=== PATIENT | male | born 1950 | race African-American/Black ===

== ENCOUNTER 2017-07-03 02:06 | Emergency (ER) | payer MEDICARE, MEDICAID ==
[2017-07-03] MEDS ORDERED: MORPHINE SULFATE 10 MG/ML INJ IV ONE (02:16)
[2017-07-03] MEDS ORDERED: ONDANSETRON HCL INJ/PF 4 MG/2 ML SDV IV ONE (02:16)
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
[2017-07-03 02:34] LABS: ABSOLUTE EOSINOPHILS # (AUTO) 0.2 10^3/uL (0.0-0.6); ABSOLUTE LYMPHOCYTES (AUTO) 1.4 10^3/uL (0.5-4.7); ABSOLUTE MONOCYTES (AUTO) 0.5 10^3/uL (0.1-1.4); ABSOLUTE NEUT (AUTO) 3.8 10^3/uL (1.7-8.2); BASOPHILS % (AUTO) 0.7 % (0-2); EOSINOPHILS % (AUTO) 2.6 % (0-6); HEMATOCRIT 37.2 % (37.9-51.0); HEMOGLOBIN 12.1 g/dL (13.5-17.0); LYMPHOCYTES % (AUTO) 23.9 % (13-45); MEAN CORPUSCULAR HEMOGLOBIN 27.7 pg (27.0-33.4); MEAN CORPUSCULAR HGB CONC 32.5 g/dL (32.0-36.0); MEAN CORPUSCULAR VOLUME 85 fl (80-97); MONOCYTES % (AUTO) 8.6 % (3-13); PLATELET COUNT 214 10^3/uL (150-450); RED BLOOD COUNT 4.37 10^6/uL (4.35-5.55); RED CELL DISTRIBUTION WIDTH 13.3 % (11.5-14.0); SEGMENTED NEUTROPHILS % (AUTO) 64.2 % (42-78); TOTAL CELLS COUNTED % (AUTO) 100 %; WHITE BLOOD COUNT 5.8 10^3/uL (4.0-10.5)
[2017-07-03] MEDS ORDERED: FENTANYL CITRATE INJ/PF 100 MCG/2 ML AMPUL ONE (02:34)
[2017-07-03] MEDS ORDERED: FENTANYL CITRATE INJ/PF 100 MCG/2 ML AMPUL IV ONE (02:35)
[2017-07-03 02:51] LABS: ALANINE AMINOTRANSFERASE 25 U/L (21-72); ALBUMIN 3.9 g/dL (3.5-5.0); ALKALINE PHOSPHATASE 75 U/L (38-126); ANION GAP 9 (5-19); ASPARTATE AMINO TRANSFERASE 29 U/L (17-59); BILIRUBIN,DIRECT 0.3 mg/dL (0.0-0.4); BILIRUBIN,TOTAL 0.3 mg/dL (0.2-1.3); BLOOD UREA NITROGEN 20 mg/dL (7-20); CALCIUM 9.2 mg/dL (8.4-10.2); CARBON DIOXIDE 26 mmol/L (22-30); CHLORIDE 103 mmol/L (98-107); GLUCOSE 105 mg/dL (75-110); POTASSIUM 4.7 mmol/L (3.6-5.0); SODIUM 138.3 mmol/L (137-145); TOTAL PROTEIN 7.1 g/dL (6.3-8.2)
[2017-07-03 03:05] LABS: APPEARANCE,URINE CLOUDY; BILIRUBIN,URINE NEGATIVE (NEGATIVE); COLOR,URINE YELLOW; GLUCOSE, URINE NEGATIVE (NEGATIVE); KETONES,URINE NEGATIVE (NEGATIVE); LEUKOCYTE ESTERASE,URINE TRACE (NEGATIVE); NITRITE,URINE NEGATIVE (NEGATIVE); PROTEIN,URINE NEGATIVE (NEGATIVE); URINE SPECIFIC GRAVITY 1.019
--- NOTE | 2017-07-03 03:05 | RADIOLOGY REPORT (SQ) ---
EXAM DESCRIPTION: CT ABDOMEN AND PELVIS WITHOUT CONTRAST CLINICAL HISTORY: Left upper and lower quadrant pain. Left flank pain. COMPARISON: None Available. TECHNIQUE: CT of the abdomen and pelvis without IV contrast. FINDINGS: Abdomen: The liver has normal size and density. No calcified gallstones. The spleen, pancreas, and adrenal glands are unremarkable. Prior left nephrectomy. No right ureteral calculi identified. Aortoiliac atherosclerosis. IVC is unremarkable. No free intraperitoneal air. The stomach and duodenum have normal course. Pelvis: Prostate is not enlarged. Urinary bladder is unremarkable. No free pelvic fluid or lymphadenopathy. No dilated loops of large or small bowel. Appendix is not identified however no definite CT evidence of appendicitis. The visualized lung bases are clear. No destructive bone lesions identified. Degenerative change of the spine. Bilateral L5/S1 pars defects with grade 1 spondylolisthesis. DLP: 245.71 mGy-cm IMPRESSION: 1. No acute inflammatory or obstructive abnormality identified. This exam was performed according to our departmental dose-optimization program, which includes automated exposure control, adjustment of the mA and/or kV according to patient size and/or use of iterative reconstruction technique.
[2017-07-03 04:17] VITALS: BP 134/67
== END 2017-07-03 03:45 | disposition home or self-care (01) ==
LOC: ER 02:06
DX: M54.5 Low back pain (principal); R10.9 Unspecified abdominal pain; X50.0XXA Overexertion from strenuous movement or load, initial encounter; F17.210 Nicotine dependence, cigarettes, uncomplicated
CPT/HCPCS: 99284; 96374; 96375; 36415; 85025; 80053; 81001; 76380; J3010; J2405

== ENCOUNTER 2018-06-30 11:52 | Inpatient (IN) | payer MEDICARE, MEDICAID ==
[2018-06-30] MEDS ORDERED: MORPHINE SULFATE 10 MG/ML INJ IV ONE ×2 (12:28→16:02)
[2018-06-30 12:35] LABS: ABSOLUTE BASOPHILS # (AUTO) 0.1 10^3/uL (0.0-0.2); ABSOLUTE EOSINOPHILS # (AUTO) 0.2 10^3/uL (0.0-0.6); ABSOLUTE LYMPHOCYTES (AUTO) 1.5 10^3/uL (0.5-4.7); ABSOLUTE MONOCYTES (AUTO) 0.4 10^3/uL (0.1-1.4); ABSOLUTE NEUT (AUTO) 2.2 10^3/uL (1.7-8.2); BASOPHILS % (AUTO) 1.3 % (0-2); EOSINOPHILS % (AUTO) 4.2 % (0-6); HEMATOCRIT 38.2 % (37.9-51.0); HEMOGLOBIN 12.6 g/dL (13.5-17.0); MEAN CORPUSCULAR HEMOGLOBIN 28.4 pg (27.0-33.4); MEAN CORPUSCULAR HGB CONC 33.1 g/dL (32.0-36.0); MEAN CORPUSCULAR VOLUME 86 fl (80-97); MONOCYTES % (AUTO) 9.6 % (3-13); PLATELET COUNT 253 10^3/uL (150-450); RED BLOOD COUNT 4.46 10^6/uL (4.35-5.55); RED CELL DISTRIBUTION WIDTH 13.5 % (11.5-14.0); SEGMENTED NEUTROPHILS % (AUTO) 50.9 % (42-78); TOTAL CELLS COUNTED % (AUTO) 100 %; WHITE BLOOD COUNT 4.3 10^3/uL (4.0-10.5)
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
[2018-06-30 12:44] LABS: APPEARANCE,URINE CLEAR; BILIRUBIN,URINE NEGATIVE (NEGATIVE); COLOR,URINE YELLOW; GLUCOSE, URINE NEGATIVE (NEGATIVE); KETONES,URINE NEGATIVE (NEGATIVE); LEUKOCYTE ESTERASE,URINE NEGATIVE (NEGATIVE); NITRITE,URINE NEGATIVE (NEGATIVE); PROTEIN,URINE 30 mg/dL (NEGATIVE); URINE SPECIFIC GRAVITY 1.016; UROBILINOGEN,URINE NEGATIVE mg/dL (<2.0)
[2018-06-30 13:56] LABS: ALANINE AMINOTRANSFERASE 14 U/L (21-72); ALBUMIN 4.1 g/dL (3.5-5.0); ALKALINE PHOSPHATASE 89 U/L (38-126); ANION GAP 7 (5-19); ASPARTATE AMINO TRANSFERASE 33 U/L (17-59); BILIRUBIN,DIRECT 0.2 mg/dL (0.0-0.4); BILIRUBIN,TOTAL 0.3 mg/dL (0.2-1.3); BLOOD UREA NITROGEN 16 mg/dL (7-20); CALCIUM 9.1 mg/dL (8.4-10.2); CARBON DIOXIDE 33 mmol/L (22-30); CHLORIDE 103 mmol/L (98-107); GLUCOSE 104 mg/dL (75-110); POTASSIUM 4.8 mmol/L (3.6-5.0); SODIUM 143.1 mmol/L (137-145); TOTAL PROTEIN 7.6 g/dL (6.3-8.2)
--- NOTE | 2018-06-30 16:13 | RADIOLOGY REPORT (SQ) ---
EXAM DESCRIPTION: CT ABD/PELVIS WITH IV ORAL COMPLETED DATE/TIME: 06/30/2018 3:55 pm REASON FOR STUDY: RLQ/ periumbilical abdominal pain COMPARISON: 07/03/2017 TECHNIQUE: CT scan of the abdomen and pelvis performed with intravenous and oral contrast using pedro yohana scanning technique with dynamic intravenous contrast injection. Images reviewed with lung, soft t issue, and bone windows. Reconstructed coronal and sagittal MPR images reviewed. Delayed images for e valuation of the urinary system also acquired. All images stored on PACS. All CT scanners at this facility use dose modulation, iterative reconstruction, and/or weight based d osing when appropriate to reduce radiation dose to as low as reasonably achievable (ALARA). [facility]: Dose Right [facility]: CareDose [facility]: Dose Right [facility]: Teradose 4D [facility]: Clerts! CONTRAST TYPE AND DOSE: contrast/concentration: Isovue 350.00 mg/ml; Total Contrast Delivered: 70.0 ml; Total Saline Delivered: 65.0 ml RENAL FUNCTION: GFR > 60. RADIATION DOSE: CT Rad equipment meets quality standard of care and radiation dose reduction techniq ues were employed. CTDIvol: 5.0 - 6.2 mGy. DLP: 590 mGy-cm. . LIMITATIONS: None. FINDINGS: LOWER CHEST: No significant findings. No nodules or infiltrates. LIVER: Normal size. No masses. No dilated ducts. SPLEEN: Normal size. No focal lesions. PANCREAS: No masses. No significant calcifications. No adjacent inflammation or peripancreatic fluid collections. Pancreatic duct not dilated. GALLBLADDER: No identified stones by CT criteria. No inflammatory changes to suggest cholecystitis. ADRENAL GLANDS: No significant masses or asymmetry. RIGHT KIDNEY AND URETER: No solid masses. No significant calcifications. No hydronephrosis or hyd roureter. LEFT KIDNEY AND URETER: Prior nephrectomy. AORTA AND VESSELS: No aneurysm. No dissection. Renal arteries, SMA, celiac without stenosis. RETROPERITONEUM: No retroperitoneal adenopathy, hemorrhage or masses. BOWEL AND PERITONEAL CAVITY: Sigmoid diverticulosis. Dilated loops of small bowel with air-fluid lev els centrally. No clear transition. Gas and fecal material in the colon. No free air or ascites. APPENDIX: Not visualized. PELVIS: No significant masses. Normal bladder. No free fluid. ABDOMINAL WALL: No masses. No hernias. BONES: Nothing acute. OTHER: No other significant finding. IMPRESSION: Ileus or partial small bowel obstruction. Left nephrectomy. TECHNICAL DOCUMENTATION: JOB ID: [id number] Quality ID # [id number]: Final reports with documentation of one or more dose reduction techniques (e.g., Au tomated exposure control, adjustment of the mA and/or kV according to patient size, use of iterative reconstruction technique) 2010 [employer]- All Rights Reserved Reading location - IP/workstation name: [email or web address]
[2018-06-30] MEDS ORDERED: PHARMACY COMMUNICATION ORDER MC NR (17:15)
[2018-06-30] MEDS ORDERED: MIDAZOLAM 2 MG/2 ML INJ IV ONE (17:33)
--- NOTE | 2018-06-30 18:44 | RADIOLOGY REPORT (SQ) ---
EXAM DESCRIPTION: KUB/ABDOMEN (SINGLE VIEW) COMPLETED DATE/TIME: 06/30/2018 6:11 pm REASON FOR STUDY: Check Placement of NG Tube COMPARISON: None. NUMBER OF VIEWS: One view. TECHNIQUE: Supine radiographic image of the abdomen acquired. LIMITATIONS: None. FINDINGS: BOWEL GAS PATTERN: Few dilated mid abdominal small bowel loops. Colonic gas and fecal mat ure. CALCIFICATIONS: No suspicious calcifications. SOFT TISSUES: No gross mass or suggestion of organomegaly. HARDWARE: Surgical clips in left abdomen. Nasogastric tube tip in the stomach. BONES: No acute fracture. No worrisome bone lesions. OTHER: No other significant finding. IMPRESSION: Nasogastric tube tip in the stomach. No obvious obstruction. TECHNICAL DOCUMENTATION: JOB ID: [id number] [employer]- All Rights Reserved Reading location - IP/workstation name: [email or web address]
[2018-06-30] MEDS: DEXTROSE 5%-LACTATED RINGERS 1,000 ML IV PRN (20:28)
[2018-06-30] MEDS: KETOROLAC TROMETHAMINE INJ/PF 30 MG/1 ML SDV IV PRN (20:28)
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
[2018-07-01] MEDS: ONDANSETRON HCL INJ/PF 4 MG/2 ML SDV IV PRN ×2 (04:21→15:21)
[2018-07-01 06:21] LABS: ABSOLUTE EOSINOPHILS # (AUTO) 0.1 10^3/uL (0.0-0.6); ABSOLUTE LYMPHOCYTES (AUTO) 0.8 10^3/uL (0.5-4.7); ABSOLUTE MONOCYTES (AUTO) 0.4 10^3/uL (0.1-1.4); ABSOLUTE NEUT (AUTO) 4.8 10^3/uL (1.7-8.2); BASOPHILS % (AUTO) 0.4 % (0-2); EOSINOPHILS % (AUTO) 0.9 % (0-6); HEMATOCRIT 39.3 % (37.9-51.0); LYMPHOCYTES % (AUTO) 13.6 % (13-45); MEAN CORPUSCULAR HEMOGLOBIN 28.4 pg (27.0-33.4); MEAN CORPUSCULAR HGB CONC 33.1 g/dL (32.0-36.0); MEAN CORPUSCULAR VOLUME 86 fl (80-97); MONOCYTES % (AUTO) 6.2 % (3-13); PLATELET COUNT 222 10^3/uL (150-450); RED BLOOD COUNT 4.57 10^6/uL (4.35-5.55); RED CELL DISTRIBUTION WIDTH 13.1 % (11.5-14.0); SEGMENTED NEUTROPHILS % (AUTO) 78.9 % (42-78); TOTAL CELLS COUNTED % (AUTO) 100 %; WHITE BLOOD COUNT 6.1 10^3/uL (4.0-10.5)
[2018-07-01 06:53] LABS: ALANINE AMINOTRANSFERASE 16 U/L (21-72); ALBUMIN 3.8 g/dL (3.5-5.0); ALKALINE PHOSPHATASE 72 U/L (38-126); ANION GAP 8 (5-19); ASPARTATE AMINO TRANSFERASE 30 U/L (17-59); BILIRUBIN,DIRECT 0.3 mg/dL (0.0-0.4); BILIRUBIN,TOTAL 0.5 mg/dL (0.2-1.3); BLOOD UREA NITROGEN 15 mg/dL (7-20); CARBON DIOXIDE 31 mmol/L (22-30); CHLORIDE 102 mmol/L (98-107); GLUCOSE 121 mg/dL (75-110); POTASSIUM 4.1 mmol/L (3.6-5.0); SODIUM 140.5 mmol/L (137-145); TOTAL PROTEIN 7.2 g/dL (6.3-8.2)
[2018-07-01] MEDS: KETOROLAC TROMETHAMINE INJ/PF 30 MG/1 ML SDV IV PRN (08:09)
[2018-07-01] MEDS: ENOXAPARIN SODIUM INJ 40 MG/0.4 ML DISP.SYRIN SUBCUT SCH (09:08)
--- NOTE | 2018-07-01 09:33 | RADIOLOGY REPORT (SQ) ---
EXAM DESCRIPTION: KUB/ABDOMEN (SINGLE VIEW) COMPLETED DATE/TIME: 07/01/2018 9:05 am REASON FOR STUDY: sbo COMPARISON: CT abdomen pelvis 06/30/2018 KUB 06/30/2018 NUMBER OF VIEWS: One view. TECHNIQUE: Supine radiographic image of the abdomen acquired. LIMITATIONS: None. FINDINGS: BOWEL GAS PATTERN: Persistent dilated small bowel loops in the mid abdomen out of proporti on to colon and stomach. Findings are worrisome for persistent closed loop small-bowel obstruction o r partial small bowel obstruction. Findings discussed with Dr. Alamo. CALCIFICATIONS: No suspicious calcifications. SOFT TISSUES: No gross mass or suggestion of organomegaly. HARDWARE: Left para aortic surgical clips post nephrectomy. Nasogastric tube tip and side port in th e stomach. BONES: No acute fracture. No worrisome bone lesions. OTHER: No other significant finding. IMPRESSION: Persistent dilated mid small bowel loops worrisome for closed loop obstruction or partia l small bowel obstruction TECHNICAL DOCUMENTATION: JOB ID: [id number] [employer]- All Rights Reserved Reading location - IP/workstation name: [email or web address]
[2018-07-01] MEDS ORDERED: SUCCINYLCHOLINE CHLORIDE INJ 200 MG/10 ML VIAL ONE (10:33)
[2018-07-01] MEDS ORDERED: ROCURONIUM BROMIDE INJ 50 MG/5 ML VIAL IV ONE (10:33)
--- NOTE | 2018-07-01 11:49 | PDOC PROGRESS REPORT ---
Subjective Progress Note for:: 07/01/18 Subjective:: Patient on floor; drain 800 cc of dark gastric contents overnight. Denies flatus; still having pain in the abdomen; received Toradol before surgeon examination Reason For Visit: SMALL BOWEL OBSTRUCTION Physical Exam Vital Signs: Temp Pulse Resp BP Pulse Ox 99.1 F 96 16 168/94 H 100 07/01/18 07:45 07/01/18 07:45 07/01/18 07:45 07/01/18 07:45 07/01/18 07:45 Intake & Output 06/30/18 07/01/18 07/02/18 06:59 06:59 06:59 Intake Total 540 1000 Output Total 675 Balance -135 1000 Weight 61.9 kg General appearance: PRESENT: no acute distress GI/Abdominal exam: PRESENT: other - The abdomen is slightly distended there is diffuse tenderness but no rigidity. Groins examined and no hernia identified. Results Laboratory Results: 07/01/18 05:20 07/01/18 05:20 06/30/18 06/30/18 06/30/18 11:56 11:56 12:30 WBC 4.3 RBC 4.46 Hgb 12.6 L Hct 38.2 MCV 86 MCH 28.4 MCHC 33.1 RDW 13.5 Plt Count 253 Seg Neutrophils % 50.9 Lymphocytes % 34.0 Monocytes % 9.6 Eosinophils % 4.2 Basophils % 1.3 Absolute Neutrophils 2.2 Absolute Lymphocytes 1.5 Absolute Monocytes 0.4 Absolute Eosinophils 0.2 Absolute Basophils 0.1 Sodium Cancelled Potassium Cancelled Chloride Cancelled Carbon Dioxide Cancelled Anion Gap Cancelled BUN Cancelled Creatinine Cancelled Est GFR ( Amer) Cancelled Est GFR (Non-Af Amer) Cancelled Glucose Cancelled Calcium Cancelled Magnesium Cancelled Total Bilirubin Cancelled AST Cancelled ALT Cancelled Alkaline Phosphatase Cancelled Total Protein Cancelled Albumin Cancelled Urine Color YELLOW Urine Appearance CLEAR Urine pH 7.0 Ur Specific [place] 1.016 Urine Protein 30 H Urine Glucose (UA) NEGATIVE Urine Ketones NEGATIVE Urine Blood NEGATIVE Urine Nitrite NEGATIVE Ur Leukocyte Esterase NEGATIVE Urine WBC (Auto) 9 Urine RBC (Auto) 1 06/30/18 07/01/18 07/01/18 13:16 05:20 05:20 WBC 6.1 RBC 4.57 Hgb 13.0 L Hct 39.3 MCV 86 MCH 28.4 MCHC 33.1 RDW 13.1 Plt Count 222 Seg Neutrophils % 78.9 H Lymphocytes % 13.6 Monocytes % 6.2 Eosinophils % 0.9 Basophils % 0.4 Absolute Neutrophils 4.8 Absolute Lymphocytes 0.8 Absolute Monocytes 0.4 Absolute Eosinophils 0.1 Absolute Basophils 0.0 Sodium 143.1 140.5 Potassium 4.8 4.1 Chloride 103 102 Carbon Dioxide 33 H 31 H Anion Gap 7 8 BUN 16 15 Creatinine 0.87 0.87 Est GFR ( Amer) > 60 > 60 Est GFR (Non-Af Amer) > 60 > 60 Glucose 104 121 H Calcium 9.1 9.0 Magnesium 2.2 Total Bilirubin 0.3 0.5 AST 33 30 ALT 14 L 16 L Alkaline Phosphatase 89 72 Total Protein 7.6 7.2 Albumin 4.1 3.8 Urine Color Urine Appearance Urine pH Ur Specific [place] Urine Protein Urine Glucose (UA) Urine Ketones Urine Blood Urine Nitrite Ur Leukocyte Esterase Urine WBC (Auto) Urine RBC (Auto) Impressions: Abdomen/Pelvis CT 06/30/18 00:00 IMPRESSION: Ileus or partial small bowel obstruction. Left nephrectomy. KUB X-Ray 07/01/18 08:00 IMPRESSION: Persistent dilated mid small bowel loops worrisome for closed loop obstruction or partial small bowel obstruction Assessment & Plan - Diagnosis (1) Small bowel obstruction due to adhesions Is this a current diagnosis for this admission?: Yes Plan: Impression: Patient now 15 hours status post admission, nasogastric tube insertion IV fluids n.p.o. status for small bowel obstruction. Patient does not appear to be significantly improved clinically Recommendations: 1. Abdominal film this morning shows persisting dilated small bowel loops. 2. I have suggested we will pain medication. Patient continues to have pain, distention and no return of bowel function over the next 6 hours, he will require exploratory surgery. He understands this and agrees to proceed with recommended plan.
--- NOTE | 2018-07-01 15:34 | RADIOLOGY REPORT (SQ) ---
EXAM DESCRIPTION: UPPER GI/SM BOWEL COMPLETED DATE/TIME: 07/01/2018 REASON FOR STUDY: r/o mechanical obstruction COMPARISON: CT abdomen pelvis 07/03/2017, 07/08/2018 TECHNIQUE: Ingestion of Gastrografin while being imaged with digital spot and plain films. RADIATION DOSE: 1 minutes 27 seconds 18 digital images saved to PACS. LIMITATIONS: None FINDINGS: Gastrografin was instilled through the patient's pre-existing nasogastric tube. There is delayed gastric emptying, with decreased gastric motility. The duodenum bulb and C-loop is abnormal, with diffuse mucosal edema. Patient vomited the majority of the gastric contents by the 15 minutes film. On the 15 minutes film, there is persistent dilatation of mid small bowel loops in the mid epigastrium with air-fluid levels . Subsequent 30 minutes and 45 minutes films show persistent dilatation of mid and distal small bowel l oops in the mid epigastrium. Pooling of contrast in the stomach fundus. Nasogastric tube tip and si de port in the stomach. Clips post left nephrectomy. Results discussed with Dr. Alamo IMPRESSION: Persistent small bowel obstruction Slow gastric emptying with mucosal edema along the duodenum COMMENT: Quality ID [id number]: Final reports for procedures using fluoroscopy that document radiation exp osure indices, or exposure time and number of fluorographic images (if radiation exposure indices are not available) TECHNICAL DOCUMENTATION: JOB ID: [id number] All Rights Reserved Reading location - IP/workstation name: [email or web address]
[2018-07-01] MEDS ORDERED: FENTANYL CITRATE INJ/PF 100 MCG/2 ML AMPUL ONE ×2 (16:55→20:56)
[2018-07-01] MEDS ORDERED: ACETAMINOPHEN 1,000 MG/100 ML RTUPB IV ONE (16:56)
[2018-07-01] MEDS ORDERED: DEXAMETHASONE SOD PHOSPHATE INJ 4 MG/1 ML VIAL ONE (16:56)
[2018-07-01] MEDS ORDERED: PROPOFOL INJ 200 MG/20 ML VIAL IV ONE (16:56)
[2018-07-01] MEDS ORDERED: ONDANSETRON HCL INJ/PF 4 MG/2 ML SDV ONE (16:56)
[2018-07-01] MEDS ORDERED: HYDROMORPHONE HCL INJ/PF 2 MG/ML AMPULE ONE ×2 (16:56→20:59)
[2018-07-01] MEDS ORDERED: MIDAZOLAM 2 MG/2 ML INJ ONE (16:56)
[2018-07-01] MEDS ORDERED: AMPICILLIN SOD/SULBACTAM 1.5 GM VIAL ONE (17:52)
[2018-07-01] MEDS ORDERED: SUGAMMADEX SODIUM 200 MG/2 ML SDV IV ONE (18:24)
[2018-07-01] MEDS ORDERED: DIPHENHYDRAMINE HCL 50 MG/ML VIAL IV PRN (18:35)
[2018-07-01] MEDS ORDERED: PROMETHAZINE HCL INJ 25 MG/1 ML VIAL IV PRN (18:35)
[2018-07-01] MEDS ORDERED: MORPHINE SULFATE 10 MG/ML INJ IV PRN (18:35)
[2018-07-01] MEDS ORDERED: MEPERIDINE HCL/PF INJ 25 MG/1 ML DISP.SYRIN IV PRN (18:35)
[2018-07-01] MEDS ORDERED: FENTANYL CITRATE INJ/PF 100 MCG/2 ML AMPUL IV PRN ×3 (18:35)
[2018-07-01] MEDS ORDERED: METOPROLOL TARTRATE PF/INJ 5 MG/5 ML SDV IV ONE (20:21)
--- NOTE | 2018-07-01 20:33 | Operative Report ---
Operative Report DATE OF SURGERY: 07/01/18 PREOPERATIVE DIAGNOSIS: 1. Small bowel obstruction. 2. Previous exploratory laparotomy, left nephrectomy for blunt trauma POSTOPERATIVE DIAGNOSIS: Same including multiple abdominal wall hernias and. urethral obstruction, chronic OPERATION: 1. Exploratory laparotomy. 2. Extensive lysis of adhesions. 3. Placement of operative suprapubic catheter, 16 Sammarinese [place]. 4. Drainage of pelvis SURGEON: NOEMI ALAMO ANESTHESIA: GA TISSUE REMOVED OR ALTERED: See below COMPLICATIONS: None ESTIMATED BLOOD LOSS: 200 cc INTRAOPERATIVE FINDINGS: See below PROCEDURE: The patient was taken from the preop holding her to the main operating room wh ere general anesthesia was induced. Calvo catheter previously placed was hooked to suction. An attempt was made by the nursing staff to place a conventional 16 [place] Calvo catheter but was unsuccessful due to an obstruction at the proximal urethra. Dr. Alamo subsequently attempted to place a coud catheter for 16 Sammarinese then 18 then 20 Sammarinese and all 3 times, there was impediment to passage of the catheter at the level of the proximal urethra consistent with an obstruction. Additional attempts were made to place the coud catheter, 18 and 20 Sammar[place] respectively using the stiff, metallic stylette but again due to excessive assistance, we could not advance the catheter. Therefore this approach was aborted. Because there is no urologist available to perform additional maneuvers to i nsert a transurethral catheter, we decided to place a suprapubic catheter. Because the patient had previous extensive abdominal surgery, and because we are going to be in the peritoneal cavity, I felt that placing the suprapubic tube during the intra-abdominal portion of the procedure would be most appropriate. The abdomen was then clipped of all hair, prepped and draped in sterile fashion including the genitalia. A second surgical timeout was conducted as well as a discussion of the plan. The abdomen was now opened through the previous midline incision above and below the umbilicus for a length of approximately 25 cm. There was extensive scar tissue, including loops of small bowel and colon herniating through the anterior abdominal abdominal wall midline incision primarily in the epigastric area. Tedious dissection was required using scissor and knife to free up the small bowel loops as well as the transverse colon. We then eventually got both the left and right abdominal wall flaps elevated off of the peritoneum. We now embarked on approximately 1/2-hour extensive lysis of adhesions. Most of the adhesions were filmy, but somewhat rather tenacious. We freed up the entire length of the small bowel from the ligament of Treitz all the way to the ileocecal junction. The appendix appeared normal. We did not take the transverse colon down from the delores or the liver due to extensive adhesions in this area. Bleeding was mild at times. Periodic irrigations were performed. Of note there was no enterotomy or colotomy made during the dissection. We did take the transverse colon down off the anterior abdominal wall, and visualized and then subsequently palpated the midportion of the stomach. We confirmed the nasogastric tube to be in good position. We placed a large Ward drain to the left lower quadrant abdominal wall and tucked it into the true pelvis. Of note the patient had extensive diverticulosis of the sigmoid colon and upper rectum. We now placed the operative suprapubic catheter. A small joya was made in the skin above the pubic area, and below her midline incision. We brought onto the field a 16 Sammarinese percutaneous Hector catheter with a combined sharp trocar. We the bladder minimally from the intra-abdominal wall so that we can secure it with our hands as the bladder had some urine in the. An attempt was made to pass the catheter using the trocar through the intra-abdominal wall into the bladder but efforts were unsuccessful because of the significant scar tissue in the suprapubic area, and the elapsed state of the bladder. Therefore I felt that it was necessary to place the tube open The bladder anteriorly was from the pelvic wall such that we can Place Allis clamps on the bladder elevating it cephalad. A suitable site for placement of the suprapubic tube was chosen on the anterior lateral wall. A pursestring of 2-0 Vicryl was sewn in the external muscular layer. Hemostats and Bovie were used to enter the bladder proper. We then threaded the suprapubic catheter through the abdominal wall, and then directly into the bladder. The bladder was irrigated several times to confirm we are in the b ladder proper. I allow the tip of the catheter to sit in the deep portion of the bladder consistent with the trigone. Pursestring was secured and an additional pursestring was placed secondarily. We then allowed the bladder to come into opposition with the anterior abdominal wall. The catheter was secured at multiple sites with 2-0 Prolene suture to the patient's skin. We did irrigate the catheter out several times and once the bladder was free of any clots, which were minimal, we hooked the catheter to the standard Calvo drainage bag We returned the peritoneal cavity check for any mechanical bleeding there was none. A large piece of Seprafilm was placed over the exposed viscera and the anterior abdominal wall closed with 2 double-stranded #1 PDS sutures; Hooked the drain to bulb suction. The patient tolerated the procedure well, extubated and taken recovery room in stable condition.
[2018-07-01] MEDS ORDERED: KETOROLAC TROMETHAMINE INJ/PF 30 MG/1 ML SDV IV PRN (20:36)
[2018-07-01] MEDS ORDERED: RINGERS SOLUTION,LACTATED 1,000 ML IV PRN (20:37)
[2018-07-01] MEDS ORDERED: AMPICILLIN SODIUM/SULBACTAM NA 3 GM in NORMAL SALINE 100 ML IV SCH (22:00)
[2018-07-02] MEDS ORDERED: ACETAMINOPHEN INJ/PF 1000 MG/100 ML SDV IV SCH
[2018-07-02] MEDS: ACETAMINOPHEN 1,000 MG/100 ML RTUPB IV SCH ×5 (00:24→23:47)
[2018-07-02] MEDS: AMPICILLIN SODIUM/SULBACTAM NA 3 GM in NORMAL SALINE 100 ML IV SCH ×3 (07:25→21:00)
--- NOTE | 2018-07-02 08:46 | PDOC PROGRESS REPORT ---
Subjective Progress Note for:: 07/02/18 Reason For Visit: SMALL BOWEL OBSTRUCTION Physical Exam Vital Signs: Temp Pulse Resp BP Pulse Ox 98.2 F 95 17 154/83 H 97 07/02/18 00:35 07/02/18 00:35 07/02/18 00:35 07/02/18 00:35 07/02/18 00:35 Intake & Output 07/01/18 07/02/18 07/03/18 06:59 06:59 06:59 Intake Total 540 6537 153 Output Total 675 3340 Balance -135 3197 153 Weight 61.9 kg 63 kg General appearance: PRESENT: no acute distress Eye exam: PRESENT: EOMI Respiratory exam: PRESENT: clear to auscultation sherly, unlabored Cardiovascular exam: PRESENT: RRR Pulses: PRESENT: normal radial pulses, normal femoral pulses GI/Abdominal exam: PRESENT: soft, other - wound dry Extremities exam: PRESENT: full ROM Musculoskeletal exam: PRESENT: full ROM Results Laboratory Results: 07/01/18 05:20 07/01/18 05:20 Impressions: Abdomen/Pelvis CT 06/30/18 00:00 IMPRESSION: Ileus or partial small bowel obstruction. Left nephrectomy. KUB X-Ray 07/01/18 08:00 IMPRESSION: Persistent dilated mid small bowel loops worrisome for closed loop obstruction or partial small bowel obstruction Upper GI and Small Bowel X-Ray 07/01/18 13:22 IMPRESSION: Persistent small bowel obstruction Slow gastric emptying with mucosal edema along the duodenum Assessment & Plan - Plan Summary Plan Summary: s/p lap for lysis of adhesions s/p suprpubic cath for inablity to pass mak feels ok this am except for incisional pain no labs this am plan out of bed to chair check labs cont ng.
[2018-07-02] MEDS: MORPHINE SULFATE 10 MG/ML INJ IV PRN ×2 (09:43→18:46)
[2018-07-02] MEDS: ENOXAPARIN SODIUM INJ 40 MG/0.4 ML DISP.SYRIN SUBCUT SCH ×2 (09:43→09:46)
[2018-07-02 10:55] LABS: ABSOLUTE MONOCYTES (AUTO) 0.6 10^3/uL (0.1-1.4); ABSOLUTE NEUT (AUTO) 9.9 10^3/uL (1.7-8.2); BASOPHILS % (AUTO) 0.2 % (0-2); EOSINOPHILS % (AUTO) 0.1 % (0-6); HEMATOCRIT 35.9 % (37.9-51.0); HEMOGLOBIN 11.8 g/dL (13.5-17.0); LYMPHOCYTES % (AUTO) 9.1 % (13-45); MEAN CORPUSCULAR HEMOGLOBIN 28.4 pg (27.0-33.4); MEAN CORPUSCULAR VOLUME 86 fl (80-97); MONOCYTES % (AUTO) 5.1 % (3-13); PLATELET COUNT 209 10^3/uL (150-450); RED BLOOD COUNT 4.17 10^6/uL (4.35-5.55); RED CELL DISTRIBUTION WIDTH 13.3 % (11.5-14.0); SEGMENTED NEUTROPHILS % (AUTO) 85.5 % (42-78); TOTAL CELLS COUNTED % (AUTO) 100 %; WHITE BLOOD COUNT 11.5 10^3/uL (4.0-10.5)
[2018-07-02 11:08] LABS: BLOOD UREA NITROGEN 18 mg/dL (7-20); CALCIUM 8.5 mg/dL (8.4-10.2); GLUCOSE 103 mg/dL (75-110); POTASSIUM 4.5 mmol/L (3.6-5.0)
[2018-07-02 11:15] LABS: CARBON DIOXIDE 35 mmol/L (22-30); CHLORIDE 102 mmol/L (98-107); SODIUM 141.3 mmol/L (137-145)
[2018-07-02 11:19] LABS: ANION GAP 4 (5-19)
[2018-07-02] MEDS: DEXTROSE 5%-LACTATED RINGERS 1,000 ML IV PRN (12:08)
[2018-07-02] MEDS: HYDRALAZINE HCL INJ/PF 20 MG/1 ML SDV IV PRN (21:00)
[2018-07-03] MEDS: DEXTROSE 5%-LACTATED RINGERS 1,000 ML IV PRN (02:33)
[2018-07-03] MEDS: MORPHINE SULFATE 10 MG/ML INJ IV PRN ×2 (02:36→08:49)
[2018-07-03] MEDS: ACETAMINOPHEN 1,000 MG/100 ML RTUPB IV SCH ×3 (05:05→17:53)
[2018-07-03] MEDS: AMPICILLIN SODIUM/SULBACTAM NA 3 GM in NORMAL SALINE 100 ML IV SCH ×3 (05:20→21:24)
[2018-07-03 07:21] LABS: ABSOLUTE EOSINOPHILS # (AUTO) 0.1 10^3/uL (0.0-0.6); ABSOLUTE MONOCYTES (AUTO) 0.5 10^3/uL (0.1-1.4); ABSOLUTE NEUT (AUTO) 5.4 10^3/uL (1.7-8.2); BASOPHILS % (AUTO) 0.6 % (0-2); EOSINOPHILS % (AUTO) 1.7 % (0-6); HEMATOCRIT 30.6 % (37.9-51.0); HEMOGLOBIN 10.1 g/dL (13.5-17.0); LYMPHOCYTES % (AUTO) 14.8 % (13-45); MEAN CORPUSCULAR HEMOGLOBIN 28.5 pg (27.0-33.4); MEAN CORPUSCULAR HGB CONC 32.9 g/dL (32.0-36.0); MEAN CORPUSCULAR VOLUME 87 fl (80-97); MONOCYTES % (AUTO) 6.4 % (3-13); PLATELET COUNT 167 10^3/uL (150-450); RED BLOOD COUNT 3.52 10^6/uL (4.35-5.55); RED CELL DISTRIBUTION WIDTH 13.2 % (11.5-14.0); SEGMENTED NEUTROPHILS % (AUTO) 76.5 % (42-78); TOTAL CELLS COUNTED % (AUTO) 100 %; WHITE BLOOD COUNT 7.1 10^3/uL (4.0-10.5)
[2018-07-03 07:40] LABS: BLOOD UREA NITROGEN 14 mg/dL (7-20); CALCIUM 8.3 mg/dL (8.4-10.2); GLUCOSE 93 mg/dL (75-110); POTASSIUM 4.1 mmol/L (3.6-5.0)
[2018-07-03 07:46] LABS: ANION GAP 6 (5-19); CARBON DIOXIDE 32 mmol/L (22-30); CHLORIDE 102 mmol/L (98-107)
[2018-07-03] MEDS: ENOXAPARIN SODIUM INJ 40 MG/0.4 ML DISP.SYRIN SUBCUT SCH (09:12)
--- NOTE | 2018-07-03 11:29 | PDOC PROGRESS REPORT ---
Subjective Progress Note for:: 07/03/18 Reason For Visit: SMALL BOWEL OBSTRUCTION Physical Exam Vital Signs: Temp Pulse Resp BP Pulse Ox 98.0 F 97 17 165/86 H 94 07/03/18 07:40 07/03/18 07:40 07/03/18 07:40 07/03/18 07:40 07/03/18 07:40 Intake & Output 07/02/18 07/03/18 07/04/18 06:59 06:59 06:59 Intake Total 6546 1853 Output Total 3349 9880 Balance 3197 -216 Weight 63 kg 68.1 kg Results Laboratory Results: 07/03/18 07:06 07/03/18 07:06 07/03/18 07/03/18 07:06 07:06 WBC 7.1 RBC 3.52 L Hgb 10.1 L Hct 30.6 L MCV 87 MCH 28.5 MCHC 32.9 RDW 13.2 Plt Count 167 Seg Neutrophils % 76.5 Lymphocytes % 14.8 Monocytes % 6.4 Eosinophils % 1.7 Basophils % 0.6 Absolute Neutrophils 5.4 Absolute Lymphocytes 1.0 Absolute Monocytes 0.5 Absolute Eosinophils 0.1 Absolute Basophils 0.0 Sodium 140.0 Potassium 4.1 Chloride 102 Carbon Dioxide 32 H Anion Gap 6 BUN 14 Creatinine 0.89 Est GFR ( Amer) > 60 Est GFR (Non-Af Amer) > 60 Glucose 93 Calcium 8.3 L Impressions: Abdomen/Pelvis CT 06/30/18 00:00 IMPRESSION: Ileus or partial small bowel obstruction. Left nephrectomy. KUB X-Ray 07/01/18 08:00 IMPRESSION: Persistent dilated mid small bowel loops worrisome for closed loop obstruction or partial small bowel obstruction Upper GI and Small Bowel X-Ray 07/01/18 13:22 IMPRESSION: Persistent small bowel obstruction Slow gastric emptying with mucosal edema along the duodenum Assessment & Plan - Diagnosis (1) Small bowel obstruction due to adhesions Is this a current diagnosis for this admission?: Yes - Plan Summary Plan Summary: 67-year-old male status post exploratory laparotomy for small bowel obstruction. The patient also had a suprapubic catheter placed due to urinary obstruction. The patient is doing reasonably well today. His pain is relatively well controlled. I have encouraged him to increase his ambulation today. I have also recommended he use his incentive spirometer. Maintain NG tube until bowel function returns. Aggressive pulmonary toilet. Okay for popsicles and ice chips. Okay to shower. Repeat labs tomorrow. DVT prophylaxis.
[2018-07-03] MEDS: KETOROLAC TROMETHAMINE INJ/PF 30 MG/1 ML SDV IV SCH ×2 (13:30→21:25)
[2018-07-03] MEDS: FAMOTIDINE INJ/PF 20 MG/2 ML SDV IV SCH ×2 (13:36→21:25)
[2018-07-04] MEDS: ACETAMINOPHEN 1,000 MG/100 ML RTUPB IV SCH ×5 (01:35→20:51)
[2018-07-04 05:26] LABS: ABSOLUTE EOSINOPHILS # (AUTO) 0.4 10^3/uL (0.0-0.6); ABSOLUTE LYMPHOCYTES (AUTO) 1.2 10^3/uL (0.5-4.7); ABSOLUTE MONOCYTES (AUTO) 0.4 10^3/uL (0.1-1.4); ABSOLUTE NEUT (AUTO) 3.7 10^3/uL (1.7-8.2); BASOPHILS % (AUTO) 0.6 % (0-2); EOSINOPHILS % (AUTO) 6.3 % (0-6); HEMATOCRIT 30.6 % (37.9-51.0); HEMOGLOBIN 10.1 g/dL (13.5-17.0); LYMPHOCYTES % (AUTO) 20.9 % (13-45); MEAN CORPUSCULAR HEMOGLOBIN 28.3 pg (27.0-33.4); MEAN CORPUSCULAR HGB CONC 33.1 g/dL (32.0-36.0); MEAN CORPUSCULAR VOLUME 86 fl (80-97); MONOCYTES % (AUTO) 7.5 % (3-13); PLATELET COUNT 197 10^3/uL (150-450); RED BLOOD COUNT 3.57 10^6/uL (4.35-5.55); RED CELL DISTRIBUTION WIDTH 12.9 % (11.5-14.0); SEGMENTED NEUTROPHILS % (AUTO) 64.7 % (42-78); TOTAL CELLS COUNTED % (AUTO) 100 %; WHITE BLOOD COUNT 5.8 10^3/uL (4.0-10.5)
[2018-07-04 05:42] LABS: BLOOD UREA NITROGEN 10 mg/dL (7-20); CALCIUM 8.4 mg/dL (8.4-10.2); GLUCOSE 96 mg/dL (75-110); POTASSIUM 3.9 mmol/L (3.6-5.0)
[2018-07-04 05:48] LABS: CARBON DIOXIDE 34 mmol/L (22-30); CHLORIDE 102 mmol/L (98-107); SODIUM 139.6 mmol/L (137-145)
[2018-07-04 05:51] LABS: ANION GAP 4 (5-19)
[2018-07-04] MEDS: DEXTROSE 5%-LACTATED RINGERS 1,000 ML IV PRN ×2 (06:19→20:51)
[2018-07-04] MEDS: KETOROLAC TROMETHAMINE INJ/PF 30 MG/1 ML SDV IV SCH ×3 (06:19→22:16)
[2018-07-04] MEDS: HYDRALAZINE HCL INJ/PF 20 MG/1 ML SDV IV PRN ×2 (08:01→11:14)
[2018-07-04] MEDS: ENOXAPARIN SODIUM INJ 40 MG/0.4 ML DISP.SYRIN SUBCUT SCH (09:33)
[2018-07-04] MEDS: FAMOTIDINE INJ/PF 20 MG/2 ML SDV IV SCH ×2 (09:47→22:16)
[2018-07-04] MEDS: MORPHINE SULFATE 10 MG/ML INJ IV PRN (12:40)
--- NOTE | 2018-07-04 14:13 | PDOC PROGRESS REPORT ---
Subjective Reason For Visit: SMALL BOWEL OBSTRUCTION Physical Exam Vital Signs: Temp Pulse Resp BP Pulse Ox 98.0 F 96 16 148/81 H 98 07/04/18 11:10 07/04/18 11:45 07/04/18 11:10 07/04/18 11:45 07/04/18 11:10 Intake & Output 07/03/18 07/04/18 07/05/18 06:59 06:59 06:59 Intake Total 1853 1860 Output Total 2120 2440 Balance -267 -580 Weight 68.1 kg 67.2 kg Results Laboratory Results: 07/04/18 05:16 07/04/18 05:16 07/04/18 07/04/18 05:16 05:16 WBC 5.8 RBC 3.57 L Hgb 10.1 L Hct 30.6 L MCV 86 MCH 28.3 MCHC 33.1 RDW 12.9 Plt Count 197 Seg Neutrophils % 64.7 Lymphocytes % 20.9 Monocytes % 7.5 Eosinophils % 6.3 H Basophils % 0.6 Absolute Neutrophils 3.7 Absolute Lymphocytes 1.2 Absolute Monocytes 0.4 Absolute Eosinophils 0.4 Absolute Basophils 0.0 Sodium 139.6 Potassium 3.9 Chloride 102 Carbon Dioxide 34 H Anion Gap 4 L BUN 10 Creatinine 0.88 Est GFR ( Amer) > 60 Est GFR (Non-Af Amer) > 60 Glucose 96 Calcium 8.4 Impressions: Abdomen/Pelvis CT 06/30/18 00:00 IMPRESSION: Ileus or partial small bowel obstruction. Left nephrectomy. KUB X-Ray 07/01/18 08:00 IMPRESSION: Persistent dilated mid small bowel loops worrisome for closed loop obstruction or partial small bowel obstruction Upper GI and Small Bowel X-Ray 07/01/18 13:22 IMPRESSION: Persistent small bowel obstruction Slow gastric emptying with mucosal edema along the duodenum Assessment & Plan - Diagnosis (1) Small bowel obstruction due to adhesions Is this a current diagnosis for this admission?: Yes - Plan Summary Plan Summary: 67-year-old male status post exploratory laparotomy for small bowel obstruction. The patient also had a suprapubic catheter placed due to urinary obstruction. The patient is doing reasonably well today. His pain is relatively well controlled. I have encouraged him to increase his ambulation today. I have also recommended he use his incentive spirometer. He denies flatus or BM. Maintain NG tube until bowel function returns. Aggressive pulmonary toilet. Okay for popsicles and ice chips. Okay to shower. Repeat labs tomorrow. DVT prophylaxis.
[2018-07-05] MEDS: ACETAMINOPHEN 1,000 MG/100 ML RTUPB IV SCH ×4 (02:13→21:33)
[2018-07-05] MEDS: KETOROLAC TROMETHAMINE INJ/PF 30 MG/1 ML SDV IV SCH ×3 (05:07→21:34)
[2018-07-05 06:44] LABS: ABSOLUTE EOSINOPHILS # (AUTO) 0.4 10^3/uL (0.0-0.6); ABSOLUTE LYMPHOCYTES (AUTO) 1.1 10^3/uL (0.5-4.7); ABSOLUTE MONOCYTES (AUTO) 0.4 10^3/uL (0.1-1.4); ABSOLUTE NEUT (AUTO) 3.2 10^3/uL (1.7-8.2); BASOPHILS % (AUTO) 0.9 % (0-2); HEMATOCRIT 30.9 % (37.9-51.0); HEMOGLOBIN 10.1 g/dL (13.5-17.0); LYMPHOCYTES % (AUTO) 21.2 % (13-45); MEAN CORPUSCULAR HEMOGLOBIN 27.9 pg (27.0-33.4); MEAN CORPUSCULAR HGB CONC 32.7 g/dL (32.0-36.0); MEAN CORPUSCULAR VOLUME 85 fl (80-97); MONOCYTES % (AUTO) 8.1 % (3-13); PLATELET COUNT 213 10^3/uL (150-450); RED BLOOD COUNT 3.62 10^6/uL (4.35-5.55); RED CELL DISTRIBUTION WIDTH 12.7 % (11.5-14.0); SEGMENTED NEUTROPHILS % (AUTO) 62.8 % (42-78); TOTAL CELLS COUNTED % (AUTO) 100 %; WHITE BLOOD COUNT 5.1 10^3/uL (4.0-10.5)
[2018-07-05 07:00] LABS: BLOOD UREA NITROGEN 13 mg/dL (7-20); CALCIUM 8.5 mg/dL (8.4-10.2); GLUCOSE 106 mg/dL (75-110); POTASSIUM 3.9 mmol/L (3.6-5.0)
[2018-07-05 07:06] LABS: ANION GAP 5 (5-19); CARBON DIOXIDE 30 mmol/L (22-30); CHLORIDE 103 mmol/L (98-107); SODIUM 138.1 mmol/L (137-145)
--- NOTE | 2018-07-05 07:59 | PDOC PROGRESS REPORT ---
Subjective Progress Note for:: 07/05/18 Reason For Visit: SMALL BOWEL OBSTRUCTION Physical Exam Vital Signs: Temp Pulse Resp BP Pulse Ox 98.4 F 82 17 146/77 H 98 07/04/18 23:35 07/04/18 23:35 07/04/18 23:35 07/04/18 23:35 07/04/18 23:35 Intake & Output 07/04/18 07/05/18 07/06/18 06:59 06:59 06:59 Intake Total 1860 1812 Output Total 2440 1999 Balance -580 -188 Weight 67.2 kg 65.7 kg General appearance: PRESENT: no acute distress Head exam: PRESENT: normocephalic Eye exam: PRESENT: conjunctiva pink Respiratory exam: PRESENT: clear to auscultation sherly Cardiovascular exam: PRESENT: RRR Pulses: PRESENT: normal radial pulses, normal femoral pulses GI/Abdominal exam: PRESENT: other - abd sl softer, but still distended, tympanitic Neurological exam: PRESENT: alert, awake, oriented to person Skin exam: PRESENT: dry Results Laboratory Results: 07/05/18 06:32 07/05/18 06:32 07/05/18 07/05/18 06:32 06:32 WBC 5.1 RBC 3.62 L Hgb 10.1 L Hct 30.9 L MCV 85 MCH 27.9 MCHC 32.7 RDW 12.7 Plt Count 213 Seg Neutrophils % 62.8 Lymphocytes % 21.2 Monocytes % 8.1 Eosinophils % 7.0 H Basophils % 0.9 Absolute Neutrophils 3.2 Absolute Lymphocytes 1.1 Absolute Monocytes 0.4 Absolute Eosinophils 0.4 Absolute Basophils 0.0 Sodium 138.1 Potassium 3.9 Chloride 103 Carbon Dioxide 30 Anion Gap 5 BUN 13 Creatinine 0.91 Est GFR ( Amer) > 60 Est GFR (Non-Af Amer) > 60 Glucose 106 Calcium 8.5 Impressions: Abdomen/Pelvis CT 06/30/18 00:00 IMPRESSION: Ileus or partial small bowel obstruction. Left nephrectomy. KUB X-Ray 07/01/18 08:00 IMPRESSION: Persistent dilated mid small bowel loops worrisome for closed loop obstruction or partial small bowel obstruction Upper GI and Small Bowel X-Ray 07/01/18 13:22 IMPRESSION: Persistent small bowel obstruction Slow gastric emptying with mucosal edema along the duodenum Assessment & Plan - Inpatient Certification Medical Necessity: Need For IV Fluids - Plan Summary Plan Summary: passed flatus abd still sl distended and tympaintic will start ng clamp trial today cont ivf
[2018-07-05] MEDS: DEXTROSE 5%-LACTATED RINGERS 1,000 ML IV PRN (08:38)
[2018-07-05] MEDS: FAMOTIDINE INJ/PF 20 MG/2 ML SDV IV SCH ×2 (08:38→21:33)
[2018-07-05] MEDS: ENOXAPARIN SODIUM INJ 40 MG/0.4 ML DISP.SYRIN SUBCUT SCH (08:38)
[2018-07-05] MEDS: HYDRALAZINE HCL INJ/PF 20 MG/1 ML SDV IV PRN (10:28)
[2018-07-05] MEDS: MORPHINE SULFATE 10 MG/ML INJ IV PRN (20:32)
[2018-07-06] MEDS: ACETAMINOPHEN 1,000 MG/100 ML RTUPB IV SCH ×4 (03:22→21:17)
[2018-07-06] MEDS: KETOROLAC TROMETHAMINE INJ/PF 30 MG/1 ML SDV IV SCH (05:49)
[2018-07-06 08:08] LABS: ABSOLUTE EOSINOPHILS # (AUTO) 0.3 10^3/uL (0.0-0.6); ABSOLUTE LYMPHOCYTES (AUTO) 1.1 10^3/uL (0.5-4.7); ABSOLUTE MONOCYTES (AUTO) 0.4 10^3/uL (0.1-1.4); ABSOLUTE NEUT (AUTO) 2.7 10^3/uL (1.7-8.2); BASOPHILS % (AUTO) 0.9 % (0-2); EOSINOPHILS % (AUTO) 6.4 % (0-6); HEMOGLOBIN 10.6 g/dL (13.5-17.0); LYMPHOCYTES % (AUTO) 24.8 % (13-45); MEAN CORPUSCULAR HEMOGLOBIN 28.4 pg (27.0-33.4); MEAN CORPUSCULAR HGB CONC 33.1 g/dL (32.0-36.0); MEAN CORPUSCULAR VOLUME 86 fl (80-97); MONOCYTES % (AUTO) 8.6 % (3-13); PLATELET COUNT 247 10^3/uL (150-450); RED BLOOD COUNT 3.74 10^6/uL (4.35-5.55); RED CELL DISTRIBUTION WIDTH 12.9 % (11.5-14.0); SEGMENTED NEUTROPHILS % (AUTO) 59.3 % (42-78); TOTAL CELLS COUNTED % (AUTO) 100 %; WHITE BLOOD COUNT 4.6 10^3/uL (4.0-10.5)
[2018-07-06] MEDS: HYDRALAZINE HCL INJ/PF 20 MG/1 ML SDV IV PRN (08:21)
[2018-07-06 08:31] LABS: ANION GAP 5 (5-19); BLOOD UREA NITROGEN 12 mg/dL (7-20); CALCIUM 8.9 mg/dL (8.4-10.2); CARBON DIOXIDE 29 mmol/L (22-30); CHLORIDE 104 mmol/L (98-107); GLUCOSE 105 mg/dL (75-110); SODIUM 138.1 mmol/L (137-145)
--- NOTE | 2018-07-06 08:55 | PDOC PROGRESS REPORT ---
Subjective Progress Note for:: 07/06/18 Subjective:: Feels well. Passing gas. Hungry. Reason For Visit: SMALL BOWEL OBSTRUCTION Physical Exam Vital Signs: Temp Pulse Resp BP Pulse Ox 97.8 F 78 18 170/88 H 99 07/06/18 07:57 07/06/18 07:57 07/06/18 07:57 07/06/18 07:57 07/06/18 07:57 Intake & Output 07/05/18 07/06/18 07/07/18 06:59 06:59 06:59 Intake Total 1812 1068 100 Output Total 1999 1010 5 Balance -188 58 95 Weight 65.7 kg 65.9 kg General appearance: PRESENT: no acute distress, cooperative Respiratory exam: PRESENT: clear to auscultation sherly Cardiovascular exam: PRESENT: RRR GI/Abdominal exam: PRESENT: other - Soft, nondistended, nontender to palpation. Active bowel sounds. STEPHANIE drain output is slightly blood-tinged but mostly serosanguineous. Extremities exam: PRESENT: other - No swelling and no tenderness Results Laboratory Results: 07/06/18 07:39 07/06/18 07:39 07/06/18 07/06/18 07:39 07:39 WBC 4.6 RBC 3.74 L Hgb 10.6 L Hct 32.0 L MCV 86 MCH 28.4 MCHC 33.1 RDW 12.9 Plt Count 247 Seg Neutrophils % 59.3 Lymphocytes % 24.8 Monocytes % 8.6 Eosinophils % 6.4 H Basophils % 0.9 Absolute Neutrophils 2.7 Absolute Lymphocytes 1.1 Absolute Monocytes 0.4 Absolute Eosinophils 0.3 Absolute Basophils 0.0 Sodium 138.1 Potassium 4.0 Chloride 104 Carbon Dioxide 29 Anion Gap 5 BUN 12 Creatinine 0.97 Est GFR ( Amer) > 60 Est GFR (Non-Af Amer) > 60 Glucose 105 Calcium 8.9 Impressions: Abdomen/Pelvis CT 06/30/18 00:00 IMPRESSION: Ileus or partial small bowel obstruction. Left nephrectomy. KUB X-Ray 07/01/18 08:00 IMPRESSION: Persistent dilated mid small bowel loops worrisome for closed loop obstruction or partial small bowel obstruction Upper GI and Small Bowel X-Ray 07/01/18 13:22 IMPRESSION: Persistent small bowel obstruction Slow gastric emptying with mucosal edema along the duodenum Assessment & Plan - Diagnosis (1) Small bowel obstruction due to adhesions Is this a current diagnosis for this admission?: Yes Plan: Status post lysis of adhesions. Patient doing well. NG output is minimal upon placement to suction after clamping yesterday. Patient has evidence of return of bowel function. Will DC NG tube and place him on clear liquids. Will DC his STEPHANIE drain.
[2018-07-06] MEDS: FAMOTIDINE INJ/PF 20 MG/2 ML SDV IV SCH ×2 (09:13→21:18)
[2018-07-06] MEDS: ENOXAPARIN SODIUM INJ 40 MG/0.4 ML DISP.SYRIN SUBCUT SCH (09:13)
[2018-07-06] MEDS: MORPHINE SULFATE 10 MG/ML INJ IV PRN ×2 (13:36→19:28)
[2018-07-07 05:35] LABS: ABSOLUTE EOSINOPHILS # (AUTO) 0.3 10^3/uL (0.0-0.6); ABSOLUTE LYMPHOCYTES (AUTO) 1.5 10^3/uL (0.5-4.7); ABSOLUTE MONOCYTES (AUTO) 0.5 10^3/uL (0.1-1.4); ABSOLUTE NEUT (AUTO) 2.3 10^3/uL (1.7-8.2); EOSINOPHILS % (AUTO) 6.8 % (0-6); HEMATOCRIT 32.6 % (37.9-51.0); HEMOGLOBIN 10.8 g/dL (13.5-17.0); LYMPHOCYTES % (AUTO) 32.7 % (13-45); MEAN CORPUSCULAR HGB CONC 33.1 g/dL (32.0-36.0); MEAN CORPUSCULAR VOLUME 85 fl (80-97); MONOCYTES % (AUTO) 9.8 % (3-13); PLATELET COUNT 237 10^3/uL (150-450); RED BLOOD COUNT 3.85 10^6/uL (4.35-5.55); RED CELL DISTRIBUTION WIDTH 13.1 % (11.5-14.0); SEGMENTED NEUTROPHILS % (AUTO) 49.7 % (42-78); TOTAL CELLS COUNTED % (AUTO) 100 %; WHITE BLOOD COUNT 4.6 10^3/uL (4.0-10.5)
[2018-07-07 05:54] LABS: ANION GAP 6 (5-19); BLOOD UREA NITROGEN 15 mg/dL (7-20); CARBON DIOXIDE 30 mmol/L (22-30); CHLORIDE 101 mmol/L (98-107); GLUCOSE 86 mg/dL (75-110); SODIUM 137.3 mmol/L (137-145)
[2018-07-07 06:00] LABS: POTASSIUM 4.6 mmol/L (3.6-5.0)
[2018-07-07] MEDS: MORPHINE SULFATE 10 MG/ML INJ IV PRN ×2 (08:46→17:52)
[2018-07-07] MEDS: ENOXAPARIN SODIUM INJ 40 MG/0.4 ML DISP.SYRIN SUBCUT SCH (10:29)
[2018-07-07] MEDS: FAMOTIDINE INJ/PF 20 MG/2 ML SDV IV SCH ×2 (10:30→21:03)
--- NOTE | 2018-07-07 21:40 | PDOC PROGRESS REPORT ---
Subjective Progress Note for:: 07/07/18 Subjective:: no pains. Has flatus. Tolerated regular diet Reason For Visit: SMALL BOWEL OBSTRUCTION Physical Exam Vital Signs: Temp Pulse Resp BP Pulse Ox 98.4 F 87 16 134/80 H 97 07/07/18 15:04 07/07/18 15:04 07/07/18 15:04 07/07/18 15:04 07/07/18 15:04 Intake & Output 07/06/18 07/07/18 07/08/18 06:59 06:59 06:59 Intake Total 1068 2045 843 Output Total 1010 1005 500 Balance 58 1040 343 Weight 65.9 kg 64.8 kg Exam: abdomen is soft and non tender Results Laboratory Results: 07/07/18 04:08 07/07/18 04:08 07/07/18 07/07/18 04:08 04:08 WBC 4.6 RBC 3.85 L Hgb 10.8 L Hct 32.6 L MCV 85 MCH 28.0 MCHC 33.1 RDW 13.1 Plt Count 237 Seg Neutrophils % 49.7 Lymphocytes % 32.7 Monocytes % 9.8 Eosinophils % 6.8 H Basophils % 1.0 Absolute Neutrophils 2.3 Absolute Lymphocytes 1.5 Absolute Monocytes 0.5 Absolute Eosinophils 0.3 Absolute Basophils 0.0 Sodium 137.3 Potassium 4.6 Chloride 101 Carbon Dioxide 30 Anion Gap 6 BUN 15 Creatinine 1.00 Est GFR ( Amer) > 60 Est GFR (Non-Af Amer) > 60 Glucose 86 Calcium 9.0 Impressions: Abdomen/Pelvis CT 06/30/18 00:00 IMPRESSION: Ileus or partial small bowel obstruction. Left nephrectomy. KUB X-Ray 07/01/18 08:00 IMPRESSION: Persistent dilated mid small bowel loops worrisome for closed loop obstruction or partial small bowel obstruction Upper GI and Small Bowel X-Ray 07/01/18 13:22 IMPRESSION: Persistent small bowel obstruction Slow gastric emptying with mucosal edema along the duodenum Assessment & Plan - Time Time Spent with patient: 15-24 minutes - Plan Summary Plan Summary: For possible transfer to [facility] tomorrow.
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
[2018-07-08 06:29] LABS: ABSOLUTE EOSINOPHILS # (AUTO) 0.2 10^3/uL (0.0-0.6); ABSOLUTE LYMPHOCYTES (AUTO) 1.2 10^3/uL (0.5-4.7); ABSOLUTE MONOCYTES (AUTO) 0.5 10^3/uL (0.1-1.4); BASOPHILS % (AUTO) 0.5 % (0-2); EOSINOPHILS % (AUTO) 4.2 % (0-6); HEMATOCRIT 29.9 % (37.9-51.0); LYMPHOCYTES % (AUTO) 24.7 % (13-45); MEAN CORPUSCULAR HEMOGLOBIN 28.3 pg (27.0-33.4); MEAN CORPUSCULAR HGB CONC 33.5 g/dL (32.0-36.0); MEAN CORPUSCULAR VOLUME 84 fl (80-97); MONOCYTES % (AUTO) 10.1 % (3-13); PLATELET COUNT 249 10^3/uL (150-450); RED BLOOD COUNT 3.55 10^6/uL (4.35-5.55); SEGMENTED NEUTROPHILS % (AUTO) 60.5 % (42-78); TOTAL CELLS COUNTED % (AUTO) 100 %; WHITE BLOOD COUNT 4.9 10^3/uL (4.0-10.5)
[2018-07-08 06:39] LABS: ANION GAP 6 (5-19); BLOOD UREA NITROGEN 18 mg/dL (7-20); CALCIUM 8.6 mg/dL (8.4-10.2); CARBON DIOXIDE 29 mmol/L (22-30); CHLORIDE 103 mmol/L (98-107); GLUCOSE 91 mg/dL (75-110); POTASSIUM 4.6 mmol/L (3.6-5.0); SODIUM 138.1 mmol/L (137-145)
[2018-07-08] MEDS: HYDRALAZINE HCL INJ/PF 20 MG/1 ML SDV IV PRN (07:58)
[2018-07-08] MEDS: MORPHINE SULFATE 10 MG/ML INJ IV PRN ×2 (08:30→16:17)
[2018-07-08] MEDS: FAMOTIDINE INJ/PF 20 MG/2 ML SDV IV SCH (09:12)
[2018-07-08] MEDS: ENOXAPARIN SODIUM INJ 40 MG/0.4 ML DISP.SYRIN SUBCUT SCH (09:12)
[2018-07-08 12:02] VITALS: BP 135/69
--- NOTE | 2018-07-08 16:23 | RADIOLOGY REPORT (SQ) ---
EXAM DESCRIPTION: KUB/ABDOMEN (SINGLE VIEW) COMPLETED DATE/TIME: 07/08/2018 4:14 pm REASON FOR STUDY: No BM 3 days post-surgery COMPARISON: KUB 07/01/2018, 06/30/2018 Upper GI 07/01/2018 NUMBER OF VIEWS: One view. TECHNIQUE: Supine radiographic image of the abdomen acquired. LIMITATIONS: None. FINDINGS: BOWEL GAS PATTERN: Oral contrast from upper GI 07/01/2018 is seen in the colon in a nonobst ructive bowel gas pattern. Few air-filled nondistended small bowel loops in the mid abdomen. Midlin e surgical pattie. CALCIFICATIONS: No suspicious calcifications. SOFT TISSUES: No gross mass or suggestion of organomegaly. HARDWARE: Clips left upper quadrant post nephrectomy. Midline skin pattie BONES: No acute fracture. No worrisome bone lesions. OTHER: Findings discussed with Dr. Mora IMPRESSION: NO RADIOGRAPHIC EVIDENCE FOR ACUTE ABDOMINAL DISEASE. TECHNICAL DOCUMENTATION: JOB ID: [id number] [employer]- All Rights Reserved Reading location - IP/workstation name: [email or web address]
== END 2018-07-08 17:03 | DRG 337 ==
LOC: ER 11:52 → EH 17:26 → 4W 19:50
PROVIDERS: ADMIT Surgery; ATTEND Surgery
PROC: 0D9670Z Drainage of Stomach with Drainage Device, Via Natural or Artificial Opening (ICD-10-PCS; 2018-06-30)
PROC: 0DN80ZZ Release Small Intestine, Open Approach (ICD-10-PCS; 2018-07-01)
PROC: 0T9B00Z Drainage of Bladder with Drainage Device, Open Approach (ICD-10-PCS; 2018-07-01)
PROC: 0W9F00Z Drainage of Abdominal Wall with Drainage Device, Open Approach (ICD-10-PCS; 2018-07-01)
PROC: 0DNL0ZZ Release Transverse Colon, Open Approach (ICD-10-PCS; principal; 2018-07-01 16:30)
DX: K56.51 Intestinal adhesions [bands], with partial obstruction (principal); N36.8 Other specified disorders of urethra; I10 Essential (primary) hypertension; G89.29 Other chronic pain; K57.30 Diverticulosis of large intestine without perforation or abscess without bleeding; K59.00 Constipation, unspecified; K44.9 Diaphragmatic hernia without obstruction or gangrene; Z90.5 Acquired absence of kidney; F17.200 Nicotine dependence, unspecified, uncomplicated
CPT/HCPCS: 36415; 74018; 74177; 74249; 790; 80048; 80053; 81001; 82962; 83735; 85025; 94799; 96374; 96376; 99285; C1729; C1758; C1765; J0131; J0295; J0330; J0360; J1100; J1170; J1650; J1885; J2250; J2270; J2405; J2704; J3010; J3490; S0028

== ENCOUNTER 2018-10-25 09:08 | Emergency (ER) | payer MEDICARE, MEDICAID ==
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
[2018-10-25 10:03] LABS: ABSOLUTE EOSINOPHILS # (AUTO) 0.1 10^3/uL (0.0-0.6); ABSOLUTE LYMPHOCYTES (AUTO) 1.2 10^3/uL (0.5-4.7); ABSOLUTE MONOCYTES (AUTO) 0.4 10^3/uL (0.1-1.4); ABSOLUTE NEUT (AUTO) 3.1 10^3/uL (1.7-8.2); BASOPHILS % (AUTO) 0.7 % (0-2); EOSINOPHILS % (AUTO) 2.8 % (0-6); HEMATOCRIT 36.5 % (37.9-51.0); HEMOGLOBIN 11.8 g/dL (13.5-17.0); LYMPHOCYTES % (AUTO) 24.2 % (13-45); MEAN CORPUSCULAR HGB CONC 32.4 g/dL (32.0-36.0); MEAN CORPUSCULAR VOLUME 83 fl (80-97); MONOCYTES % (AUTO) 8.7 % (3-13); PLATELET COUNT 237 10^3/uL (150-450); RED BLOOD COUNT 4.39 10^6/uL (4.35-5.55); RED CELL DISTRIBUTION WIDTH 14.1 % (11.5-14.0); SEGMENTED NEUTROPHILS % (AUTO) 63.6 % (42-78); TOTAL CELLS COUNTED % (AUTO) 100 %; WHITE BLOOD COUNT 4.8 10^3/uL (4.0-10.5)
[2018-10-25] MEDS ORDERED: KETOROLAC TROMETHAMINE INJ/PF 30 MG/1 ML SDV IV ONE (10:15)
[2018-10-25] MEDS ORDERED: NORMAL SALINE 1000 ML 1,000 ML IV ONE (10:15)
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
[2018-10-25 10:26] LABS: ALANINE AMINOTRANSFERASE 99 U/L (21-72); ALBUMIN 3.5 g/dL (3.5-5.0); ALKALINE PHOSPHATASE 111 U/L (38-126); ANION GAP 5 (5-19); ASPARTATE AMINO TRANSFERASE 60 U/L (17-59); BILIRUBIN,DIRECT 0.3 mg/dL (0.0-0.4); BILIRUBIN,TOTAL 0.4 mg/dL (0.2-1.3); BLOOD UREA NITROGEN 14 mg/dL (7-20); CALCIUM 8.9 mg/dL (8.4-10.2); CARBON DIOXIDE 31 mmol/L (22-30); CHLORIDE 102 mmol/L (98-107); GLUCOSE 93 mg/dL (75-110); LIPASE 74.9 U/L (23-300); POTASSIUM 4.4 mmol/L (3.6-5.0); SODIUM 137.8 mmol/L (137-145); TOTAL PROTEIN 7.2 g/dL (6.3-8.2)
[2018-10-25 11:47] LABS: APPEARANCE,URINE CLEAR; BILIRUBIN,URINE NEGATIVE (NEGATIVE); COLOR,URINE STRAW; GLUCOSE, URINE NEGATIVE (NEGATIVE); KETONES,URINE NEGATIVE (NEGATIVE); LEUKOCYTE ESTERASE,URINE TRACE (NEGATIVE); NITRITE,URINE NEGATIVE (NEGATIVE); PROTEIN,URINE NEGATIVE (NEGATIVE); URINE SPECIFIC GRAVITY 1.016; UROBILINOGEN,URINE NEGATIVE mg/dL (<2.0)
--- NOTE | 2018-10-25 12:00 | RADIOLOGY REPORT (SQ) ---
EXAM DESCRIPTION: CTA ABDOMEN/PELVIS W WO COMPLETED DATE/TIME: 10/25/2018 11:16 am REASON FOR STUDY: AAA COMPARISON: 06/30/2018 TECHNIQUE: CT scan of the abdominal aorta extending to the iliac bifurcation performed with intraven ous contrast using helical scanning technique with dynamic intravenous contrast injection. Images rev iewed with lung, soft tissue, and bone windows. Reconstructed coronal and sagittal MPR images reviewe d. All images stored on PACS. Advanced 3D imaging as volume rendering, MIPS, SSD performed? yes All CT scanners at this facility use dose modulation, iterative reconstruction, and/or weight based d osing when appropriate to reduce radiation dose to as low as reasonably achievable (ALARA). [facility]: Dose Right [facility]: CareDose [facility]: Dose Right [facility]: Teradose 4D [facility]: Md7 CONTRAST TYPE AND DOSE: contrast/concentration: Isovue 350.00 mg/ml; Total Contrast Delivered: 72.0 ml; Total Saline Delivered: 67.0 ml RENAL FUNCTION: BUN 14 creatinine 0.86 LIMITATIONS: None. FINDINGS: AORTA AND VESSELS: No aneurysm. No dissection. Renal arteries, SMA, celiac without stenosi s. LUNG BASES: Pulmonary vascular congestion. Small right pleural effusion. LIVER: Normal size. No masses or dilated ducts. SPLEEN: Normal size. No focal lesions. PANCREAS: No masses. No significant calcifications. No adjacent inflammation or peripancreatic fluid collections. Pancreatic duct not dilated. GALLBLADDER: No identified stones by CT criteria. No inflammatory changes to suggest cholecystitis. ADRENAL GLANDS: No significant masses or asymmetry. RIGHT KIDNEY AND URETER: No mass, calculi or urinary tract obstruction. LEFT KIDNEY AND URETER: Surgically absent. RETROPERITONEUM: No retroperitoneal adenopathy, hemorrhage or masses. BOWEL AND PERITONEAL CAVITY: No masses or inflammatory changes. No free fluid or peritoneal masses. APPENDIX: Not seen. ABDOMINAL WALL: No masses. No hernias. BONY STRUCTURES: No significant or acute findings. 3-D IMAGING: Confirms the above findings. OTHER: No other significant finding. IMPRESSION: There is no aortic aneurysm or dissection. There is pulmonary vascular congestion. Sma ll right pleural effusion is present. No acute finding is seen in the abdomen or pelvis. TECHNICAL DOCUMENTATION: JOB ID: [id number] Quality ID # [id number]: Final reports with documentation of one or more dose reduction techniques (e.g., Au tomated exposure control, adjustment of the mA and/or kV according to patient size, use of iterative reconstruction technique) 2010 [employer]- All Rights Reserved Reading location - IP/workstation name: [email or web address]
[2018-10-25] MEDS ORDERED: CEPHALEXIN 500 MG CAPSULE PO ONE (12:26)
[2018-10-25 12:43] VITALS: BP 135/82
== END 2018-10-25 12:41 | disposition home or self-care (01) ==
LOC: ER 09:08
DX: N39.0 Urinary tract infection, site not specified (principal); R10.9 Unspecified abdominal pain; I10 Essential (primary) hypertension; J90 Pleural effusion, not elsewhere classified; R09.89 Other specified symptoms and signs involving the circulatory and respiratory systems; F17.200 Nicotine dependence, unspecified, uncomplicated; F14.10 Cocaine abuse, uncomplicated; R79.89 Other specified abnormal findings of blood chemistry; Z87.442 Personal history of urinary calculi; Z90.5 Acquired absence of kidney; Z87.19 Personal history of other diseases of the digestive system
CPT/HCPCS: 99284; 96361; 96374; 36415; 83690; 85025; 80053; 81001; 74174; A9270; J1885; J7030

== ENCOUNTER 2018-10-27 14:54 | Emergency (ER) | payer MEDICARE, MEDICAID ==
[2018-10-27 15:22] VITALS: BP 163/100
== END 2018-10-27 16:57 | disposition left against medical advice (07) ==
LOC: ER 14:54
DX: Z53.21 Procedure and treatment not carried out due to patient leaving prior to being seen by health care provider (principal); R39.198 Other difficulties with micturition

== ENCOUNTER 2018-10-28 14:03 | Observation (INO) | payer MEDICARE, MEDICAID ==
[2018-10-28 15:42] LABS: HEMATOCRIT 36.2 % (37.9-51.0); HEMOGLOBIN 11.7 g/dL (13.5-17.0); MEAN CORPUSCULAR HEMOGLOBIN 27.1 pg (27.0-33.4); MEAN CORPUSCULAR HGB CONC 32.4 g/dL (32.0-36.0); MEAN CORPUSCULAR VOLUME 84 fl (80-97); PLATELET COUNT 285 10^3/uL (150-450); RED BLOOD COUNT 4.34 10^6/uL (4.35-5.55); RED CELL DISTRIBUTION WIDTH 14.2 % (11.5-14.0); WHITE BLOOD COUNT 4.3 10^3/uL (4.0-10.5)
[2018-10-28 16:02] LABS: ALANINE AMINOTRANSFERASE 52 U/L (21-72); ALBUMIN 3.6 g/dL (3.5-5.0); ALKALINE PHOSPHATASE 79 U/L (38-126); ANION GAP 6 (5-19); ASPARTATE AMINO TRANSFERASE 28 U/L (17-59); BILIRUBIN,DIRECT 0.2 mg/dL (0.0-0.4); BILIRUBIN,TOTAL 0.4 mg/dL (0.2-1.3); BLOOD UREA NITROGEN 17 mg/dL (7-20); CALCIUM 9.2 mg/dL (8.4-10.2); CARBON DIOXIDE 32 mmol/L (22-30); CHLORIDE 101 mmol/L (98-107); CREATINE KINASE 93 U/L (55-170); POTASSIUM 4.4 mmol/L (3.6-5.0); SODIUM 139.1 mmol/L (137-145); TOTAL PROTEIN 7.2 g/dL (6.3-8.2)
[2018-10-28 16:07] LABS: GLUCOSE 63 mg/dL (75-110)
[2018-10-28 16:15] LABS: CREATINE KINASE MB 1.03 ng/mL (<4.55)
[2018-10-28] MEDS: IPRATROPIUM/ALBUTEROL 0.5-2.5 MG/3 ML AMPUL NEB SCH ×2 (16:15→23:56)
[2018-10-28 16:18] LABS: TROPONIN I < 0.012 ng/mL
[2018-10-28 16:19] LABS: FREE T4 (FREE THYROXINE) 1.21 ng/dL (0.78-2.19)
[2018-10-28 16:33] LABS: THYROID STIMULATING HORMONE 3.56 uIU/mL (0.47-4.68)
[2018-10-28] MEDS: 1/2 NORMAL SALINE 1,000 ML IV PRN (17:01)
--- NOTE | 2018-10-28 17:24 | RADIOLOGY REPORT (SQ) ---
EXAM DESCRIPTION: CTA CHEST COMPLETED DATE/TIME: 10/28/2018 5:08 pm REASON FOR STUDY: shortness of breath COMPARISON: None. TECHNIQUE: CT scan of the chest performed using helical scanning technique with dynamic intravenous contrast injection. Images reviewed with lung, soft tissue and bone windows. Reconstructed coronal and sagittal MPR images reviewed. Additional 3 dimensional post-processing performed to develop Maximal Intensity Projection images (RI P). All images stored on PACS. All CT scanners at this facility use dose modulation, iterative reconstruction, and/or weight based d osing when appropriate to reduce radiation dose to as low as reasonably achievable (ALARA). [facility]: Dose Right [facility]: CareDose [facility]: Dose Right [facility]: Teradose 4D [facility]: GoodApril CONTRAST TYPE AND DOSE: contrast/concentration: Isovue 350.00 mg/ml; Total Contrast Delivered: 62.0 ml; Total Saline Delivered: 107.0 ml Contrast bolus optimized for the pulmonary arteries. Not diagnostic for the aorta. RENAL FUNCTION: BUN 17 creatinine 0.96 RADIATION DOSE: CT Rad equipment meets quality standard of care and radiation dose reduction techniq ues were employed. CTDIvol: 7.8 - 18.8 mGy. DLP: 324 mGy-cm. . LIMITATIONS: None. FINDINGS: LUNGS AND PLEURA: Small right pleural effusion. No infiltrate or mass. AORTA AND GREAT VESSELS: No aneurysm. Contrast bolus not optimized for the aorta. HEART: No pericardial effusion. No significant coronary artery calcifications. PULMONARY ARTERIES: No emboli visualized in the main pulmonary arteries or the segmental branches. HILAR AND MEDIASTINAL STRUCTURES: Mediastinal adenopathy. There is a precarinal node that measures 1 7 mm in short axis. HARDWARE: None in the chest. UPPER ABDOMEN: No significant findings. Limited exam. THYROID AND OTHER SOFT TISSUES: No masses. No adenopathy. BONES: No acute or significant finding. 3D MIPS: Confirm above findings. OTHER: No other significant finding. IMPRESSION: There is no evidence of pulmonary embolus. There is a small right pleural effusion. Th ere is mild mediastinal adenopathy. COMMENT: Quality ID # [id number]: Final reports with documentation of one or more dose reduction techniques (e.g., Automated exposure control, adjustment of the mA and/or kV according to patient size, use of iterative reconstruction technique) TECHNICAL DOCUMENTATION: JOB ID: [id number]- All Rights Reserved Reading location - IP/workstation name: [email or web address]
[2018-10-28] MEDS ORDERED: ALBUTEROL SULFATE 0.083% NEB 2.5 MG/3 ML AMPUL NEB PRN (19:00)
--- NOTE | 2018-10-28 19:36 | EKG REPORT ---
SEVERITY:- ABNORMAL ECG - SINUS RHYTHM PROBABLE LEFT ATRIAL ABNORMALITY LEFT VENTRICULAR HYPERTROPHY ABNORMAL T, CONSIDER ISCHEMIA, ANTERIOR LEADS : Confirmed by: Yoselin Goldstein MD 28-Oct-2018 19:35:14
[2018-10-28 23:58] LABS: CREATINE KINASE MB 0.82 ng/mL (<4.55)
[2018-10-28 23:59] LABS: TROPONIN I < 0.012 ng/mL
[2018-10-29 07:54] LABS: CREATINE KINASE MB 0.75 ng/mL (<4.55)
[2018-10-29 08:02] LABS: TROPONIN I < 0.012 ng/mL
[2018-10-29] MEDS: 1/2 NORMAL SALINE 1,000 ML IV PRN (08:08)
[2018-10-29] MEDS: IPRATROPIUM/ALBUTEROL 0.5-2.5 MG/3 ML AMPUL NEB SCH (08:31)
--- NOTE | 2018-10-29 17:26 | PDOC H&P ---
History of Present Illness Admission Date/PCP: 10/28/18 14:03 LARRY QUEEN MD History of Present Illness: FERNANDO BHATIA is a 68 year old male,He came to the office for evaluation of shortness of breath, there was no chest pain, the cause of the shortness of breath was not apparent in the office, he was admitted directly from the office into the hospital for further evaluation and management. CTA chest was done, it demonstrated small right pleural effusion, there is no infiltrate no mass there is no aneurysm there was no emboli visualized in the main pulmonary arteries or segmental branches. The twelve-lead EKG that was done revealed sinus rhythm symmetrical she would be inversion in precordial leads V2 to V4 suspicious for ischemia. He has no chest pain but he has risk factors for ischemic heart disease patient is a smoker. A full lung function test was done, the spirometry demonstrated obstructive lung disease, the FEV1/FVC ratio does not meet the criteria for COPD but the FEV1 was very diminished compared to predicted FEV1. Past Medical History Cardiac Medical History: Reports: Hypertension Pulmonary Medical History: Neurological Medical History: GI Medical History: Reports: Hiatal Hernia Musculoskeltal Medical History: Reports: Arthritis - KNEES, USES CANE AND WALKER Past Surgical History Past Surgical History: Reports: Herniorrhaphy, Other - Laparotomy with nephrectomy for blunt trauma Social History Smoking Status: Current Every Day Smoker Cigarettes Packs Per Day: 0.3 Frequency of Alcohol Use: Occasional Hx Recreational Drug Use: No Drugs: None Hx Prescription Drug Abuse: No Family History Family History: Reviewed & Not Pertinent Parental Family History Reviewed: Yes Children Family History Reviewed: Yes Sibling(s) Family History Reviewed.: Yes Medication/Allergy Home Medications: Cephalexin [Cephalexin 500 MG Tablet] 500 mg PO Q6 10/29/18 Allergies/Adverse Reactions: No Known Allergies Allergy (Verified 10/27/18 14:56) Review of Systems Constitutional: ABSENT: chills, fever(s), headache(s), weight gain, weight loss Eyes: ABSENT: visual disturbances Ears: ABSENT: hearing changes Cardiovascular: PRESENT: dyspnea on exertion. ABSENT: chest pain, edema, orthropnea, palpitations Respiratory: PRESENT: dyspnea. ABSENT: cough, hemoptysis Gastrointestinal: ABSENT: abdominal pain, constipation, diarrhea, hematemesis, hematochezia, nausea, vomiting Genitourinary: ABSENT: dysuria, hematuria Musculoskeletal: ABSENT: joint swelling Integumentary: ABSENT: rash, wounds Neurological: ABSENT: abnormal gait, abnormal speech, confusion, dizziness, focal weakness, syncope Psychiatric: ABSENT: anxiety, depression, homidical ideation, suicidal ideation Endocrine: ABSENT: cold intolerance, heat intolerance, menstrual abnormalities, polydipsia, polyuria Hematologic/Lymphatic: ABSENT: easy bleeding, easy bruising, lymphadenopathy Physical Exam Vital Signs: Temp Pulse Resp BP Pulse Ox 97.6 F 81 16 158/82 H 96 10/29/18 13:42 10/29/18 14:00 10/29/18 13:42 10/29/18 13:42 10/29/18 13:42 Intake & Output 10/28/18 10/29/18 10/30/18 06:59 06:59 06:59 Intake Total 1168 1000 Balance 1168 1000 Weight 62 kg General appearance: PRESENT: no acute distress, well-developed, well-nourished Head exam: PRESENT: atraumatic, normocephalic Eye exam: PRESENT: conjunctiva pink, EOMI, PERRLA Ear exam: PRESENT: normal external ear exam Mouth exam: PRESENT: moist, tongue midline Neck exam: PRESENT: full ROM Respiratory exam: PRESENT: clear to auscultation sherly Cardiovascular exam: PRESENT: RRR, +S1, +S2 Pulses: PRESENT: normal dorsalis pedis pul, +2 pedal pulses bilateral Vascular exam: PRESENT: normal capillary refill GI/Abdominal exam: PRESENT: normal bowel sounds, soft Rectal exam: PRESENT: deferred Neurological exam: PRESENT: alert, awake, oriented to person, oriented to place, oriented to time, oriented to situation, CN II-XII grossly intact Psychiatric exam: PRESENT: appropriate affect, normal mood Skin exam: PRESENT: dry, intact, warm Results Laboratory Results: 10/28/18 15:36 10/28/18 15:36 10/28/18 10/28/18 10/28/18 15:36 15:36 23:23 Creatine Kinase 93 71 CK-MB (CK-2) 1.03 Troponin I < 0.012 10/28/18 10/29/18 10/29/18 23:23 06:53 06:53 Creatine Kinase 65 CK-MB (CK-2) 0.82 0.75 Troponin I < 0.012 < 0.012 Impressions: Chest/Abdomen CTA 10/28/18 00:00 IMPRESSION: There is no evidence of pulmonary embolus. There is a small right pleural effusion. There is mild mediastinal adenopathy. Assessment & Plan - Diagnosis (1) Shortness of breath Is this a current diagnosis for this admission?: Yes Plan: The differential diagnosis is long, it includes COPD, ischemic heart disease, anemia, PE. Pulmonary embolism is rule out at least large pulmonary embolus. The EKG demonstrated symmetrical T wave inversion in precordial leads, and this patient with risk factor for ischemia especially smoking tobacco for many years, patient will be scheduled for cardiac stress test. He also of evidence of obstruction on spirometry he will be started on Trelegy
[2018-10-29] MEDS: FLUTICASONE/UMECLIDIN/VILANTER 100-62.5-25 MCG/DOSE IH SCH (20:05)
[2018-10-30] MEDS: 1/2 NORMAL SALINE 1,000 ML IV PRN ×2 (03:54→18:01)
[2018-10-30] MEDS: FLUTICASONE/UMECLIDIN/VILANTER 100-62.5-25 MCG/DOSE IH SCH (09:29)
--- NOTE | 2018-10-30 11:25 | PDOC PROGRESS REPORT ---
Subjective Progress Note for:: 10/30/18 Subjective:: Patient is currently feeling better Patient CT angiogram is negative for PE patient have a 54-year history of the smoking Patient does not like the current inhaler Patient scheduled for the stress test on a Thursday Reason For Visit: SHORTNESS OF BREATH, UNKNOWN CANCER, UNKNOWN PE Physical Exam Vital Signs: Temp Pulse Resp BP Pulse Ox 97.6 F 88 16 162/96 H 97 10/30/18 08:19 10/30/18 08:19 10/30/18 08:19 10/30/18 08:19 10/30/18 08:19 Intake & Output 10/29/18 10/30/18 10/31/18 06:59 06:59 06:59 Intake Total 1168 3409 Balance 1168 3409 Weight 62 kg 65.4 kg General appearance: PRESENT: no acute distress, well-developed, well-nourished Head exam: PRESENT: atraumatic, normocephalic Eye exam: PRESENT: conjunctiva pink, EOMI, PERRLA. ABSENT: scleral icterus Ear exam: PRESENT: normal external ear exam Mouth exam: PRESENT: moist, tongue midline Neck exam: PRESENT: full ROM. ABSENT: carotid bruit, JVD, lymphadenopathy, thyromegaly Respiratory exam: PRESENT: clear to auscultation sherly Cardiovascular exam: PRESENT: RRR. ABSENT: diastolic murmur, rubs, systolic murmur Pulses: PRESENT: normal dorsalis pedis pul, +2 pedal pulses bilateral Vascular exam: PRESENT: normal capillary refill GI/Abdominal exam: PRESENT: normal bowel sounds, soft. ABSENT: distended, guarding, mass, organolmegaly, rebound, tenderness Rectal exam: PRESENT: deferred Neurological exam: PRESENT: alert, awake, oriented to person, oriented to place, oriented to time, oriented to situation, CN II-XII grossly intact. ABSENT: m otor sensory deficit Psychiatric exam: PRESENT: appropriate affect, normal mood. ABSENT: homicidal ideation, suicidal ideation Skin exam: PRESENT: dry, intact, warm. ABSENT: cyanosis, rash Results Laboratory Results: 10/28/18 15:36 10/28/18 15:36 10/28/18 10/28/18 10/28/18 15:36 15:36 23:23 Creatine Kinase 93 71 CK-MB (CK-2) 1.03 Troponin I < 0.012 10/28/18 10/29/18 10/29/18 23:23 06:53 06:53 Creatine Kinase 65 CK-MB (CK-2) 0.82 0.75 Troponin I < 0.012 < 0.012 Impressions: Chest/Abdomen CTA 10/28/18 00:00 IMPRESSION: There is no evidence of pulmonary embolus. There is a small right pleural effusion. There is mild mediastinal adenopathy. Assessment & Plan - Diagnosis (1) Chronic obstructive pulmonary disease Qualifiers: Emphysema type: unspecified Is this a current diagnosis for this admission?: Yes Plan: This does not like the tetralogy will change the Advair and Spiriva (2) Shortness of breath Is this a current diagnosis for this admission?: Yes Plan: Most likely from the COPD will wait for the stress test to rule out underlying coronary disease (3) Hypertension Qualifiers: Hypertension type: unspecified Qualified Code(s): I10 - Essential (primary) hypertension Is this a current diagnosis for this admission?: Yes - Time Time Spent with patient: 15-24 minutes Medications reviewed and adjusted accordingly: Yes Anticipated discharge: Home Within: Other - Plan Summary Plan Summary: Continues to current medication
[2018-10-31] MEDS: FLUTICASONE/UMECLIDIN/VILANTER 100-62.5-25 MCG/DOSE IH SCH (10:02)
[2018-10-31] MEDS: 1/2 NORMAL SALINE 1,000 ML IV PRN (10:03)
--- NOTE | 2018-10-31 10:58 | PDOC PROGRESS REPORT ---
Subjective Progress Note for:: 10/31/18 Subjective:: Patient is currently feeling better Patient CT angiogram is negative for PE patient have a 54-year history of the smoking Patient does not like the current inhaler Patient scheduled for the stress test on a Thursday Reason For Visit: SHORTNESS OF BREATH, UNKNOWN CANCER, UNKNOWN PE Physical Exam Vital Signs: Temp Pulse Resp BP Pulse Ox 97.7 F 104 H 16 143/94 H 98 10/31/18 07:04 10/31/18 07:04 10/31/18 07:04 10/31/18 07:04 10/31/18 07:04 Intake & Output 10/30/18 10/31/18 11/01/18 06:59 06:59 06:59 Intake Total 3409 1708 1000 Balance 3409 1708 1000 Weight 65.4 kg 61.9 kg General appearance: PRESENT: no acute distress, well-developed, well-nourished Head exam: PRESENT: atraumatic, normocephalic Eye exam: PRESENT: conjunctiva pink, EOMI, PERRLA. ABSENT: scleral icterus Ear exam: PRESENT: normal external ear exam Mouth exam: PRESENT: moist, tongue midline Neck exam: PRESENT: full ROM. ABSENT: carotid bruit, JVD, lymphadenopathy, thyromegaly Respiratory exam: PRESENT: clear to auscultation sherly Cardiovascular exam: PRESENT: RRR. ABSENT: diastolic murmur, rubs, systolic murmur Pulses: PRESENT: normal dorsalis pedis pul, +2 pedal pulses bilateral Vascular exam: PRESENT: normal capillary refill GI/Abdominal exam: PRESENT: normal bowel sounds, soft. ABSENT: distended, guarding, mass, organolmegaly, rebound, tenderness Rectal exam: PRESENT: deferred Extremities exam: ABSENT: pedal edema Musculoskeletal exam: PRESENT: ambulatory Neurological exam: PRESENT: alert, awake, oriented to person, oriented to place, oriented to time, oriented to situation, CN II-XII grossly intact. ABSENT: motor sensory deficit Psychiatric exam: PRESENT: appropriate affect, normal mood. ABSENT: homicidal ideation, suicidal ideation Skin exam: PRESENT: dry, intact, warm. ABSENT: cyanosis, rash Results Laboratory Results: 10/28/18 15:36 10/28/18 15:36 10/28/18 10/28/18 10/28/18 15:36 15:36 23:23 Creatine Kinase 93 71 CK-MB (CK-2) 1.03 Troponin I < 0.012 10/28/18 10/29/18 10/29/18 23:23 06:53 06:53 Creatine Kinase 65 CK-MB (CK-2) 0.82 0.75 Troponin I < 0.012 < 0.012 Impressions: Chest/Abdomen CTA 10/28/18 00:00 IMPRESSION: There is no evidence of pulmonary embolus. There is a small right pleural effusion. There is mild mediastinal adenopathy. Assessment & Plan - Diagnosis (1) Chronic obstructive pulmonary disease Qualifiers: Emphysema type: unspecified Is this a current diagnosis for this admission?: Yes Plan: This does not like the tetralogy will change the Advair and Spiriva (2) Shortness of breath Is this a current diagnosis for this admission?: Yes Plan: Most likely from the COPD will wait for the stress test to rule out underlying coronary disease (3) Hypertension Qualifiers: Hypertension type: unspecified Qualified Code(s): I10 - Essential (primary) hypertension Is this a current diagnosis for this admission?: Yes - Time Time Spent with patient: 15-24 minutes Medications reviewed and adjusted accordingly: Yes Anticipated discharge: Home Within: Other - Plan Summary Plan Summary: Patient is scheduled for the stress test in the morning
[2018-11-01] MEDS: FLUTICASONE/UMECLIDIN/VILANTER 100-62.5-25 MCG/DOSE IH SCH (09:55)
[2018-11-02] MEDS: FLUTICASONE/UMECLIDIN/VILANTER 100-62.5-25 MCG/DOSE IH SCH (10:46)
[2018-11-02] MEDS ORDERED: REGADENOSON INJ 0.4 MG/5 ML DISP.SYRIN IV ONE (11:27)
--- NOTE | 2018-11-02 16:45 | PDOC DISCHARGE SUMMARY ---
General - Admit/Disc Date/PCP Admission Date/Primary Care Provider: 10/28/18 14:03 LARRY QUEEN MD Discharge Date: 11/02/18 - Discharge Diagnosis (1) Shortness of breath Is this a current diagnosis for this admission?: Yes (2) Chronic obstructive pulmonary disease Is this a current diagnosis for this admission?: Yes - Additional Information Prescriptions: Atorvastatin Calcium [Lipitor 20 mg Tablet] 20 mg PO QHS #90 tablet Albuterol Sulfate [Albuterol Sulfate Hfa] 8.5 gm IH Q6H PRN #2 hfa.aer.ad PRN Reason: Aspirin [Aspirin 81 mg Chewable Tablet] 81 mg PO DAILY #90 Fluticasone/Umeclidin/Vilanter [Trelegy 100-62.5-25 Mcg Ellipta 14 Dose/Dpi] 1 inh IH DAILY #1 inhaler Metoprolol Succinate 100 mg PO DAILY #90 tab.er.24h Home Medications: Albuterol Sulfate [Albuterol Sulfate Hfa] 8.5 gm IH Q6H PRN #2 hfa.aer.ad 11/02/18 Aspirin [Aspirin 81 mg Chewable Tablet] 81 mg PO DAILY #90 11/02/18 Atorvastatin Calcium [Lipitor 20 mg Tablet] 20 mg PO QHS #90 tablet 11/02/18 Fluticasone/Umeclidin/Vilanter [Trelegy 100-62.5-25 Mcg Ellipta 14 Dose/Dpi] 1 inh IH DAILY #1 inhaler 11/02/18 Metoprolol Succinate 100 mg PO DAILY #90 tab.er.24h 11/02/18 History of Present Illness History of Present Illness: FERNANDO BHATIA is a 68 year old male,He came to the office for evaluation of shortness of breath, there was no chest pain, the cause of the shortness of breath was not apparent in the office, he was admitted directly from the office into the hospital for further evaluation and management. CTA chest was done, it demonstrated small right pleural effusion, there is no infiltrate no mass there is no aneurysm there was no emboli visualized in the main pulmonary arteries or segmental branches. The twelve-lead EKG that was done revealed sinus rhythm symmetrical she would be inversion in precordial leads V2 to V4 suspicious for ischemia. He has no chest pain but he has risk factors for ischemic heart disease patient is a smoker. A full lung function test was done, the spirometry demonstrated obstructive lung disease, the FEV1/FVC ratio does not meet the criteria for COPD but the FEV1 was very diminished compared to predicted FEV1. Hospital Course Hospital Course: Patient was admitted for the management of shortness of breath, he was evaluated, CTA chest was done, negative for pulmonary embolism, he underwent Cardiolite stress test today, it demonstrated mild ischemia, he will be managed medically.He was supposed to have the stress test yesterday but he had a meal,so the Stress test was done today, it was negative for the most part other than mild ischemia Physical Exam Vital Signs: Temp Pulse Resp BP Pulse Ox 97.3 F 71 16 104/79 100 11/02/18 08:21 11/02/18 08:21 11/02/18 08:21 11/02/18 08:21 11/02/18 08:21 Intake & Output 11/01/18 11/02/18 11/03/18 06:59 06:59 06:59 Intake Total 2002 1140 Balance 2002 1140 Weight 61.9 kg 60.3 kg General appearance: PRESENT: no acute distress Eye exam: PRESENT: PERRLA Respiratory exam: PRESENT: clear to auscultation sherly Cardiovascular exam: PRESENT: +S1, +S2 GI/Abdominal exam: PRESENT: soft Neurological exam: PRESENT: alert Results Laboratory Results: 10/28/18 15:36 10/28/18 15:36 10/28/18 10/28/18 10/28/18 15:36 15:36 23:23 Creatine Kinase 93 71 CK-MB (CK-2) 1.03 Troponin I < 0.012 10/28/18 10/29/18 10/29/18 23:23 06:53 06:53 Creatine Kinase 65 CK-MB (CK-2) 0.82 0.75 Troponin I < 0.012 < 0.012 Impressions: Chest/Abdomen CTA 10/28/18 00:00 IMPRESSION: There is no evidence of pulmonary embolus. There is a small right pleural effusion. There is mild mediastinal adenopathy. Qualifiers - * PATIENT BEING DISCHARGED WITH ANY OF THE FOLLOWING DIAGNOSIS: No VTE patient discharged on overlapping Therapy?: No Reason(s) for not prescribing Overlap Therapy:: Not indicated Stroke Pt being discharged on Anti-thrombolytic therapy?: No Reason(s) for not prescribing Anti-thrombolytic therapy:: Not indicated Stroke Pt being discharged on Anti-coagulation therapy?: No Reason(s) for not prescribing Anti-coagulation therapy:: Not indicated Stroke Pt being discharged on Statins?: No Reason(s) for not prescribing Statins therapy:: Not indicated AK Pt being discharged on Aspirin therapy?: No Reason(s) for not prescribing Aspirin therapy:: Not indicated AK Pt being discharged on Statins?: No Reason(s) for not prescribing Statin therapy:: Not indicated AK Pt discharged ACEI/ARBS?: No Reason(s) for not prescribing ACEI/ARBS:: Not indicated Acute Heart Failure - Is this a Heart Failure Patient?: No 3. Anticoagulant therapy for permanect/persistent/paraoxysmal Afib or Aflutter: N/A
--- NOTE | 2018-11-02 16:57 | Pulmonary Function Test ---
Pulmonary Function Test Date of Procedure:: 11/02/18 INDICATION:: Cough cough Referring Provider: Dr. Sade Negrete Live Ammunition Inspector: Maryjane Winn ENVIRONMENTAL ANALYST - Report Spirometry: Spirometry: pre-FVC: 1.03 L 66% post-FVC 2.38 L 78% pre-FEV:1 1.47 L 61% post-FEV1; 1.73 L 71% pre-FEV1/FVC % 72 post-FEV1/FVC% 73 predicted 79 [id number]% 1.10 L 44% [id number]% 1.26L 51% Lung Volume: Total lung capacity: 3.69 L 69% Vital capacity: 2.39 L 78% Inspiratory capacity: 1.32 L FRC N2: 2.38 L 72% ERV: 0.75 L RV: 1.30 L 59% RV/TLC %: 35 predicted 41 Diffusion Capactity: Diffusion Capacity: DLCO; 16.3 102% DLCO/VA; 4.52 125% Impression: Mild obstructive ventilatory defect with good response to bronchodilator therapy. Mild restrictive ventilatory defect no hyperinflation or air trapping normal. (Restrictive defect may mask the degree of obstruction.) Normal diffusion capacity
[2018-11-02 21:01] VITALS: BP 114/52
--- NOTE | 2018-11-03 22:44 | XCELERA REPORT ---
[address] [address] Transthoracic Echocardiogram Report Name: FERNANDO BHATIA Age: 68 yrs Gender: Male : 1950 Patient Status: Inpatient Patient Location: [address] [place] [address] Study Date: 10/28/2018 08:05 PM Height: 65 in Weight: 138 lb BSA: 1.7 m2 Procedure: A complete two-dimensional transthoracic echocardiogram was performed (2D, M-mode, spectral and color flow Doppler). The study was technically adequate with some images being suboptimal in quality. Reason For Study: chf Ordering Physician: LARRY QUEEN Performed By: Gracia Mills Interpretation Summary Left ventricular systolic function is mildly reduced. The Ejection Fraction estimate is 45-50% Doppler measurements suggest pseudonormalized left ventricular relaxation, which is associated with grade II/IV or mild to moderate diastolic dysfunction Not all wall segments were well visualized. There is borderline concentric left ventricular hypertrophy. The left ventricle is grossly normal size. The right ventricular systolic function is normal. Borderline right ventricular enlargement. Borderline right atrial enlargement. The left atrium is borderline dilated. There is a moderate amount of mitral regurgitation There is no mitral valve stenosis. There is a mild amount of aortic regurgitation There is no aortic valve stenosis There is a mild to moderate amount of tricuspid regurgitation Right ventricular systolic pressure is estimated to be elevated at 40-50mmHg. There is mild to moderate pulmonary hypertension by echo The aortic root is not well visualized but is probably normal size. The inferior vena cava was not well visualized There is no pericardial effusion. MMode/2D Measurements & Calculations RVDd: 2.7 cm LVIDd: 5.4 cm FS: 26.5 % Ao root diam: 2.5 cm IVSd: 0.96 cm LVIDs: 3.9 cm EDV(Teich): Ao root area: 138.4 ml LVPWd: 0.96 cm 5.0 cm2 ESV(Teich): 67.3 mlLA dimension: 3.8 cm EF(Teich): 51.4 % LVLd ap4: 7.7 cm SV(MOD-sp4): EDV(MOD-sp4): 49.0 ml 98.0 ml LVLs ap4: 6.3 cm ESV(MOD-sp4): 49.0 ml EF(MOD-sp4): 50.0 % Doppler Measurements & Calculations MV E max seble: MV P1/2t max seble: Ao V2 max: AI max seble: 57.8 cm/sec 93.7 cm/sec 114.0 cm/sec 400.4 cm/sec MV A max seble: MV P1/2t: 39.8 msec Ao max PG: AI max P.1 mmHg 70.1 cm/sec 5.2 mmHg MVA(P1/2t): 5.5 cm2 AI dec slope: MV E/A: 0.82 MV dec slope: 225.5 cm/sec2 689.8 cm/sec2 AI P1/2t: 520.1 msec MV dec time: 0.15 sec LV V1 max PG: PA V2 max: TR max seble: AV P1/2t-pr_phl: 3.3 mmHg 92.3 cm/sec 402.0 cm/sec 532.7 msec LV V1 max: PA max P.4 mmHg TR max P.3 cm/sec 64.6 mmHg MV P1/2t-pr_phl: 39.8 msec Left Ventricle The left ventricle is grossly normal size. There is borderline concentric left ventricular hypertrophy. Left ventricular systolic function is mildly reduced. The Ejection Fraction estimate is 45-50%. Doppler measurements suggest pseudonormalized left ventricular relaxation, which is associated with grade II/IV or mild to moderate diastolic dysfunction. Not all wall segments were well visualized. Right Ventricle Borderline right ventricular enlargement. There is normal right ventricular wall thickness. The right ventricular systolic function is normal. Atria Borderline right atrial enlargement. The left atrium is borderline dilated. Interarterial septum not well visualized and not well dopplered. Cannot comment on ASD/PFO presence. Mitral Valve The mitral valve leaflets are sclerotic and show some degree of functional abnormality. There is no mitral valve stenosis. There is a moderate amount of mitral regurgitation. Aortic Valve The aortic valve opens well. The aortic valve is mildly calcified. There is no aortic valve stenosis. There is a mild amount of aortic regurgitation. Tricuspid Valve The tricuspid valve is not well visualized, but is grossly normal. There is no tricuspid stenosis. There is a mild to moderate amount of tricuspid regurgitation. Right ventricular systolic pressure is estimated to be elevated at 40-50mmHg. There is mild to moderate pulmonary hypertension by echo. Pulmonic Valve The pulmonic valve is not well visualized. Great Vessels The aortic root is not well visualized but is probably normal size. The inferior vena cava was not well visualized. Effusions There is no pericardial effusion. : LARRY QUEEN > Demetri Galicia
--- NOTE | 2018-11-04 23:07 | DRAGON STRESS TEST REPORT ---
Intravenous Lexiscan Cardiolite stress test using single photon emmision computerized tomography. Date of procedure: 11/02/2018.Ordering Provider: Dr. Negrete. Patient's status: In Patient. Indication: Shortness Of Breath. Coronary risk factors: Age, hypertension, and tobacco abuse disorder. Resting EKG: Sinus rhythm LVH with strain pattern diffuse T changes. Stress EKG: No changes of ischemia. The patient had no chest pain/chest discomfort, or increased shortness of breath, and there were no arrhythmias seen. Reason for termination: Protocol. Conclusions: Normal EKG and hemodynamic response to IV Lexiscan. Nuclear data: At rest the patient was given 10.89 millicuries of technetium 99m sestamibi injected intravenously. As per protocol rest non gated SPECT images were obtained. Subsequently the patient was given intravenous Lexiscan at a dose of 0.4 mg in 5 mL intravenously, followed by flush with normal saline. Subsequently the stress dose of 32.2 millicuries of technetium 99m sestamibi was injected intravenously. As per protocol stress gated images were obtained. Nuclear interpretation: Review of images showed that there is a small area of perfusion defect involving the left ventricle apex in both the rest and stress images. This area of diminished motion contraction and thickening by gated study consistent with prior myocardial infarction. The rest of the segments of the myocardium had normal perfusion at rest, and normal perfusion post stress with IV Lexiscan. All segments of the myocardium had normal thickening by gated study. There was diffuse moderate global hypokinesis with left ventricle enlargement in both rest and stress images. T. I D. ratio was normal a 1.12 t . There is no transient ischemic dilatation of the left ventricle. Computer read rest, and stress left ventricular ejection fraction were 34 %, and 35 %, respectively. Visually both the stress and rest ejection fractions were moderately reduced at 35% respectively. Conclusion: 1. There is no scintigraphic evidence of Lexiscan induced myocardial ischemia. 2. There is scintigraphic evidence of myocardial infarction/scar involving a small area of the left ventricle apex. 3. 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 . Recommendations: 1. Aggressive treatment of coronary artery disease and cardiomyopathy. 2. Check echo for LV ejection fraction correlation .3. Aggressive risk factor modification, and treating the underlying co- morbidities. Recommend close cardiology follow-up. If the patient's echo LV ejection fraction is 35% or below, then would recommend repeat echo in 3 months, to see if the ejection fraction remains 35% or below, then decision regarding referral of the patient for AICD placement should be made. The results of the stress test were discussed with Dr. Negrete on the telephone on the day of the stress test which was 11/02/2018. HERBIE
== END 2018-11-02 16:59 | disposition home or self-care (01) ==
LOC: 3S 14:03 → INTOOBSV 14:03
PROVIDERS: ADMIT Internal Medicine; ATTEND Internal Medicine
DX: R06.02 Shortness of breath (principal); J44.9 Chronic obstructive pulmonary disease, unspecified; I10 Essential (primary) hypertension
CPT/HCPCS: 36415 ×2; 84439; 82553 ×2; 82550 ×2; 84443; 85027; 80076; 80048; 84484 ×2; 85379; 93306; 93017; 78452; 71275; 93005; 93010; 94729; 94727; 94060; 94640 ×3; G0378 ×6; G0379; A9500; J2785; A9270 ×2; Q9969; J3490; J7620

== ENCOUNTER 2018-12-14 11:07 | Inpatient (IN) | payer MEDICARE, MEDICAID ==
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
--- NOTE | 2018-12-14 12:42 | EKG REPORT ---
SEVERITY:- ABNORMAL ECG - SINUS RHYTHM PROBABLE LEFT ATRIAL ABNORMALITY LEFT VENTRICULAR HYPERTROPHY BORDERLINE T ABNORMALITIES, INFERIOR LEADS : Confirmed by: Catalino Cody MD 14-Dec-2018 12:42:20
[2018-12-14 12:55] LABS: ABSOLUTE BASOPHILS # (AUTO) 0.1 10^3/uL (0.0-0.2); ABSOLUTE EOSINOPHILS # (AUTO) 0.1 10^3/uL (0.0-0.6); ABSOLUTE LYMPHOCYTES (AUTO) 1.4 10^3/uL (0.5-4.7); ABSOLUTE MONOCYTES (AUTO) 0.4 10^3/uL (0.1-1.4); BASOPHILS % (AUTO) 1.4 % (0-2); EOSINOPHILS % (AUTO) 3.4 % (0-6); HEMATOCRIT 38.5 % (37.9-51.0); HEMOGLOBIN 12.4 g/dL (13.5-17.0); LYMPHOCYTES % (AUTO) 35.3 % (13-45); MEAN CORPUSCULAR HEMOGLOBIN 27.3 pg (27.0-33.4); MEAN CORPUSCULAR HGB CONC 32.2 g/dL (32.0-36.0); MEAN CORPUSCULAR VOLUME 85 fl (80-97); MONOCYTES % (AUTO) 9.8 % (3-13); PLATELET COUNT 269 10^3/uL (150-450); RED BLOOD COUNT 4.54 10^6/uL (4.35-5.55); RED CELL DISTRIBUTION WIDTH 16.6 % (11.5-14.0); SEGMENTED NEUTROPHILS % (AUTO) 50.1 % (42-78); TOTAL CELLS COUNTED % (AUTO) 100 %; WHITE BLOOD COUNT 4.1 10^3/uL (4.0-10.5)
[2018-12-14 13:15] LABS: ALBUMIN 3.3 g/dL (3.5-5.0); ALKALINE PHOSPHATASE 125 U/L (38-126); ASPARTATE AMINO TRANSFERASE 185 U/L (17-59); BILIRUBIN,DIRECT 0.1 mg/dL (0.0-0.4); BILIRUBIN,TOTAL 0.4 mg/dL (0.2-1.3); BLOOD UREA NITROGEN 18 mg/dL (7-20); CALCIUM 8.4 mg/dL (8.4-10.2); GLUCOSE 125 mg/dL (75-110); POTASSIUM 5.1 mmol/L (3.6-5.0); TOTAL PROTEIN 6.5 g/dL (6.3-8.2)
[2018-12-14 13:27] LABS: NT PRO BNP 4340 pg/mL (5-900)
[2018-12-14 13:29] LABS: TROPONIN I < 0.012 ng/mL
[2018-12-14 13:30] LABS: CARBON DIOXIDE 31 mmol/L (22-30); CHLORIDE 103 mmol/L (98-107)
[2018-12-14 13:35] LABS: ANION GAP 3 (5-19)
--- NOTE | 2018-12-14 14:06 | RADIOLOGY REPORT (SQ) ---
EXAM DESCRIPTION: CHEST 2 VIEWS COMPLETED DATE/TIME: 12/14/2018 1:30 pm REASON FOR STUDY: shortness of breath COMPARISON: 04/26/2014 EXAM PARAMETERS: NUMBER OF VIEWS: two views TECHNIQUE: Digital Frontal and Lateral radiographic views of the chest acquired. RADIATION DOSE: NA LIMITATIONS: none FINDINGS: LUNGS AND PLEURA: There is mild, diffuse bilateral interstitial pulmonary opacity new from prior examination. MEDIASTINUM AND HILAR STRUCTURES: No masses or contour abnormalities. HEART AND VASCULAR STRUCTURES: Cardiomegaly. BONES: Disc degenerative disease of the thoracic spine. HARDWARE: None in the chest. OTHER: No other significant finding. IMPRESSION: Cardiomegaly with mild, diffuse bilateral interstitial pulmonary opacity, likely edema. No focal airspace opacity. TECHNICAL DOCUMENTATION: JOB ID: [id number] [employer]- All Rights Reserved Reading location - IP/workstation name: [email or web address]
[2018-12-14] MEDS ORDERED: FUROSEMIDE INJ/PF 40 MG/4 ML SDV IV ONE (14:28)
[2018-12-14] MEDS ORDERED: METHYLPREDNISOLONE INJ 125 MG/2 ML SDV IV ONE (14:28)
[2018-12-14] MEDS ORDERED: IPRATROPIUM/ALBUTEROL 0.5-2.5 MG/3 ML AMPUL NEB ONE (14:29)
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
[2018-12-14] MEDS ORDERED: ACETAMINOPHEN 325 MG TABLET PO PRN (14:54)
[2018-12-14 16:09] LABS: CREATINE KINASE MB 1.41 ng/mL (<4.55)
[2018-12-14 16:13] LABS: ARTERIAL BLOOD BASE EXCESS 0.9 mmol/L; ARTERIAL BLOOD H2CO3 1.25 mmol/L (1.05-1.35); ARTERIAL BLOOD HCO3 25.7 mmol/L (20-24); ARTERIAL BLOOD O2 SATURATION 95.9 % (94-98); ARTERIAL BLOOD PCO2 41.6 mmHg (35-45); ARTERIAL BLOOD PH 7.41 (7.35-7.45)
[2018-12-14 16:16] LABS: TROPONIN I < 0.012 ng/mL
[2018-12-14 16:22] LABS: ARTERIAL BLOOD FIO2 ROOM AIR
[2018-12-14] MEDS: ENOXAPARIN SODIUM INJ 40 MG/0.4 ML DISP.SYRIN SUBCUT SCH (17:27)
--- NOTE | 2018-12-14 17:35 | PDOC H&P ---
History of Present Illness Admission Date/PCP: LARRY QUEEN MD Patient complains of: Shortness of the breath History of Present Illness: FERNANDO BHATIA is a 68 year old male This 68-year-old male with a patient of Dr. Queen with a history of the hypertension's hyperlipidemia with a history of COPD recently admitting in the hospital in October and patient had a Cardiolite stress test was done which is negative for any acute ischemia but suggested some ischemic and dilated cardiomyopathyAnd patient had a echocardiogram was done with a EF was 40 to 45% And suggest to close cardiology follow-up Patient's also had pulmonary function studies done with so some mild Obstructive disease Patients did not follow the cardiology came today with the complaining of a more shortness of the breath with exertions and patient never developing more swelling in the lower extremity in emergency department patient's chest x-ray was consistent with a cardiomegaly with pleural fluids and NT BNP was also elevated which all consistent with the congestive heart failure with some mild COPD exacerbations Patient with a long-standing history of the more than 40 years smoking Since was giving the IV Lasix 40 mg in the ER patient's other blood work is stable EKG is stable I saw the patient feeling better still little bit tachypneic we will order the ABG he is denied any chest pain Patient had a CT angiogram done on the last visit was negative for any PE Past Medical History Cardiac Medical History: Reports: Congestive Heart Failure, Coronary Artery Disease, Hypertension Pulmonary Medical History: Reports: Chronic Obstructive Pulmonary Disease (COPD) Neurological Medical History: GI Medical History: Reports: Hiatal Hernia Musculoskeltal Medical History: Reports: Arthritis - KNEES, USES CANE AND WALKER Past Surgical History Past Surgical History: Reports: Herniorrhaphy, Other - Laparotomy with nephrect markus for blunt trauma Social History Information Source: Patient Smoking Status: Current Every Day Smoker Frequency of Alcohol Use: Occasional Hx Recreational Drug Use: No Drugs: None Hx Prescription Drug Abuse: No Family History Family History: Reviewed & Not Pertinent Parental Family History Reviewed: Yes Children Family History Reviewed: Yes Sibling(s) Family History Reviewed.: Yes Medication/Allergy Home Medications: Albuterol Sulfate [Albuterol Sulfate Hfa] 8.5 gm IH Q6H PRN #2 hfa.aer.ad 11/02/18 Aspirin [Aspirin 81 mg Chewable Tablet] 81 mg PO DAILY #90 06/25/19 Atorvastatin Calcium [Lipitor 20 mg Tablet] 20 mg PO QHS #90 tablet 11/02/18 Fluticasone/Umeclidin/Vilanter [Trelegy 100-62.5-25 Mcg Ellipta 14 Dose/Dpi] 1 inh IH DAILY #1 inhaler 11/02/18 Metoprolol Succinate 100 mg PO DAILY #90 tab.er.24h 11/02/18 Allergies/Adverse Reactions: No Known Allergies Allergy (Verified 10/27/18 14:56) Review of Systems Constitutional: ABSENT: chills, fever(s), headache(s), weight gain, weight loss Eyes: ABSENT: visual disturbances Ears: ABSENT: hearing changes Cardiovascular: PRESENT: dyspnea on exertion, edema. ABSENT: chest pain, orthropnea, palpitations Respiratory: PRESENT: dyspnea. ABSENT: cough, hemoptysis Gastrointestinal: ABSENT: abdominal pain, constipation, diarrhea, hematemesis, hematochezia, nausea, vomiting Genitourinary: ABSENT: dysuria, hematuria Musculoskeletal: ABSENT: joint swelling Integumentary: ABSENT: rash, wounds Neurological: ABSENT: abnormal gait, abnormal speech, confusion, dizziness, focal weakness, syncope Psychiatric: ABSENT: anxiety, depression, homidical ideation, suicidal ideation Endocrine: ABSENT: cold intolerance, heat intolerance, menstrual abnormalities, polydipsia, polyuria Hematologic/Lymphatic: ABSENT: easy bleeding, easy bruising, lymphadenopathy Physical Exam Vital Signs: Temp Pulse Resp BP Pulse Ox 97.4 F 74 16 151/99 H 98 12/14/18 11:21 12/14/18 11:21 12/14/18 11:21 12/14/18 11:21 12/14/18 14:31 Intake & Output 12/13/18 12/14/18 12/15/18 06:59 06:59 06:59 Weight 68.7 kg General appearance: PRESENT: no acute distress, well-developed, well-nourished Head exam: PRESENT: atraumatic, normocephalic Eye exam: PRESENT: conjunctiva pink, EOMI, PERRLA. ABSENT: scleral icterus Ear exam: PRESENT: normal external ear exam Mouth exam: PRESENT: moist, tongue midline Neck exam: PRESENT: full ROM. ABSENT: carotid bruit, JVD, lymphadenopathy, thyromegaly Respiratory exam: PRESENT: decreased breath sounds Cardiovascular exam: PRESENT: RRR. ABSENT: diastolic murmur, rubs, systolic murmur Pulses: PRESENT: normal dorsalis pedis pul, +2 pedal pulses bilateral Vascular exam: PRESENT: normal capillary refill GI/Abdominal exam: PRESENT: normal bowel sounds, soft. ABSENT: distended, guarding, mass, organolmegaly, rebound, tenderness Rectal exam: PRESENT: deferred Extremities exam: PRESENT: pedal edema Neurological exam: PRESENT: alert, awake, oriented to person, oriented to place, oriented to time, oriented to situation, CN II-XII grossly intact. ABSENT: motor sensory deficit Psychiatric exam: PRESENT: appropriate affect, normal mood. ABSENT: homicidal ideation, suicidal ideation Skin exam: PRESENT: dry, intact, warm. ABSENT: cyanosis, rash Results Laboratory Results: 12/14/18 12:45 12/14/18 12:45 12/14/18 12/14/18 12:45 12:45 WBC 4.1 RBC 4.54 Hgb 12.4 L Hct 38.5 MCV 85 MCH 27.3 MCHC 32.2 RDW 16.6 H Plt Count 269 Seg Neutrophils % 50.1 Lymphocytes % 35.3 Monocytes % 9.8 Eosinophils % 3.4 Basophils % 1.4 Absolute Neutrophils 2.0 Absolute Lymphocytes 1.4 Absolute Monocytes 0.4 Absolute Eosinophils 0.1 Absolute Basophils 0.1 Sodium 136.8 L Potassium 5.1 H Chloride 103 Carbon Dioxide 31 H Anion Gap 3 L BUN 18 Creatinine 1.00 Est GFR ( Amer) > 60 Est GFR (Non-Af Amer) > 60 Glucose 125 H Calcium 8.4 Total Bilirubin 0.4 AST 185 H Alkaline Phosphatase 125 Total Protein 6.5 Albumin 3.3 L 12/14/18 12:45 Troponin I < 0.012 NT-Pro-B Natriuret Pep 4340 H Impressions: Chest X-Ray 12/14/18 12:20 IMPRESSION: Cardiomegaly with mild, diffuse bilateral interstitial pulmonary opacity, likely edema. No focal airspace opacity. Assessment & Plan - Diagnosis (1) Acute congestive heart failure Qualifiers: Heart failure type: combined systolic and diastolic Qualified Code(s): I50.41 - Acute combined systolic (congestive) and diastolic (congestive) heart failure Is this a current diagnosis for this admission?: Yes Plan: Patient's recent echocardiogram suggest a 40-45 Percent EFAnd a Cardiolite stress test suggested ischemic and dilated cardiomyopathy Patient's elevated NT BNP leg edema chest x-ray consistent with the heart failure discussed with the cardiology Dr. Goldstein start the patient on IV Lasix Consult the cardiology for further evaluations (2) Hypertension Qualifiers: Hypertension type: essential hypertension Qualified Code(s): I10 - Essential (primary) hypertension Is this a current diagnosis for this admission?: Yes Plan: Continues to current medications (3) Shortness of breath Is this a current diagnosis for this admission?: Yes Plan: Most likely due to the above conditions with patient has some mild COPD (4) Chronic obstructive pulmonary disease Qualifiers: Emphysema type: unspecified Is this a current diagnosis for this admission?: Yes Plan: Continues to nebulizer treatments will get the ABG - Time Time Spent: 30 to 50 Minutes Medications reviewed and adjusted accordingly: Yes Anticipated discharge: Home Within: Other - Inpatient Certification Based on my medical assessment, after consideration of the patient's comorbidities, presenting symptoms, or acuity I expect that the services needed warrant INPATIENT care.: Yes I certify that my determination is in accordance with my understanding of Medicare's requirements for reasonable and necessary INPATIENT services [42 CFR 412.3e].: Yes Medical Necessity: Significant Comorbidiites Make Outpatient Treatment Too Risky, Need Close Monitoring Due to Risk of Patient Decompensation, Need for Neb ulizer Therapy and Monitoring of Response Post Hospital Care: 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
[2018-12-14] MEDS: FUROSEMIDE INJ/PF 20 MG/2 ML SDV IV SCH (17:55)
[2018-12-14] MEDS: CEFTRIAXONE SODIUM 1,000 MG in DEXTROSE 5%-WATER 50 ML IV SCH (17:55)
--- NOTE | 2018-12-14 17:55 | RADIOLOGY REPORT (SQ) ---
EXAM DESCRIPTION: VENOUS BILATERAL LOWER COMPLETED DATE/TIME: 12/14/2018 5:25 pm REASON FOR STUDY: edema COMPARISON: None. TECHNIQUE: Dynamic and static levy scale and color images acquired of both lower extremity venous sy stems. Selected spectral images acquired with additional compression and augmentation maneuvers. Imag es stored on PACS. LIMITATIONS: None. FINDINGS: RIGHT LEG COMMON FEMORAL AND FEMORAL: Normal phasicity, compression and augmentation. No visualized echogenic m aterial on levy scale. No defects on color images. POPLITEAL: Normal compression and augmentation. No visualized echogenic material on levy scale. No de fects on color images. CALF VESSELS: Normal compression and augmentation. No visualized echogenic material on levy scale. No defects on color image. GSV AND SSV: Normal compression. No visualized echogenic material on levy scale. No defects on color images. ANY DEEP VENOUS INSUFFICIENCY: Not evaluated. ANY EVIDENCE OF POPLITEAL CYST: No. OTHER: Waveforms are pulsatile which may represent right-sided heart failure. LEFT LEG COMMON FEMORAL AND FEMORAL: Normal phasicity, compression and augmentation. No visualized echogenic m aterial on levy scale. No defects on color images. POPLITEAL: Normal compression and augmentation. No visualized echogenic material on levy scale. No de fects on color images. CALF VESSELS: Normal compression and augmentation. No visualized echogenic material on levy scale. No defects on color images. GSV AND SSV: Normal compression. No visualized echogenic material on levy scale. No defects on color images. ANY DEEP VENOUS INSUFFICIENCY: Not evaluated. ANY EVIDENCE POPLITEAL CYST: No. OTHER: Waveforms are pulsatile which may represent right-sided heart failure. IMPRESSION: NO EVIDENCE DVT OR SVT IN EITHER LEG. TECHNICAL DOCUMENTATION: JOB ID: [id number] [employer]- All Rights Reserved Reading location - IP/workstation name: [email or web address]
--- NOTE | 2018-12-14 18:29 | EKG REPORT ---
SEVERITY:- ABNORMAL ECG - SINUS RHYTHM ATRIAL PREMATURE COMPLEX PROBABLE LEFT ATRIAL ABNORMALITY LVH WITH SECONDARY REPOLARIZATION ABNORMALITY : Confirmed by: Catalino Cody MD 14-Dec-2018 18:28:52
[2018-12-14] MEDS ORDERED: METOPROLOL SUCCINATE 50 MG TAB.SR.24H PO ONE (18:30)
[2018-12-14 18:58] LABS: URINE AMPHETAMINES SCREEN NEGATIVE; URINE BARBITURATES SCREEN NEGATIVE; URINE BENZODIAZEPINES SCREEN NEGATIVE; URINE MARIJUANA (THC) SCREEN NEGATIVE; URINE METHADONE SCREEN NEGATIVE; URINE PHENCYCLIDINE SCREEN NEGATIVE
[2018-12-14 19:00] LABS: URINE COCAINE SCREEN UNCONFIRMED POSITIVE
[2018-12-14] MEDS: IPRATROPIUM/ALBUTEROL 0.5-2.5 MG/3 ML AMPUL NEB SCH (19:57)
[2018-12-14 21:40] LABS: CREATINE KINASE MB 1.51 ng/mL (<4.55)
[2018-12-14] MEDS: LOSARTAN POTASSIUM 25 MG TABLET PO SCH (21:43)
[2018-12-14] MEDS: ATORVASTATIN CALCIUM 20 MG TABLET PO SCH (21:43)
[2018-12-14 21:47] LABS: TROPONIN I < 0.012 ng/mL
[2018-12-14] MEDS ORDERED: (PENDING PHARMACY ID) (Tramadol Hcl/Acetaminophen [Tramadol-Acetaminophn 37.5-325] 1 EACH) PO SCH (22:00)
[2018-12-15] MEDS: FUROSEMIDE INJ/PF 20 MG/2 ML SDV IV SCH ×3 (02:44→17:36)
[2018-12-15 03:07] LABS: ABSOLUTE LYMPHOCYTES (AUTO) 0.5 10^3/uL (0.5-4.7); ABSOLUTE MONOCYTES (AUTO) 0.2 10^3/uL (0.1-1.4); ABSOLUTE NEUT (AUTO) 3.6 10^3/uL (1.7-8.2); BASOPHILS % (AUTO) 0.5 % (0-2); HEMATOCRIT 37.1 % (37.9-51.0); HEMOGLOBIN 11.9 g/dL (13.5-17.0); LYMPHOCYTES % (AUTO) 12.1 % (13-45); MEAN CORPUSCULAR HEMOGLOBIN 26.9 pg (27.0-33.4); MEAN CORPUSCULAR HGB CONC 32.1 g/dL (32.0-36.0); MEAN CORPUSCULAR VOLUME 84 fl (80-97); PLATELET COUNT 234 10^3/uL (150-450); RED BLOOD COUNT 4.43 10^6/uL (4.35-5.55); RED CELL DISTRIBUTION WIDTH 16.1 % (11.5-14.0); SEGMENTED NEUTROPHILS % (AUTO) 83.4 % (42-78); TOTAL CELLS COUNTED % (AUTO) 100 %; WHITE BLOOD COUNT 4.3 10^3/uL (4.0-10.5)
[2018-12-15 03:27] LABS: ALBUMIN 2.9 g/dL (3.5-5.0); ALKALINE PHOSPHATASE 112 U/L (38-126); ANION GAP 5 (5-19); ASPARTATE AMINO TRANSFERASE 98 U/L (17-59); BILIRUBIN,DIRECT 0.2 mg/dL (0.0-0.4); BILIRUBIN,TOTAL 0.3 mg/dL (0.2-1.3); BLOOD UREA NITROGEN 20 mg/dL (7-20); CALCIUM 8.4 mg/dL (8.4-10.2); CARBON DIOXIDE 32 mmol/L (22-30); CHLORIDE 100 mmol/L (98-107); GLUCOSE 154 mg/dL (75-110); TOTAL PROTEIN 5.9 g/dL (6.3-8.2)
[2018-12-15 03:33] LABS: POTASSIUM 4.1 mmol/L (3.6-5.0)
[2018-12-15 03:38] LABS: CREATINE KINASE MB 1.24 ng/mL (<4.55); TROPONIN I < 0.012 ng/mL
[2018-12-15 06:03] LABS: ARTERIAL BLOOD BASE EXCESS 4.8 mmol/L; ARTERIAL BLOOD FIO2 ROOM AIR; ARTERIAL BLOOD H2CO3 1.35 mmol/L (1.05-1.35); ARTERIAL BLOOD HCO3 29.7 mmol/L (20-24); ARTERIAL BLOOD O2 SATURATION 93.5 % (94-98); ARTERIAL BLOOD PCO2 44.8 mmHg (35-45); ARTERIAL BLOOD PH 7.44 (7.35-7.45); ARTERIAL BLOOD PO2 65.7 mmHg (80-100); ARTERIAL BLOOD TOTAL CO2 31.1 mmol/L (23-27)
--- NOTE | 2018-12-15 07:41 | EKG REPORT ---
SEVERITY:- ABNORMAL ECG - SINUS BRADYCARDIA LEFT VENTRICULAR HYPERTROPHY ABNORMAL T, PROBABLE ISCHEMIA, ANTERIOR LEADS UNCHAGED FROM 10/28/18 : Confirmed by: Catalino Cody MD 15-Dec-2018 07:41:18
[2018-12-15] MEDS: IPRATROPIUM/ALBUTEROL 0.5-2.5 MG/3 ML AMPUL NEB SCH ×3 (07:54→20:46)
[2018-12-15] MEDS: FLUTICASONE/UMECLIDIN/VILANTER 100-62.5-25 MCG/DOSE IH SCH (09:32)
[2018-12-15] MEDS: METOPROLOL SUCCINATE 50 MG TAB.SR.24H PO SCH (09:33)
[2018-12-15] MEDS: LOSARTAN POTASSIUM 25 MG TABLET PO SCH (09:33)
[2018-12-15] MEDS: ENOXAPARIN SODIUM INJ 40 MG/0.4 ML DISP.SYRIN SUBCUT SCH (09:52)
[2018-12-15] MEDS ORDERED: CEFTRIAXONE 1 GM/D5W RTU 1 GM/50 ML RTUPB IV SCH (10:00)
--- NOTE | 2018-12-15 10:24 | PDOC PROGRESS REPORT ---
Subjective Progress Note for:: 12/15/18 Subjective:: Patient is feeling better Any chest pain to than any shortness of the breath Reason For Visit: SOB/CHF/COPD Physical Exam Vital Signs: Temp Pulse Resp BP Pulse Ox 97.6 F 68 18 161/73 H 97 12/15/18 07:43 12/15/18 07:58 12/15/18 07:58 12/15/18 07:43 12/15/18 07:58 Intake & Output 12/14/18 12/15/18 12/16/18 06:59 06:59 06:59 Intake Total 1092 Balance 1092 Weight 65.5 kg General appearance: PRESENT: no acute distress, well-developed, well-nourished Head exam: PRESENT: atraumatic, normocephalic Eye exam: PRESENT: conjunctiva pink, EOMI, PERRLA. ABSENT: scleral icterus Ear exam: PRESENT: normal external ear exam Mouth exam: PRESENT: moist, tongue midline Neck exam: PRESENT: full ROM. ABSENT: carotid bruit, JVD, lymphadenopathy, thyromegaly Respiratory exam: PRESENT: clear to auscultation sherly Cardiovascular exam: PRESENT: RRR. ABSENT: diastolic murmur, rubs, systolic murmur Pulses: PRESENT: normal dorsalis pedis pul, +2 pedal pulses bilateral Vascular exam: PRESENT: normal capillary refill GI/Abdominal exam: PRESENT: normal bowel sounds, soft. ABSENT: distended, guarding, mass, organolmegaly, rebound, tenderness Rectal exam: PRESENT: deferred Musculoskeletal exam: PRESENT: ambulatory Neurological exam: PRESENT: alert, awake, oriented to person, oriented to place, oriented to time, oriented to situation, CN II-XII grossly intact. ABSENT: motor sensory deficit Psychiatric exam: PRESENT: appropriate affect, normal mood. ABSENT: homicidal ideation, suicidal ideation Skin exam: PRESENT: dry, intact, warm. ABSENT: cyanosis, rash Results Laboratory Results: 12/15/18 03:00 12/15/18 03:00 12/14/18 12/14/18 12/14/18 12:45 12:45 15:55 WBC 4.1 RBC 4.54 Hgb 12.4 L Hct 38.5 MCV 85 MCH 27.3 MCHC 32.2 RDW 16.6 H Plt Count 269 Seg Neutrophils % 50.1 Lymphocytes % 35.3 Monocytes % 9.8 Eosinophils % 3.4 Basophils % 1.4 Absolute Neutrophils 2.0 Absolute Lymphocytes 1.4 Absolute Monocytes 0.4 Absolute Eosinophils 0.1 Absolute Basophils 0.1 Carbonic Acid 1.25 HCO3/H2CO3 Ratio 20:1 ABG pH 7.41 ABG pCO2 41.6 ABG pO2 80.0 ABG HCO3 25.7 H ABG O2 Saturation 95.9 ABG Base Excess 0.9 FiO2 ROOM AIR Sodium 136.8 L Potassium 5.1 H Chloride 103 Carbon Dioxide 31 H Anion Gap 3 L BUN 18 Creatinine 1.00 Est GFR ( Amer) > 60 Est GFR (Non-Af Amer) > 60 Glucose 125 H Calcium 8.4 Magnesium Total Bilirubin 0.4 AST 185 H Alkaline Phosphatase 125 Total Protein 6.5 Albumin 3.3 L 12/15/18 12/15/18 12/15/18 03:00 03:00 05:30 WBC 4.3 RBC 4.43 Hgb 11.9 L Hct 37.1 L MCV 84 MCH 26.9 L MCHC 32.1 RDW 16.1 H Plt Count 234 Seg Neutrophils % 83.4 H Lymphocytes % 12.1 L Monocytes % 4.0 Eosinophils % 0.0 Basophils % 0.5 Absolute Neutrophils 3.6 Absolute Lymphocytes 0.5 Absolute Monocytes 0.2 Absolute Eosinophils 0.0 Absolute Basophils 0.0 Carbonic Acid 1.35 HCO3/H2CO3 Ratio 22:1 ABG pH 7.44 ABG pCO2 44.8 ABG pO2 65.7 L ABG HCO3 29.7 H ABG O2 Saturation 93.5 L ABG Base Excess 4.8 FiO2 ROOM AIR Sodium 137.4 Potassium 4.1 D Chloride 100 Carbon Dioxide 32 H Anion Gap 5 BUN 20 Creatinine 0.99 Est GFR ( Amer) > 60 Est GFR (Non-Af Amer) > 60 Glucose 154 H Calcium 8.4 Magnesium 1.7 Total Bilirubin 0.3 AST 98 H Alkaline Phosphatase 112 Total Protein 5.9 L Albumin 2.9 L 12/14/18 12/14/18 12/14/18 12:45 15:20 15:20 Creatine Kinase 130 CK-MB (CK-2) 1.41 Troponin I < 0.012 < 0.012 NT-Pro-B Natriuret Pep 4340 H 12/14/18 12/14/18 12/15/18 21:00 21:00 03:00 Creatine Kinase 119 91 CK-MB (CK-2) 1.51 Troponin I < 0.012 NT-Pro-B Natriuret Pep 12/15/18 12/15/18 03:00 03:00 Creatine Kinase CK-MB (CK-2) 1.24 Troponin I < 0.012 NT-Pro-B Natriuret Pep 5810 H Impressions: Venous Doppler Study 12/14/18 00:00 IMPRESSION: NO EVIDENCE DVT OR SVT IN EITHER LEG. Chest X-Ray 12/14/18 12:20 IMPRESSION: Cardiomegaly with mild, diffuse bilateral interstitial pulmonary opacity, likely edema. No focal airspace opacity. Assessment & Plan - Diagnosis (1) Acute congestive heart failure Qualifiers: Heart failure type: combined systolic and diastolic Qualified Code(s): I50.41 - Acute combined systolic (congestive) and diastolic (congestive) heart failure Is this a current diagnosis for this admission?: Yes Plan: Continues to Lasix (2) Hypertension Qualifiers: Hypertension type: essential hypertension Qualified Code(s): I10 - Essential (primary) hypertension Is this a current diagnosis for this admission?: Yes Plan: Continues to current medications (3) Shortness of breath Is this a current diagnosis for this admission?: Yes Plan: Clear all resolved (4) Chronic obstructive pulmonary disease Qualifiers: Emphysema type: unspecified Is this a current diagnosis for this admission?: Yes Plan: Continues to nebulizer treatments will get the ABG (5) Drug abuse Is this a current diagnosis for this admission?: Yes - Time Time Spent with patient: 15-24 minutes Medications reviewed and adjusted accordingly: Yes Anticipated discharge: Home with Homehealth Within: Other - Plan Summary Plan Summary: Continues to IV Lasix follow with the cardiology
--- NOTE | 2018-12-15 13:24 | RADIOLOGY REPORT (SQ) ---
EXAM DESCRIPTION: CHEST 2 VIEWS COMPLETED DATE/TIME: 12/15/2018 1:09 pm REASON FOR STUDY: chf COMPARISON: 12/14/2018 EXAM PARAMETERS: NUMBER OF VIEWS: two views TECHNIQUE: Digital Frontal and Lateral radiographic views of the chest acquired. RADIATION DOSE: NA LIMITATIONS: none FINDINGS: Slight interval improvement in diffuse bilateral interstitial pulmonary opacity. No new a irspace opacity. Unchanged small effusions. Cardiomegaly. IMPRESSION: Slight interval improvement in diffuse bilateral interstitial pulmonary opacity. No new airspace opacity. Unchanged small effusions. Cardiomegaly. TECHNICAL DOCUMENTATION: JOB ID: [id number] [employer]- All Rights Reserved Reading location - IP/workstation name: [email or web address]
[2018-12-15] MEDS: CEFTRIAXONE SODIUM 1,000 MG in DEXTROSE 5%-WATER 50 ML IV SCH (17:36)
--- NOTE | 2018-12-15 20:18 | PDOC CONSULTATION ---
Consultation-Blank Consultation: CARDIOLOGY CONSULTATION by Dr. Yoselin Goldstein on 12/15/2018. Patient seen at 11 AM on 12/15/2018. CONSULT all caps requesting PHYSICIAN: Dr. Meera Guerrero. REASON FOR CONSULTATION: Acute exacerbation of left ventricle systolic heart failure in a patient with cardiomyopathy. HISTORY PRESENT ILLNESS: Patient is a 68-year-old Afro-[place] male, with history of hypertension, chronic obstructive c pulmonary disorder, with ongoing tobacco abuse, states since last month has been having progressively increasing dyspnea on exertion which progressed to dyspnea with even mild exertion. Subsequently on the day prior to admission he had significant shortness of breath at rest with wheezing. He is also been having orthopnea and PND. He denies any chest pain or discomfort. There is no palpitations or syncope. He states he also has intermittent wheezing and cough productive of whitish sputum. Note that the patient's symptoms started prior to October 2018. At that time he was admitted with shortness of breath and congestive heart failure. He had a work-up which showed mild obstructive disease and mild restrictive disease by pulmonary function test. He also had an echocardiogram the ejection fraction was read to be 40% to 45%. He had a stress test which showed no reversible ischemia, there was a small area of scar in the left ventricle apex, with with the LV ejection fraction moderately reduced. 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 The patient had been advised close cardiology follow-up, but did not follow through with cardiology. Since admission the patient states that with the diuretics and the current treatment and including respiratory treatments he is feeling much better. There is no shortness of breath at rest. There is no PND orthopnea. There is never been any chest pains. There is no arrhythmia seen on the monitor. There is no dizziness syncope or near syncope. There is no TIA CVA symptoms. She has a history of nephrectomy after blunt abdominal trauma. Past Medical History Cardiac Medical History: Reports: Congestive Heart Failure, Coronary Artery Disease, Hypertension Pulmonary Medical History: Reports: Chronic Obstructive Pulmonary Disease (COPD) Neurological Medical History: GI Medical History: Reports: Hiatal Hernia Musculoskeltal Medical History: Reports: Arthritis - KNEES, USES CANE AND WALKER Past Surgical History Past Surgical History: Reports: Herniorrhaphy, Other - Laparotomy with nephrectomy for blunt trauma Social History Information Source: Patient Smoking Status: Current Every Day Smoker Frequency of Alcohol Use: Occasional Hx Recreational Drug Use: History of occasional cocaine use. Drugs: None Hx Prescription Drug Abuse: No Family History: Is positive for hypertension negative for coronary artery disease. RESUSCITATION STATUS: The patient is a full code. His sister is his surrogate healthcare decision maker. Medication/Allergy Home Medications: Albuterol Sulfate [Albuterol Sulfate Hfa] 8.5 gm IH Q6H PRN #2 hfa.aer.ad 11/02/18 Aspirin [Aspirin 81 mg Chewable Tablet] 81 mg PO DAILY #90 11/02/18 Atorvastatin Calcium [Lipitor 20 mg Tablet] 20 mg PO QHS #90 tablet 11/02/18 Fluticasone/Umeclidin/Vilanter [Trelegy 100-62.5-25 Mcg Ellipta 14 Dose/Dpi] 1 inh IH DAILY #1 inhaler 11/02/18 Metoprolol Succinate 100 mg PO DAILY #90 tab.er.24h 11/02/18 Allergies/Adverse Reactions: No Known Allergies ) Review of Systems Constitutional: ABSENT: chills, fever(s), headache(s), weight gain, weight loss Eyes: ABSENT: visual disturbances Ears: ABSENT: hearing changes Cardiovascular: PRESENT: dyspnea on exertion, edema. ABSENT: chest pain, orthropnea, palpitations Respiratory: PRESENT: dyspnea. ABSENT: cough, hemoptysis Gastrointestinal: ABSENT: abdominal pain, constipation, diarrhea, hematemesis, hematochezia, nausea, vomiting Genitourinary: ABSENT: dysuria, hematuria Musculoskeletal: ABSENT: joint swelling Integumentary: ABSENT: rash, wounds Neurological: ABSENT: abnormal gait, abnormal speech, confusion, dizziness, focal weakness, syncope Psychiatric: ABSENT: anxiety, depression, homidical ideation, suicidal ideation Endocrine: ABSENT: cold intolerance, heat intolerance, menstrual abnormalities, polydipsia, polyuria Hematologic/Lymphatic: ABSENT: easy bleeding, easy bruising, lymphadenopathy PHYSICAL EXAMINATION: The patient is well-built and well-nourished. In no acute distress. At present he has no orthopnea and able to lie down flat. Selected Entries 12/15/18 11:31 Temperature 97.7 F Temperature Oral Source Pulse Rate 70 Respiratory 18 Rate Blood Pressure 137/87 H Blood Pressure 103 Mean BP Location Left Arm BP Position Supine O2 Sat by Pulse 97 Oximetry Oxygen Delivery Room Air Method HEAD: Is atraumatic normocephalic. EYES: Pupils equal round regular reactive to light accommodation. Extraocular movements are normal. There is no conjunctival pallor. There is no scleral icterus. EARS: Tympanic memories are intact. External auditory canals are clear. NOSE: There is no deviated nasal septum. There is no inflammation of the nasal mucous membrane. MOUTH: Mucous membranes of mouth are moist. Tongue is moist. There is no ulcers. THROAT: There is no redness of the oropharynx. Is no exudates. SKIN: There is no skin rashes or skin lesions. There is no particular ecchymosis. NECK: Is supple. At present there is no JVD. Carotids are equal there is no bruits. There is no lymphadenopathy. There is no goiter. There is no accessory muscle respiration use. Trachea central. LUNGS: There is diminished air entry and prolonged expiration. There is no rhonchi rales or wheezing. On percussion there is hyperresonance. HEART: S1-S2 is heard. There is no S3 gallop. There is no S4 gallop. There is systolic murmur left sternal border and the apex there is no rub. ABDOMEN: Soft. Nontender. There is no paraspinal megaly. EXTREMITIES: Femorals are diminished. There is no femoral bruits. Leg pulses are diminished. There is no pedal edema. There is no DVT or cellulitis. There is no calf tenderness. There is no cyanosis or clubbing. ICT SYSTEMS TEST ENGINEER: The patient is conscious awake alert oriented x3 with no focal deficits. PSYCHIATRIC: The patient judgment insight are intact his affect is normal. Current Medications Generic Name Dose Route Start Last Admin Trade Name Freq PRN Reason Stop Dose Admin Acetaminophen 650 mg 12/14/18 14:54 Tylenol 325 Mg Tablet PO 01/13/19 14:53 Q4HP PRN FOR PAIN OR TEMP Albuterol/Ipratropium 3 ml 12/14/18 20:00 12/15/18 13:46 Duoneb 3 Ml Ampul NEB 01/13/19 19:59 3 ml [id number] NASIR Administration Atorvastatin Calcium 20 mg 12/14/18 22:00 12/14/18 21:43 Lipitor 20 Mg Tablet PO 01/13/19 21:59 20 mg QHS NASIR Administration Enoxaparin Sodium 40 mg 12/14/18 16:00 12/15/18 09:52 Lovenox Inj 40 Mg/0.4 Ml Disp.Syrin SUBCUT 01/13/19 15:59 Not Given DAILY NASIR Fluticasone/Vilanterol 1 inh 12/15/18 10:00 12/15/18 09:32 Trelegy 100-62.5-25 Mcg Ellipta 14 Dose/Dpi IH 01/14/19 09:59 1 puff DAILY NASIR Administration Furosemide 20 mg 12/14/18 18:00 12/15/18 17:36 Lasix Inj/Pf 20 Mg/2 Ml Sdv IV 01/13/19 17:59 20 mg Q8A NASIR Administration Ceftriaxone Sodium 1,000 mg/ 50 mls @ 100 mls/hr 12/14/18 18:00 12/15/18 18:25 Dextrose IV 12/21/18 17:59 Infused QPM NASIR Infusion Losartan Potassium 25 mg 12/14/18 22:00 12/15/18 09:33 Cozaar 25 Mg Tablet PO 01/13/19 21:59 25 mg Q12 NASIR Administration Metoprolol Succinate 100 mg 12/15/18 10:00 12/15/18 09:33 Toprol Xl 50 Mg Tab.Sr PO 01/14/19 09:59 100 mg DAILY NASIR Administration Patient Own Medication 1 each 12/14/18 22:00 Tramadol Hcl/Acetaminophen [Tramadol-Acetaminophn 37.5-325] PO 01/13/19 21:59 .Q8 NASIR Discontinued Medications Generic Name Dose Route Start Last Admin Trade Name Freq PRN Reason Stop Dose Admin Albuterol/Ipratropium 3 ml 12/14/18 14:29 12/14/18 14:49 Duoneb 3 Ml Ampul NEB 12/14/18 14:30 3 ml NOW ONE Administration Furosemide 40 mg 12/14/18 14:28 12/14/18 14:47 Lasix Inj/Pf 40 Mg/4 Ml Sdv IV 12/14/18 14:29 40 mg NOW ONE Administration Methylprednisolone Sodium Succinate 125 mg 12/14/18 14:28 12/14/18 14:49 Solu-Medrol Inj/Pf 125 Mg/2 Ml Sdv IV 12/14/18 14:29 125 mg NOW ONE Administration Metoprolol Succinate 50 mg 12/14/18 18:30 12/14/18 18:40 Toprol Xl 50 Mg Tab.Sr PO 12/14/18 18:31 Not Given NOW ONE Labs- All tests 24 hr 12/14/18 12/14/18 12/15/18 21:00 21:00 03:00 WBC RBC Hgb Hct MCV MCH MCHC RDW Plt Count Seg Neutrophils % Lymphocytes % Monocytes % Eosinophils % Basophils % Absolute Neutrophils Absolute Lymphocytes Absolute Monocytes Absolute Eosinophils Absolute Basophils Carbonic Acid HCO3/H2CO3 Ratio ABG pH ABG pCO2 ABG pO2 ABG HCO3 ABG Total CO2 ABG O2 Saturation ABG Base Excess FiO2 Sodium Potassium Chloride Carbon Dioxide Anion Gap BUN Creatinine Est GFR ( Amer) Est GFR (Non-Af Amer) Glucose Calcium Magnesium Total Bilirubin Direct Bilirubin Neonat Total Bilirubin Neonat Direct Bilirubin Neonat Indirect Bili AST ALT Alkaline Phosphatase Creatine Kinase 119 91 CK-MB (CK-2) 1.51 Troponin I < 0.012 NT-Pro-B Natriuret Pep Total Protein Albumin 12/15/18 12/15/18 12/15/18 03:00 03:00 03:00 WBC 4.3 RBC 4.43 Hgb 11.9 L Hct 37.1 L MCV 84 MCH 26.9 L MCHC 32.1 RDW 16.1 H Plt Count 234 Seg Neutrophils % 83.4 H Lymphocytes % 12.1 L Monocytes % 4.0 Eosinophils % 0.0 Basophils % 0.5 Absolute Neutrophils 3.6 Absolute Lymphocytes 0.5 Absolute Monocytes 0.2 Absolute Eosinophils 0.0 Absolute Basophils 0.0 Carbonic Acid HCO3/H2CO3 Ratio ABG pH ABG pCO2 ABG pO2 ABG HCO3 ABG Total CO2 ABG O2 Saturation ABG Base Excess FiO2 Sodium 137.4 Potassium 4.1 D Chloride 100 Carbon Dioxide 32 H Anion Gap 5 BUN 20 Creatinine 0.99 Est GFR ( Amer) > 60 Est GFR (Non-Af Amer) > 60 Glucose 154 H Calcium 8.4 Magnesium 1.7 Total Bilirubin 0.3 Direct Bilirubin 0.2 Neonat Total Bilirubin Not Reportable Neonat Direct Bilirubin Not Reportable Neonat Indirect Bili Not Reportable AST 98 H ALT 149 Alkaline Phosphatase 112 Creatine Kinase CK-MB (CK-2) 1.24 Troponin I < 0.012 NT-Pro-B Natriuret Pep Total Protein 5.9 L Albumin 2.9 L 12/15/18 12/15/18 03:00 05:30 WBC RBC Hgb Hct MCV MCH MCHC RDW Plt Count Seg Neutrophils % Lymphocytes % Monocytes % Eosinophils % Basophils % Absolute Neutrophils Absolute Lymphocytes Absolute Monocytes Absolute Eosinophils Absolute Basophils Carbonic Acid 1.35 HCO3/H2CO3 Ratio 22:1 ABG pH 7.44 ABG pCO2 44.8 ABG pO2 65.7 L ABG HCO3 29.7 H ABG Total CO2 31.1 H ABG O2 Saturation 93.5 L ABG Base Excess 4.8 FiO2 ROOM AIR Sodium Potassium Chloride Carbon Dioxide Anion Gap BUN Creatinine Est GFR ( Amer) Est GFR (Non-Af Amer) Glucose Calcium Magnesium Total Bilirubin Direct Bilirubin Neonat Total Bilirubin Neonat Direct Bilirubin Neonat Indirect Bili AST ALT Alkaline Phosphatase Creatine Kinase CK-MB (CK-2) Troponin I NT-Pro-B Natriuret Pep 5810 H Total Protein Albumin Venous Doppler Study 12/14/18 00:00 IMPRESSION: NO EVIDENCE DVT OR SVT IN EITHER LEG. Chest X-Ray 12/14/18 12:20 IMPRESSION: Cardiomegaly with mild, diffuse bilateral interstitial pulmonary opacity, likely edema. No focal airspace opacity. Chest X-Ray 12/15/18 00:00 IMPRESSION: Slight interval improvement in diffuse bilateral interstitial pulmonary opacity. No new airspace opacity. Unchanged small effusions. Cardiomegaly. 12/14 :SINUS RHYTHM PROBABLE LEFT ATRIAL ABNORMALITY LEFT VENTRICULAR HYPERTROPHY BORDERLINE T ABNORMALITIES, INFERIOR LEADS SINUS RHYTHM ATRIAL PREMATURE COMPLEX PROBABLE LEFT ATRIAL ABNORMALITY LVH WITH SECONDARY REPOLARIZATION ABNORMALITY 12/15: SINUS BRADYCARDIA LEFT VENTRICULAR HYPERTROPHY ABNORMAL T, PROBABLE ISCHEMIA, ANTERIOR LEADS UNCHAGED FROM 10/28/18 IMPRESSION/RECOMMENDATION: 1. Acute on chronic systolic heart failure. Much improved. Would cautiously add an ANANYA inhibitor. Would recommend that the patient have a repeat echocardiogram done in January and. If that LV ejection fraction shows EF of 35% or below then would recommend patient be sent to EP cardiology for possible AICD placement. The patient CHF at present seems to be compensated, hence would recommend switch the patient's to p.o. Lasix. We will repeat a chest x-ray in the a.m. 2.COPD: With mild exacerbation on admission. At present stable. Continue respiratory treatments and antibiotics. 3. Cardiomyopathy mixed: Dilated and ischemic. Continue beta-blockers and ANANYA inhibitors. 4. Coronary artery disease: Abnormal stress test showing a small area of myocardial infarction. Recommend adding nitrates. This will also help in the treatment of the preload and the patient with congestive heart failure. 5. Hypertension: Blood pressure well controlled. Continue current medications. 6. History of tobacco abuse disorder: Tobacco cessation counseling done. 5 minutes spent on this. Ill effects of tobacco have been explained to the patient detail. Behavioral and medication therapy to aid in smoking cessation discussed. 7. History of cocaine abuse: Patient again cautioned about the risks of cocaine, and strongly advised the patient to refrain from using this. Medications reviewed. Medications adjusted. Management plan discussed with attending physician on the case. Medical decision making is of high complexity. 60 minutes spent on this patient with more than 50% of time spent in direct patient care. Will follow
[2018-12-15] MEDS: ATORVASTATIN CALCIUM 20 MG TABLET PO SCH (22:35)
[2018-12-15] MEDS: ASPIRIN 81 MG TABLET, ENT COATED PO SCH (22:35)
[2018-12-16 05:39] LABS: ANION GAP 5 (5-19); BLOOD UREA NITROGEN 19 mg/dL (7-20); CALCIUM 8.9 mg/dL (8.4-10.2); CARBON DIOXIDE 34 mmol/L (22-30); CHLORIDE 99 mmol/L (98-107); GLUCOSE 112 mg/dL (75-110); POTASSIUM 4.4 mmol/L (3.6-5.0)
[2018-12-16 05:41] LABS: ABSOLUTE BASOPHILS # (AUTO) 0.1 10^3/uL (0.0-0.2); ABSOLUTE EOSINOPHILS # (AUTO) 0.1 10^3/uL (0.0-0.6); ABSOLUTE LYMPHOCYTES (AUTO) 1.9 10^3/uL (0.5-4.7); ABSOLUTE MONOCYTES (AUTO) 0.6 10^3/uL (0.1-1.4); ABSOLUTE NEUT (AUTO) 5.6 10^3/uL (1.7-8.2); BASOPHILS % (AUTO) 1.3 % (0-2); EOSINOPHILS % (AUTO) 0.8 % (0-6); HEMATOCRIT 37.3 % (37.9-51.0); HEMOGLOBIN 12.1 g/dL (13.5-17.0); LYMPHOCYTES % (AUTO) 23.4 % (13-45); MEAN CORPUSCULAR HEMOGLOBIN 27.2 pg (27.0-33.4); MEAN CORPUSCULAR HGB CONC 32.5 g/dL (32.0-36.0); MEAN CORPUSCULAR VOLUME 84 fl (80-97); MONOCYTES % (AUTO) 7.1 % (3-13); PLATELET COUNT 223 10^3/uL (150-450); RED BLOOD COUNT 4.47 10^6/uL (4.35-5.55); RED CELL DISTRIBUTION WIDTH 15.9 % (11.5-14.0); SEGMENTED NEUTROPHILS % (AUTO) 67.4 % (42-78); TOTAL CELLS COUNTED % (AUTO) 100 %; WHITE BLOOD COUNT 8.3 10^3/uL (4.0-10.5)
[2018-12-16] MEDS: IPRATROPIUM/ALBUTEROL 0.5-2.5 MG/3 ML AMPUL NEB SCH ×3 (07:48→20:20)
--- NOTE | 2018-12-16 08:37 | RADIOLOGY REPORT (SQ) ---
EXAM DESCRIPTION: CHEST 2 VIEWS COMPLETED DATE/TIME: 12/16/2018 8:11 am REASON FOR STUDY: CHF COMPARISON: Chest films 12/15/2018, 12/14/2018 CT angio chest 10/28/2018 EXAM PARAMETERS: NUMBER OF VIEWS: two views TECHNIQUE: Digital Frontal and Lateral radiographic views of the chest acquired. RADIATION DOSE: NA LIMITATIONS: none FINDINGS: LUNGS AND PLEURA: No opacities, masses or pneumothorax. No pleural effusion. MEDIASTINUM AND HILAR STRUCTURES: No masses or contour abnormalities. HEART AND VASCULAR STRUCTURES: Stable borderline cardiomegaly. No evidence for failure. BONES: No acute findings. HARDWARE: None in the chest. OTHER: No other significant finding. IMPRESSION: NO ACUTE RADIOGRAPHIC FINDING IN THE CHEST. TECHNICAL DOCUMENTATION: JOB ID: [id number] [employer]- All Rights Reserved Reading location - IP/workstation name: [email or web address]
[2018-12-16] MEDS: FUROSEMIDE 20 MG TABLET PO SCH (09:22)
[2018-12-16] MEDS: ISOSORBIDE MONONITRATE 30 MG TAB.ER.24H PO SCH (09:22)
[2018-12-16] MEDS: FLUTICASONE/UMECLIDIN/VILANTER 100-62.5-25 MCG/DOSE IH SCH (09:23)
[2018-12-16] MEDS: METOPROLOL SUCCINATE 50 MG TAB.SR.24H PO SCH (09:23)
[2018-12-16] MEDS: LISINOPRIL 10 MG TABLET PO SCH (09:23)
[2018-12-16] MEDS: ENOXAPARIN SODIUM INJ 40 MG/0.4 ML DISP.SYRIN SUBCUT SCH (10:05)
--- NOTE | 2018-12-16 12:37 | PDOC PROGRESS REPORT ---
Subjective Progress Note for:: 12/16/18 Subjective:: Patient is feeling much better X-ray is all clear No chest pain no short of breath Reason For Visit: SOB/CHF/COPD Physical Exam Vital Signs: Temp Pulse Resp BP Pulse Ox 97.6 F 49 L 14 143/75 H 97 12/16/18 11:56 12/16/18 11:56 12/16/18 11:56 12/16/18 11:56 12/16/18 11:56 Intake & Output 12/15/18 12/16/18 12/17/18 06:59 06:59 06:59 Intake Total 1092 1694 Balance 1092 1694 Weight 65.5 kg 61.9 kg General appearance: PRESENT: no acute distress, well-developed, well-nourished Head exam: PRESENT: atraumatic, normocephalic Eye exam: PRESENT: conjunctiva pink, EOMI, PERRLA. ABSENT: scleral icterus Ear exam: PRESENT: normal external ear exam Mouth exam: PRESENT: moist, tongue midline Neck exam: PRESENT: full ROM. ABSENT: carotid bruit, JVD, lymphadenopathy, thyromegaly Respiratory exam: PRESENT: clear to auscultation sherly Cardiovascular exam: PRESENT: RRR. ABSENT: diastolic murmur, rubs, systolic murmur Pulses: PRESENT: normal dorsalis pedis pul, +2 pedal pulses bilateral Vascular exam: PRESENT: normal capillary refill GI/Abdominal exam: PRESENT: normal bowel sounds, soft. ABSENT: distended, guarding, mass, organolmegaly, rebound, tenderness Rectal exam: PRESENT: deferred Musculoskeletal exam: PRESENT: ambulatory Neurological exam: PRESENT: alert, awake, oriented to person, oriented to place, oriented to time, oriented to situation, CN II-XII grossly intact. ABSENT: motor sensory deficit Psychiatric exam: PRESENT: appropriate affect, normal mood. ABSENT: homicidal ideation, suicidal ideation Skin exam: PRESENT: dry, intact, warm. ABSENT: cyanosis, rash Results Laboratory Results: 12/16/18 05:00 12/16/18 05:00 12/16/18 12/16/18 05:00 05:00 WBC 8.3 RBC 4.47 Hgb 12.1 L Hct 37.3 L MCV 84 MCH 27.2 MCHC 32.5 RDW 15.9 H Plt Count 223 Seg Neutrophils % 67.4 Lymphocytes % 23.4 Monocytes % 7.1 Eosinophils % 0.8 Basophils % 1.3 Absolute Neutrophils 5.6 Absolute Lymphocytes 1.9 Absolute Monocytes 0.6 Absolute Eosinophils 0.1 Absolute Basophils 0.1 Sodium 137.7 Potassium 4.4 Chloride 99 Carbon Dioxide 34 H Anion Gap 5 BUN 19 Creatinine 0.99 Est GFR ( Amer) > 60 Est GFR (Non-Af Amer) > 60 Glucose 112 H Calcium 8.9 12/14/18 12/14/18 12/14/18 12:45 15:20 15:20 Creatine Kinase 130 CK-MB (CK-2) 1.41 Troponin I < 0.012 < 0.012 NT-Pro-B Natriuret Pep 4340 H 12/14/18 12/14/18 12/15/18 21:00 21:00 03:00 Creatine Kinase 119 91 CK-MB (CK-2) 1.51 Troponin I < 0.012 NT-Pro-B Natriuret Pep 12/15/18 12/15/18 03:00 03:00 Creatine Kinase CK-MB (CK-2) 1.24 Troponin I < 0.012 NT-Pro-B Natriuret Pep 5810 H Impressions: Venous Doppler Study 12/14/18 00:00 IMPRESSION: NO EVIDENCE DVT OR SVT IN EITHER LEG. Chest X-Ray 12/16/18 00:00 IMPRESSION: NO ACUTE RADIOGRAPHIC FINDING IN THE CHEST. Assessment & Plan - Diagnosis (1) Acute congestive heart failure Qualifiers: Heart failure type: combined systolic and diastolic Qualified Code(s): I50.41 - Acute combined systolic (congestive) and diastolic (congestive) heart failure Is this a current diagnosis for this admission?: Yes Plan: Continues to Lasix (2) Hypertension Qualifiers: Hypertension type: essential hypertension Qualified Code(s): I10 - Essential (primary) hypertension Is this a current diagnosis for this admission?: Yes Plan: Continues to current medications (3) Shortness of breath Is this a current diagnosis for this admission?: Yes Plan: Currently all resolved (4) Chronic obstructive pulmonary disease Qualifiers: Emphysema type: unspecified Is this a current diagnosis for this admission?: Yes Plan: Continues to nebulizer treatments will get the ABG (5) Drug abuse Is this a current diagnosis for this admission?: Yes - Time Time Spent with patient: 15-24 minutes Medications reviewed and adjusted accordingly: Yes Anticipated discharge: Home Within: Other - Plan Summary Plan Summary: Switch IV to the p.o. Lasix
[2018-12-16] MEDS: CEFTRIAXONE SODIUM 1,000 MG in DEXTROSE 5%-WATER 50 ML IV SCH (17:28)
--- NOTE | 2018-12-16 20:22 | Progress Note ---
Provider Note Provider Note: CARDIOLOGY PROGRESS NOTE by Dr. carrion S1 on 12/16/2018. SUBJECTIVE: The patient denies any chest pain or discomfort. There is no shortness of breath. There is no PND orthopnea. There is no leg edema. There is no TIA CVA symptoms. There is no ventricular arrhythmias or atrial arrhythmia seen on the monitor. PHYSICAL EXAMINATION: The patient is well-built and well-nourished. In no acute distress. Selected Entries 12/16/18 12/16/18 11:00 11:56 Temperature 97.6 F Temperature Oral Source Heart Rate ( 79 Monitors) Respiratory 14 Rate Blood Pressure 143/75 H Blood Pressure 97 Mean BP Location Left Arm BP Position Supine O2 Sat by Pulse 97 Oximetry Oxygen Delivery Room Air Method HEAD: Is atraumatic normocephalic. EYES: Pupils equal round regular reactive to light accommodation. Extraocular movements are normal. There is no conjunctival pallor. There is no scleral icterus. EARS: Tympanic memories are intact. External auditory canals are clear. NOSE: There is no deviated nasal septum. There is no inflammation of the nasal mucous membrane. MOUTH: Mucous membranes of mouth are moist. Tongue is moist. There is no ulcers. THROAT: There is no redness of the oropharynx. Is no exudates. SKIN: There is no skin rashes or skin lesions. There is no particular ecchymosis. NECK: Is supple. At present there is no JVD. Carotids are equal there is no bruits. There is no lymphadenopathy. There is no goiter. There is no accessory muscle respiration use. Trachea central. LUNGS: There is diminished air entry and prolonged expiration. There is no rhonchi rales or wheezing. On percussion there is hyperresonance. HEART: S1-S2 is heard. There is no S3 gallop. There is no S4 gallop. There is systolic murmur left sternal border and the apex there is no rub. ABDOMEN: Soft. Nontender. There is no paraspinal megaly. EXTREMITIES: Femorals are diminished. There is no femoral bruits. Leg pulses are diminished. There is no pedal edema. There is no DVT or cellulitis. There is no calf tenderness. There is no cyanosis or clubbing. 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 PSYCHIATRIC: The patient judgment insight are intact his affect is normal. Labs- All tests 24 hr 12/16/18 12/16/18 05:00 05:00 WBC 8.3 RBC 4.47 Hgb 12.1 L Hct 37.3 L MCV 84 MCH 27.2 MCHC 32.5 RDW 15.9 H Plt Count 223 Seg Neutrophils % 67.4 Lymphocytes % 23.4 Monocytes % 7.1 Eosinophils % 0.8 Basophils % 1.3 Absolute Neutrophils 5.6 Absolute Lymphocytes 1.9 Absolute Monocytes 0.6 Absolute Eosinophils 0.1 Absolute Basophils 0.1 Sodium 137.7 Potassium 4.4 Chloride 99 Carbon Dioxide 34 H Anion Gap 5 BUN 19 Creatinine Beta-breanna and ANANYA inhibitor .99 Est GFR ( Amer) > 60 Est GFR (Non-Af Amer) > 60 Glucose 112 H Calcium 8.9 Venous Doppler Study 12/14/18 00:00 IMPRESSION: NO EVIDENCE DVT OR SVT IN EITHER LEG. Chest X-Ray 12/14/18 12:20 IMPRESSION: Cardiomegaly with mild, diffuse bilateral interstitial pulmonary opacity, likely edema. No focal airspace opacity. Chest X-Ray 12/15/18 00:00 IMPRESSION: Slight interval improvement in diffuse bilateral interstitial pulmonary opacity. No new airspace opacity. Unchanged small effusions. Cardiomegaly. Chest X-Ray 12/16/18 00:00 IMPRESSION: NO ACUTE RADIOGRAPHIC FINDING IN THE CHEST . IMPRESSION/RECOMMENDATION: 1. Acute on chronic systolic heart failure. At present well compensated. Continue p.o. Lasix. ANANYA inhibitor and beta-breanna. As mentioned earlier would repeat echo in end of January, and if the LV ejection fraction is 35% or below, then would recommend the patient be referred for AICD placement. 2.COPD: At present back to baseline. Continue respiratory treatments with inhalers. Would recommend to discontinue antibiotics since his chest x-ray is clear. 3. Cardiomyopathy mixed: Dilated and ischemic. Continue beta-blockers and ANANYA inhibitors. 4. Coronary artery disease: Abnormal stress test showing a small area of myocardial infarction. Continue aspirin, beta-breanna and nitrates. 5. Hypertension: Blood pressure well controlled. Continue current medications. 6. History of tobacco abuse disorder: Tobacco cessation counseling done. 5 minutes spent on this. Ill effects of tobacco have been explained to the patient detail. Behavioral and medication therapy to aid in smoking cessation discussed. 7. History of cocaine abuse: Patient again cautioned about the risks of cocaine, and strongly advised the patient to refrain from using this. Medications reviewed. Medications adjusted. Management plan discussed with attending physician on the case. Medical decision making is of moderate complexity. Patient stable. Will recommend discharge the patient home. The patient has agreed to follow-up with me will sign off.
[2018-12-16] MEDS: ASPIRIN 81 MG TABLET, ENT COATED PO SCH (21:39)
[2018-12-16] MEDS: ATORVASTATIN CALCIUM 20 MG TABLET PO SCH (21:39)
[2018-12-17 07:04] LABS: ABSOLUTE BASOPHILS # (AUTO) 0.1 10^3/uL (0.0-0.2); ABSOLUTE EOSINOPHILS # (AUTO) 0.1 10^3/uL (0.0-0.6); ABSOLUTE LYMPHOCYTES (AUTO) 1.5 10^3/uL (0.5-4.7); ABSOLUTE MONOCYTES (AUTO) 0.6 10^3/uL (0.1-1.4); ABSOLUTE NEUT (AUTO) 3.3 10^3/uL (1.7-8.2); BASOPHILS % (AUTO) 1.3 % (0-2); EOSINOPHILS % (AUTO) 1.5 % (0-6); HEMATOCRIT 36.2 % (37.9-51.0); HEMOGLOBIN 11.6 g/dL (13.5-17.0); LYMPHOCYTES % (AUTO) 27.2 % (13-45); MEAN CORPUSCULAR HEMOGLOBIN 26.8 pg (27.0-33.4); MEAN CORPUSCULAR VOLUME 84 fl (80-97); PLATELET COUNT 217 10^3/uL (150-450); RED BLOOD COUNT 4.33 10^6/uL (4.35-5.55); RED CELL DISTRIBUTION WIDTH 16.2 % (11.5-14.0); TOTAL CELLS COUNTED % (AUTO) 100 %; WHITE BLOOD COUNT 5.6 10^3/uL (4.0-10.5)
[2018-12-17 07:20] LABS: ANION GAP 6 (5-19); BLOOD UREA NITROGEN 17 mg/dL (7-20); CALCIUM 8.9 mg/dL (8.4-10.2); CARBON DIOXIDE 34 mmol/L (22-30); CHLORIDE 98 mmol/L (98-107); GLUCOSE 94 mg/dL (75-110)
[2018-12-17] MEDS: IPRATROPIUM/ALBUTEROL 0.5-2.5 MG/3 ML AMPUL NEB SCH (08:21)
[2018-12-17 09:13] VITALS: BP 154/88
[2018-12-17] MEDS: METOPROLOL SUCCINATE 50 MG TAB.SR.24H PO SCH (09:14)
[2018-12-17] MEDS: ISOSORBIDE MONONITRATE 30 MG TAB.ER.24H PO SCH (09:14)
[2018-12-17] MEDS: FUROSEMIDE 20 MG TABLET PO SCH (09:14)
[2018-12-17] MEDS: LISINOPRIL 10 MG TABLET PO SCH (09:14)
[2018-12-17] MEDS: FLUTICASONE/UMECLIDIN/VILANTER 100-62.5-25 MCG/DOSE IH SCH (09:15)
[2018-12-17] MEDS: ENOXAPARIN SODIUM INJ 40 MG/0.4 ML DISP.SYRIN SUBCUT SCH (09:32)
--- NOTE | 2018-12-17 10:33 | PDOC DISCHARGE SUMMARY ---
General - Admit/Disc Date/PCP Admission Date/Primary Care Provider: 12/14/18 15:12 LARRY QUEEN MD Discharge Date: 12/17/18 - Discharge Diagnosis (1) Acute congestive heart failure Is this a current diagnosis for this admission?: Yes Summary: Patient has systolic congestive heart failure ischemic and dilated cardiomyopathy currently follow with the Dr. Goldstein (2) Hypertension Is this a current diagnosis for this admission?: Yes Summary: Currently all stable (3) Shortness of breath Is this a current diagnosis for this admission?: Yes Summary: Due to the above conditions with the COPD Currently all resolved (4) Chronic obstructive pulmonary disease Is this a current diagnosis for this admission?: Yes Summary: Discussed with the patient about smoking counseling (5) Drug abuse Is this a current diagnosis for this admission?: Yes Summary: Discussed with the patient about the substance abuse and counseling - Additional Information Resuscitation Status: Full Code Discharge Diet: Cardiac Discharge Activity: Activity As Tolerated, Balance Activity w/Rest, Weigh Daily Prescriptions: Furosemide [Lasix 20 mg Tablet] 20 mg PO DAILY #30 tablet Isosorbide Mononitrate [Imdur 30 mg Tablet.er] 30 mg PO DAILY #30 tab.er.24h Lisinopril [Prinivil 10 mg Tablet] 10 mg PO DAILY #30 tablet Home Medications: Albuterol Sulfate [Proair HFA Inhalation Aerosol 8.5 gm MDI] 1 puff IH ASDIR PRN 12/14/18 Atorvastatin Calcium [Lipitor 20 mg Tablet] 20 mg PO QHS 12/14/18 Fluticasone/Umeclidin/Vilanter [Trelegy 100-62.5-25 Mcg Ellipta 14 Dose/Dpi] 1 puff IH DAILY 12/14/18 Metoprolol Succinate [Toprol XL 100 mg Tablet] 100 mg PO DAILY 12/14/18 Tramadol HCl/Acetaminophen [Tramadol-Acetaminophn 37.5-325] 1 each PO Q8 12/14/18 Furosemide [Lasix 20 mg Tablet] 20 mg PO DAILY #30 tablet 12/17/18 Isosorbide Mononitrate [Imdur 30 mg Tablet.er] 30 mg PO DAILY #30 tab.er.24h 12/17/18 Lisinopril [Prinivil 10 mg Tablet] 10 mg PO DAILY #30 tablet 12/17/18 History of Present Illness History of Present Illness: FERNANDO BHATIA is a 68 year old male This 68-year-old male with a patient of Dr. Queen with a history of the hypertension's hyperlipidemia with a history of COPD recently admitting in the hospital in October and patient had a Cardiolite stress test was done which is negative for any acute ischemia but suggested some ischemic and dilated cardiomyopathyAnd patient had a echocardiogram was done with a EF was 40 to 45%And suggest to close cardiology follow-up Patient's also had pulmonary function studies done with so some mild Obstructive disease Patients did not follow the cardiology came today with the complaining of a more shortness of the breath with exertions and patient never developing more swe lling in the lower extremity in emergency department patient's chest x-ray was consistent with a cardiomegaly with pleural fluids and NT BNP was also elevated which all consistent with the congestive heart failure with some mild COPD exacerbations Patient with a long-standing history of the more than 40 years smoking Since was giving the IV Lasix 40 mg in the ER patient's other blood work is stable EKG is stable I saw the patient feeling better still little bit tachypneic we will order the ABG he is denied any chest pain Patient had a CT angiogram done on the last visit was negative for any PE Hospital Course Hospital Course: This is a 68-year-old male admitted in the hospital because of the acute systolic congestive heart failure with ischemic and dilated cardiomyopathy with the EF is 40% Patient seen by the pediatric hospitalist IV Lasix and patient response very well and the patient's chest x-ray is all better and patient is walking the hallway without any problems and all breathing issues resolved Discussed with the patient about the substance drug abuse and smoking counseling Patient's medication adjusted by cardiology and discharged home and follow-up with him as outpatient CHF guidelines discussed with the patient and videos also provided Physical Exam Vital Signs: Temp Pulse Resp BP Pulse Ox 98.1 F 66 16 154/88 H 98 12/17/18 09:36 12/17/18 09:36 12/17/18 09:36 12/17/18 09:36 12/17/18 09:36 Intake & Output 12/16/18 12/17/18 12/18/18 06:59 06:59 06:59 Intake Total 1694 1749 Balance 1694 1749 Weight 61.9 kg 63 kg General appearance: PRESENT: no acute distress, well-developed, well-nourished Head exam: PRESENT: atraumatic, normocephalic Eye exam: PRESENT: conjunctiva pink, EOMI, PERRLA. ABSENT: scleral icterus Ear exam: PRESENT: normal external ear exam Mouth exam: PRESENT: moist, tongue midline Neck exam: PRESENT: full ROM. ABSENT: carotid bruit, JVD, lymphadenopathy, thyromegaly Respiratory exam: PRESENT: clear to auscultation sherly Cardiovascular exam: PRESENT: RRR. ABSENT: diastolic murmur, rubs, systolic murmur Pulses: PRESENT: normal dorsalis pedis pul, +2 pedal pulses bilateral Vascular exam: PRESENT: normal capillary refill GI/Abdominal exam: PRESENT: normal bowel sounds, soft. ABSENT: distended, guarding, mass, organolmegaly, rebound, tenderness Rectal exam: PRESENT: deferred Extremities exam: ABSENT: pedal edema Musculoskeletal exam: PRESENT: ambulatory Neurological exam: PRESENT: alert, awake, oriented to person, oriented to place, oriented to time, oriented to situation, CN II-XII grossly intact. ABSENT: motor sensory deficit Psychiatric exam: PRESENT: appropriate affect, normal mood. ABSENT: homicidal ideation, suicidal ideation Skin exam: PRESENT: dry, intact, warm. ABSENT: cyanosis, rash Results Laboratory Results: 12/17/18 06:25 12/17/18 06:25 12/17/18 12/17/18 06:25 06:25 WBC 5.6 RBC 4.33 L Hgb 11.6 L Hct 36.2 L MCV 84 MCH 26.8 L MCHC 32.0 RDW 16.2 H Plt Count 217 Seg Neutrophils % 59.0 Lymphocytes % 27.2 Monocytes % 11.0 Eosinophils % 1.5 Basophils % 1.3 Absolute Neutrophils 3.3 Absolute Lymphocytes 1.5 Absolute Monocytes 0.6 Absolute Eosinophils 0.1 Absolute Basophils 0.1 Sodium 137.5 Potassium 5.0 Chloride 98 Carbon Dioxide 34 H Anion Gap 6 BUN 17 Creatinine 0.99 Est GFR ( Amer) > 60 Est GFR (Non-Af Amer) > 60 Glucose 94 Calcium 8.9 12/14/18 12/14/18 12/14/18 12:45 15:20 15:20 Creatine Kinase 130 CK-MB (CK-2) 1.41 Troponin I < 0.012 < 0.012 NT-Pro-B Natriuret Pep 4340 H 12/14/18 12/14/18 12/15/18 21:00 21:00 03:00 Creatine Kinase 119 91 CK-MB (CK-2) 1.51 Troponin I < 0.012 NT-Pro-B Natriuret Pep 12/15/18 12/15/18 03:00 03:00 Creatine Kinase CK-MB (CK-2) 1.24 Troponin I < 0.012 NT-Pro-B Natriuret Pep 5810 H Impressions: Venous Doppler Study 12/14/18 00:00 IMPRESSION: NO EVIDENCE DVT OR SVT IN EITHER LEG. Chest X-Ray 12/16/18 00:00 IMPRESSION: NO ACUTE RADIOGRAPHIC FINDING IN THE CHEST. Qualifiers - * PATIENT BEING DISCHARGED WITH ANY OF THE FOLLOWING DIAGNOSIS: No VTE patient discharged on overlapping Therapy?: Yes Acute Heart Failure - Is this a Heart Failure Patient?: Yes Documentation of LVEF assessment?: Yes LVEF < 40%?: No- if no continue to question #3 a) Discharged on ACEI?: Yes b) Discharges on ARB?: N/A-Discharged on ARNI d) Discharged on evidence-based Beta breanna(carvedilol, sustained release metoprolol succinate, or bisoprolol)?: Yes e) For LVEF <35%, discharged on Aldosterone antagonist?: N/A (LVEF > or = 35%) 3. Anticoagulant therapy for permanect/persistent/paraoxysmal Afib or Aflutter: N/A Follow-up Appointment scheduled within 7 days?: Yes Plan Time Spent: Greater than 30 Minutes - Follow with Dr. Queen and Dr. Goldstein
== END 2018-12-17 11:51 | disposition home or self-care (01) | DRG 292 ==
LOC: ER 11:07 → EH 15:12 → 3W 16:55
PROVIDERS: ADMIT Internal Medicine; ATTEND Family Medicine
DX: I11.0 Hypertensive heart disease with heart failure (principal); J44.1 Chronic obstructive pulmonary disease with (acute) exacerbation; I42.0 Dilated cardiomyopathy; I25.5 Ischemic cardiomyopathy; E78.5 Hyperlipidemia, unspecified; I25.10 Atherosclerotic heart disease of native coronary artery without angina pectoris; K44.9 Diaphragmatic hernia without obstruction or gangrene; M17.0 Bilateral primary osteoarthritis of knee; I50.23 Acute on chronic systolic (congestive) heart failure; F14.11 Cocaine abuse, in remission; F17.210 Nicotine dependence, cigarettes, uncomplicated; Z90.5 Acquired absence of kidney; Z79.899 Other long term (current) drug therapy; Z79.82 Long term (current) use of aspirin; Z86.73 Personal history of transient ischemic attack (TIA), and cerebral infarction without residual deficits
CPT/HCPCS: 36415; 71046; 80048; 80053; 80307; 82550; 82553; 82803; 83735; 83880; 84484; 85025; 87040; 93005; 93010; 93970; 94640; 96374; 96375; 99285; J0696; J1940; J2930; J3490; J7060; J7620

== ENCOUNTER 2018-12-25 14:33 | Inpatient (IN) | payer MEDICARE, MEDICAID ==
[2018-12-25 15:10] LABS: ABSOLUTE BASOPHILS # (AUTO) 0.1 10^3/uL (0.0-0.2); ABSOLUTE EOSINOPHILS # (AUTO) 0.2 10^3/uL (0.0-0.6); ABSOLUTE LYMPHOCYTES (AUTO) 1.3 10^3/uL (0.5-4.7); ABSOLUTE MONOCYTES (AUTO) 0.5 10^3/uL (0.1-1.4); ABSOLUTE NEUT (AUTO) 2.3 10^3/uL (1.7-8.2); BASOPHILS % (AUTO) 1.2 % (0-2); EOSINOPHILS % (AUTO) 4.3 % (0-6); HEMATOCRIT 41.9 % (37.9-51.0); HEMOGLOBIN 13.3 g/dL (13.5-17.0); LYMPHOCYTES % (AUTO) 30.7 % (13-45); MEAN CORPUSCULAR HEMOGLOBIN 26.7 pg (27.0-33.4); MEAN CORPUSCULAR HGB CONC 31.7 g/dL (32.0-36.0); MEAN CORPUSCULAR VOLUME 84 fl (80-97); PLATELET COUNT 230 10^3/uL (150-450); RED BLOOD COUNT 4.97 10^6/uL (4.35-5.55); RED CELL DISTRIBUTION WIDTH 16.2 % (11.5-14.0); SEGMENTED NEUTROPHILS % (AUTO) 52.8 % (42-78); TOTAL CELLS COUNTED % (AUTO) 100 %; WHITE BLOOD COUNT 4.4 10^3/uL (4.0-10.5)
[2018-12-25 15:23] LABS: ALBUMIN 4.2 g/dL (3.5-5.0); ALKALINE PHOSPHATASE 100 U/L (38-126); ASPARTATE AMINO TRANSFERASE 53 U/L (17-59); BILIRUBIN,DIRECT 0.2 mg/dL (0.0-0.4); BILIRUBIN,TOTAL 0.6 mg/dL (0.2-1.3); BLOOD UREA NITROGEN 24 mg/dL (7-20); CALCIUM 8.8 mg/dL (8.4-10.2); CARBON DIOXIDE 31 mmol/L (22-30); GLUCOSE 94 mg/dL (75-110); POTASSIUM 5.3 mmol/L (3.6-5.0); TOTAL PROTEIN 8.1 g/dL (6.3-8.2)
[2018-12-25 15:28] LABS: CHLORIDE 103 mmol/L (98-107)
[2018-12-25 15:29] LABS: ANION GAP 4 (5-19)
[2018-12-25] MEDS ORDERED: NORMAL SALINE 1000 ML 1,000 ML IV ONE (15:36)
[2018-12-25] MEDS ORDERED: METOCLOPRAMIDE HCL INJ/PF 10 MG/2 ML SDV IV ONE (15:37)
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
[2018-12-25 16:00] LABS: APPEARANCE,URINE CLEAR; BILIRUBIN,URINE NEGATIVE (NEGATIVE); COLOR,URINE YELLOW; GLUCOSE, URINE NEGATIVE (NEGATIVE); KETONES,URINE NEGATIVE (NEGATIVE); LEUKOCYTE ESTERASE,URINE TRACE (NEGATIVE); NITRITE,URINE NEGATIVE (NEGATIVE); PROTEIN,URINE NEGATIVE (NEGATIVE); URINE SPECIFIC GRAVITY 1.015; UROBILINOGEN,URINE NEGATIVE mg/dL (<2.0)
--- NOTE | 2018-12-25 18:38 | RADIOLOGY REPORT (SQ) ---
EXAM DESCRIPTION: CT ABD/PELVIS WITH IV ORAL COMPLETED DATE/TIME: 12/25/2018 6:15 pm REASON FOR STUDY: abd pain COMPARISON: CT abdomen pelvis 06/30/2018 TECHNIQUE: CT scan of the abdomen and pelvis performed using helical scanning technique with dynamic intravenous contrast injection. No oral contrast. Images reviewed with lung, soft tissue, and bone windows. Reconstructed coronal and sagittal MPR images reviewed. Delayed images for evaluation of the urinary system also acquired. All images stored on PACS. All CT scanners at this facility use dose modulation, iterative reconstruction, and/or weight based d osing when appropriate to reduce radiation dose to as low as reasonably achievable (ALARA). [facility]: Dose Right [facility]: CareDose [facility]: Dose Right [facility]: Teradose 4D [facility]: [employer] CONTRAST TYPE AND DOSE: contrast/concentration: Isovue 350.00 mg/ml; Total Contrast Delivered: 65.0 ml; Total Saline Delivered: 65.0 ml 65 mL Isovue 350- low osmolar. RENAL FUNCTION: GFR > 60. RADIATION DOSE: CT Rad equipment meets quality standard of care and radiation dose reduction techniq ues were employed. CTDIvol: 4.8 - 5.9 mGy. DLP: 526 mGy-cm.. LIMITATIONS: None. FINDINGS: LOWER CHEST: No significant findings. No nodules or infiltrates. LIVER: Normal size. No masses. No dilated ducts. SPLEEN: Normal size. No focal lesions. PANCREAS: No masses. No significant calcifications. No adjacent inflammation or peripancreatic fluid collections. Pancreatic duct not dilated. GALLBLADDER: No identified stones by CT criteria. No inflammatory changes to suggest cholecystitis. ADRENAL GLANDS: No significant masses or asymmetry.. RIGHT KIDNEY AND URETER: No solid masses. No significant calcifications. No hydronephrosis or hyd roureter. LEFT KIDNEY AND URETER: Surgically absent. AORTA AND VESSELS: No aneurysm. No dissection. Renal arteries, SMA, celiac without stenosis. RETROPERITONEUM: No retroperitoneal adenopathy, hemorrhage or masses. BOWEL AND PERITONEAL CAVITY: Mildly dilated and mildly thickened fluid-filled loops of small bowel wi thin the central and right abdomen containing air-fluid levels. Transition point located within the central abdomen right of midline (Axial image 52). Distal normal caliber fluid-filled loops of small bowel. Gas and stool throughout the colon. Mild mesenteric and pelvic free fluid. APPENDIX: Not well visualized. PELVIS: No mass. Normal bladder. ABDOMINAL WALL: No masses. No hernias. BONES: No acute findings. OTHER: No other significant finding. IMPRESSION: Small bowel obstruction with transition point located within the central abdomen right o f midline. TECHNICAL DOCUMENTATION: JOB ID: [id number] Quality ID # [id number]: Final reports with documentation of one or more dose reduction techniques (e.g., Au tomated exposure control, adjustment of the mA and/or kV according to patient size, use of iterative reconstruction technique) 2010 [employer]- All Rights Reserved Reading location - IP/workstation name: [email or web address]
--- NOTE | 2018-12-25 19:57 | PDOC CONSULTATION ---
Consultation Consult Date: 12/25/18 Provider Consulted: JOHNNIE PRADO Consult reason:: Small bowel obstruction History of Present Illness Admission Date/PCP: 12/25/18 19:26 LARRY QUEEN MD History of Present Illness: FERNANDO BHATIA is a 68 year old male with history of hypertension,COPD,post nephrectomy due to trauma had exploratory laparotomy and lysis of adhesions with placement of Septrafilm by Dr Alamo Jun c/o abdominal pains with nausea and vomiting today. Had CT scan which showed small bowel obstruction. Past Medical History Cardiac Medical History: Reports: Congestive Heart Failure, Coronary Artery Disease, Hypertension Pulmonary Medical History: Reports: Chronic Obstructive Pulmonary Disease (COPD) Neurological Medical History: GI Medical History: Reports: Hiatal Hernia Musculoskeltal Medical History: Reports: Arthritis - KNEES, USES CANE AND WALKER Past Surgical History Past Surgical History: Reports: Herniorrhaphy, Other - Laparotomy with nephrectomy for blunt trauma Lysis of adhesions 06/29 Social History Smoking Status: Current Every Day Smoker Frequency of Alcohol Use: Occasional Hx Recreational Drug Use: No Drugs: None Hx Prescription Drug Abuse: No Family History Family History: Reviewed & Not Pertinent Parental Family History Reviewed: Yes Children Family History Reviewed: No Sibling(s) Family History Reviewed.: No Medication/Allergy Home Medications: Albuterol Sulfate [Proair HFA Inhalation Aerosol 8.5 gm MDI] 1 puff IH ASDIR PRN 12/14/18 Atorvastatin Calcium [Lipitor 20 mg Tablet] 20 mg PO QHS 12/14/18 Fluticasone/Umeclidin/Vilanter [Trelegy 100-62.5-25 Mcg Ellipta 14 Dose/Dpi] 1 puff IH DAILY 12/14/18 Metoprolol Succinate [Toprol XL 100 mg Tablet] 100 mg PO DAILY 12/14/18 Tramadol HCl/Acetaminophen [Tramadol-Acetaminophn 37.5-325] 1 each PO Q8 12/14/18 Furosemide [Lasix 20 mg Tablet] 20 mg PO DAILY #30 tablet 12/17/18 Isosorbide Mononitrate [Imdur 30 mg Tablet.er] 30 mg PO DAILY #30 tab.er.24h 12/17/18 Lisinopril [Prinivil 10 mg Tablet] 10 mg PO DAILY #30 tablet 08/09/19 Allergies/Adverse Reactions: No Known Allergies Allergy (Verified 10/27/18 14:56) Review of Systems Constitutional: PRESENT: as per HPI Physical Exam Vital Signs: Temp Pulse Resp BP Pulse Ox 97.8 F 18 162/89 H 95 12/25/18 15:42 12/25/18 18:17 12/25/18 18:17 12/25/18 18:17 Intake & Output 12/24/18 12/25/18 12/26/18 06:59 06:59 06:59 Intake Total 1000 Balance 1000 Weight 63.049 kg General appearance: PRESENT: mild distress Head exam: PRESENT: atraumatic Mouth exam: PRESENT: moist Neck exam: PRESENT: carotid bruit Respiratory exam: PRESENT: clear to auscultation sherly Cardiovascular exam: PRESENT: RRR Pulses: PRESENT: normal radial pulses Vascular exam: PRESENT: normal capillary refill GI/Abdominal exam: PRESENT: soft, tenderness - mid-abdomen Rectal exam: PRESENT: deferred Extremities exam: PRESENT: full ROM Musculoskeletal exam: PRESENT: ambulatory Neurological exam: PRESENT: alert, oriented to person, oriented to place, oriented to time, oriented to situation Psychiatric exam: PRESENT: appropriate affect Skin exam: PRESENT: normal color, warm Results Laboratory Results: 12/25/18 15:00 12/25/18 15:00 12/25/18 12/25/18 12/25/18 15:00 15:00 15:45 WBC 4.4 RBC 4.97 Hgb 13.3 L Hct 41.9 MCV 84 MCH 26.7 L MCHC 31.7 L RDW 16.2 H Plt Count 230 Seg Neutrophils % 52.8 Lymphocytes % 30.7 Monocytes % 11.0 Eosinophils % 4.3 Basophils % 1.2 Absolute Neutrophils 2.3 Absolute Lymphocytes 1.3 Absolute Monocytes 0.5 Absolute Eosinophils 0.2 Absolute Basophils 0.1 Sodium 138.3 Potassium 5.3 H Chloride 103 Carbon Dioxide 31 H Anion Gap 4 L BUN 24 H Creatinine 1.17 Est GFR ( Amer) > 60 Est GFR (Non-Af Amer) > 60 Glucose 94 Calcium 8.8 Total Bilirubin 0.6 AST 53 Alkaline Phosphatase 100 Total Protein 8.1 Albumin 4.2 Lipase 89.8 Urine Color YELLOW Urine Appearance CLEAR Urine pH 6.0 Ur Specific [place] 1.015 Urine Protein NEGATIVE Urine Glucose (UA) NEGATIVE Urine Ketones NEGATIVE Urine Blood NEGATIVE Urine Nitrite NEGATIVE Ur Leukocyte Esterase TRACE H Urine WBC (Auto) 11 Urine RBC (Auto) 1 Impressions: Abdomen/Pelvis CT 12/25/18 00:00 IMPRESSION: Small bowel obstruction with transition point located within the central abdomen right of midline. Assessment & Plan - Diagnosis (1) Small bowel obstruction Is this a current diagnosis for this admission?: Yes (2) Abdominal pain Qualifiers: Abdominal location: periumbilical Qualified Code(s): R10.33 - Periumbilical pain Is this a current diagnosis for this admission?: Yes (3) Chronic obstructive pulmonary disease Qualifiers: Emphysema type: unspecified Is this a current diagnosis for this admission?: Yes (4) Hypertension Qualifiers: Hypertension type: essential hypertension Qualified Code(s): I10 - Essential (primary) hypertension Is this a current diagnosis for this admission?: Yes - Time Time Spent: 30 to 50 Minutes - Inpatient Certification Medical Necessity: Need Close Monitoring Due to Risk of Patient Decompensation, Need For IV Fluids, Need for Pain Control - Plan Summary Plan Summary: Place NGT Hydrate If does not open up in am will order SBFT with gastrograffin
--- NOTE | 2018-12-25 20:03 | RADIOLOGY REPORT (SQ) ---
EXAM DESCRIPTION: KUB/ABDOMEN (SINGLE VIEW) COMPLETED DATE/TIME: 12/25/2018 7:55 pm REASON FOR STUDY: NG placement COMPARISON: None. NUMBER OF VIEWS: One view. TECHNIQUE: Supine radiographic image of the abdomen acquired. LIMITATIONS: None. FINDINGS: BOWEL GAS PATTERN: Normal bowel gas pattern. No dilated loops. CALCIFICATIONS: No suspicious calcifications. SOFT TISSUES: No gross mass or suggestion of organomegaly. HARDWARE: NG tube is coiled in the fundus of stomach. The tip is in the body of the stomach. BONES: No acute fracture. No worrisome bone lesions. OTHER: No other significant finding. IMPRESSION: NG tube tip in the body of stomach. TECHNICAL DOCUMENTATION: JOB ID: [id number] [employer]- All Rights Reserved Reading location - IP/workstation name: [email or web address]
[2018-12-25] MEDS ORDERED: HYDROMORPHONE HCL INJ/PF 2 MG/ML AMPULE IV PRN (21:05)
[2018-12-25] MEDS ORDERED: ENALAPRILAT DIHYDRATE INJ/PF 2.5 MG/2 ML SDV IV ONE (21:30)
[2018-12-25 21:39] LABS: INTERNATIONAL RATION (INR) 1.01; PROTHROMBIN TIME 13.3 SEC (11.4-15.4)
[2018-12-25 21:40] LABS: PARTIAL THROMBOPLASTIN TIME 33.4 SEC (23.5-35.8)
[2018-12-25 21:45] LABS: CREATINE KINASE MB 1.75 ng/mL (<4.55)
[2018-12-25 21:48] LABS: FREE T4 (FREE THYROXINE) 0.89 ng/dL (0.78-2.19)
[2018-12-25 21:49] LABS: TROPONIN I < 0.012 ng/mL
[2018-12-25 22:02] LABS: THYROID STIMULATING HORMONE 2.49 uIU/mL (0.47-4.68)
[2018-12-25] MEDS: HEPARIN SOD (PORCINE) 5,000 UNIT/ML 1 ML VIAL SUBCUT SCH (22:53)
[2018-12-26] MEDS: DEXTROSE 5%-LACTATED RINGERS 1,000 ML IV PRN ×2 (00:04→09:10)
[2018-12-26 00:36] LABS: APPEARANCE,URINE CLEAR; BILIRUBIN,URINE NEGATIVE (NEGATIVE); COLOR,URINE YELLOW; GLUCOSE, URINE NEGATIVE (NEGATIVE); KETONES,URINE NEGATIVE (NEGATIVE); LEUKOCYTE ESTERASE,URINE TRACE (NEGATIVE); NITRITE,URINE NEGATIVE (NEGATIVE); PROTEIN,URINE NEGATIVE (NEGATIVE); URINE SPECIFIC GRAVITY 1.024; UROBILINOGEN,URINE NEGATIVE mg/dL (<2.0)
[2018-12-26 00:36] LABS: CREATINE KINASE MB 1.29 ng/mL (<4.55)
[2018-12-26 00:38] LABS: TROPONIN I < 0.012 ng/mL
[2018-12-26 01:08] LABS: URINE AMPHETAMINES SCREEN NEGATIVE; URINE BARBITURATES SCREEN NEGATIVE; URINE BENZODIAZEPINES SCREEN NEGATIVE; URINE MARIJUANA (THC) SCREEN NEGATIVE; URINE METHADONE SCREEN NEGATIVE; URINE PHENCYCLIDINE SCREEN NEGATIVE
[2018-12-26 01:11] LABS: URINE COCAINE SCREEN UNCONFIRMED POSITIVE
[2018-12-26 03:31] LABS: ABSOLUTE BASOPHILS # (AUTO) 0.1 10^3/uL (0.0-0.2); ABSOLUTE EOSINOPHILS # (AUTO) 0.1 10^3/uL (0.0-0.6); ABSOLUTE LYMPHOCYTES (AUTO) 1.7 10^3/uL (0.5-4.7); ABSOLUTE MONOCYTES (AUTO) 0.4 10^3/uL (0.1-1.4); ABSOLUTE NEUT (AUTO) 2.9 10^3/uL (1.7-8.2); BASOPHILS % (AUTO) 1.2 % (0-2); EOSINOPHILS % (AUTO) 2.2 % (0-6); HEMATOCRIT 39.7 % (37.9-51.0); HEMOGLOBIN 12.7 g/dL (13.5-17.0); LYMPHOCYTES % (AUTO) 31.9 % (13-45); MEAN CORPUSCULAR HEMOGLOBIN 26.8 pg (27.0-33.4); MEAN CORPUSCULAR HGB CONC 31.9 g/dL (32.0-36.0); MEAN CORPUSCULAR VOLUME 84 fl (80-97); MONOCYTES % (AUTO) 8.3 % (3-13); PLATELET COUNT 205 10^3/uL (150-450); RED BLOOD COUNT 4.73 10^6/uL (4.35-5.55); SEGMENTED NEUTROPHILS % (AUTO) 56.4 % (42-78); TOTAL CELLS COUNTED % (AUTO) 100 %; WHITE BLOOD COUNT 5.2 10^3/uL (4.0-10.5)
[2018-12-26 04:01] LABS: ALBUMIN 3.3 g/dL (3.5-5.0); ALKALINE PHOSPHATASE 82 U/L (38-126); ANION GAP 5 (5-19); ASPARTATE AMINO TRANSFERASE 36 U/L (17-59); BILIRUBIN,DIRECT 0.3 mg/dL (0.0-0.4); BILIRUBIN,TOTAL 0.7 mg/dL (0.2-1.3); BLOOD UREA NITROGEN 17 mg/dL (7-20); CALCIUM 8.9 mg/dL (8.4-10.2); CARBON DIOXIDE 28 mmol/L (22-30); CHLORIDE 105 mmol/L (98-107); CHOLESTEROL 174.66 mg/dL (0-200); GLUCOSE 101 mg/dL (75-110); POTASSIUM 5.3 mmol/L (3.6-5.0); TOTAL PROTEIN 6.6 g/dL (6.3-8.2); TRIGLYCERIDES 53 mg/dL (<150)
[2018-12-26 04:09] LABS: CREATINE KINASE MB 1.07 ng/mL (<4.55)
[2018-12-26 04:10] LABS: TROPONIN I < 0.012 ng/mL
[2018-12-26 04:12] LABS: DIRECT LDL 73 mg/dL (<100)
[2018-12-26] MEDS: ENALAPRILAT DIHYDRATE INJ/PF 2.5 MG/2 ML SDV IV SCH ×3 (04:13→15:06)
[2018-12-26] MEDS: HEPARIN SOD (PORCINE) 5,000 UNIT/ML 1 ML VIAL SUBCUT SCH ×3 (06:46→21:44)
--- NOTE | 2018-12-26 12:26 | PDOC H&P ---
History of Present Illness Admission Date/PCP: 12/25/18 19:26 LARRY QUEEN MD History of Present Illness: FERNANDO BHATIA is a 68 year old male, he has a history of hypertension, chronic obstructive lung disease history of nephrectomy due to injury, he came to the emergency room for evaluation of abdominal pain, there is associated nausea and vomiting, last bowel movement was 2 days ago. In the emergency room CT scan of the abdomen and pelvis with IV contrast was obtained, it demonstrated mildly dilated and mildly thickened fluid-filled loops of small bowel within the central and right abdomen containing air-fluid levels, transition point located within the central abdomen right of midline. Distal normal caliber fluid-filled loop of small bowel gas and stool throughout the colon consistent with mechanical obstruction. He had exploratory laparotomy on 07/01/2018 for the management of mechanical obstruction and the time was found to have extensive adhesions he underwent lysis of the adhesions he was subsequently transferred to alf for rehabilitation. Patient unfortunately also abuses cocaine, the urine drug screen came back positive for cocaine. Past Medical History Cardiac Medical History: Reports: Coronary Artery Disease, Hypertension Pulmonary Medical History: Reports: Chronic Obstructive Pulmonary Disease (COPD) Neurological Medical History: GI Medical History: Reports: Hiatal Hernia Musculoskeltal Medical History: Reports: Arthritis - KNEES, USES CANE AND WALKER Past Surgical History Past Surgical History: Reports: Herniorrhaphy, Other - Laparotomy with nephrectomy for blunt trauma Lysis of adhesions 06/29 Social History Smoking Status: Current Every Day Smoker Cigarettes Packs Per Day: 0.2 Number of Years Smokin Last Time Smoked: 12/24/2018 Frequency of Alcohol Use: Occasional Hx Recreational Drug Use: No Drugs: Cocaine Hx Prescription Drug Abuse: No Family History Family History: Reviewed & Not Pertinent Parental Family History Reviewed: Yes Children Family History Reviewed: Yes Sibling(s) Family History Reviewed.: Yes Medication/Allergy Home Medications: Albuterol Sulfate [Proair HFA Inhalation Aerosol 8.5 gm MDI] 1 puff IH ASDIR PRN 12/14/18 Atorvastatin Calcium [Lipitor 20 mg Tablet] 20 mg PO QHS 12/14/18 Fluticasone/Umeclidin/Vilanter [Trelegy 100-62.5-25 Mcg Ellipta 14 Dose/Dpi] 1 puff IH DAILY 12/14/18 Metoprolol Succinate [Toprol XL 100 mg Tablet] 100 mg PO DAILY 12/14/18 Tramadol HCl/Acetaminophen [Tramadol-Acetaminophn 37.5-325] 1 each PO Q8 12/14/18 Furosemide [Lasix 20 mg Tablet] 20 mg PO DAILY #30 tablet 12/17/18 Isosorbide Mononitrate [Imdur 30 mg Tablet.er] 30 mg PO DAILY #30 tab.er.24h 12/17/18 Lisinopril [Prinivil 10 mg Tablet] 10 mg PO DAILY #30 tablet 12/17/18 Allergies/Adverse Reactions: No Known Allergies Allergy (Verified 10/27/18 14:56) Review of Systems Constitutional: ABSENT: chills, fever(s), headache(s), weight gain, weight loss Eyes: ABSENT: visual disturbances Ears: ABSENT: hearing changes Cardiovascular: ABSENT: chest pain, dyspnea on exertion, edema, orthropnea, palpitations Respiratory: ABSENT: cough, hemoptysis Gastrointestinal: PRESENT: abdominal pain, vomiting Genitourinary: ABSENT: dysuria, hematuria Musculoskeletal: ABSENT: joint swelling Integumentary: ABSENT: rash, wounds Neurological: ABSENT: abnormal gait, abnormal speech, confusion, dizziness, focal weakness, syncope Psychiatric: ABSENT: anxiety, depression, homidical ideation, suicidal ideation Endocrine: ABSENT: cold intolerance, heat intolerance, menstrual abnormalities, polydipsia, polyuria Hematologic/Lymphatic: ABSENT: easy bleeding, easy bruising, lymphadenopathy Physical Exam Vital Signs: Temp Pulse Resp BP Pulse Ox 98.1 F 71 12 152/83 H 97 12/26/18 07:57 12/26/18 07:57 12/26/18 07:57 12/26/18 07:57 12/26/18 07:57 Intake & Output 12/25/18 12/26/18 12/27/18 06:59 06:59 06:59 Intake Total 1000 910 Output Total 650 Balance 350 910 Weight 60.3 kg General appearance: PRESENT: no acute distress, well-developed, well-nourished Head exam: PRESENT: atraumatic, normocephalic Eye exam: PRESENT: conjunctiva pink, EOMI, PERRLA Ear exam: PRESENT: normal external ear exam Mouth exam: PRESENT: moist, tongue midline Neck exam: PRESENT: full ROM Respiratory exam: PRESENT: clear to auscultation sherly Cardiovascular exam: PRESENT: RRR, +S1, +S2 Vascular exam: PRESENT: normal capillary refill GI/Abdominal exam: PRESENT: normal bowel sounds, soft Rectal exam: PRESENT: deferred Neurological exam: PRESENT: alert, CN II-XII grossly intact Psychiatric exam: PRESENT: appropriate affect, normal mood Skin exam: PRESENT: dry, intact, warm. ABSENT: cyanosis, rash Results Laboratory Results: 12/26/18 03:16 12/26/18 03:16 12/25/18 12/25/18 12/25/18 15:00 15:00 15:00 WBC 4.4 RBC 4.97 Hgb 13.3 L Hct 41.9 MCV 84 MCH 26.7 L MCHC 31.7 L RDW 16.2 H Plt Count 230 Seg Neutrophils % 52.8 Lymphocytes % 30.7 Monocytes % 11.0 Eosinophils % 4.3 Basophils % 1.2 Absolute Neutrophils 2.3 Absolute Lymphocytes 1.3 Absolute Monocytes 0.5 Absolute Eosinophils 0.2 Absolute Basophils 0.1 Sodium 138.3 Potassium 5.3 H Chloride 103 Carbon Dioxide 31 H Anion Gap 4 L BUN 24 H Creatinine 1.17 Est GFR ( Amer) > 60 Est GFR (Non-Af Amer) > 60 Glucose 94 Calcium 8.8 Phosphorus 4.0 Magnesium Total Bilirubin 0.6 AST 53 Alkaline Phosphatase 100 Ammonia Total Protein 8.1 Albumin 4.2 Triglycerides Cholesterol LDL Cholesterol Direct VLDL Cholesterol HDL Cholesterol Amylase 97 Lipase 89.8 Cancelled TSH Free T4 Urine Color Urine Appearance Urine pH Ur Specific [place] Urine Protein Urine Glucose (UA) Urine Ketones Urine Blood Urine Nitrite Ur Leukocyte Esterase Urine WBC (Auto) Urine RBC (Auto) 12/25/18 12/25/18 12/25/18 15:00 15:45 21:10 WBC RBC Hgb Hct MCV MCH MCHC RDW Plt Count Seg Neutrophils % Lymphocytes % Monocytes % Eosinophils % Basophils % Absolute Neutrophils Absolute Lymphocytes Absolute Monocytes Absolute Eosinophils Absolute Basophils Sodium Potassium Chloride Carbon Dioxide Anion Gap BUN Creatinine Est GFR ( Amer) Est GFR (Non-Af Amer) Glucose Calcium Phosphorus Magnesium Total Bilirubin AST Alkaline Phosphatase Ammonia 13.3 Total Protein Albumin Triglycerides Cholesterol LDL Cholesterol Direct VLDL Cholesterol HDL Cholesterol Amylase Lipase TSH 2.49 Free T4 0.89 Urine Color YELLOW Urine Appearance CLEAR Urine pH 6.0 Ur Specific [place] 1.015 Urine Protein NEGATIVE Urine Glucose (UA) NEGATIVE Urine Ketones NEGATIVE Urine Blood NEGATIVE Urine Nitrite NEGATIVE Ur Leukocyte Esterase TRACE H Urine WBC (Auto) 11 Urine RBC (Auto) 1 12/26/18 12/26/18 12/26/18 00:15 03:16 03:16 WBC 5.2 RBC 4.73 Hgb 12.7 L Hct 39.7 MCV 84 MCH 26.8 L MCHC 31.9 L RDW 16.0 H Plt Count 205 Seg Neutrophils % 56.4 Lymphocytes % 31.9 Monocytes % 8.3 Eosinophils % 2.2 Basophils % 1.2 Absolute Neutrophils 2.9 Absolute Lymphocytes 1.7 Absolute Monocytes 0.4 Absolute Eosinophils 0.1 Absolute Basophils 0.1 Sodium 137.5 Potassium 5.3 H Chloride 105 Carbon Dioxide 28 Anion Gap 5 BUN 17 Creatinine 0.92 Est GFR ( Amer) > 60 Est GFR (Non-Af Amer) > 60 Glucose 101 Calcium 8.9 Phosphorus Magnesium 2.2 Total Bilirubin 0.7 AST 36 Alkaline Phosphatase 82 Ammonia Total Protein 6.6 Albumin 3.3 L Triglycerides 53 Cholesterol 174.66 LDL Cholesterol Direct 73 VLDL Cholesterol 11.0 HDL Cholesterol 83 Amylase Lipase TSH Free T4 Urine Color YELLOW Urine Appearance CLEAR Urine pH 6.0 Ur Specific [place] 1.024 Urine Protein NEGATIVE Urine Glucose (UA) NEGATIVE Urine Ketones NEGATIVE Urine Blood NEGATIVE Urine Nitrite NEGATIVE Ur Leukocyte Esterase TRACE H Urine WBC (Auto) 5 Urine RBC (Auto) 1 12/25/18 12/25/18 12/25/18 15:00 15:00 21:10 Creatine Kinase 222 H 157 CK-MB (CK-2) 1.75 Troponin I < 0.012 12/25/18 12/26/18 12/26/18 21:10 03:16 03:16 Creatine Kinase 125 CK-MB (CK-2) 1.29 1.07 Troponin I < 0.012 < 0.012 Impressions: Abdomen/Pelvis CT 12/25/18 00:00 IMPRESSION: Small bowel obstruction with transition point located within the central abdomen right of midline. KUB X-Ray 12/25/18 19:49 IMPRESSION: NG tube tip in the body of stomach. Assessment & Plan - Diagnosis (1) Small bowel obstruction Is this a current diagnosis for this admission?: Yes Plan: Consult surgery ,keep NPO .N/G Tube to sunction (2) Essential (primary) hypertension Is this a current diagnosis for this admission?: Yes (3) COPD (chronic obstructive pulmonary disease) Qualifiers: COPD type: unspecified COPD Qualified Code(s): J44.9 - Chronic obstructive pulmonary disease, unspecified Is this a current diagnosis for this admission?: Yes
[2018-12-26] MEDS ORDERED: MAGNESIUM CITRATE 296 ML BOTTLE PO ONE (15:15)
--- NOTE | 2018-12-26 15:18 | PDOC PROGRESS REPORT ---
Subjective Progress Note for:: 12/26/18 Subjective:: no c/o, flatus present Reason For Visit: MECHANICAL SMALL BOWEL OBSTRUCTION Physical Exam Vital Signs: Temp Pulse Resp BP Pulse Ox 98.1 F 62 12 152/83 H 97 12/26/18 07:57 12/26/18 14:00 12/26/18 07:57 12/26/18 07:57 12/26/18 07:57 Intake & Output 12/25/18 12/26/18 12/27/18 06:59 06:59 06:59 Intake Total 1000 910 Output Total 650 400 Balance 350 510 Weight 60.3 kg General appearance: PRESENT: no acute distress GI/Abdominal exam: PRESENT: normal bowel sounds - not tender, soft Results Laboratory Results: 12/26/18 03:16 12/26/18 03:16 12/25/18 12/25/18 12/25/18 15:00 15:00 15:00 WBC 4.4 RBC 4.97 Hgb 13.3 L Hct 41.9 MCV 84 MCH 26.7 L MCHC 31.7 L RDW 16.2 H Plt Count 230 Seg Neutrophils % 52.8 Lymphocytes % 30.7 Monocytes % 11.0 Eosinophils % 4.3 Basophils % 1.2 Absolute Neutrophils 2.3 Absolute Lymphocytes 1.3 Absolute Monocytes 0.5 Absolute Eosinophils 0.2 Absolute Basophils 0.1 Sodium 138.3 Potassium 5.3 H Chloride 103 Carbon Dioxide 31 H Anion Gap 4 L BUN 24 H Creatinine 1.17 Est GFR ( Amer) > 60 Est GFR (Non-Af Amer) > 60 Glucose 94 Calcium 8.8 Phosphorus 4.0 Magnesium Total Bilirubin 0.6 AST 53 Alkaline Phosphatase 100 Ammonia Total Protein 8.1 Albumin 4.2 Triglycerides Cholesterol LDL Cholesterol Direct VLDL Cholesterol HDL Cholesterol Amylase 97 Lipase 89.8 Cancelled TSH Free T4 Urine Color Urine Appearance Urine pH Ur Specific [place] Urine Protein Urine Glucose (UA) Urine Ketones Urine Blood Urine Nitrite Ur Leukocyte Esterase Urine WBC (Auto) Urine RBC (Auto) 12/25/18 12/25/18 12/25/18 15:00 15:45 21:10 WBC RBC Hgb Hct MCV MCH MCHC RDW Plt Count Seg Neutrophils % Lymphocytes % Monocytes % Eosinophils % Basophils % Absolute Neutrophils Absolute Lymphocytes Absolute Monocytes Absolute Eosinophils Absolute Basophils Sodium Potassium Chloride Carbon Dioxide Anion Gap BUN Creatinine Est GFR ( Amer) Est GFR (Non-Af Amer) Glucose Calcium Phosphorus Magnesium Total Bilirubin AST Alkaline Phosphatase Ammonia 13.3 Total Protein Albumin Triglycerides Cholesterol LDL Cholesterol Direct VLDL Cholesterol HDL Cholesterol Amylase Lipase TSH 2.49 Free T4 0.89 Urine Color YELLOW Urine Appearance CLEAR Urine pH 6.0 Ur Specific [place] 1.015 Urine Protein NEGATIVE Urine Glucose (UA) NEGATIVE Urine Ketones NEGATIVE Urine Blood NEGATIVE Urine Nitrite NEGATIVE Ur Leukocyte Esterase TRACE H Urine WBC (Auto) 11 Urine RBC (Auto) 1 12/26/18 12/26/18 12/26/18 00:15 03:16 03:16 WBC 5.2 RBC 4.73 Hgb 12.7 L Hct 39.7 MCV 84 MCH 26.8 L MCHC 31.9 L RDW 16.0 H Plt Count 205 Seg Neutrophils % 56.4 Lymphocytes % 31.9 Monocytes % 8.3 Eosinophils % 2.2 Basophils % 1.2 Absolute Neutrophils 2.9 Absolute Lymphocytes 1.7 Absolute Monocytes 0.4 Absolute Eosinophils 0.1 Absolute Basophils 0.1 Sodium 137.5 Potassium 5.3 H Chloride 105 Carbon Dioxide 28 Anion Gap 5 BUN 17 Creatinine 0.92 Est GFR ( Amer) > 60 Est GFR (Non-Af Amer) > 60 Glucose 101 Calcium 8.9 Phosphorus Magnesium 2.2 Total Bilirubin 0.7 AST 36 Alkaline Phosphatase 82 Ammonia Total Protein 6.6 Albumin 3.3 L Triglycerides 53 Cholesterol 174.66 LDL Cholesterol Direct 73 VLDL Cholesterol 11.0 HDL Cholesterol 83 Amylase Lipase TSH Free T4 Urine Color YELLOW Urine Appearance CLEAR Urine pH 6.0 Ur Specific [place] 1.024 Urine Protein NEGATIVE Urine Glucose (UA) NEGATIVE Urine Ketones NEGATIVE Urine Blood NEGATIVE Urine Nitrite NEGATIVE Ur Leukocyte Esterase TRACE H Urine WBC (Auto) 5 Urine RBC (Auto) 1 12/25/18 12/25/18 12/25/18 15:00 15:00 21:10 Creatine Kinase 222 H 157 CK-MB (CK-2) 1.75 Troponin I < 0.012 12/25/18 12/26/18 12/26/18 21:10 03:16 03:16 Creatine Kinase 125 CK-MB (CK-2) 1.29 1.07 Troponin I < 0.012 < 0.012 Impressions: Abdomen/Pelvis CT 12/25/18 00:00 IMPRESSION: Small bowel obstruction with transition point located within the central abdomen right of midline. KUB X-Ray 12/25/18 19:49 IMPRESSION: NG tube tip in the body of stomach. Assessment & Plan - Diagnosis (1) Constipation Qualifiers: Constipation type: chronic idiopathic constipation Qualified Code(s): K59.04 - Chronic idiopathic constipation Is this a current diagnosis for this admission?: Yes - Plan Summary Plan Summary: A/ Constipation flatus no NGT output Abdomen soft, flat I doubt the patient has a bowel obstruction, most likely he has constipation P/ remove NGT Mg Citrate 1 bottle po now Clear liquid diet Low residue diet in am
--- NOTE | 2018-12-26 15:28 | PDOC PROGRESS REPORT ---
Subjective Progress Note for:: 12/26/18 Subjective:: Patient seen by the bedside admitted for mechanical obstruction seen by the surgeon NG tube discontinued, patient passed flatus, on auscultation of the abdomen there is peristalsis Reason For Visit: MECHANICAL SMALL BOWEL OBSTRUCTION Physical Exam Vital Signs: Temp Pulse Resp BP Pulse Ox 98.1 F 62 12 152/83 H 97 12/26/18 07:57 12/26/18 14:00 12/26/18 07:57 12/26/18 07:57 12/26/18 07:57 Intake & Output 12/25/18 12/26/18 12/27/18 06:59 06:59 06:59 Intake Total 1000 910 Output Total 650 400 Balance 350 510 Weight 60.3 kg General appearance: PRESENT: no acute distress Eye exam: PRESENT: PERRLA Respiratory exam: PRESENT: clear to auscultation sherly Cardiovascular exam: PRESENT: +S1, +S2 GI/Abdominal exam: PRESENT: soft Results Laboratory Results: 12/26/18 03:16 12/26/18 03:16 12/25/18 12/25/18 12/25/18 15:00 15:00 15:00 WBC RBC Hgb Hct MCV MCH MCHC RDW Plt Count Seg Neutrophils % Lymphocytes % Monocytes % Eosinophils % Basophils % Absolute Neutrophils Absolute Lymphocytes Absolute Monocytes Absolute Eosinophils Absolute Basophils Sodium 138.3 Potassium 5.3 H Chloride 103 Carbon Dioxide 31 H Anion Gap 4 L BUN 24 H Creatinine 1.17 Est GFR ( Amer) > 60 Est GFR (Non-Af Amer) > 60 Glucose 94 Calcium 8.8 Phosphorus 4.0 Magnesium Total Bilirubin 0.6 AST 53 Alkaline Phosphatase 100 Ammonia Total Protein 8.1 Albumin 4.2 Triglycerides Cholesterol LDL Cholesterol Direct VLDL Cholesterol HDL Cholesterol Amylase 97 Lipase 89.8 Cancelled TSH 2.49 Free T4 0.89 Urine Color Urine Appearance Urine pH Ur Specific [place] Urine Protein Urine Glucose (UA) Urine Ketones Urine Blood Urine Nitrite Ur Leukocyte Esterase Urine WBC (Auto) Urine RBC (Auto) 12/25/18 12/25/18 12/26/18 15:45 21:10 00:15 WBC RBC Hgb Hct MCV MCH MCHC RDW Plt Count Seg Neutrophils % Lymphocytes % Monocytes % Eosinophils % Basophils % Absolute Neutrophils Absolute Lymphocytes Absolute Monocytes Absolute Eosinophils Absolute Basophils Sodium Potassium Chloride Carbon Dioxide Anion Gap BUN Creatinine Est GFR ( Amer) Est GFR (Non-Af Amer) Glucose Calcium Phosphorus Magnesium Total Bilirubin AST Alkaline Phosphatase Ammonia 13.3 Total Protein Albumin Triglycerides Cholesterol LDL Cholesterol Direct VLDL Cholesterol HDL Cholesterol Amylase Lipase TSH Free T4 Urine Color YELLOW YELLOW Urine Appearance CLEAR CLEAR Urine pH 6.0 6.0 Ur Specific [place] 1.015 1.024 Urine Protein NEGATIVE NEGATIVE Urine Glucose (UA) NEGATIVE NEGATIVE Urine Ketones NEGATIVE NEGATIVE Urine Blood NEGATIVE NEGATIVE Urine Nitrite NEGATIVE NEGATIVE Ur Leukocyte Esterase TRACE H TRACE H Urine WBC (Auto) 11 5 Urine RBC (Auto) 1 1 12/26/18 12/26/18 03:16 03:16 WBC 5.2 RBC 4.73 Hgb 12.7 L Hct 39.7 MCV 84 MCH 26.8 L MCHC 31.9 L RDW 16.0 H Plt Count 205 Seg Neutrophils % 56.4 Lymphocytes % 31.9 Monocytes % 8.3 Eosinophils % 2.2 Basophils % 1.2 Absolute Neutrophils 2.9 Absolute Lymphocytes 1.7 Absolute Monocytes 0.4 Absolute Eosinophils 0.1 Absolute Basophils 0.1 Sodium 137.5 Potassium 5.3 H Chloride 105 Carbon Dioxide 28 Anion Gap 5 BUN 17 Creatinine 0.92 Est GFR ( Amer) > 60 Est GFR (Non-Af Amer) > 60 Glucose 101 Calcium 8.9 Phosphorus Magnesium 2.2 Total Bilirubin 0.7 AST 36 Alkaline Phosphatase 82 Ammonia Total Protein 6.6 Albumin 3.3 L Triglycerides 53 Cholesterol 174.66 LDL Cholesterol Direct 73 VLDL Cholesterol 11.0 HDL Cholesterol 83 Amylase Lipase TSH Free T4 Urine Color Urine Appearance Urine pH Ur Specific [place] Urine Protein Urine Glucose (UA) Urine Ketones Urine Blood Urine Nitrite Ur Leukocyte Esterase Urine WBC (Auto) Urine RBC (Auto) 12/25/18 12/25/18 12/25/18 15:00 15:00 21:10 Creatine Kinase 222 H 157 CK-MB (CK-2) 1.75 Troponin I < 0.012 12/25/18 12/26/18 12/26/18 21:10 03:16 03:16 Creatine Kinase 125 CK-MB (CK-2) 1.29 1.07 Troponin I < 0.012 < 0.012 Impressions: Abdomen/Pelvis CT 12/25/18 00:00 IMPRESSION: Small bowel obstruction with transition point located within the central abdomen right of midline. KUB X-Ray 12/25/18 19:49 IMPRESSION: NG tube tip in the body of stomach. Assessment & Plan - Diagnosis (1) Small bowel obstruction Is this a current diagnosis for this admission?: Yes Plan: Per surgical input (2) Essential (primary) hypertension Is this a current diagnosis for this admission?: Yes (3) COPD (chronic obstructive pulmonary disease) Qualifiers: COPD type: unspecified COPD Qualified Code(s): J44.9 - Chronic obstructive pulmonary disease, unspecified Is this a current diagnosis for this admission?: Yes
[2018-12-26] MEDS ORDERED: ALBUTEROL SULFATE HFA (90 MCG/PUFF) 200 PUFF/8.5 GM MDI IH PRN (19:45)
[2018-12-26] MEDS ORDERED: (PENDING PHARMACY ID) (Tramadol Hcl/Acetaminophen [Tramadol-Acetaminophn 37.5-325] 1 EACH) PO SCH (20:00)
[2018-12-26] MEDS ORDERED: METOPROLOL SUCCINATE 50 MG TAB.SR.24H PO ONE (20:15)
[2018-12-26] MEDS ORDERED: ISOSORBIDE MONONITRATE 30 MG TAB.ER.24H PO ONE (20:15)
[2018-12-26] MEDS ORDERED: FLUTICASONE/UMECLIDIN/VILANTER 100-62.5-25 MCG/DOSE IH ONE (20:15)
[2018-12-26] MEDS ORDERED: FUROSEMIDE 20 MG TABLET PO ONE (20:15)
[2018-12-26] MEDS ORDERED: LISINOPRIL 10 MG TABLET PO ONE (20:15)
[2018-12-26] MEDS ORDERED: ACETAMINOPHEN 325 MG TABLET PO ONE (20:30)
[2018-12-26] MEDS ORDERED: TRAMADOL HCL 50 MG TABLET PO ONE (20:30)
[2018-12-26] MEDS: ATORVASTATIN CALCIUM 20 MG TABLET PO SCH (21:43)
--- NOTE | 2018-12-26 22:45 | Progress Note ---
Provider Note Provider Note: Events noted. Pateoimnt has been having multiple stools after tjhe adminoistration of Mg Citrate A/ Resolved constipation after Mg Citrate administration No General Surgery issues identified P/ I am recommending a diet with plenty of fluids, vegetable fibers, Colace, and or Miralax. I will sign off, please call me with questions.
[2018-12-27] MEDS: TRAMADOL HCL 50 MG TABLET PO SCH ×3 (05:38→21:46)
[2018-12-27] MEDS: ACETAMINOPHEN 325 MG TABLET PO SCH ×3 (05:39→21:47)
[2018-12-27] MEDS: HEPARIN SOD (PORCINE) 5,000 UNIT/ML 1 ML VIAL SUBCUT SCH ×3 (05:40→21:51)
[2018-12-27 06:24] LABS: ABSOLUTE BASOPHILS # (AUTO) 0.1 10^3/uL (0.0-0.2); ABSOLUTE EOSINOPHILS # (AUTO) 0.2 10^3/uL (0.0-0.6); ABSOLUTE LYMPHOCYTES (AUTO) 1.6 10^3/uL (0.5-4.7); ABSOLUTE MONOCYTES (AUTO) 0.4 10^3/uL (0.1-1.4); ABSOLUTE NEUT (AUTO) 1.6 10^3/uL (1.7-8.2); BASOPHILS % (AUTO) 1.4 % (0-2); HEMATOCRIT 37.5 % (37.9-51.0); HEMOGLOBIN 12.2 g/dL (13.5-17.0); LYMPHOCYTES % (AUTO) 42.3 % (13-45); MEAN CORPUSCULAR HEMOGLOBIN 27.2 pg (27.0-33.4); MEAN CORPUSCULAR HGB CONC 32.4 g/dL (32.0-36.0); MEAN CORPUSCULAR VOLUME 84 fl (80-97); MONOCYTES % (AUTO) 9.4 % (3-13); PLATELET COUNT 200 10^3/uL (150-450); RED BLOOD COUNT 4.46 10^6/uL (4.35-5.55); RED CELL DISTRIBUTION WIDTH 15.4 % (11.5-14.0); SEGMENTED NEUTROPHILS % (AUTO) 42.9 % (42-78); TOTAL CELLS COUNTED % (AUTO) 100 %; WHITE BLOOD COUNT 3.8 10^3/uL (4.0-10.5)
[2018-12-27 06:50] LABS: ALBUMIN 3.2 g/dL (3.5-5.0); ALKALINE PHOSPHATASE 70 U/L (38-126); ASPARTATE AMINO TRANSFERASE 30 U/L (17-59); BILIRUBIN,DIRECT 0.3 mg/dL (0.0-0.4); BILIRUBIN,TOTAL 0.6 mg/dL (0.2-1.3); BLOOD UREA NITROGEN 11 mg/dL (7-20); CALCIUM 8.6 mg/dL (8.4-10.2); GLUCOSE 112 mg/dL (75-110); POTASSIUM 4.5 mmol/L (3.6-5.0); TOTAL PROTEIN 6.4 g/dL (6.3-8.2)
[2018-12-27 06:55] LABS: CARBON DIOXIDE 33 mmol/L (22-30); CHLORIDE 99 mmol/L (98-107)
[2018-12-27 07:11] LABS: ANION GAP 3 (5-19)
[2018-12-27] MEDS ORDERED: FLUTICASONE/UMECLIDIN/VILANTER 100-62.5-25 MCG/DOSE IH SCH ×2 (08:00→10:00)
[2018-12-27] MEDS ORDERED: FUROSEMIDE 20 MG TABLET PO SCH (10:00)
[2018-12-27] MEDS ORDERED: ISOSORBIDE MONONITRATE 30 MG TAB.ER.24H PO SCH (10:00)
[2018-12-27] MEDS ORDERED: METOPROLOL SUCCINATE 50 MG TAB.SR.24H PO SCH (10:00)
[2018-12-27] MEDS ORDERED: LISINOPRIL 10 MG TABLET PO SCH (10:00)
--- NOTE | 2018-12-27 19:24 | PDOC PROGRESS REPORT ---
Subjective Progress Note for:: 12/27/18 Subjective:: Patient seen by the bedside tolerating food without complications, he had magnesium citrate yesterday with good results Reason For Visit: MECHANICAL SMALL BOWEL OBSTRUCTION Physical Exam Vital Signs: Temp Pulse Resp BP Pulse Ox 97.5 F 59 L 18 115/64 100 12/27/18 08:01 12/27/18 15:15 12/27/18 08:01 12/27/18 15:15 12/27/18 15:15 Intake & Output 12/26/18 12/27/18 12/28/18 06:59 06:59 06:59 Intake Total 1000 2356 Output Total 650 400 Balance 350 1956 Weight 60.3 kg 60.6 kg General appearance: PRESENT: no acute distress Eye exam: PRESENT: PERRLA Respiratory exam: PRESENT: clear to auscultation sherly Cardiovascular exam: PRESENT: +S1, +S2 GI/Abdominal exam: PRESENT: soft Neurological exam: PRESENT: alert, CN II-XII grossly intact Results Laboratory Results: 12/27/18 06:07 12/27/18 06:07 12/27/18 12/27/18 06:07 06:07 WBC 3.8 L RBC 4.46 Hgb 12.2 L Hct 37.5 L MCV 84 MCH 27.2 MCHC 32.4 RDW 15.4 H Plt Count 200 Seg Neutrophils % 42.9 Lymphocytes % 42.3 Monocytes % 9.4 Eosinophils % 4.0 Basophils % 1.4 Absolute Neutrophils 1.6 L Absolute Lymphocytes 1.6 Absolute Monocytes 0.4 Absolute Eosinophils 0.2 Absolute Basophils 0.1 Sodium 134.6 L Potassium 4.5 Chloride 99 Carbon Dioxide 33 H Anion Gap 3 L BUN 11 Creatinine 0.98 Est GFR ( Amer) > 60 Est GFR (Non-Af Amer) > 60 Glucose 112 H Calcium 8.6 Magnesium 2.2 Total Bilirubin 0.6 AST 30 Alkaline Phosphatase 70 Total Protein 6.4 Albumin 3.2 L 12/25/18 12/25/18 12/25/18 15:00 15:00 21:10 Creatine Kinase 222 H 157 CK-MB (CK-2) 1.75 Troponin I < 0.012 12/25/18 12/26/18 12/26/18 21:10 03:16 03:16 Creatine Kinase 125 CK-MB (CK-2) 1.29 1.07 Troponin I < 0.012 < 0.012 Impressions: Abdomen/Pelvis CT 12/25/18 00:00 IMPRESSION: Small bowel obstruction with transition point located within the central abdomen right of midline. KUB X-Ray 12/25/18 19:49 IMPRESSION: NG tube tip in the body of stomach. Assessment & Plan - Diagnosis (1) Small bowel obstruction Is this a current diagnosis for this admission?: Yes Plan: Resolved (2) Essential (primary) hypertension Is this a current diagnosis for this admission?: Yes (3) COPD (chronic obstructive pulmonary disease) Qualifiers: COPD type: unspecified COPD Qualified Code(s): J44.9 - Chronic obstructive pulmonary disease, unspecified Is this a current diagnosis for this admission?: Yes (4) Cocaine abuse Is this a current diagnosis for this admission?: Yes
--- NOTE | 2018-12-27 19:37 | PDOC DISCHARGE SUMMARY ---
General - Admit/Disc Date/PCP Admission Date/Primary Care Provider: 12/25/18 19:26 LARRY QUEEN MD Discharge Date: 12/28/18 - Discharge Diagnosis (1) Small bowel obstruction Is this a current diagnosis for this admission?: Yes (2) Essential (primary) hypertension Is this a current diagnosis for this admission?: Yes (3) COPD (chronic obstructive pulmonary disease) Is this a current diagnosis for this admission?: Yes (4) Cocaine abuse Is this a current diagnosis for this admission?: Yes - Additional Information Discharge Diet: Regular Discharge Activity: Activity As Tolerated Home Medications: RX: Albuterol Sulfate [Proair HFA Inhalation Aerosol 8.5 gm MDI] 1 puff IH ASDIR PRN 12/14/18 RX: Atorvastatin Calcium [Lipitor 20 mg Tablet] 20 mg PO QHS 12/14/18 RX: Fluticasone/Umeclidin/Vilanter [Trelegy 100-62.5-25 Mcg Ellipta 14 Dose/Dpi] 1 puff IH DAILY 12/14/18 RX: Metoprolol Succinate [Toprol XL 100 mg Tablet] 100 mg PO DAILY 12/14/18 RX: Tramadol HCl/Acetaminophen [Tramadol-Acetaminophn 37.5-325] 1 each PO Q8 12/14/18 RX: Isosorbide Mononitrate [Imdur 30 mg Tablet.er] 30 mg PO DAILY #30 tab.er.24h 12/17/18 RX: Lisinopril [Prinivil 10 mg Tablet] 10 mg PO DAILY #30 tablet 12/17/18 RX: Acetaminophen [Tylenol 325 mg Tablet] 325 mg PO Q8 tablet 12/27/18 History of Present Illness History of Present Illness: FERNANDO BHATIA is a 68 year old male, he has a history of hypertension, chronic obstructive lung disease history of nephrectomy due to injury, he came to the emergency room for evaluation of abdominal pain, there is associated nausea and vomiting, last bowel movement was 2 days ago. In the emergency room CT scan of the abdomen and pelvis with IV contrast was obtained, it demonstrated mildly dilated and mildly thickened fluid-filled loops of small bowel within the central and right abdomen containing air-fluid levels, transition point located within the central abdomen right of midline. Distal normal caliber fluid-filled loop of small bowel gas and stool throughout the colon consistent with mechanical obstruction. He had exploratory laparotomy on 07/01/2018 for the management of mechanical obstruction and the time was found to have extensive adhesions he underwent lysis of the adhesions he was subsequently transferred to intermediate for rehabilitation. Patient unfortunately also abuses cocaine, the urine drug screen came back positive for cocaine. Hospital Course Hospital Course: Patient was admitted for the management of small bowel obstruction, she was treated conservatively, she was seen by the surgeon, no surgical intervention was ordered, he required a NG tube treatment. The UDS was positive for cocaine Physical Exam Vital Signs: Temp Pulse Resp BP Pulse Ox 97.5 F 59 L 18 115/64 100 12/27/18 08:01 12/27/18 15:15 12/27/18 08:01 12/27/18 15:15 12/27/18 15:15 Intake & Output 12/26/18 12/27/18 12/28/18 06:59 06:59 06:59 Intake Total 1000 2356 Output Total 650 400 Balance 350 1956 Weight 60.3 kg 60.6 kg General appearance: PRESENT: no acute distress, well-developed, well-nourished Head exam: PRESENT: atraumatic, normocephalic Eye exam: PRESENT: conjunctiva pink, EOMI, PERRLA Ear exam: PRESENT: normal external ear exam Mouth exam: PRESENT: moist, tongue midline Neck exam: PRESENT: full ROM Respiratory exam: PRESENT: clear to auscultation sherly Cardiovascular exam: PRESENT: RRR, +S1, +S2 Pulses: PRESENT: normal dorsalis pedis pul, +2 pedal pulses bilateral Vascular exam: PRESENT: normal capillary refill GI/Abdominal exam: PRESENT: normal bowel sounds, soft Rectal exam: PRESENT: deferred Neurological exam: PRESENT: alert, CN II-XII grossly intact Psychiatric exam: PRESENT: appropriate affect, normal mood Skin exam: PRESENT: dry, intact, warm Results Laboratory Results: 12/27/18 06:07 12/27/18 06:07 12/27/18 12/27/18 06:07 06:07 WBC 3.8 L RBC 4.46 Hgb 12.2 L Hct 37.5 L MCV 84 MCH 27.2 MCHC 32.4 RDW 15.4 H Plt Count 200 Seg Neutrophils % 42.9 Lymphocytes % 42.3 Monocytes % 9.4 Eosinophils % 4.0 Basophils % 1.4 Absolute Neutrophils 1.6 L Absolute Lymphocytes 1.6 Absolute Monocytes 0.4 Absolute Eosinophils 0.2 Absolute Basophils 0.1 Sodium 134.6 L Potassium 4.5 Chloride 99 Carbon Dioxide 33 H Anion Gap 3 L BUN 11 Creatinine 0.98 Est GFR ( Amer) > 60 Est GFR (Non-Af Amer) > 60 Glucose 112 H Calcium 8.6 Magnesium 2.2 Total Bilirubin 0.6 AST 30 Alkaline Phosphatase 70 Total Protein 6.4 Albumin 3.2 L 12/25/18 12/25/18 12/25/18 15:00 15:00 21:10 Creatine Kinase 222 H 157 CK-MB (CK-2) 1.75 Troponin I < 0.012 12/25/18 12/26/18 12/26/18 21:10 03:16 03:16 Creatine Kinase 125 CK-MB (CK-2) 1.29 1.07 Troponin I < 0.012 < 0.012 Impressions: Abdomen/Pelvis CT 12/25/18 00:00 IMPRESSION: Small bowel obstruction with transition point located within the central abdomen right of midline. KUB X-Ray 12/25/18 19:49 IMPRESSION: NG tube tip in the body of stomach. Qualifiers - * PATIENT BEING DISCHARGED WITH ANY OF THE FOLLOWING DIAGNOSIS: No VTE patient discharged on overlapping Therapy?: No Reason(s) for not prescribing Overlap Therapy:: Not indicated Stroke Pt being discharged on Anti-thrombolytic therapy?: No Reason(s) for not prescribing Anti-thrombolytic therapy:: Not indicated Stroke Pt being discharged on Anti-coagulation therapy?: No Reason(s) for not prescribing Anti-coagulation therapy:: Not indicated Stroke Pt being discharged on Statins?: No Reason(s) for not prescribing Statins therapy:: Not indicated NM Pt being discharged on Aspirin therapy?: No Reason(s) for not prescribing Aspirin therapy:: Not indicated NM Pt being discharged on Statins?: No Reason(s) for not prescribing Statin therapy:: Not indicated NM Pt discharged ACEI/ARBS?: No Reason(s) for not prescribing ACEI/ARBS:: Not indicated Acute Heart Failure - Is this a Heart Failure Patient?: No 3. Anticoagulant therapy for permanect/persistent/paraoxysmal Afib or Aflutter: N/A
[2018-12-27] MEDS: ATORVASTATIN CALCIUM 20 MG TABLET PO SCH (21:46)
[2018-12-28] MEDS: HEPARIN SOD (PORCINE) 5,000 UNIT/ML 1 ML VIAL SUBCUT SCH (06:16)
[2018-12-28] MEDS: ACETAMINOPHEN 325 MG TABLET PO SCH (06:24)
[2018-12-28] MEDS: TRAMADOL HCL 50 MG TABLET PO SCH (06:24)
[2018-12-28 06:30] LABS: ABSOLUTE EOSINOPHILS # (AUTO) 0.2 10^3/uL (0.0-0.6); ABSOLUTE LYMPHOCYTES (AUTO) 1.5 10^3/uL (0.5-4.7); ABSOLUTE MONOCYTES (AUTO) 0.3 10^3/uL (0.1-1.4); BASOPHILS % (AUTO) 0.4 % (0-2); EOSINOPHILS % (AUTO) 5.3 % (0-6); HEMATOCRIT 34.7 % (37.9-51.0); HEMOGLOBIN 11.3 g/dL (13.5-17.0); LYMPHOCYTES % (AUTO) 50.2 % (13-45); MEAN CORPUSCULAR HEMOGLOBIN 27.1 pg (27.0-33.4); MEAN CORPUSCULAR HGB CONC 32.5 g/dL (32.0-36.0); MEAN CORPUSCULAR VOLUME 83 fl (80-97); MONOCYTES % (AUTO) 11.2 % (3-13); PLATELET COUNT 184 10^3/uL (150-450); RED BLOOD COUNT 4.17 10^6/uL (4.35-5.55); RED CELL DISTRIBUTION WIDTH 15.3 % (11.5-14.0); SEGMENTED NEUTROPHILS % (AUTO) 32.9 % (42-78); TOTAL CELLS COUNTED % (AUTO) 100 %; WHITE BLOOD COUNT 2.9 10^3/uL (4.0-10.5)
[2018-12-28 06:38] LABS: ALKALINE PHOSPHATASE 85 U/L (38-126); ANION GAP 5 (5-19); ASPARTATE AMINO TRANSFERASE 25 U/L (17-59); BILIRUBIN,DIRECT 0.1 mg/dL (0.0-0.4); BILIRUBIN,TOTAL 0.3 mg/dL (0.2-1.3); BLOOD UREA NITROGEN 16 mg/dL (7-20); CALCIUM 8.7 mg/dL (8.4-10.2); CARBON DIOXIDE 30 mmol/L (22-30); CHLORIDE 100 mmol/L (98-107); GLUCOSE 89 mg/dL (75-110); POTASSIUM 4.9 mmol/L (3.6-5.0)
[2018-12-28 08:48] VITALS: BP 120/57
== END 2018-12-28 10:00 | disposition home or self-care (01) | DRG 392 ==
LOC: ER 14:33 → EH 19:26 → 3S 21:28
PROVIDERS: ADMIT Internal Medicine; ATTEND Internal Medicine
DX: K59.04 Chronic idiopathic constipation (principal); I11.0 Hypertensive heart disease with heart failure; J44.9 Chronic obstructive pulmonary disease, unspecified; I25.10 Atherosclerotic heart disease of native coronary artery without angina pectoris; I50.9 Heart failure, unspecified; F14.10 Cocaine abuse, uncomplicated; F17.210 Nicotine dependence, cigarettes, uncomplicated; Z86.73 Personal history of transient ischemic attack (TIA), and cerebral infarction without residual deficits; Z79.51 Long term (current) use of inhaled steroids; Z79.899 Other long term (current) drug therapy
CPT/HCPCS: 36415; 74018; 74177; 80048; 80053; 80061; 80076; 80307; 81001; 82140; 82150; 82550; 82553; 83036; 83690; 83735; 84100; 84439; 84443; 84484; 85025; 85610; 85730; 87040; 87086; 96361; 96374; 99285; J1644; J2765; J3490; J7030; J7121

== ENCOUNTER 2019-01-07 04:26 | Emergency (ER) | payer MEDICARE, MEDICAID ==
[2019-01-07] MEDS ORDERED: NORMAL SALINE 1000 ML 1,000 ML IV ONE (06:43)
[2019-01-07] MEDS ORDERED: ONDANSETRON HCL INJ/PF 4 MG/2 ML SDV IV ONE (06:44)
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
[2019-01-07 08:02] LABS: ABSOLUTE LYMPHOCYTES (AUTO) 0.9 10^3/uL (0.5-4.7); ABSOLUTE MONOCYTES (AUTO) 0.4 10^3/uL (0.1-1.4); ABSOLUTE NEUT (AUTO) 5.2 10^3/uL (1.7-8.2); BASOPHILS % (AUTO) 0.6 % (0-2); HEMATOCRIT 39.1 % (37.9-51.0); HEMOGLOBIN 12.7 g/dL (13.5-17.0); LYMPHOCYTES % (AUTO) 13.1 % (13-45); MEAN CORPUSCULAR HEMOGLOBIN 27.2 pg (27.0-33.4); MEAN CORPUSCULAR HGB CONC 32.5 g/dL (32.0-36.0); MEAN CORPUSCULAR VOLUME 84 fl (80-97); MONOCYTES % (AUTO) 6.5 % (3-13); PLATELET COUNT 173 10^3/uL (150-450); RED BLOOD COUNT 4.67 10^6/uL (4.35-5.55); RED CELL DISTRIBUTION WIDTH 15.2 % (11.5-14.0); SEGMENTED NEUTROPHILS % (AUTO) 79.8 % (42-78); TOTAL CELLS COUNTED % (AUTO) 100 %; WHITE BLOOD COUNT 6.6 10^3/uL (4.0-10.5)
[2019-01-07 08:23] LABS: ALBUMIN 3.7 g/dL (3.5-5.0); ALKALINE PHOSPHATASE 67 U/L (38-126); ANION GAP 9 (5-19); ASPARTATE AMINO TRANSFERASE 28 U/L (17-59); BILIRUBIN,DIRECT 0.2 mg/dL (0.0-0.4); BILIRUBIN,TOTAL 0.4 mg/dL (0.2-1.3); BLOOD UREA NITROGEN 13 mg/dL (7-20); CALCIUM 8.9 mg/dL (8.4-10.2); CARBON DIOXIDE 25 mmol/L (22-30); CHLORIDE 102 mmol/L (98-107); GLUCOSE 104 mg/dL (75-110); POTASSIUM 3.4 mmol/L (3.6-5.0); TOTAL PROTEIN 7.2 g/dL (6.3-8.2)
[2019-01-07 11:09] VITALS: BP 144/76
== END 2019-01-07 11:35 | disposition home or self-care (01) ==
LOC: ER 04:26
DX: R19.7 Diarrhea, unspecified (principal); R51 Headache; F17.200 Nicotine dependence, unspecified, uncomplicated; I50.9 Heart failure, unspecified; I25.10 Atherosclerotic heart disease of native coronary artery without angina pectoris; I11.0 Hypertensive heart disease with heart failure; J44.9 Chronic obstructive pulmonary disease, unspecified; Z86.73 Personal history of transient ischemic attack (TIA), and cerebral infarction without residual deficits
CPT/HCPCS: 99284; 96361; 96374; 36415; 83735; 85025; 80053; 87493; J2405; J7030

== ENCOUNTER 2019-02-24 22:51 | Inpatient (IN) | payer MEDICARE, MEDICAID ==
--- NOTE | 2019-02-24 23:28 | RADIOLOGY REPORT (SQ) ---
EXAM DESCRIPTION: [facility]: XR CHEST 1 VIEW CLINICAL HISTORY: 68 years Male, TROUBLE BREATHING COMPARISON: 12/16/2018 FINDINGS: Lungs are similar to the prior exam, with perihilar interstitial prominence, but no focal consolidation. No pneumothorax or pleural effusion. Mediastinum is within normal limits for this positioning. Bony structures are unremarkable. Left upper quadrant surgical clips are noted. IMPRESSION: 1. No acute pulmonary findings. No significant change since 12/16/2018
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
[2019-02-24 23:56] LABS: ABSOLUTE BASOPHILS # (AUTO) 0.1 10^3/uL (0.0-0.2); ABSOLUTE EOSINOPHILS # (AUTO) 0.1 10^3/uL (0.0-0.6); ABSOLUTE LYMPHOCYTES (AUTO) 4.7 10^3/uL (0.5-4.7); ABSOLUTE MONOCYTES (AUTO) 1.1 10^3/uL (0.1-1.4); ABSOLUTE NEUT (AUTO) 8.3 10^3/uL (1.7-8.2); BASOPHILS % (AUTO) 0.4 % (0-2); EOSINOPHILS % (AUTO) 0.7 % (0-6); HEMATOCRIT 41.2 % (37.9-51.0); HEMOGLOBIN 13.1 g/dL (13.5-17.0); LYMPHOCYTES % (AUTO) 33.2 % (13-45); MEAN CORPUSCULAR HEMOGLOBIN 27.5 pg (27.0-33.4); MEAN CORPUSCULAR HGB CONC 31.7 g/dL (32.0-36.0); MEAN CORPUSCULAR VOLUME 87 fl (80-97); MONOCYTES % (AUTO) 7.7 % (3-13); PLATELET COUNT 295 10^3/uL (150-450); RED BLOOD COUNT 4.74 10^6/uL (4.35-5.55); RED CELL DISTRIBUTION WIDTH 14.8 % (11.5-14.0); TOTAL CELLS COUNTED % (AUTO) 100 %; WHITE BLOOD COUNT 14.3 10^3/uL (4.0-10.5)
[2019-02-24 23:57] LABS: ARTERIAL BLOOD BASE EXCESS 1.7 mmol/L; ARTERIAL BLOOD FIO2 60%; ARTERIAL BLOOD H2CO3 2.05 mmol/L (1.05-1.35); ARTERIAL BLOOD HCO3 30.5 mmol/L (20-24); ARTERIAL BLOOD O2 SATURATION 99.1 % (94-98); ARTERIAL BLOOD PCO2 68.2 mmHg (35-45); ARTERIAL BLOOD PH 7.27 (7.35-7.45); ARTERIAL BLOOD PO2 187.8 mmHg (80-100); ARTERIAL BLOOD TOTAL CO2 32.6 mmol/L (23-27)
[2019-02-24 23:59] LABS: PROTHROMBIN TIME 14.3 SEC (11.4-15.4)
[2019-02-25] LABS: PARTIAL THROMBOPLASTIN TIME 28.8 SEC (23.5-35.8)
[2019-02-25 00:07] LABS: ALKALINE PHOSPHATASE 117 U/L (38-126); ANION GAP 12 (5-19); ASPARTATE AMINO TRANSFERASE 49 U/L (17-59); BILIRUBIN,DIRECT 0.3 mg/dL (0.0-0.4); BILIRUBIN,TOTAL 0.4 mg/dL (0.2-1.3); BLOOD UREA NITROGEN 12 mg/dL (7-20); CALCIUM 8.9 mg/dL (8.4-10.2); CARBON DIOXIDE 28 mmol/L (22-30); CHLORIDE 97 mmol/L (98-107); GLUCOSE 139 mg/dL (75-110); POTASSIUM 3.6 mmol/L (3.6-5.0); TOTAL PROTEIN 8.4 g/dL (6.3-8.2)
[2019-02-25 00:24] LABS: TROPONIN I 0.058 ng/mL
[2019-02-25] MEDS ORDERED: METHYLPREDNISOLONE INJ 125 MG/2 ML SDV IV ONE (01:33)
[2019-02-25] MEDS ORDERED: ACETAMINOPHEN 325 MG TABLET PO PRN (02:27)
[2019-02-25] MEDS ORDERED: IPRATROPIUM/ALBUTEROL 0.5-2.5 MG/3 ML AMPUL NEB PRN ×2 (02:27→02:34)
[2019-02-25] MEDS: METHYLPREDNISOLONE INJ 125 MG/2 ML SDV IV SCH ×3 (05:13→21:25)
[2019-02-25 05:42] LABS: INTERNATIONAL RATION (INR) 1.13; PROTHROMBIN TIME 14.6 SEC (11.4-15.4)
[2019-02-25 05:43] LABS: PARTIAL THROMBOPLASTIN TIME 36.8 SEC (23.5-35.8)
[2019-02-25 06:04] LABS: AMYLASE 65 U/L (30-110); ANION GAP 9 (5-19); BLOOD UREA NITROGEN 14 mg/dL (7-20); CALCIUM 8.9 mg/dL (8.4-10.2); CARBON DIOXIDE 30 mmol/L (22-30); CHLORIDE 97 mmol/L (98-107); GLUCOSE 233 mg/dL (75-110); PHOSPHORUS 3.8 mg/dL (2.5-4.5); POTASSIUM 4.1 mmol/L (3.6-5.0)
[2019-02-25 06:16] LABS: CREATINE KINASE MB 1.11 ng/mL (<4.55); TROPONIN I 0.063 ng/mL
[2019-02-25 06:17] LABS: ARTERIAL BLOOD BASE EXCESS 2.1 mmol/L; ARTERIAL BLOOD FIO2 60%; ARTERIAL BLOOD H2CO3 1.37 mmol/L (1.05-1.35); ARTERIAL BLOOD HCO3 27.5 mmol/L (20-24); ARTERIAL BLOOD O2 SATURATION 99.7 % (94-98); ARTERIAL BLOOD PCO2 45.6 mmHg (35-45); ARTERIAL BLOOD PO2 299.1 mmHg (80-100); ARTERIAL BLOOD TOTAL CO2 28.9 mmol/L (23-27)
[2019-02-25 06:22] LABS: FREE T4 (FREE THYROXINE) 1.1 ng/dL (0.78-2.19)
[2019-02-25 06:23] LABS: APPEARANCE,URINE SLIGHTLY-CLOUDY; BILIRUBIN,URINE NEGATIVE (NEGATIVE); COLOR,URINE YELLOW; GLUCOSE, URINE 50 mg/dL (NEGATIVE); KETONES,URINE NEGATIVE (NEGATIVE); LEUKOCYTE ESTERASE,URINE NEGATIVE (NEGATIVE); NITRITE,URINE NEGATIVE (NEGATIVE); PROTEIN,URINE >=500 mg/dL (NEGATIVE); URINE SPECIFIC GRAVITY 1.015; UROBILINOGEN,URINE NEGATIVE mg/dL (<2.0)
[2019-02-25 06:36] LABS: THYROID STIMULATING HORMONE 0.77 uIU/mL (0.47-4.68)
[2019-02-25 06:41] LABS: URINE AMPHETAMINES SCREEN NEGATIVE; URINE BARBITURATES SCREEN NEGATIVE; URINE MARIJUANA (THC) SCREEN NEGATIVE; URINE METHADONE SCREEN NEGATIVE; URINE PHENCYCLIDINE SCREEN NEGATIVE
[2019-02-25 06:43] LABS: URINE COCAINE SCREEN UNCONFIRMED POSITIVE
[2019-02-25 06:44] LABS: URINE BENZODIAZEPINES SCREEN UNCONFIRMED POSITIVE
--- NOTE | 2019-02-25 07:21 | EKG REPORT ---
SEVERITY:- ABNORMAL ECG - SINUS TACHYCARDIA PROBABLE LEFT ATRIAL ABNORMALITY LVH WITH SECONDARY REPOLARIZATION ABNORMALITY ANTERIOR ST ELEVATION, PROBABLY DUE TO LVH : Confirmed by: Demetri Galicia 25-Feb-2019 07:20:28
[2019-02-25] MEDS ORDERED: GLUCAGON,HUMAN RECOMB 1 MG INJ IM PRN (08:27)
[2019-02-25] MEDS ORDERED: DEXTROSE 40% GEL 15 GM TUBE PO PRN ×2 (08:27)
[2019-02-25] MEDS ORDERED: DEXTROSE 50%-WATER 25 GM/50 ML DISP.SYRIN IV PRN ×2 (08:27)
[2019-02-25 10:11] LABS: URINE CREATININE 98.8 mg/dL (22-328)
[2019-02-25 10:24] LABS: UR PRO/CREAT RATIO RESULT 4.1 mg/mg (0.0-0.2); URINE PROTEIN 405.9 mg/dL (<12)
[2019-02-25] MEDS: INSULIN LISPRO 100 UNIT/ML 3 ML VIAL SUBCUT SCH ×3 (11:14→22:30)
[2019-02-25] MEDS: ENOXAPARIN SODIUM INJ 40 MG/0.4 ML DISP.SYRIN SUBCUT SCH (11:16)
[2019-02-25 12:42] LABS: CREATINE KINASE MB 1.91 ng/mL (<4.55); TROPONIN I 0.038 ng/mL
[2019-02-25 18:15] LABS: CREATINE KINASE MB 2.52 ng/mL (<4.55); TROPONIN I 0.031 ng/mL
--- NOTE | 2019-02-25 19:44 | PDOC H&P ---
History of Present Illness Admission Date/PCP: 02/25/19 01:52 LARRY QUEEN MD History of Present Illness: FERNANDO BHATIA is a 68 year old male, He came to the emergency room late last night for evaluation of respiratory distress. In the emergency room he was evaluated is breathing was supported with noninvasive positive pressure ventilation BiPAP.The arterial blood gas on ambient air, pH 7.27, PCO2 68.2, PO2 187.8, bicarbonate 30.5. The chest x-ray did not demonstrate any acute infiltrate or consolidation to suggest pneumonia. Patient continues to smoke and do cocaine on a regular basis.The urine drug screen was positive for cocaine, there was also associated significant proteinuria, the urine protein creatinine ratio was4.1, this correlates with 24-hour urine protein, patient with nephrotic range proteinuria, there is no overt nephrotic syndrome, there is no generalized edema, there is no hyperlipidemia the nephrotic range proteinuria is probably related to cocaine abuse Past Medical History Cardiac Medical History: Reports: Congestive Heart Failure, Coronary Artery Disease, Hypertension Pulmonary Medical History: Reports: Chronic Obstructive Pulmonary Disease (COPD) Neurological Medical History: GI Medical History: Reports: Hiatal Hernia Musculoskeltal Medical History: Reports: Arthritis - KNEES, USES CANE AND WALKER Psychiatric Medical History: Denies: Depression Past Surgical History Past Surgical History: Reports: Herniorrhaphy, Other - Laparotomy with nephrectomy for blunt trauma Lysis of adhesions 06/29 Social History Smoking Status: Current Every Day Smoker Cigarettes Packs Per Day: 0.5 Electronic Cigarette use?: No Number of Years Smokin Last Time Smoked: 02/24/19 Frequency of Alcohol Use: Social Hx Recreational Drug Use: Yes Drugs: Cocaine Hx Prescription Drug Abuse: No Family History Family History: Reviewed & Not Pertinent Parental Family History Reviewed: Yes Children Family History Reviewed: Yes Sibling(s) Family History Reviewed.: Yes Medication/Allergy Home Medications: Albuterol Sulfate [Proair HFA Inhalation Aerosol 8.5 gm MDI] 1 puff IH Q6HP PRN 12/14/18 Atorvastatin Calcium [Lipitor 20 mg Tablet] 20 mg PO QHS 12/14/18 Fluticasone/Umeclidin/Vilanter [Trelegy 100-62.5-25 Mcg Ellipta 14 Dose/Dpi] 1 puff IH DAILY 12/14/18 Metoprolol Succinate [Toprol XL 100 mg Tablet] 100 mg PO DAILY 12/14/18 Isosorbide Mononitrate [Imdur 30 mg Tablet.er] 30 mg PO DAILY #30 tab.er.24h 12/17/18 Lisinopril [Prinivil 10 mg Tablet] 10 mg PO DAILY #30 tablet 12/17/18 Furosemide [Lasix 20 mg Tablet] 20 mg PO DAILY 02/25/19 Tramadol HCl/Acetaminophen [Ultracet 37.5 mg/325 mg Tablet] 1 tab PO Q8HP PRN 02/25/19 Allergies/Adverse Reactions: No Known Allergies Allergy (Verified 10/27/18 14:56) Review of Systems Constitutional: ABSENT: chills, fever(s), headache(s), weight gain, weight loss Eyes: ABSENT: visual disturbances Ears: ABSENT: hearing changes Cardiovascular: ABSENT: chest pain, dyspnea on exertion, edema, orthropnea, palpitations Respiratory: PRESENT: cough, dyspnea Gastrointestinal: ABSENT: abdominal pain, constipation, diarrhea, hematemesis, hematochezia, nausea, vomiting Genitourinary: ABSENT: dysuria, hematuria Musculoskeletal: ABSENT: joint swelling Integumentary: ABSENT: rash, wounds Neurological: PRESENT: confusion. ABSENT: abnormal gait, abnormal speech, dizziness, focal weakness, syncope Psychiatric: ABSENT: anxiety, depression, homidical ideation, suicidal ideation Endocrine: ABSENT: cold intolerance, heat intolerance, menstrual abnormalities, polydipsia, polyuria Hematologic/Lymphatic: ABSENT: easy bleeding, easy bruising, lymphadenopathy Physical Exam Vital Signs: Temp Pulse Resp BP Pulse Ox 98.6 F 108 H 18 163/87 H 96 02/25/19 15:29 02/25/19 15:29 02/25/19 15:29 02/25/19 15:29 02/25/19 15:29 Intake & Output 02/24/19 02/25/19 02/26/19 06:59 06:59 06:59 Intake Total 240 920 Balance 240 920 Weight 114.3 kg General appearance: PRESENT: severe distress Head exam: PRESENT: atraumatic, normocephalic Eye exam: PRESENT: conjunctiva pink, EOMI, PERRLA Ear exam: PRESENT: normal external ear exam Mouth exam: PRESENT: moist, tongue midline Neck exam: PRESENT: full ROM Respiratory exam: PRESENT: wheezes Cardiovascular exam: PRESENT: RRR, +S1, +S2 Pulses: PRESENT: normal dorsalis pedis pul, +2 pedal pulses bilateral Vascular exam: PRESENT: normal capillary refill GI/Abdominal exam: PRESENT: normal bowel sounds, soft Rectal exam: PRESENT: deferred Neurological exam: PRESENT: alert, CN II-XII grossly intact Psychiatric exam: PRESENT: appropriate affect, normal mood Skin exam: PRESENT: dry, intact, warm Results Laboratory Results: 02/24/19 23:14 02/25/19 05:16 02/24/19 02/24/19 02/24/19 23:14 23:14 23:14 WBC 14.3 H RBC 4.74 Hgb 13.1 L Hct 41.2 MCV 87 MCH 27.5 MCHC 31.7 L RDW 14.8 H Plt Count 295 Seg Neutrophils % 58.0 Carbonic Acid 2.05 H HCO3/H2CO3 Ratio 14:1 ABG pH 7.27 L ABG pCO2 68.2 H ABG pO2 187.8 H ABG HCO3 30.5 H ABG O2 Saturation 99.1 H ABG Base Excess 1.7 FiO2 60% Sodium 137.1 Potassium 3.6 Chloride 97 L Carbon Dioxide 28 Anion Gap 12 BUN 12 Creatinine 1.20 Est GFR ( Amer) > 60 Glucose 139 H Calcium 8.9 Phosphorus Magnesium Total Bilirubin 0.4 AST 49 Alkaline Phosphatase 117 Ammonia Total Protein 8.4 H Albumin 4.0 Amylase Lipase TSH Free T4 Urine Color Urine Appearance Urine pH Ur Specific [place] Urine Protein Urine Glucose (UA) Urine Ketones Urine Blood Urine Nitrite Ur Leukocyte Esterase Urine WBC (Auto) Urine RBC (Auto) 02/25/19 02/25/19 02/25/19 05:16 05:16 05:16 WBC RBC Hgb Hct MCV MCH MCHC RDW Plt Count Seg Neutrophils % Carbonic Acid HCO3/H2CO3 Ratio ABG pH ABG pCO2 ABG pO2 ABG HCO3 ABG O2 Saturation ABG Base Excess FiO2 Sodium 135.8 L Potassium 4.1 Chloride 97 L Carbon Dioxide 30 Anion Gap 9 BUN 14 Creatinine 0.99 Est GFR ( Amer) > 60 Glucose 233 H Calcium 8.9 Phosphorus 3.8 Magnesium 2.6 H Total Bilirubin AST Alkaline Phosphatase Ammonia < 8.7 L Total Protein Albumin Amylase 65 Lipase 33.7 TSH 0.77 Free T4 1.10 Urine Color Urine Appearance Urine pH Ur Specific [place] Urine Protein Urine Glucose (UA) Urine Ketones Urine Blood Urine Nitrite Ur Leukocyte Esterase Urine WBC (Auto) Urine RBC (Auto) 02/25/19 02/25/19 06:00 06:00 WBC RBC Hgb Hct MCV MCH MCHC RDW Plt Count Seg Neutrophils % Carbonic Acid 1.37 H HCO3/H2CO3 Ratio 20:1 ABG pH 7.40 ABG pCO2 45.6 H ABG pO2 299.1 H ABG HCO3 27.5 H ABG O2 Saturation 99.7 H ABG Base Excess 2.1 FiO2 60% Sodium Potassium Chloride Carbon Dioxide Anion Gap BUN Creatinine Est GFR ( Amer) Glucose Calcium Phosphorus Magnesium Total Bilirubin AST Alkaline Phosphatase Ammonia Total Protein Albumin Amylase Lipase TSH Free T4 Urine Color YELLOW Urine Appearance SLIGHTLY-CLOUDY Urine pH 5.0 Ur Specific [place] 1.015 Urine Protein >=500 H Urine Glucose (UA) 50 H Urine Ketones NEGATIVE Urine Blood SMALL H Urine Nitrite NEGATIVE Ur Leukocyte Esterase NEGATIVE Urine WBC (Auto) 13 Urine RBC (Auto) 2 02/24/19 02/25/19 02/25/19 23:14 05:16 05:16 Creatine Kinase 156 CK-MB (CK-2) 1.11 Troponin I 0.058 0.063 NT-Pro-B Natriuret Pep 5070 H 02/25/19 02/25/19 02/25/19 11:52 11:52 17:18 Creatine Kinase 147 152 CK-MB (CK-2) 1.91 Troponin I 0.038 NT-Pro-B Natriuret Pep 02/25/19 17:18 Creatine Kinase CK-MB (CK-2) 2.52 Troponin I 0.031 NT-Pro-B Natriuret Pep Impressions: Chest X-Ray 02/24/19 00:00 IMPRESSION: 1. No acute pulmonary findings. No significant change since 12/16/2018 Assessment & Plan - Diagnosis (1) Acute hypercapnic respiratory failure Is this a current diagnosis for this admission?: Yes Plan: Patient continues to require noninvasive positive pressure ventilation, the etiology is probably due to a combination of factors including acute COPD exacerbation, cocaine abuse with overdose. (2) Nephrotic range proteinuria Is this a current diagnosis for this admission?: Yes Plan: He has nephrotic range proteinuria, he has normal serum albumin there is no generalized edema to suggest overt nephrotic syndrome, this proteinuria could be related to cocaine abuse, we need to rule out paraproteinemia, multiple myeloma, will request for serum protein electrophoresis, urine protein electrophoresis (3) COPD with acute exacerbation Is this a current diagnosis for this admission?: Yes Plan: He has COPD with acute exacerbation, start intravenous Solu-Medrol, bronchodilators with DuoNeb (4) Cocaine abuse Is this a current diagnosis for this admission?: Yes Plan: Cocaine abuse, patient is confused, he does not know why he was admitted, he said he only came to the hospital because he was short of breath obviously is cocaine intoxicated, he has lost complete insight
[2019-02-26] MEDS: METHYLPREDNISOLONE INJ 125 MG/2 ML SDV IV SCH ×3 (06:39→22:41)
[2019-02-26 06:53] LABS: HEMATOCRIT 36.7 % (37.9-51.0); HEMOGLOBIN 11.7 g/dL (13.5-17.0); MEAN CORPUSCULAR HEMOGLOBIN 27.4 pg (27.0-33.4); MEAN CORPUSCULAR VOLUME 86 fl (80-97); PLATELET COUNT 207 10^3/uL (150-450); RED BLOOD COUNT 4.28 10^6/uL (4.35-5.55); RED CELL DISTRIBUTION WIDTH 14.8 % (11.5-14.0); WHITE BLOOD COUNT 13.4 10^3/uL (4.0-10.5)
[2019-02-26 07:16] LABS: ALBUMIN 3.2 g/dL (3.5-5.0); ALKALINE PHOSPHATASE 91 U/L (38-126); ASPARTATE AMINO TRANSFERASE 26 U/L (17-59); BILIRUBIN,DIRECT 0.1 mg/dL (0.0-0.4); BILIRUBIN,TOTAL 0.2 mg/dL (0.2-1.3); CHOLESTEROL 179.15 mg/dL (0-200); TOTAL PROTEIN 6.9 g/dL (6.3-8.2); TRIGLYCERIDES 50 mg/dL (<150)
[2019-02-26 07:27] LABS: DIRECT LDL 81 mg/dL (<100)
[2019-02-26] MEDS ORDERED: ACETAMINOPHEN 325 MG TABLET PO PRN (07:49)
[2019-02-26] MEDS ORDERED: TRAMADOL HCL 50 MG TABLET PO PRN (08:00)
[2019-02-26 08:01] LABS: ABSOLUTE LYMPHOCYTES# (MANUAL) 0.7 10^3/uL (0.5-4.7); ABSOLUTE MONOCYTES # (MANUAL) 0.5 10^3/uL (0.1-1.4); BASOPHILS % (MANUAL) 0 % (0-2); EOSINOPHILS % (MANUAL) 0 % (0-6); LYMPHOCYTES % (MANUAL) 5 % (13-45); MONOCYTES % (MANUAL) 4 % (3-13); SEGMENTED NEUTROPHILS % (MAN) 91 % (42-78); TOTAL CELLS COUNTED 100
[2019-02-26 08:03] LABS: ANISOCYTOSIS 1+; PLATELET COMMENT ADEQUATE
[2019-02-26] MEDS: ISOSORBIDE MONONITRATE 30 MG TAB.ER.24H PO SCH (09:29)
[2019-02-26] MEDS: INSULIN LISPRO 100 UNIT/ML 3 ML VIAL SUBCUT SCH ×4 (09:29→22:37)
[2019-02-26] MEDS: LISINOPRIL 10 MG TABLET PO SCH (09:30)
[2019-02-26] MEDS: ENOXAPARIN SODIUM INJ 40 MG/0.4 ML DISP.SYRIN SUBCUT SCH (09:30)
[2019-02-26] MEDS: FUROSEMIDE 20 MG TABLET PO SCH (09:30)
[2019-02-26] MEDS: METOPROLOL SUCCINATE 50 MG TAB.SR.24H PO SCH (09:30)
--- NOTE | 2019-02-26 10:25 | PDOC PROGRESS REPORT ---
Subjective Progress Note for:: 02/26/19 Subjective:: Patient was admitted yesterday because of the respiratory failure COPD acute exacerbation and cocaine abuse Patient is currently doing better Patient's denied any chest pain no short of breath Patient currently on IV Solu-Medrol and respiratory treatments Patient also with congestive heart failure and cardiomyopathy Chronic cocaine abusers Reason For Visit: ACUTE HYPERCAPNIC RESPIRATORY FAILURE DUE TO Physical Exam Vital Signs: Temp Pulse Resp BP Pulse Ox 97.5 F 92 16 141/89 H 93 02/26/19 03:41 02/26/19 08:37 02/26/19 08:37 02/26/19 03:41 02/26/19 08:37 Intake & Output 02/25/19 02/26/19 02/27/19 06:59 06:59 06:59 Intake Total 240 1640 Balance 240 1640 Weight 114.3 kg 113.9 kg General appearance: PRESENT: no acute distress, well-developed, well-nourished Head exam: PRESENT: atraumatic, normocephalic Eye exam: PRESENT: conjunctiva pink, EOMI, PERRLA. ABSENT: scleral icterus Ear exam: PRESENT: normal external ear exam Mouth exam: PRESENT: moist, tongue midline Neck exam: PRESENT: full ROM. ABSENT: carotid bruit, JVD, lymphadenopathy, thyromegaly Respiratory exam: PRESENT: clear to auscultation sherly Cardiovascular exam: PRESENT: RRR. ABSENT: diastolic murmur, rubs, systolic murmur Pulses: PRESENT: normal dorsalis pedis pul, +2 pedal pulses bilateral Vascular exam: PRESENT: normal capillary refill GI/Abdominal exam: PRESENT: normal bowel sounds, soft. ABSENT: distended, guarding, mass, organolmegaly, rebound, tenderness Rectal exam: PRESENT: deferred Neurological exam: PRESENT: alert, awake, oriented to person, oriented to place, oriented to time, oriented to situation, CN II-XII grossly intact. ABSENT: motor sensory deficit Psychiatric exam: PRESENT: appropriate affect, normal mood. ABSENT: homicidal ideation, suicidal ideation Skin exam: PRESENT: dry, intact, warm. ABSENT: cyanosis, rash Results Laboratory Results: 02/26/19 06:30 02/25/19 05:16 02/26/19 02/26/19 06:30 06:30 WBC 13.4 H RBC 4.28 L Hgb 11.7 L Hct 36.7 L MCV 86 MCH 27.4 MCHC 32.0 RDW 14.8 H Plt Count 207 Seg Neutrophils % Not Reportable Total Bilirubin 0.2 AST 26 Alkaline Phosphatase 91 Total Protein 6.9 Albumin 3.2 L Triglycerides 50 Cholesterol 179.15 LDL Cholesterol Direct 81 VLDL Cholesterol 10.0 HDL Cholesterol 73 02/24/19 02/25/19 02/25/19 23:14 05:16 05:16 Creatine Kinase 156 CK-MB (CK-2) 1.11 Troponin I 0.058 0.063 NT-Pro-B Natriuret Pep 5070 H 02/25/19 02/25/19 02/25/19 11:52 11:52 17:18 Creatine Kinase 147 152 CK-MB (CK-2) 1.91 Troponin I 0.038 NT-Pro-B Natriuret Pep 02/25/19 17:18 Creatine Kinase CK-MB (CK-2) 2.52 Troponin I 0.031 NT-Pro-B Natriuret Pep Impressions: Chest X-Ray 02/24/19 00:00 IMPRESSION: 1. No acute pulmonary findings. No significant change since 12/16/2018 Assessment & Plan - Diagnosis (1) Acute hypercapnic respiratory failure Is this a current diagnosis for this admission?: Yes Plan: Currently get better we will get the ABG (2) COPD with acute exacerbation Is this a current diagnosis for this admission?: Yes Plan: We will reduce the IV Solu-Medrol continue some nebulizer treatments (3) Congestive heart failure Qualifiers: Heart failure type: unspecified Heart failure chronicity: chronic Qualified Code(s): I50.9 - Heart failure, unspecified Is this a current diagnosis for this admission?: Yes Plan: The p.o. Lasix (4) Cocaine abuse Is this a current diagnosis for this admission?: Yes Plan: Discussed with the patient about substance abuse and counseling need a psych evaluations (5) Nephrotic range proteinuria Is this a current diagnosis for this admission?: Yes (6) Essential (primary) hypertension Is this a current diagnosis for this admission?: Yes Plan: Current medications - Time Time Spent with patient: 15-24 minutes Medications reviewed and adjusted accordingly: Yes Anticipated discharge: Home Within: Other - Plan Summary Plan Summary: See MD orders
[2019-02-26] MEDS: ATORVASTATIN CALCIUM 20 MG TABLET PO SCH (22:41)
[2019-02-27 05:20] LABS: HEMATOCRIT 36.2 % (37.9-51.0); HEMOGLOBIN 11.5 g/dL (13.5-17.0); MEAN CORPUSCULAR HEMOGLOBIN 27.3 pg (27.0-33.4); MEAN CORPUSCULAR HGB CONC 31.7 g/dL (32.0-36.0); MEAN CORPUSCULAR VOLUME 86 fl (80-97); PLATELET COUNT 248 10^3/uL (150-450); RED BLOOD COUNT 4.21 10^6/uL (4.35-5.55); RED CELL DISTRIBUTION WIDTH 15.1 % (11.5-14.0); WHITE BLOOD COUNT 12.3 10^3/uL (4.0-10.5)
[2019-02-27 05:42] LABS: ALBUMIN 3.2 g/dL (3.5-5.0); ALKALINE PHOSPHATASE 124 U/L (38-126); ANION GAP 9 (5-19); ASPARTATE AMINO TRANSFERASE 45 U/L (17-59); BILIRUBIN,DIRECT 0.2 mg/dL (0.0-0.4); BILIRUBIN,TOTAL 0.2 mg/dL (0.2-1.3); BLOOD UREA NITROGEN 22 mg/dL (7-20); CALCIUM 9.2 mg/dL (8.4-10.2); CARBON DIOXIDE 27 mmol/L (22-30); CHLORIDE 104 mmol/L (98-107); GLUCOSE 144 mg/dL (75-110); POTASSIUM 4.3 mmol/L (3.6-5.0); TOTAL PROTEIN 6.8 g/dL (6.3-8.2)
[2019-02-27] MEDS: METHYLPREDNISOLONE INJ 125 MG/2 ML SDV IV SCH (05:52)
[2019-02-27 06:01] LABS: ABSOLUTE LYMPHOCYTES# (MANUAL) 0.9 10^3/uL (0.5-4.7); ABSOLUTE MONOCYTES # (MANUAL) 0.4 10^3/uL (0.1-1.4); BASOPHILS % (MANUAL) 0 % (0-2); EOSINOPHILS % (MANUAL) 0 % (0-6); LYMPHOCYTES % (MANUAL) 7 % (13-45); MONOCYTES % (MANUAL) 3 % (3-13); SEGMENTED NEUTROPHILS % (MAN) 90 % (42-78); TOTAL CELLS COUNTED 100
[2019-02-27 06:02] LABS: ANISOCYTOSIS SLIGHT
[2019-02-27 06:03] LABS: PLATELET COMMENT ADEQUATE
[2019-02-27] MEDS: ENOXAPARIN SODIUM INJ 40 MG/0.4 ML DISP.SYRIN SUBCUT SCH ×2 (09:22→09:25)
[2019-02-27] MEDS: LISINOPRIL 10 MG TABLET PO SCH (09:22)
[2019-02-27] MEDS: ISOSORBIDE MONONITRATE 30 MG TAB.ER.24H PO SCH (09:22)
[2019-02-27] MEDS: FUROSEMIDE 20 MG TABLET PO SCH (09:22)
[2019-02-27] MEDS: METOPROLOL SUCCINATE 50 MG TAB.SR.24H PO SCH (09:22)
[2019-02-27] MEDS: INSULIN LISPRO 100 UNIT/ML 3 ML VIAL SUBCUT SCH ×4 (09:25→22:19)
--- NOTE | 2019-02-27 09:27 | PDOC PROGRESS REPORT ---
Subjective Progress Note for:: 02/27/19 Subjective:: Patient is currently doing much better Patient is walking the hallway without any problems Denied any chest pain no short of breath Reason For Visit: ACUTE HYPERCAPNIC RESPIRATORY FAILURE DUE TO Physical Exam Vital Signs: Temp Pulse Resp BP Pulse Ox 98.3 F 94 16 151/80 H 93 02/27/19 07:35 02/27/19 08:33 02/27/19 08:33 02/27/19 07:35 02/27/19 08:33 Intake & Output 02/26/19 02/27/19 02/28/19 06:59 06:59 06:59 Intake Total 1640 2535 Balance 1640 2535 Weight 113.9 kg 56.5 kg General appearance: PRESENT: no acute distress, well-developed, well-nourished Head exam: PRESENT: atraumatic, normocephalic Eye exam: PRESENT: conjunctiva pink, EOMI, PERRLA. ABSENT: scleral icterus Ear exam: PRESENT: normal external ear exam Mouth exam: PRESENT: moist, tongue midline Neck exam: PRESENT: full ROM. ABSENT: carotid bruit, JVD, lymphadenopathy, thyromegaly Respiratory exam: PRESENT: clear to auscultation sherly Cardiovascular exam: PRESENT: RRR. ABSENT: diastolic murmur, rubs, systolic murmur Pulses: PRESENT: normal dorsalis pedis pul, +2 pedal pulses bilateral Vascular exam: PRESENT: normal capillary refill GI/Abdominal exam: PRESENT: normal bowel sounds, soft. ABSENT: distended, guarding, mass, organolmegaly, rebound, tenderness Rectal exam: PRESENT: deferred Musculoskeletal exam: PRESENT: ambulatory Neurological exam: PRESENT: alert, awake, oriented to person, oriented to place, oriented to time, oriented to situation, CN II-XII grossly intact. ABSENT: motor sensory deficit Psychiatric exam: PRESENT: appropriate affect, normal mood. ABSENT: homicidal ideation, suicidal ideation Skin exam: PRESENT: dry, intact, warm. ABSENT: cyanosis, rash Results Laboratory Results: 02/27/19 04:44 02/27/19 04:44 02/27/19 02/27/19 04:44 04:44 WBC 12.3 H RBC 4.21 L Hgb 11.5 L Hct 36.2 L MCV 86 MCH 27.3 MCHC 31.7 L RDW 15.1 H Plt Count 248 Seg Neutrophils % Not Reportable Sodium 139.7 Potassium 4.3 Chloride 104 Carbon Dioxide 27 Anion Gap 9 BUN 22 H Creatinine 0.92 Est GFR ( Amer) > 60 Glucose 144 H Calcium 9.2 Total Bilirubin 0.2 AST 45 Alkaline Phosphatase 124 Total Protein 6.8 Albumin 3.2 L 02/25/19 06:00 Clean Catch Midstream Urine Culture - Final Group B Beta Streptococcus 02/24/19 02/25/19 02/25/19 23:14 05:16 05:16 Creatine Kinase 156 CK-MB (CK-2) 1.11 Troponin I 0.058 0.063 NT-Pro-B Natriuret Pep 5070 H 02/25/19 02/25/19 02/25/19 11:52 11:52 17:18 Creatine Kinase 147 152 CK-MB (CK-2) 1.91 Troponin I 0.038 NT-Pro-B Natriuret Pep 02/25/19 17:18 Creatine Kinase CK-MB (CK-2) 2.52 Troponin I 0.031 NT-Pro-B Natriuret Pep Impressions: Chest X-Ray 02/24/19 00:00 IMPRESSION: 1. No acute pulmonary findings. No significant change since 12/16/2018 Assessment & Plan - Diagnosis (1) Acute hypercapnic respiratory failure Is this a current diagnosis for this admission?: Yes Plan: Currently all better (2) COPD with acute exacerbation Is this a current diagnosis for this admission?: Yes Plan: Reduce the steroid (3) Congestive heart failure Qualifiers: Heart failure type: unspecified Heart failure chronicity: chronic Qualifi ed Code(s): I50.9 - Heart failure, unspecified Is this a current diagnosis for this admission?: Yes Plan: The p.o. Lasix (4) Cocaine abuse Is this a current diagnosis for this admission?: Yes Plan: Discussed with the patient about substance abuse and counseling need a psych evaluations (5) Nephrotic range proteinuria Is this a current diagnosis for this admission?: Yes (6) Essential (primary) hypertension Is this a current diagnosis for this admission?: Yes Plan: Current medications - Time Time Spent with patient: 15-24 minutes Medications reviewed and adjusted accordingly: Yes Anticipated discharge: Home Within: Other - Plan Summary Plan Summary: Continues the nebulizer treatments We will reduce the IV steroids
[2019-02-27 10:28] LABS: ARTERIAL BLOOD BASE EXCESS 2.7 mmol/L; ARTERIAL BLOOD FIO2 3L; ARTERIAL BLOOD H2CO3 1.55 mmol/L (1.05-1.35); ARTERIAL BLOOD O2 SATURATION 96.2 % (94-98); ARTERIAL BLOOD PCO2 51.6 mmHg (35-45); ARTERIAL BLOOD PH 7.37 (7.35-7.45); ARTERIAL BLOOD TOTAL CO2 30.5 mmol/L (23-27)
[2019-02-27] MEDS: METHYLPREDNISOLONE INJ 40 MG/1 ML SDV IV SCH ×2 (13:48→22:24)
[2019-02-27] MEDS ORDERED: METHYLPREDNISOLONE INJ 125 MG/2 ML SDV IV SCH (14:00)
[2019-02-27] MEDS: ATORVASTATIN CALCIUM 20 MG TABLET PO SCH (22:24)
[2019-02-28] MEDS: METHYLPREDNISOLONE INJ 40 MG/1 ML SDV IV SCH ×2 (05:45→14:47)
[2019-02-28 06:11] LABS: ABSOLUTE LYMPHOCYTES (AUTO) 0.5 10^3/uL (0.5-4.7); ABSOLUTE MONOCYTES (AUTO) 0.6 10^3/uL (0.1-1.4); ABSOLUTE NEUT (AUTO) 9.2 10^3/uL (1.7-8.2); BASOPHILS % (AUTO) 0.1 % (0-2); HEMATOCRIT 35.5 % (37.9-51.0); HEMOGLOBIN 11.2 g/dL (13.5-17.0); LYMPHOCYTES % (AUTO) 5.2 % (13-45); MEAN CORPUSCULAR HGB CONC 31.6 g/dL (32.0-36.0); MEAN CORPUSCULAR VOLUME 86 fl (80-97); MONOCYTES % (AUTO) 6.1 % (3-13); PLATELET COUNT 247 10^3/uL (150-450); RED BLOOD COUNT 4.15 10^6/uL (4.35-5.55); RED CELL DISTRIBUTION WIDTH 14.8 % (11.5-14.0); SEGMENTED NEUTROPHILS % (AUTO) 88.6 % (42-78); TOTAL CELLS COUNTED % (AUTO) 100 %; WHITE BLOOD COUNT 10.4 10^3/uL (4.0-10.5)
[2019-02-28 06:30] LABS: ALKALINE PHOSPHATASE 106 U/L (38-126); ASPARTATE AMINO TRANSFERASE 58 U/L (17-59); BILIRUBIN,DIRECT 0.1 mg/dL (0.0-0.4); BILIRUBIN,TOTAL 0.2 mg/dL (0.2-1.3); BLOOD UREA NITROGEN 24 mg/dL (7-20); CARBON DIOXIDE 33 mmol/L (22-30); CHLORIDE 101 mmol/L (98-107); GLUCOSE 113 mg/dL (75-110); POTASSIUM 4.2 mmol/L (3.6-5.0); TOTAL PROTEIN 6.6 g/dL (6.3-8.2)
[2019-02-28 07:03] LABS: ANION GAP 4 (5-19)
[2019-02-28] MEDS: LISINOPRIL 10 MG TABLET PO SCH (10:12)
[2019-02-28] MEDS: ISOSORBIDE MONONITRATE 30 MG TAB.ER.24H PO SCH (10:13)
[2019-02-28] MEDS: METOPROLOL SUCCINATE 50 MG TAB.SR.24H PO SCH (10:13)
[2019-02-28] MEDS: FUROSEMIDE 20 MG TABLET PO SCH (10:13)
[2019-02-28] MEDS: INSULIN LISPRO 100 UNIT/ML 3 ML VIAL SUBCUT SCH ×2 (10:18→12:32)
[2019-02-28] MEDS: ENOXAPARIN SODIUM INJ 40 MG/0.4 ML DISP.SYRIN SUBCUT SCH (10:18)
[2019-02-28 11:58] VITALS: BP 158/88
[2019-02-28 15:37] LABS: A/G RATIO. 0.8 (0.7-1.7); ALBUMIN 3 3.3 g/dL (2.9-4.4); ALPHA-1-GLOBULIN 0.3 g/dL (0.0-0.4); BETA GLOBULIN 1.2 g/dL (0.7-1.3); GAMMA GLOBULINS 1.7 g/dL (0.4-1.8); IMMUNOGLOBULIN A 597 mg/dL (61-437); IMMUNOGLOBULIN G 1817 mg/dL (700-1600); IMMUNOGLOBULIN M 54 mg/dL (20-172); MONOCLONAL-SPIKE Not Observed g/dL (Not Observ); PROTEIN TOTAL SERUM 7.5 g/dL (6.0-8.5)
--- NOTE | 2019-02-28 17:25 | Left Against Medical Advice ---
Against Medical Advice Admission Date/Time: 02/25/19 01:52 Primary Care Provider: LARRY QUEEN MD Date of Patient Emigration: 02/28/19 - Diagnosis: (1) Acute hypercapnic respiratory failure Is this a current diagnosis for this admission?: Yes (2) Nephrotic range proteinuria Is this a current diagnosis for this admission?: Yes (3) COPD with acute exacerbation Is this a current diagnosis for this admission?: Yes (4) Cocaine abuse Is this a current diagnosis for this admission?: Yes (5) Hyperproteinemia Is this a current diagnosis for this admission?: Yes - Summary: Summary: Please see Admission and Progress Notes as well. FERNANDO BHATIA is a 68 M, who LEFT AGAINST MEDICAL ADVICE. The Patient was admitted on 02/25/19 01:52. Patient was admitted for the management of acute hypercapnic respiratory failure, he required noninvasive positive pressure ventilation, BiPAP. He also was cocaine intoxicated, he has a history of cocaine abuse, he was also found to have nephrotic range proteinuria, the serum albumin was normal, he was been evaluated for paraproteinemia, multiple biloma, patient left the hospital before evaluation was complete. He was treated with IV Solu-Medrol, bronchodilators
[2019-02-28 17:36] LABS: ALBUMIN UR 60.8 % (.); ALPHA-2-GLOBULIN URINE 7.1 % (.); GAMMA GLOBULIN URINE 18.1 % (.); M-SPIKE % UR Not Observed % (Not Observ)
[2019-03-01 07:18] LABS: PROTEIN TOTAL URINE 366.4 mg/dL (Not Estab.)
== END 2019-02-28 16:05 | disposition left against medical advice (07) | DRG 189 ==
LOC: ER 22:51 → EH 02-25 01:52 → 3W 02-25 04:27
PROVIDERS: ADMIT Internal Medicine; ATTEND Internal Medicine
PROC: 5A09457 Assistance with Respiratory Ventilation, 24-96 Consecutive Hours, Continuous Positive Airway Pressure (ICD-10-PCS; principal; 2019-02-24)
DX: J96.02 Acute respiratory failure with hypercapnia (principal); J44.1 Chronic obstructive pulmonary disease with (acute) exacerbation; N04.8 Nephrotic syndrome with other morphologic changes; F14.10 Cocaine abuse, uncomplicated; E88.09 Other disorders of plasma-protein metabolism, not elsewhere classified; I25.10 Atherosclerotic heart disease of native coronary artery without angina pectoris; I11.0 Hypertensive heart disease with heart failure; I50.9 Heart failure, unspecified; F17.210 Nicotine dependence, cigarettes, uncomplicated; Z90.5 Acquired absence of kidney; Z79.899 Other long term (current) drug therapy
CPT/HCPCS: 36415; 36600; 71045; 80048; 80053; 80061; 80076; 80307; 81001; 82140; 82150; 82550; 82553; 82570; 82803; 82962; 83036; 83690; 83735; 83880; 84100; 84156; 84166; 84439; 84443; 84484; 85025; 85610; 85730; 86320; 86701; 87040; 87086; 87088; 93005; 93010; 94660; 99291; 99292; J1650; J1815; J2920; J2930

== ENCOUNTER 2019-06-17 19:54 | Inpatient (IN) | payer MEDICARE, MEDICAID ==
[2019-06-17] MEDS ORDERED: ACETAMINOPHEN 325 MG TABLET PO ONE (20:22)
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
--- NOTE | 2019-06-17 21:02 | RADIOLOGY REPORT (SQ) ---
EXAM DESCRIPTION: AP portable chest radiograph CLINICAL HISTORY: 68 years Male, fever, sob, cough COMPARISON: Single view of the chest February 24, 2019 FINDINGS: Lungs: Prominence of perihilar and infrahilar interstitial lung markings is again seen. Overall the appearance is stable. No pneumothorax. No pleural effusion. Mediastinum: Heart size is enlarged. It is more prominent than on the previous exam. Bones: Osseous structures are normal. IMPRESSION: 1. Nonspecific prominence of the parenchymal lung markings in the perihilar and left lung which are stable. 2. Cardiomegaly which is more pronounced on today's exam.
[2019-06-17] MEDS ORDERED: NORMAL SALINE 1000 ML 1,000 ML IV ONE (21:03)
[2019-06-17] MEDS ORDERED: NORMAL SALINE 1000 ML 800 ML IV ONE (21:04)
[2019-06-17 21:08] LABS: VENOUS BLOOD BASE EXCESS -0.8 mmol/L; VENOUS BLOOD HCO3 24.2 mmol/L (20-32); VENOUS BLOOD PCO2 41.5 mmHg (35-63); VENOUS BLOOD PH 7.38 (7.30-7.42)
[2019-06-17 21:17] LABS: ABSOLUTE LYMPHOCYTES (AUTO) 0.5 10^3/uL (0.5-4.7); ABSOLUTE MONOCYTES (AUTO) 0.5 10^3/uL (0.1-1.4); ABSOLUTE NEUT (AUTO) 3.7 10^3/uL (1.7-8.2); BASOPHILS % (AUTO) 0.7 % (0-2); EOSINOPHILS % (AUTO) 0.3 % (0-6); HEMATOCRIT 36.8 % (37.9-51.0); LYMPHOCYTES % (AUTO) 9.9 % (13-45); MEAN CORPUSCULAR HEMOGLOBIN 27.5 pg (27.0-33.4); MEAN CORPUSCULAR HGB CONC 32.6 g/dL (32.0-36.0); MEAN CORPUSCULAR VOLUME 84 fl (80-97); MONOCYTES % (AUTO) 10.9 % (3-13); PLATELET COUNT 280 10^3/uL (150-450); RED BLOOD COUNT 4.36 10^6/uL (4.35-5.55); RED CELL DISTRIBUTION WIDTH 14.1 % (11.5-14.0); SEGMENTED NEUTROPHILS % (AUTO) 78.2 % (42-78); TOTAL CELLS COUNTED % (AUTO) 100 %; WHITE BLOOD COUNT 4.8 10^3/uL (4.0-10.5)
[2019-06-17 21:22] LABS: INTERNATIONAL RATION (INR) 1.09; PROTHROMBIN TIME 14.1 SEC (11.4-15.4)
[2019-06-17 21:26] LABS: ALBUMIN 3.3 g/dL (3.5-5.0); ALKALINE PHOSPHATASE 149 U/L (38-126); ANION GAP 8 (5-19); ASPARTATE AMINO TRANSFERASE 100 U/L (17-59); BILIRUBIN,DIRECT 0.3 mg/dL (0.0-0.4); BILIRUBIN,TOTAL 0.5 mg/dL (0.2-1.3); BLOOD UREA NITROGEN 18 mg/dL (7-20); CALCIUM 8.6 mg/dL (8.4-10.2); CARBON DIOXIDE 29 mmol/L (22-30); CHLORIDE 98 mmol/L (98-107); GLUCOSE 102 mg/dL (75-110); POTASSIUM 4.8 mmol/L (3.6-5.0); TOTAL PROTEIN 7.1 g/dL (6.3-8.2)
[2019-06-17] MEDS ORDERED: CEFTRIAXONE 1 GM/D5W RTU 1 GM/50 ML RTUPB IV ONE (21:50)
--- NOTE | 2019-06-17 22:02 | EKG REPORT ---
SEVERITY:- ABNORMAL ECG - SINUS TACHYCARDIA PROBABLE LEFT ATRIAL ABNORMALITY LEFT VENTRICULAR HYPERTROPHY : Confirmed by: Yoselin Goldstein MD 17-Jun-2019 21:59:55
[2019-06-17 22:45] LABS: A TYPE INFLUENZA AG NEGATIVE (NEGATIVE); B INFLUENZA AG NEGATIVE (NEGATIVE)
[2019-06-17] MEDS ORDERED: CEFTRIAXONE INJ 1000 MG VIAL ONE (22:50)
[2019-06-17] MEDS ORDERED: AZITHROMYCIN INJ 500 MG VIAL IV ONE (23:02)
[2019-06-17 23:19] LABS: APPEARANCE,URINE CLEAR; BILIRUBIN,URINE NEGATIVE (NEGATIVE); COLOR,URINE YELLOW; GLUCOSE, URINE NEGATIVE (NEGATIVE); KETONES,URINE NEGATIVE (NEGATIVE); LEUKOCYTE ESTERASE,URINE SMALL (NEGATIVE); NITRITE,URINE NEGATIVE (NEGATIVE); PROTEIN,URINE 30 mg/dL (NEGATIVE); URINE SPECIFIC GRAVITY 1.013
[2019-06-18] MEDS ORDERED: NORMAL SALINE 1000 ML 1,000 ML IV PRN (02:10)
--- NOTE | 2019-06-18 02:59 | RADIOLOGY REPORT (SQ) ---
EXAM DESCRIPTION: CT CHEST WITHOUT IV CONTRAST COMPLETED DATE/TME: 06/18/2019 00:00 CLINICAL HISTORY: 68 years, Male, copd COMPARISON: Chest x-ray 06/17/2019, CT chest 10/28/2018 TECHNIQUE: 291 Images stored on PACS. All CT scanners at this facility use dose modulation, iterative reconstruction, and/or weight based dosing when appropriate to reduce radiation dose to as low as reasonably achievable (ALARA). [facility]: Dose Right [facility]: CareDose [facility]: Dose Right [facility]: Teradose 4D [facility]: [employer] LIMITATIONS: None. FINDINGS: Evaluation of the mediastinum and hilum limited due to lack of IV contrast, however, redemonstrated is nonspecific adenopathy of the mediastinum with enlarged nodes in the prevascular space, AP window, right paratracheal region. The heart is enlarged but grossly stable. Limited evaluation of the upper abdomen shows surgical clips in the left upper quadrant. Diffuse anasarca. Osseous structures are grossly intact. No pneumothorax. Visualized airways are patent. Emphysematous changes in the upper lobes and apices. Airspace opacity of the left upper lobe with air bronchograms consistent with pneumonia. No discrete effusion. IMPRESSION: Minor emphysematous changes. Left upper lobe pneumonia. Stable cardiomegaly. Grossly stable mediastinal adenopathy. TECHNICAL DOCUMENTATION: Quality ID # 436: Final reports with documentation of one or more dose reduction techniques (e.g., Automated exposure control, adjustment of the mA and/or kV according to patient size, use of iterative reconstruction technique) copyright 2011 [employer]- All Rights Reserved
[2019-06-18] MEDS ORDERED: ENOXAPARIN SODIUM INJ 40 MG/0.4 ML DISP.SYRIN SUBCUT SCH ×2 (03:00→22:00)
[2019-06-18] MEDS ORDERED: LEVOFLOXACIN 750 MG/D5W RTU 750 MG/150 ML RTUPB IV SCH (03:00)
[2019-06-18 03:29] LABS: CREATINE KINASE MB 1.56 ng/mL (<4.55); TROPONIN I 0.051 ng/mL
[2019-06-18] MEDS ORDERED: LEVOFLOXACIN 750 MG/D5W RTU 750 MG/150 ML RTUPB IV ONE (05:00)
[2019-06-18] MEDS ORDERED: ENOXAPARIN SODIUM INJ 40 MG/0.4 ML DISP.SYRIN SUBCUT ONE (05:00)
[2019-06-18 06:41] LABS: APPEARANCE,URINE CLEAR; BILIRUBIN,URINE NEGATIVE (NEGATIVE); COLOR,URINE YELLOW; GLUCOSE, URINE NEGATIVE (NEGATIVE); KETONES,URINE NEGATIVE (NEGATIVE); LEUKOCYTE ESTERASE,URINE NEGATIVE (NEGATIVE); NITRITE,URINE NEGATIVE (NEGATIVE); PROTEIN,URINE 30 mg/dL (NEGATIVE); URINE SPECIFIC GRAVITY 1.014
[2019-06-18 07:18] LABS: ARTERIAL BLOOD BASE EXCESS 1.3 mmol/L; ARTERIAL BLOOD H2CO3 1.19 mmol/L (1.05-1.35); ARTERIAL BLOOD HCO3 25.7 mmol/L (20-24); ARTERIAL BLOOD O2 SATURATION 97.6 % (94-98); ARTERIAL BLOOD PCO2 39.7 mmHg (35-45); ARTERIAL BLOOD PH 7.43 (7.35-7.45); ARTERIAL BLOOD PO2 98.2 mmHg (80-100); ARTERIAL BLOOD TOTAL CO2 26.9 mmol/L (23-27)
[2019-06-18 07:19] LABS: ARTERIAL BLOOD FIO2 2L
[2019-06-18] MEDS: ACETAMINOPHEN 325 MG TABLET PO PRN ×3 (08:06→20:20)
[2019-06-18 15:06] LABS: URINE AMPHETAMINES SCREEN NEGATIVE; URINE BARBITURATES SCREEN NEGATIVE; URINE BENZODIAZEPINES SCREEN NEGATIVE; URINE MARIJUANA (THC) SCREEN NEGATIVE; URINE METHADONE SCREEN NEGATIVE; URINE PHENCYCLIDINE SCREEN NEGATIVE
[2019-06-18 15:10] LABS: URINE COCAINE SCREEN UNCONFIRMED POSITIVE
--- NOTE | 2019-06-18 15:20 | PDOC H&P ---
History of Present Illness Admission Date/PCP: 06/18/19 01:00 LARRY QUEEN MD History of Present Illness: FERNANDO BHATIA is a 68 year old male, he came in earlier this morning for ev aluation of shortnes of breath and cough for the last few days. He also complained of lower extremity edema, patient is well-known to me, he has a history of COPD, polysubstance abuse specifically cocaine and marijuana, when I see him on the floor he complain of shortness of breath, he was on nasal cannula 2 L, when I auscultated his chest there was no overt wheeze there was diminished air entry, CT chest without contrast was obtained it demonstrated enlarged heart but grossly stable emphysematous changes in the upper lobe and apices, airspace opacity in the left upper lobe with air bronchograms consistent with pneumonia, no discrete effusion. ABG on FiO2 2 L, pH 7.43, PO2 90.2, bicarbonate 25.7 PCO2 39.2. He had a 2D echo done on October 28, 2018, it demonstrated mildly reduced left ventricular systolic function the estimated ejection fraction was 45 to 50% Doppler evaluation suggests pseudonormalization of the left ventricle consistent with grade 2 diastolic dysfunction also found was moderate pulmonary hypertension. The laboratory was done also demonstrated grossly abnormal LFTs Past Medical History Cardiac Medical History: Reports: Congestive Heart Failure, Coronary Artery Disease, Hypertension Pulmonary Medical History: Reports: Chronic Obstructive Pulmonary Disease (COPD) Neurological Medical History: GI Medical History: Reports: Hiatal Hernia Musculoskeltal Medical History: Reports: Arthritis - KNEES, USES CANE AND WALKER Psychiatric Medical History: Denies: Depression Past Surgical History Past Surgical History: Reports: Herniorrhaphy, Other - Laparotomy with nephrectomy for blunt trauma Lysis of adhesions 06/29 Social History Lives with: Family Smoking Status: Current Every Day Smoker Cigarettes Packs Per Day: 1 Electronic Cigarette use?: No Number of Years Smokin Last Time Smoked: 06/17/19 Frequency of Alcohol Use: Occasional Hx Recreational Drug Use: Yes Drugs: Cocaine Hx Prescription Drug Abuse: No - Advance Directive Resuscitation Status: Full Code Family History Family History: Reviewed & Not Pertinent Parental Family History Reviewed: Yes Children Family History Reviewed: Yes Sibling(s) Family History Reviewed.: Yes Medication/Allergy Home Medications: Albuterol Sulfate [Proair Hfa Inhalation Aerosol 8.5 gm Mdi] 2 puff IH Q4HP PRN 06/18/19 Allergies/Adverse Reactions: No Known Allergies Allergy (Verified 06/17/19 20:29) Review of Systems Constitutional: ABSENT: chills, fever(s), headache(s), weight gain, weight loss Eyes: ABSENT: visual disturbances Ears: ABSENT: hearing changes Cardiovascular: ABSENT: chest pain, dyspnea on exertion, edema, orthropnea, palpitations Respiratory: PRESENT: cough, dyspnea Gastrointestinal: ABSENT: abdominal pain, constipation, diarrhea, hematemesis, hematochezia, nausea, vomiting Genitourinary: ABSENT: dysuria, hematuria Musculoskeletal: ABSENT: joint swelling Integumentary: ABSENT: rash, wounds Neurological: ABSENT: abnormal gait, abnormal speech, confusion, dizziness, focal weakness, syncope Psychiatric: ABSENT: anxiety, depression, homidical ideation, suicidal ideation Endocrine: ABSENT: cold intolerance, heat intolerance, menstrual abnormalities, polydipsia, polyuria Hematologic/Lymphatic: ABSENT: easy bleeding, easy bruising, lymphadenopathy Physical Exam Vital Signs: Temp Pulse Resp BP Pulse Ox 98.6 F 110 H 18 150/92 H 100 06/18/19 11:07 06/18/19 12:24 06/18/19 12:24 06/18/19 11:07 06/18/19 12:24 Intake & Output 06/17/19 06/18/19 06/19/19 06:59 06:59 06:59 Intake Total 2000 120 Output Total 100 Balance 1900 120 Weight 66.3 kg 66.3 kg General appearance: PRESENT: no acute distress, well-developed, well-nourished Head exam: PRESENT: atraumatic, normocephalic Eye exam: PRESENT: conjunctiva pink, EOMI, PERRLA. ABSENT: scleral icterus Ear exam: PRESENT: normal external ear exam Mouth exam: PRESENT: moist, tongue midline Neck exam: PRESENT: full ROM Respiratory exam: PRESENT: decreased breath sounds Cardiovascular exam: PRESENT: RRR, +S1, +S2 Pulses: PRESENT: normal dorsalis pedis pul, +2 pedal pulses bilateral Vascular exam: PRESENT: normal capillary refill GI/Abdominal exam: PRESENT: normal bowel sounds, soft Rectal exam: PRESENT: deferred Extremities exam: PRESENT: pedal edema Neurological exam: PRESENT: alert, awake, oriented to person, oriented to place, oriented to time, oriented to situation, CN II-XII grossly intact Psychiatric exam: PRESENT: appropriate affect, normal mood Skin exam: PRESENT: dry, intact, warm. ABSENT: cyanosis, rash Results Laboratory Results: 06/17/19 21:11 06/17/19 20:45 06/17/19 06/17/19 06/17/19 20:45 20:45 20:45 WBC RBC Hgb Hct MCV MCH MCHC RDW Plt Count Seg Neutrophils % Carbonic Acid HCO3/H2CO3 Ratio ABG pH ABG pCO2 ABG pO2 ABG HCO3 ABG O2 Saturation ABG Base Excess VBG pH 7.38 VBG pCO2 41.5 VBG HCO3 24.2 VBG Base Excess -0.8 FiO2 Sodium 134.7 L Potassium 4.8 Chloride 98 Carbon Dioxide 29 Anion Gap 8 BUN 18 Creatinine 1.15 Est GFR ( Amer) > 60 Glucose 102 Lactic Acid 1.4 Calcium 8.6 Total Bilirubin 0.5 AST 100 H Alkaline Phosphatase 149 H Total Protein 7.1 Albumin 3.3 L Urine Color Urine Appearance Urine pH Ur Specific [place] Urine Protein Urine Glucose (UA) Urine Ketones Urine Blood Urine Nitrite Ur Leukocyte Esterase Urine WBC (Auto) Urine RBC (Auto) 06/17/19 06/17/19 06/17/19 21:11 23:04 23:46 WBC 4.8 RBC 4.36 Hgb 12.0 L Hct 36.8 L MCV 84 MCH 27.5 MCHC 32.6 RDW 14.1 H Plt Count 280 Seg Neutrophils % 78.2 H Carbonic Acid HCO3/H2CO3 Ratio ABG pH ABG pCO2 ABG pO2 ABG HCO3 ABG O2 Saturation ABG Base Excess VBG pH VBG pCO2 VBG HCO3 VBG Base Excess FiO2 Sodium Potassium Chloride Carbon Dioxide Anion Gap BUN Creatinine Est GFR ( Amer) Glucose Lactic Acid 1.1 Calcium Total Bilirubin AST Alkaline Phosphatase Total Protein Albumin Urine Color YELLOW Urine Appearance CLEAR Urine pH 6.0 Ur Specific [place] 1.013 Urine Protein 30 H Urine Glucose (UA) NEGATIVE Urine Ketones NEGATIVE Urine Blood SMALL H Urine Nitrite NEGATIVE Ur Leukocyte Esterase SMALL H Urine WBC (Auto) 17 Urine RBC (Auto) 2 06/18/19 06/18/19 06/18/19 02:47 05:40 06:40 WBC RBC Hgb Hct MCV MCH MCHC RDW Plt Count Seg Neutrophils % Carbonic Acid 1.19 HCO3/H2CO3 Ratio 21:1 ABG pH 7.43 ABG pCO2 39.7 ABG pO2 98.2 ABG HCO3 25.7 H ABG O2 Saturation 97.6 ABG Base Excess 1.3 VBG pH VBG pCO2 VBG HCO3 VBG Base Excess FiO2 2L Sodium Potassium Chloride Carbon Dioxide Anion Gap BUN Creatinine Est GFR ( Amer) Glucose Lactic Acid 1.5 Calcium Total Bilirubin AST Alkaline Phosphatase Total Protein Albumin Urine Color YELLOW Urine Appearance CLEAR Urine pH 5.0 Ur Specific [place] 1.014 Urine Protein 30 H Urine Glucose (UA) NEGATIVE Urine Ketones NEGATIVE Urine Blood SMALL H Urine Nitrite NEGATIVE Ur Leukocyte Esterase NEGATIVE Urine WBC (Auto) 5 Urine RBC (Auto) 2 06/17/19 06/18/19 06/18/19 20:45 02:47 02:47 Creatine Kinase 297 H CK-MB (CK-2) 1.56 Troponin I 0.036 0.051 NT-Pro-B Natriuret Pep 4820 H Impressions: Chest X-Ray 06/17/19 20:24 IMPRESSION: 1. Nonspecific prominence of the parenchymal lung markings in the perihilar and left lung which are stable. 2. Cardiomegaly which is more pronounced on today's exam. Chest CT 06/18/19 00:00 IMPRESSION: Minor emphysematous changes. Left upper lobe pneumonia. Stable cardiomegaly. Grossly stable mediastinal adenopathy. TECHNICAL DOCUMENTATION: Quality ID # 436: Final reports with documentation of one or more dose reduction techniques (e.g., Automated exposure control, adjustment of the mA and/or kV according to patient size, use of iterative reconstruction technique) copyright 2011 [employer]- All Rights Reserved Assessment & Plan - Diagnosis (1) Left upper lobe pneumonia Qualifiers: Pneumonia type: due to unspecified organism Qualified Code(s): J18.9 - Pneumonia, unspecified organism Is this a current diagnosis for this admission?: Yes Plan: He has left upper lobe pneumonia, start empirically antibiotic for community- acquired pathogens, Levaquin and ceftriaxone (2) Pulmonary hypertension Is this a current diagnosis for this admission?: Yes Plan: He has secondary pulmonary hypertension most likely from COPD, continue oxygen therapy (3) Elevated transaminase level Is this a current diagnosis for this admission?: Yes Plan: Need to rule out hepatitis especially in this patient with cocaine abuse? IV drug use (4) Chronic obstructive pulmonary disease Qualifiers: COPD type: emphysema Emphysema type: unspecified Qualified Code(s): J43.9 - Emphysema, unspecified Is this a current diagnosis for this admission?: Yes Plan: Patient not overly wheezing no immediate need for glucocorticoid (5) Lower extremity edema Is this a current diagnosis for this admission?: Yes Plan: Use compression stockings, this most likely from pulmonary hypertension
[2019-06-18 15:24] LABS: UR PRO/CREAT RATIO RESULT 0.6 mg/mg (0.0-0.2); URINE CREATININE 91.2 mg/dL (22-328); URINE PROTEIN 51.3 mg/dL (<12)
[2019-06-18] MEDS: ALBUTEROL SULFATE 0.083% NEB 2.5 MG/3 ML AMPUL NEB PRN (15:24)
[2019-06-18 15:43] LABS: CREATINE KINASE MB 1.13 ng/mL (<4.55); TROPONIN I 0.037 ng/mL
[2019-06-18] MEDS: CEFTRIAXONE 1 GM/D5W RTU 1 GM/50 ML RTUPB IV SCH (20:19)
[2019-06-18 21:31] LABS: CREATINE KINASE MB 0.98 ng/mL (<4.55); TROPONIN I 0.051 ng/mL
[2019-06-19 03:53] LABS: CREATINE KINASE MB 1.1 ng/mL (<4.55); TROPONIN I 0.061 ng/mL
[2019-06-19] MEDS: LEVOFLOXACIN 750 MG/D5W RTU 750 MG/150 ML RTUPB IV SCH (06:04)
[2019-06-19 07:03] LABS: ABSOLUTE LYMPHOCYTES (AUTO) 0.6 10^3/uL (0.5-4.7); ABSOLUTE MONOCYTES (AUTO) 0.3 10^3/uL (0.1-1.4); ABSOLUTE NEUT (AUTO) 2.7 10^3/uL (1.7-8.2); BASOPHILS % (AUTO) 0.9 % (0-2); HEMATOCRIT 36.7 % (37.9-51.0); HEMOGLOBIN 11.9 g/dL (13.5-17.0); LYMPHOCYTES % (AUTO) 15.6 % (13-45); MEAN CORPUSCULAR HEMOGLOBIN 27.8 pg (27.0-33.4); MEAN CORPUSCULAR HGB CONC 32.4 g/dL (32.0-36.0); MEAN CORPUSCULAR VOLUME 86 fl (80-97); PLATELET COUNT 210 10^3/uL (150-450); RED BLOOD COUNT 4.29 10^6/uL (4.35-5.55); RED CELL DISTRIBUTION WIDTH 14.5 % (11.5-14.0); SEGMENTED NEUTROPHILS % (AUTO) 75.5 % (42-78); TOTAL CELLS COUNTED % (AUTO) 100 %; WHITE BLOOD COUNT 3.6 10^3/uL (4.0-10.5)
[2019-06-19 07:22] LABS: ALBUMIN 2.9 g/dL (3.5-5.0); ALKALINE PHOSPHATASE 166 U/L (38-126); ANION GAP 6 (5-19); ASPARTATE AMINO TRANSFERASE 327 U/L (17-59); BILIRUBIN,DIRECT 0.4 mg/dL (0.0-0.4); BILIRUBIN,TOTAL 0.4 mg/dL (0.2-1.3); BLOOD UREA NITROGEN 16 mg/dL (7-20); CALCIUM 8.1 mg/dL (8.4-10.2); CARBON DIOXIDE 30 mmol/L (22-30); CHLORIDE 100 mmol/L (98-107); GLUCOSE 100 mg/dL (75-110); TOTAL PROTEIN 6.5 g/dL (6.3-8.2)
[2019-06-19 07:37] LABS: HEPATITS B SURFACE ANTIGEN Negative (Negative)
[2019-06-19] MEDS: ENOXAPARIN SODIUM INJ 40 MG/0.4 ML DISP.SYRIN SUBCUT SCH (08:23)
[2019-06-19] MEDS: METOPROLOL SUCCINATE 50 MG TAB.SR.24H PO SCH (15:17)
--- NOTE | 2019-06-19 19:18 | PDOC PROGRESS REPORT ---
Subjective Progress Note for:: 06/19/19 Subjective:: Patient seen by the bedside, the UDS positive for cocaine, patient continues to indulge in cocaine use, is admitted for pneumonia. Reason For Visit: PNEUMONIA Physical Exam Vital Signs: Temp Pulse Resp BP Pulse Ox 99.6 F 105 H 19 149/92 H 99 06/19/19 15:25 06/19/19 15:25 06/19/19 15:25 06/19/19 15:25 06/19/19 15:25 Intake & Output 06/18/19 06/19/19 06/20/19 06:59 06:59 06:59 Intake Total 1999 438 1122 Output Total 100 450 Balance 1900 - 1122 Weight 66.3 kg 68.8 kg General appearance: PRESENT: no acute distress Eye exam: PRESENT: PERRLA Respiratory exam: PRESENT: decreased breath sounds Cardiovascular exam: PRESENT: +S1, +S2 GI/Abdominal exam: PRESENT: soft Neurological exam: PRESENT: alert Results Laboratory Results: 06/19/19 06:49 06/19/19 06:49 06/19/19 06/19/19 06:49 06:49 WBC 3.6 L RBC 4.29 L Hgb 11.9 L Hct 36.7 L MCV 86 MCH 27.8 MCHC 32.4 RDW 14.5 H Plt Count 210 Seg Neutrophils % 75.5 Sodium 135.6 L Potassium 5.0 Chloride 100 Carbon Dioxide 30 Anion Gap 6 BUN 16 Creatinine 1.04 Est GFR ( Amer) > 60 Glucose 100 Calcium 8.1 L Total Bilirubin 0.4 AST 327 H Alkaline Phosphatase 166 H Total Protein 6.5 Albumin 2.9 L 06/17/19 06/18/19 06/18/19 20:45 02:47 02:47 Creatine Kinase 297 H CK-MB (CK-2) 1.56 Troponin I 0.036 0.051 NT-Pro-B Natriuret Pep 4820 H 06/18/19 06/18/19 06/18/19 14:56 14:56 20:45 Creatine Kinase 276 H 277 H CK-MB (CK-2) 1.13 Troponin I 0.037 NT-Pro-B Natriuret Pep 06/18/19 06/19/19 06/19/19 20:45 02:52 02:52 Creatine Kinase 288 H CK-MB (CK-2) 0.98 1.10 Troponin I 0.051 0.061 NT-Pro-B Natriuret Pep Impressions: Chest X-Ray 06/17/19 20:24 IMPRESSION: 1. Nonspecific prominence of the parenchymal lung markings in the perihilar and left lung which are stable. 2. Cardiomegaly which is more pronounced on today's exam. Chest CT 06/18/19 00:00 IMPRESSION: Minor emphysematous changes. Left upper lobe pneumonia. Stable cardiomegaly. Grossly stable mediastinal adenopathy. TECHNICAL DOCUMENTATION: Quality ID # 436: Final reports with documentation of one or more dose reduction techniques (e.g., Automated exposure control, adjustment of the mA and/or kV according to patient size, use of iterative reconstruction technique) copyright 2011 [employer]- All Rights Reserved Assessment & Plan - Diagnosis (1) Left upper lobe pneumonia Qualifiers: Pneumonia type: due to unspecified organism Qualified Code(s): J18.9 - Pneumonia, unspecified organism Is this a current diagnosis for this admission?: Yes Plan: Continue antibiotic (2) Pulmonary hypertension Is this a current diagnosis for this admission?: Yes (3) Elevated transaminase level Is this a current diagnosis for this admission?: Yes Plan: Hepatitis panel results pending, Order liver ultrasound (4) Chronic obstructive pulmonary disease Qualifiers: COPD type: emphysema Emphysema type: unspecified Qualified Code(s): J43.9 - Emphysema, unspecified Is this a current diagnosis for this admission?: Yes (5) Lower extremity edema Is this a current diagnosis for this admission?: Yes (6) Cocaine abuse Is this a current diagnosis for this admission?: Yes - Time Time Spent with patient: 35 or more minutes Level of Care: MEDICAL Smoking Cessation Education: over 10 minutes Medications reviewed and adjusted accordingly: Yes
[2019-06-19] MEDS: CEFTRIAXONE 1 GM/D5W RTU 1 GM/50 ML RTUPB IV SCH (19:56)
--- NOTE | 2019-06-20 00:17 | RADIOLOGY REPORT (SQ) ---
EXAM DESCRIPTION: US ABDOMEN COMPLETED DATE/TME: 06/19/2019 00:00 CLINICAL HISTORY: ELEVATED TRANSAMINASES COMPARISON: None. TECHNIQUE: Real-time sonographic images of the abdomen were obtained using a curved multihertz transducer. FINDINGS: Pancreas not well-visualized due to overlying structures. The visualized portions of the aorta and IVC are unremarkable. The liver has normal contour and increased echogenicity. The common bile duct measures 0.2 cm. The gallbladder has a normal appearance. No gallstones identified. No wall thickening or pericholecystic fluid. The right kidney measures 12.0 cm in length. The left kidney is surgically absent. No solid renal mass, shadowing renal calculi, or hydronephrosis. The spleen measures 7.8 cm in length.No abnormality of the spleen identified. IMPRESSION: 1. Hepatic steatosis.
[2019-06-20] MEDS: ENOXAPARIN SODIUM INJ 40 MG/0.4 ML DISP.SYRIN SUBCUT SCH (05:23)
[2019-06-20] MEDS: LEVOFLOXACIN 750 MG/D5W RTU 750 MG/150 ML RTUPB IV SCH (05:23)
[2019-06-20 06:38] LABS: ABSOLUTE LYMPHOCYTES (AUTO) 0.9 10^3/uL (0.5-4.7); ABSOLUTE MONOCYTES (AUTO) 0.2 10^3/uL (0.1-1.4); ABSOLUTE NEUT (AUTO) 1.2 10^3/uL (1.7-8.2); HEMATOCRIT 35.8 % (37.9-51.0); HEMOGLOBIN 11.6 g/dL (13.5-17.0); LYMPHOCYTES % (AUTO) 39.5 % (13-45); MEAN CORPUSCULAR HEMOGLOBIN 27.4 pg (27.0-33.4); MEAN CORPUSCULAR HGB CONC 32.4 g/dL (32.0-36.0); MEAN CORPUSCULAR VOLUME 85 fl (80-97); MONOCYTES % (AUTO) 7.7 % (3-13); PLATELET COUNT 192 10^3/uL (150-450); RED BLOOD COUNT 4.24 10^6/uL (4.35-5.55); RED CELL DISTRIBUTION WIDTH 14.4 % (11.5-14.0); SEGMENTED NEUTROPHILS % (AUTO) 51.8 % (42-78); TOTAL CELLS COUNTED % (AUTO) 100 %
[2019-06-20 06:45] LABS: WHITE BLOOD COUNT 2.4 10^3/uL (4.0-10.5)
[2019-06-20 06:50] LABS: ALBUMIN 2.6 g/dL (3.5-5.0); ALKALINE PHOSPHATASE 151 U/L (38-126); ANION GAP 5 (5-19); ASPARTATE AMINO TRANSFERASE 261 U/L (17-59); BILIRUBIN,TOTAL 0.2 mg/dL (0.2-1.3); BLOOD UREA NITROGEN 19 mg/dL (7-20); CALCIUM 7.8 mg/dL (8.4-10.2); CARBON DIOXIDE 25 mmol/L (22-30); CHLORIDE 102 mmol/L (98-107); GLUCOSE 112 mg/dL (75-110); POTASSIUM 4.9 mmol/L (3.6-5.0); TOTAL PROTEIN 5.8 g/dL (6.3-8.2)
[2019-06-20 07:31] LABS: HEPATITIS C VIRUS ANTIBODY <0.1 s/co ratio (0.0-0.9)
[2019-06-20] MEDS: METOPROLOL SUCCINATE 50 MG TAB.SR.24H PO SCH (11:01)
--- NOTE | 2019-06-20 15:15 | CDI QUERY ---
CDI Query CDI Review: Dear Provider: To better reflect your patients severity of illness, morbidity, and resource utilization Please specify and document in the Progress Notes and Discharge Summary if you are monitoring / treating / evaluating any of the following conditions: Query Clinical indicators Please specify the type and acuity of the heart failure in your Progress Notes: Type: Systolic Diastolic Combined systolic and diastolic Other heart failure (please specify) Unable to determine Acuity: Acute Chronic Acute on chronic Unable to determine With: Cor pulmonale (acute or chronic) No cor pulmonale Unable to determine Other Medical H&P: He had a 2D echo done on October 28, 2018, it demonstrated mildly reduced left ventricular systolic function the estimated ejection fraction was 45 to 50% Doppler evaluation suggests pseudonormalization of the left ventricle consistent with grade 2 diastolic dysfunction also found was moderate pulmonary hypertension. Hx. of: Congestive Heart Failure COPD Emphysema He has secondary pulmonary hypertension most likely from COPD, continue oxygen therapy BNP: 4820 Lower extremity edema The terms probable, suspected, likely, possible or still to be ruled out may be used if you are unable to determine the exact nature of a condition. Thank you, Clinical Documentation Physician Advisors MARBELLA Watts RN, BSN RN Office [phone] Office [phone]
[2019-06-20] MEDS: ALBUTEROL SULFATE 0.083% NEB 2.5 MG/3 ML AMPUL NEB PRN (17:42)
--- NOTE | 2019-06-20 20:15 | PDOC PROGRESS REPORT ---
Subjective Progress Note for:: 06/20/19 Subjective:: Patient seen by the bedside, the nurses said he has been agitated, history of cocaine abuse, is asking for Lasix because of leg edema, a 2D echo will be ordered to evaluate LV function. Reason For Visit: PNEUMONIA Physical Exam Vital Signs: Temp Pulse Resp BP Pulse Ox 100.3 F 89 18 119/74 96 06/20/19 15:18 06/20/19 17:44 06/20/19 17:44 06/20/19 15:18 06/20/19 17:44 Intake & Output 06/19/19 06/20/19 06/21/19 06:59 06:59 06:59 Intake Total 438 1862 920 Output Total 450 1000 Balance -12 1862 -80 Weight 68.8 kg 61.7 kg 61.7 kg General appearance: PRESENT: no acute distress Eye exam: PRESENT: PERRLA Respiratory exam: PRESENT: rhonchi Cardiovascular exam: PRESENT: +S1, +S2 GI/Abdominal exam: PRESENT: soft Neurological exam: PRESENT: alert Results Laboratory Results: 06/20/19 06:15 06/20/19 06:15 06/20/19 06/20/19 06:15 06:15 WBC 2.4 L D RBC 4.24 L Hgb 11.6 L Hct 35.8 L MCV 85 MCH 27.4 MCHC 32.4 RDW 14.4 H Plt Count 192 Seg Neutrophils % 51.8 Sodium 132.1 L Potassium 4.9 Chloride 102 Carbon Dioxide 25 Anion Gap 5 BUN 19 Creatinine 0.96 Est GFR ( Amer) > 60 Glucose 112 H Calcium 7.8 L Total Bilirubin 0.2 AST 261 H Alkaline Phosphatase 151 H Total Protein 5.8 L Albumin 2.6 L 06/17/19 23:04 Clean Catch Midstream Urine Culture - Final Klebsiella Pneumoniae 06/17/19 06/18/19 06/18/19 20:45 02:47 02:47 Creatine Kinase 297 H CK-MB (CK-2) 1.56 Troponin I 0.036 0.051 NT-Pro-B Natriuret Pep 4820 H 06/18/19 06/18/19 06/18/19 14:56 14:56 20:45 Creatine Kinase 276 H 277 H CK-MB (CK-2) 1.13 Troponin I 0.037 NT-Pro-B Natriuret Pep 06/18/19 06/19/19 06/19/19 20:45 02:52 02:52 Creatine Kinase 288 H CK-MB (CK-2) 0.98 1.10 Troponin I 0.051 0.061 NT-Pro-B Natriuret Pep Impressions: Chest X-Ray 06/17/19 20:24 IMPRESSION: 1. Nonspecific prominence of the parenchymal lung markings in the perihilar and left lung which are stable. 2. Cardiomegaly which is more pronounced on today's exam. Chest CT 06/18/19 00:00 IMPRESSION: Minor emphysematous changes. Left upper lobe pneumonia. Stable cardiomegaly. Grossly stable mediastinal adenopathy. TECHNICAL DOCUMENTATION: Quality ID # [id number]: Final reports with documentation of one or more dose reduction techniques (e.g., Automated exposure control, adjustment of the mA and/or kV according to patient size, use of iterative reconstruction technique) copyright 2011 [employer]- All Rights Reserved Abdomen Ultrasound 06/19/19 00:00 IMPRESSION: 1. Hepatic steatosis. Assessment & Plan - Diagnosis (1) Left upper lobe pneumonia Qualifiers: Pneumonia type: due to unspecified organism Qualified Code(s): J18.9 - Pneumonia, unspecified organism Is this a current diagnosis for this admission?: Yes (2) Pulmonary hypertension Is this a current diagnosis for this admission?: Yes (3) Elevated transaminase level Is this a current diagnosis for this admission?: Yes Plan: The hepatitis panel negative for hepatitis viral (4) Chronic obstructive pulmonary disease Qualifiers: COPD type: emphysema Emphysema type: unspecified Qualified Code(s): J43.9 - Emphysema, unspecified Is this a current diagnosis for this admission?: Yes (5) Lower extremity edema Is this a current diagnosis for this admission?: Yes (6) Cocaine abuse Is this a current diagnosis for this admission?: Yes - Time Time Spent with patient: 25-34 minutes Level of Care: IMCU - Plan Summary Plan Summary: Patient to use Ativan 0.5 mg IV every 6 as needed for agitation, 2D echo is ordered, continue IV antibiotic
[2019-06-20] MEDS: LORAZEPAM INJ 2 MG/1 ML VIAL IV PRN (20:23)
[2019-06-20] MEDS: FUROSEMIDE 40 MG TABLET PO SCH (20:24)
[2019-06-20] MEDS: CEFTRIAXONE 1 GM/D5W RTU 1 GM/50 ML RTUPB IV SCH (20:24)
[2019-06-21] MEDS: ACETAMINOPHEN 325 MG TABLET PO PRN (01:12)
[2019-06-21] MEDS: LEVOFLOXACIN 750 MG/D5W RTU 750 MG/150 ML RTUPB IV SCH (05:11)
[2019-06-21] MEDS: ENOXAPARIN SODIUM INJ 40 MG/0.4 ML DISP.SYRIN SUBCUT SCH (05:12)
[2019-06-21 06:33] LABS: ABSOLUTE LYMPHOCYTES (AUTO) 0.9 10^3/uL (0.5-4.7); ABSOLUTE MONOCYTES (AUTO) 0.1 10^3/uL (0.1-1.4); BASOPHILS % (AUTO) 1.1 % (0-2); HEMATOCRIT 36.3 % (37.9-51.0); HEMOGLOBIN 11.8 g/dL (13.5-17.0); LYMPHOCYTES % (AUTO) 45.2 % (13-45); MEAN CORPUSCULAR HEMOGLOBIN 27.6 pg (27.0-33.4); MEAN CORPUSCULAR HGB CONC 32.5 g/dL (32.0-36.0); MEAN CORPUSCULAR VOLUME 85 fl (80-97); MONOCYTES % (AUTO) 6.8 % (3-13); PLATELET COUNT 179 10^3/uL (150-450); RED BLOOD COUNT 4.28 10^6/uL (4.35-5.55); RED CELL DISTRIBUTION WIDTH 14.4 % (11.5-14.0); SEGMENTED NEUTROPHILS % (AUTO) 46.9 % (42-78); TOTAL CELLS COUNTED % (AUTO) 100 %; WHITE BLOOD COUNT 2.1 10^3/uL (4.0-10.5)
[2019-06-21 06:49] LABS: ALBUMIN 2.7 g/dL (3.5-5.0); ALKALINE PHOSPHATASE 165 U/L (38-126); ANION GAP 8 (5-19); ASPARTATE AMINO TRANSFERASE 266 U/L (17-59); BILIRUBIN,DIRECT 0.3 mg/dL (0.0-0.4); BILIRUBIN,TOTAL 0.3 mg/dL (0.2-1.3); BLOOD UREA NITROGEN 24 mg/dL (7-20); CALCIUM 7.7 mg/dL (8.4-10.2); CARBON DIOXIDE 28 mmol/L (22-30); CHLORIDE 98 mmol/L (98-107); GLUCOSE 147 mg/dL (75-110); POTASSIUM 4.3 mmol/L (3.6-5.0); TOTAL PROTEIN 6.2 g/dL (6.3-8.2)
[2019-06-21] MEDS: METOPROLOL SUCCINATE 50 MG TAB.SR.24H PO SCH (09:20)
[2019-06-21] MEDS: FUROSEMIDE 40 MG TABLET PO SCH (09:20)
[2019-06-21] MEDS: CEFTRIAXONE 1 GM/D5W RTU 1 GM/50 ML RTUPB IV SCH (20:00)
--- NOTE | 2019-06-21 20:37 | PDOC PROGRESS REPORT ---
Subjective Progress Note for:: 06/21/19 Subjective:: Patient seen by the bedside, 2D echo was reviewed the left atrium is dilated the ejection fraction of left ventricle is 34% the right ventricle is dilated the right atrium is dilated Reason For Visit: PNEUMONIA Physical Exam Vital Signs: Temp Pulse Resp BP Pulse Ox 99.0 F 87 18 128/81 H 90 L 06/21/19 14:49 06/21/19 19:00 06/21/19 14:49 06/21/19 14:49 06/21/19 14:49 Intake & Output 06/20/19 06/21/19 06/22/19 06:59 06:59 06:59 Intake Total 1862 1620 708 Output Total 1600 Balance 1862 20 708 Weight 61.7 kg 57.6 kg General appearance: PRESENT: no acute distress Eye exam: PRESENT: PERRLA Respiratory exam: PRESENT: rhonchi Cardiovascular exam: PRESENT: +S1, +S2 GI/Abdominal exam: PRESENT: soft Neurological exam: PRESENT: alert Results Laboratory Results: 06/21/19 06:04 06/21/19 06:04 06/21/19 06/21/19 06:04 06:04 WBC 2.1 L RBC 4.28 L Hgb 11.8 L Hct 36.3 L MCV 85 MCH 27.6 MCHC 32.5 RDW 14.4 H Plt Count 179 Seg Neutrophils % 46.9 Sodium 133.5 L Potassium 4.3 Chloride 98 Carbon Dioxide 28 Anion Gap 8 BUN 24 H Creatinine 1.06 Est GFR ( Amer) > 60 Glucose 147 H Calcium 7.7 L Total Bilirubin 0.3 AST 266 H Alkaline Phosphatase 165 H Total Protein 6.2 L Albumin 2.7 L 06/18/19 05:40 Sputum Gram Stain - Final 06/18/19 05:40 Sputum Sputum Culture - Final NORMAL SHELLIE 06/17/19 06/18/19 06/18/19 20:45 02:47 02:47 Creatine Kinase 297 H CK-MB (CK-2) 1.56 Troponin I 0.036 0.051 NT-Pro-B Natriuret Pep 4820 H 06/18/19 06/18/19 06/18/19 14:56 14:56 20:45 Creatine Kinase 276 H 277 H CK-MB (CK-2) 1.13 Troponin I 0.037 NT-Pro-B Natriuret Pep 06/18/19 06/19/19 06/19/19 20:45 02:52 02:52 Creatine Kinase 288 H CK-MB (CK-2) 0.98 1.10 Troponin I 0.051 0.061 NT-Pro-B Natriuret Pep Impressions: Chest X-Ray 06/17/19 20:24 IMPRESSION: 1. Nonspecific prominence of the parenchymal lung markings in the perihilar and left lung which are stable. 2. Cardiomegaly which is more pronounced on today's exam. Chest CT 06/18/19 00:00 IMPRESSION: Minor emphysematous changes. Left upper lobe pneumonia. Stable cardiomegaly. Grossly stable mediastinal adenopathy. TECHNICAL DOCUMENTATION: Quality ID # 436: Final reports with documentation of one or more dose reduction techniques (e.g., Automated exposure control, adjustment of the mA and/or kV according to patient size, use of iterative reconstruction technique) copyright 2011 [employer]- All Rights Reserved Abdomen Ultrasound 06/19/19 00:00 IMPRESSION: 1. Hepatic steatosis. 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
[2019-06-21] MEDS: SACUBITRIL/VALSARTAN 49 MG/51 MG TABLET PO SCH (22:05)
[2019-06-21 22:55] LABS: CREATINE KINASE MB 1.05 ng/mL (<4.55)
[2019-06-21 23:02] LABS: TROPONIN I 0.109 ng/mL
[2019-06-22] MEDS: ENOXAPARIN SODIUM INJ 40 MG/0.4 ML DISP.SYRIN SUBCUT SCH (05:35)
[2019-06-22] MEDS: LEVOFLOXACIN 750 MG/D5W RTU 750 MG/150 ML RTUPB IV SCH (05:35)
[2019-06-22 06:00] LABS: CREATINE KINASE MB 1.04 ng/mL (<4.55)
[2019-06-22 06:09] LABS: TROPONIN I 0.101 ng/mL
[2019-06-22] MEDS: FUROSEMIDE 40 MG TABLET PO SCH (09:24)
[2019-06-22] MEDS: METOPROLOL SUCCINATE 50 MG TAB.SR.24H PO SCH (09:24)
[2019-06-22] MEDS: SACUBITRIL/VALSARTAN 49 MG/51 MG TABLET PO SCH ×2 (09:24→17:21)
[2019-06-22 14:23] LABS: CREATINE KINASE MB 1.26 ng/mL (<4.55); TROPONIN I 0.065 ng/mL
--- NOTE | 2019-06-22 17:19 | PDOC PROGRESS REPORT ---
Subjective Progress Note for:: 06/22/19 Subjective:: Patient seen by the bedside, he has CHF, he was started on Entresto, already on metoprolol, the troponin was slightly elevated at 0.1 Reason For Visit: PNEUMONIA Physical Exam Vital Signs: Temp Pulse Resp BP Pulse Ox 98.2 F 80 18 118/53 L 87 L 06/22/19 15:12 06/22/19 15:12 06/22/19 15:12 06/22/19 15:12 06/22/19 15:12 Intake & Output 06/21/19 06/22/19 06/23/19 06:59 06:59 06:59 Intake Total 1620 2037 622 Output Total 1600 Balance 2037 62 Weight 57.6 kg 61.2 kg 61.2 kg General appearance: PRESENT: no acute distress Eye exam: PRESENT: PERRLA Respiratory exam: PRESENT: clear to auscultation sherly Cardiovascular exam: PRESENT: +S1, +S2 GI/Abdominal exam: PRESENT: soft Results Laboratory Results: 06/21/19 06:04 06/21/19 06:04 06/18/19 05:40 Sputum Gram Stain - Final 06/18/19 05:40 Sputum Sputum Culture - Final NORMAL SHELLIE 06/17/19 06/18/19 06/18/19 20:45 02:47 02:47 Creatine Kinase 297 H CK-MB (CK-2) 1.56 Troponin I 0.036 0.051 NT-Pro-B Natriuret Pep 4820 H 06/18/19 06/18/19 06/18/19 14:56 14:56 20:45 Creatine Kinase 276 H 277 H CK-MB (CK-2) 1.13 Troponin I 0.037 NT-Pro-B Natriuret Pep 06/18/19 06/19/19 06/19/19 20:45 02:52 02:52 Creatine Kinase 288 H CK-MB (CK-2) 0.98 1.10 Troponin I 0.051 0.061 NT-Pro-B Natriuret Pep 06/21/19 06/21/19 06/22/19 22:13 22:13 04:40 Creatine Kinase 185 H 207 H CK-MB (CK-2) 1.05 Troponin I 0.109 NT-Pro-B Natriuret Pep 02/04/2906/22/19 06/22/19 04:40 13:43 13:43 Creatine Kinase 183 H CK-MB (CK-2) 1.04 1.26 Troponin I 0.101 0.065 NT-Pro-B Natriuret Pep Impressions: Chest X-Ray 06/17/19 20:24 IMPRESSION: 1. Nonspecific prominence of the parenchymal lung markings in the perihilar and left lung which are stable. 2. Cardiomegaly which is more pronounced on today's exam. Chest CT 06/18/19 00:00 IMPRESSION: Minor emphysematous changes. Left upper lobe pneumonia. Stable cardiomegaly. Grossly stable mediastinal adenopathy. TECHNICAL DOCUMENTATION: Quality ID # 436: Final reports with documentation of one or more dose reduction techniques (e.g., Automated exposure control, adjustment of the mA and/or kV according to patient size, use of iterative reconstruction technique) copyright 2011 [employer]- All Rights Reserved Abdomen Ultrasound 06/19/19 00:00 IMPRESSION: 1. Hepatic steatosis. 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
--- NOTE | 2019-06-22 19:47 | PDOC CONSULTATION ---
Consultation-Blank Consultation: The left ventricle is mildly to moderately dilated. There is mild concentric left ventricular hypertrophy. LV EF is 30% Left ventricular systolic function is moderate to severely reduced. By tisssue dopplers. There is moderate to severe global hypokinesis of the left ventricle. There is no thrombus. No ASD ,VSD ,or PFO seen. The right ventricle is moderately dilated. The right ventricular systolic function is moderately reduced. The right atrium is mild to moderately dilated. LA is mid to moderately dilated. There is no evidence of mitral valve prolapse. There is no vegetation seen on the mitral valve. There is no mitral valve stenosis. There is a mild amount of mitral regurgitation There is no aortic valvular vegetation. There is aortic sclerosis without aortic stenosis. There is no LVOT obstruction. There is a trace to mild amount of aortic regurgitation There is no tricuspid stenosis. There is a moderate to severe amount of tricuspid regurgitation There is moderate to severe pulmonary hypertension by echo RVSP is 61 mm of Hg with RA mean of 10. There is no pulmonic valvular stenosis. There is a trace amount of pulmonic regurgitation The aortic root is normal size. The inferior vena cava appeared normal and decreased > 50% with respiration (RAP 5-10 mmHg) There is no pericardial effusion.
[2019-06-22] MEDS: CEFTRIAXONE 1 GM/D5W RTU 1 GM/50 ML RTUPB IV SCH (20:30)
--- NOTE | 2019-06-22 21:33 | XCELERA REPORT ---
[address] [address] Transthoracic Echocardiogram Report Name: FERNANDO BHATIA Age: 68 yrs Gender: Male : 1950 Patient Status: Inpatient Patient Location: [address] [place] [address] Study Date: 06/21/2019 11:28 AM Height: 65 in Weight: 136 lb BSA: 1.7 m2 Procedure: A two-dimensional transthoracic echocardiogram with color flow and Doppler was performed. Study Quality: Good. Reason For Study: CHF History: CHF. Ordering Physician: LARRY QUEEN Performed By: Gracia Mills Interpretation Summary The left ventricle is mildly to moderately dilated. There is mild concentric left ventricular hypertrophy. LV EF is 30% Left ventricular systolic function is moderate to severely reduced. By tisssue dopplers. There is moderate to severe global hypokinesis of the left ventricle. There is no thrombus. No ASD ,VSD ,or PFO seen. The right ventricle is moderately dilated. The right ventricular systolic function is moderately reduced. The right atrium is mild to moderately dilated. LA is mid to moderately dilated. There is no evidence of mitral valve prolapse. There is no vegetation seen on the mitral valve. There is no mitral valve stenosis. There is a mild amount of mitral regurgitation There is no aortic valvular vegetation. There is aortic sclerosis without aortic stenosis. There is no LVOT obstruction. There is a trace to mild amount of aortic regurgitation There is no tricuspid stenosis. There is a moderate to severe amount of tricuspid regurgitation There is moderate to severe pulmonary hypertension by echo RVSP is 61 mm of Hg with RA mean of 10. There is no pulmonic valvular stenosis. There is a trace amount of pulmonic regurgitation The aortic root is normal size. The inferior vena cava appeared normal and decreased > 50% with respiration (RAP 5-10 mmHg) There is no pericardial effusion. MMode/2D Measurements & Calculations RVDd: 2.7 cm LVIDd: 4.9 cm FS: 16.0 % Ao root diam: 2.7 cm IVSd: 1.2 cm LVIDs: 4.1 cm EDV(Teich): 113.9 ml Ao root area: 5.8 cm2 LVPWd: 1.1 cm ESV(Teich): 75.7 ml EF(Teich): 33.6 % LVOT diam: 2.0 cm LVOT area: 3.0 cm2 Doppler Measurements & Calculations MV E max seble: MV dec slope: Ao V2 max: AI max seble: 86.7 cm/sec 669.7 cm/sec2 91.1 cm/sec 345.4 cm/sec MV A max seble: MV dec time: Ao max PG: AI max P.9 mmHg 77.8 cm/sec 0.13 sec 3.3 mmHg AI dec slope: MV E/A: 1.1 JUAN R(V,D): 2.0 cm2 197.0 cm/sec2 AI P1/2t: 513.4 msec LV V1 max PG: MR max seble: PI end-d seble: TR max seble: 1.4 mmHg 520.1 cm/sec 95.7 cm/sec 351.4 cm/sec LV V1 max: MR max PG: TR max P.7 mmHg 59.4 cm/sec 108.2 mmHg Left Ventricle The left ventricle is mildly to moderately dilated. There is mild concentric left ventricular hypertrophy. LV EF is 30%. Left ventricular systolic function is moderate to severely reduced. Doppler measurements suggest impaired left ventricular relaxation, which is associated with grade I/IV or mild diastolic dysfunction. By tisssue dopplers. There is moderate to severe global hypokinesis of the left ventricle. There is no thrombus. No ASD ,VSD ,or PFO seen. Right Ventricle The right ventricle is moderately dilated. The right ventricular systolic function is moderately reduced. Atria The right atrium is mild to moderately dilated. LA is mid to moderately dilated. Mitral Valve There is no evidence of mitral valve prolapse. There is no vegetation seen on the mitral valve. There is no mitral valve stenosis. There is a mild amount of mitral regurgitation. Aortic Valve There is no aortic valvular vegetation. There is aortic sclerosis without aortic stenosis. There is no LVOT obstruction. There is a trace to mild amount of aortic regurgitation. Tricuspid Valve There is no tricuspid stenosis. There is a moderate to severe amount of tricuspid regurgitation. There is moderate to severe pulmonary hypertension by echo. RVSP is 61 mm of Hg with RA mean of 10. Pulmonic Valve There is no pulmonic valvular stenosis. There is a trace amount of pulmonic regurgitation. Great Vessels The aortic root is normal size. The inferior vena cava appeared normal and decreased > 50% with respiration (RAP 5-10 mmHg). Effusions There is no pericardial effusion. : LARRY QUEEN, Yoselin
[2019-06-23] MEDS: ENOXAPARIN SODIUM INJ 40 MG/0.4 ML DISP.SYRIN SUBCUT SCH (05:15)
[2019-06-23] MEDS: LEVOFLOXACIN 750 MG/D5W RTU 750 MG/150 ML RTUPB IV SCH (05:15)
[2019-06-23] MEDS: METOPROLOL SUCCINATE 50 MG TAB.SR.24H PO SCH (09:20)
[2019-06-23] MEDS: SACUBITRIL/VALSARTAN 49 MG/51 MG TABLET PO SCH ×2 (09:20→17:49)
[2019-06-23] MEDS: FUROSEMIDE 40 MG TABLET PO SCH (09:20)
--- NOTE | 2019-06-23 18:12 | PDOC PROGRESS REPORT ---
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 CHF Reason For Visit: PNEUMONIA Physical Exam Vital Signs: Temp Pulse Resp BP Pulse Ox 98.5 F 89 18 106/66 90 L 06/23/19 15:16 06/23/19 15:16 06/23/19 15:16 06/23/19 15:16 06/23/19 15:16 Intake & Output 06/22/19 06/23/19 06/24/19 06:59 06:59 06:59 Intake Total 2037 2078 472 Output Total 800 Balance 2037 1278 472 Weight 61.2 kg 61.2 kg General appearance: PRESENT: no acute distress Eye exam: PRESENT: PERRLA Respiratory exam: PRESENT: clear to auscultation sherly Cardiovascular exam: PRESENT: +S1, +S2 GI/Abdominal exam: PRESENT: soft Neurological exam: PRESENT: alert Results Laboratory Results: 06/21/19 06:04 06/21/19 06:04 06/17/19 23:46 Blood Blood Culture - Final NO GROWTH IN 5 DAYS 06/17/19 20:45 Blood Blood Culture - Final NO GROWTH IN 5 DAYS 06/17/19 06/18/19 06/18/19 20:45 02:47 02:47 Creatine Kinase 297 H CK-MB (CK-2) 1.56 Troponin I 0.036 0.051 NT-Pro-B Natriuret Pep 4820 H 06/18/19 06/18/19 06/18/19 14:56 14:56 20:45 Creatine Kinase 276 H 277 H CK-MB (CK-2) 1.13 Troponin I 0.037 NT-Pro-B Natriuret Pep 06/18/19 06/19/19 06/19/19 20:45 02:52 02:52 Creatine Kinase 288 H CK-MB (CK-2) 0.98 1.10 Troponin I 0.051 0.061 NT-Pro-B Natriuret Pep 06/21/19 06/21/19 06/22/19 22:13 22:13 04:40 Creatine Kinase 185 H 207 H CK-MB (CK-2) 1.05 Troponin I 0.109 NT-Pro-B Natriuret Pep 06/22/19 06/22/19 06/22/19 04:40 13:43 13:43 Creatine Kinase 183 H CK-MB (CK-2) 1.04 1.26 Troponin I 0.101 0.065 NT-Pro-B Natriuret Pep Impressions: Chest X-Ray 06/17/19 20:24 IMPRESSION: 1. Nonspecific prominence of the parenchymal lung markings in the perihilar and left lung which are stable. 2. Cardiomegaly which is more pronounced on today's exam. Chest CT 06/18/19 00:00 IMPRESSION: Minor emphysematous changes. Left upper lobe pneumonia. Stable cardiomegaly. Grossly stable mediastinal adenopathy. TECHNICAL DOCUMENTATION: Quality ID # 436: Final reports with documentation of one or more dose reduction techniques (e.g., Automated exposure control, adjustment of the mA and/or kV according to patient size, use of iterative reconstruction technique) copyright 2011 [employer]- All Rights Reserved Abdomen Ultrasound 06/19/19 00:00 IMPRESSION: 1. Hepatic steatosis. 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
--- NOTE | 2019-06-23 18:31 | Progress Note ---
Provider Note Provider Note: CARDIOLOGY PROGRESS NOTE by Dr. Yoselin Miranda on 06/23/2019. SUBJECTIVE: The patient denies any chest pain discomfort. His shortness of breath is much improved. He denies any PND orthopnea. There is some cough productive of occasionally light yellow sputum. There is no hemoptysis. There is no TIA CVA symptoms. There is no leg edema. The patient's blood pressure is 106 systolic and hence there is no room to increase his Entresto. PHYSICAL EXAMINATION: The patient is well-built. At present in no acute di stress. Selected Entries 06/23/19 15:16 Temperature 98.5 F Temperature Oral Source Pulse Rate 89 Respiratory 18 Rate Blood Pressure 106/66 Blood Pressure 79 Mean BP Location Right Arm BP Position Supine O2 Sat by Pulse 90 L Oximetry Oxygen Delivery Room Air Method HEAD: Is atraumatic normocephalic. EYES: Pupils equal round regular reactive to light accommodation. Extraocular movements are normal. There is no conjunctival pallor. There is no scleral icterus. EARS: Tympanic memories are intact. External auditory canals are clear. NOSE: There is no deviated nasal septum. There is no inflammation of the nasal mucous membrane. MOUTH: Mucous membranes of mouth are moist. Tongue is moist. There is no ulcers. THROAT: There is no redness of the oropharynx. Is no exudates. SKIN: There is no skin rashes or skin lesions. There is no particular ecchymosis. NECK: Is supple. At present there is no JVD. Carotids are equal there is no bruits. There is no lymphadenopathy. There is no goiter. There is no accessory muscle respiration use. Trachea central. LUNGS: There is diminished air entry and prolonged expiration. There is no rhonchi rales or wheezing. On percussion there is hyperresonance. HEART: S1-S2 is heard. There is no S3 gallop. There is no S4 gallop. There is systolic murmur left sternal border and the apex there is no rub. ABDOMEN: Soft. Nontender. There is no paraspinal megaly. EXTREMITIES: Femorals are diminished. There is no femoral bruits. Leg pulses are diminished. There is no pedal edema. There is no DVT or cellulitis. There is no calf tenderness. There is no cyanosis or clubbing. PRINTING ESTIMATOR: The patient is conscious awake alert oriented x3 with no focal deficits. PSYCHIATRIC: The patient judgment insight are intact his affect is normal. Chest X-Ray 06/17/19 20:24 IMPRESSION: 1. Nonspecific prominence of the parenchymal lung markings in the perihilar and left lung which are stable. 2. Cardiomegaly which is more pronounced on today's exam. Chest CT 06/18/19 00:00 IMPRESSION: Minor emphysematous changes. Left upper lobe pneumonia. Stable cardiomegaly. Grossly stable mediastinal adenopathy. TECHNICAL DOCUMENTATION: Quality ID # 436: Final reports with documentation of one or more dose reduction techniques (e.g., Automated exposure control, adjustment of the mA and/or kV according to patient size, use of iterative reconstruction technique) copyright 2011 [employer]- All Rights Reserved Abdomen Ultrasound 06/19/19 00:00 IMPRESSION: 1. Hepatic steatosis. IMPRESSION/RECOMMENDATION: 1. Acute on chronic systolic heart failure. At present well compensated. Continue p.o. Lasix. ANANYA inhibitor and beta-breanna. As mentioned earlier would repeat echo in end of January, and if the LV ejection fraction is 35% or below, then would recommend the patient be referred for AICD placement. 2.COPD: Acute exacerbation of COPD phase has resolved. At present back to baseline. Continue respiratory treatments with inhalers. Would recommend to discontinue antibiotics since his chest x-ray is clear. 3. Cardiomyopathy mixed: Dilated and ischemic. Continue beta-blockers and ANANYA inhibitors. 4. Coronary artery disease: Abnormal stress test showing a small area of myocardial infarction. Continue aspirin, beta-breanna and nitrates. 5. Hypertension: Blood pressure well controlled. Continue current medications. 6. History of tobacco abuse disorder: Tobacco cessation counseling done. 5 minutes spent on this. Ill effects of tobacco have been explained to the patient detail. Behavioral and medication therapy to aid in smoking cessation discussed. 7. History of cocaine abuse: Patient again cautioned about the risks of cocaine, and strongly advised the patient to refrain from using this. He states his last use was 2 weeks ago. But the patient's admission toxicology screen shows the urine was positive for cocaine. Medications reviewed. Medications adjusted. Management plan discussed with attending physician on the case. Medical decision making is of moderate complexity. Patient stable. Will recommend discharge the patient home. Will follow. The patient agrees to follow-up with me. Again cautioned the patient against cocaine abuse..
[2019-06-23] MEDS: CEFTRIAXONE 1 GM/D5W RTU 1 GM/50 ML RTUPB IV SCH (21:27)
[2019-06-24] MEDS: LEVOFLOXACIN 750 MG/D5W RTU 750 MG/150 ML RTUPB IV SCH (05:43)
[2019-06-24] MEDS: ENOXAPARIN SODIUM INJ 40 MG/0.4 ML DISP.SYRIN SUBCUT SCH (05:44)
[2019-06-24] MEDS: METOPROLOL SUCCINATE 50 MG TAB.SR.24H PO SCH (09:46)
[2019-06-24] MEDS: SACUBITRIL/VALSARTAN 49 MG/51 MG TABLET PO SCH ×2 (09:46→17:26)
[2019-06-24] MEDS: FUROSEMIDE 40 MG TABLET PO SCH (09:46)
--- NOTE | 2019-06-24 20:33 | PDOC PROGRESS REPORT ---
Subjective Progress Note for:: 06/24/19 Subjective:: Patient seen by the bedside, he continues to improve clinically Reason For Visit: PNEUMONIA Physical Exam Vital Signs: Temp Pulse Resp BP Pulse Ox 97.5 F 85 16 106/63 95 06/24/19 15:55 06/24/19 15:55 06/24/19 15:55 06/24/19 15:55 06/24/19 15:55 Intake & Output 06/23/19 06/24/19 06/25/19 06:59 06:59 06:59 Intake Total 2078 2417 955 Output Total 800 1400 Balance 1278 1017 955 Weight 61.2 kg 60.9 kg General appearance: PRESENT: no acute distress, well-developed, well-nourished Head exam: PRESENT: atraumatic, normocephalic Eye exam: PRESENT: conjunctiva pink, EOMI, PERRLA Ear exam: PRESENT: normal external ear exam Mouth exam: PRESENT: moist, tongue midline Neck exam: PRESENT: full ROM Respiratory exam: PRESENT: clear to auscultation sherly Cardiovascular exam: PRESENT: RRR, +S1, +S2 Pulses: PRESENT: normal dorsalis pedis pul, +2 pedal pulses bilateral Vascular exam: PRESENT: normal capillary refill GI/Abdominal exam: PRESENT: normal bowel sounds, soft Rectal exam: PRESENT: deferred Neurological exam: PRESENT: alert, CN II-XII grossly intact Psychiatric exam: PRESENT: appropriate affect, normal mood Skin exam: PRESENT: dry, intact, warm Results Laboratory Results: 06/21/19 06:04 06/21/19 06:04 06/17/19 06/18/19 06/18/19 20:45 02:47 02:47 Creatine Kinase 297 H CK-MB (CK-2) 1.56 Troponin I 0.036 0.051 NT-Pro-B Natriuret Pep 4820 H 06/18/19 06/18/19 06/18/19 14:56 14:56 20:45 Creatine Kinase 276 H 277 H CK-MB (CK-2) 1.13 Troponin I 0.037 NT-Pro-B Natriuret Pep 06/18/19 06/19/19 06/19/19 20:45 02:52 02:52 Creatine Kinase 288 H CK-MB (CK-2) 0.98 1.10 Troponin I 0.051 0.061 NT-Pro-B Natriuret Pep 06/21/19 06/21/19 06/22/19 22:13 22:13 04:40 Creatine Kinase 185 H 207 H CK-MB (CK-2) 1.05 Troponin I 0.109 NT-Pro-B Natriuret Pep 06/22/19 06/22/19 06/22/19 04:40 13:43 13:43 Creatine Kinase 183 H CK-MB (CK-2) 1.04 1.26 Troponin I 0.101 0.065 NT-Pro-B Natriuret Pep Impressions: Chest X-Ray 06/17/19 20:24 IMPRESSION: 1. Nonspecific prominence of the parenchymal lung markings in the perihilar and left lung which are stable. 2. Cardiomegaly which is more pronounced on today's exam. Chest CT 06/18/19 00:00 IMPRESSION: Minor emphysematous changes. Left upper lobe pneumonia. Stable cardiomegaly. Grossly stable mediastinal adenopathy. TECHNICAL DOCUMENTATION: Quality ID # 436: Final reports with documentation of one or more dose reduction techniques (e.g., Automated exposure control, adjustment of the mA and/or kV according to patient size, use of iterative reconstruction technique) copyright 2011 [employer]- All Rights Reserved Abdomen Ultrasound 06/19/19 00:00 IMPRESSION: 1. Hepatic steatosis. 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 Emphysema type: unspecified Qualified Code(s): J43.9 - Emphysema, unspecified Is this a current diagnosis for this admission?: Yes (5) Lower extremity edema Is this a current diagnosis for this admission?: Yes (6) Cocaine abuse Is this a current diagnosis for this admission?: Yes (7) Acute systolic heart failure Is this a current diagnosis for this admission?: Yes Plan: Continue Entresto, beta-breanna with carvedilol (8) Elevated troponin Is this a current diagnosis for this admission?: Yes - Time Time Spent with patient: 35 or more minutes Level of Care: MEDICAL Medications reviewed and adjusted accordingly: Yes Anticipated discharge: Home Within: within 72 hours
[2019-06-24 22:23] LABS: HEMATOCRIT 37.5 % (37.9-51.0); HEMOGLOBIN 12.1 g/dL (13.5-17.0); MEAN CORPUSCULAR HEMOGLOBIN 27.2 pg (27.0-33.4); MEAN CORPUSCULAR HGB CONC 32.2 g/dL (32.0-36.0); MEAN CORPUSCULAR VOLUME 84 fl (80-97); PLATELET COUNT 234 10^3/uL (150-450); RED BLOOD COUNT 4.44 10^6/uL (4.35-5.55); RED CELL DISTRIBUTION WIDTH 14.5 % (11.5-14.0)
[2019-06-24 22:35] LABS: ALBUMIN 2.8 g/dL (3.5-5.0); ALKALINE PHOSPHATASE 127 U/L (38-126); ANION GAP 6 (5-19); ASPARTATE AMINO TRANSFERASE 71 U/L (17-59); BILIRUBIN,DIRECT 0.3 mg/dL (0.0-0.4); BILIRUBIN,TOTAL 0.3 mg/dL (0.2-1.3); BLOOD UREA NITROGEN 19 mg/dL (7-20); CALCIUM 8.5 mg/dL (8.4-10.2); CARBON DIOXIDE 32 mmol/L (22-30); CHLORIDE 100 mmol/L (98-107); GLUCOSE 99 mg/dL (75-110); POTASSIUM 4.4 mmol/L (3.6-5.0); TOTAL PROTEIN 6.5 g/dL (6.3-8.2)
[2019-06-24 22:48] LABS: ABSOLUTE LYMPHOCYTES# (MANUAL) 1.9 10^3/uL (0.5-4.7); ABSOLUTE MONOCYTES # (MANUAL) 0.2 10^3/uL (0.1-1.4); BASOPHILS % (MANUAL) 0 % (0-2); EOSINOPHILS % (MANUAL) 1 % (0-6); LYMPHOCYTES % (MANUAL) 60 % (13-45); MONOCYTES % (MANUAL) 6 % (3-13); SEGMENTED NEUTROPHILS % (MAN) 30 % (42-78); TOTAL CELLS COUNTED 100
[2019-06-24 22:49] LABS: ANISOCYTOSIS SLIGHT; PLATELET COMMENT ADEQUATE; POIKILOCYTOSIS SLIGHT
[2019-06-24] MEDS: CEFTRIAXONE 1 GM/D5W RTU 1 GM/50 ML RTUPB IV SCH (22:50)
[2019-06-25] MEDS ORDERED: LEVOFLOXACIN 750 MG TABLET PO SCH (06:00)
[2019-06-25] MEDS: ENOXAPARIN SODIUM INJ 40 MG/0.4 ML DISP.SYRIN SUBCUT SCH (07:52)
[2019-06-25] MEDS: FUROSEMIDE 40 MG TABLET PO SCH (09:53)
[2019-06-25] MEDS: METOPROLOL SUCCINATE 50 MG TAB.SR.24H PO SCH (09:54)
[2019-06-25] MEDS: SACUBITRIL/VALSARTAN 49 MG/51 MG TABLET PO SCH ×2 (09:54→17:29)
--- NOTE | 2019-06-25 16:41 | PDOC PROGRESS REPORT ---
Subjective Progress Note for:: 06/25/19 Subjective:: No chest pain or difficulty with breathing. No fever or hills. No nausea, vomiting, or abdominal pain. Patient is verbally obnoxious due to salt intake limitation for his acute CHF management. Reason For Visit: PNEUMONIA Physical Exam Vital Signs: Temp Pulse Resp BP Pulse Ox 98.2 F 87 16 104/68 97 06/25/19 15:06 06/25/19 15:06 06/25/19 15:06 06/25/19 15:06 06/25/19 15:06 Intake & Output 06/24/19 06/25/19 06/26/19 06:59 06:59 06:59 Intake Total 2417 2275 476 Output Total 1400 400 Balance 1017 1875 476 Weight 60.9 kg 61 kg General appearance: PRESENT: no acute distress, well-developed, well-nourished Head exam: PRESENT: atraumatic, normocephalic Eye exam: PRESENT: conjunctiva pink. ABSENT: scleral icterus Ear exam: PRESENT: normal external ear exam Mouth exam: PRESENT: moist Respiratory exam: PRESENT: clear to auscultation sherly Cardiovascular exam: PRESENT: RRR. ABSENT: diastolic murmur, rubs, systolic murmur Vascular exam: ABSENT: pallor GI/Abdominal exam: PRESENT: normal bowel sounds, soft. ABSENT: distended, guarding, mass, organolmegaly, rebound, tenderness Extremities exam: ABSENT: pedal edema Neurological exam: PRESENT: alert, awake, oriented to person, oriented to place, oriented to time, oriented to situation, CN II-XII grossly intact. ABSENT: motor sensory deficit Psychiatric exam: PRESENT: appropriate affect, normal mood. ABSENT: homicidal ideation, suicidal ideation Skin exam: PRESENT: dry, warm Results Laboratory Results: 06/24/19 21:58 06/24/19 21:58 06/24/19 06/24/19 21:58 21:58 WBC 3.0 L RBC 4.44 Hgb 12.1 L Hct 37.5 L MCV 84 MCH 27.2 MCHC 32.2 RDW 14.5 H Plt Count 234 Seg Neutrophils % Not Reportable Sodium 138.4 Potassium 4.4 Chloride 100 Carbon Dioxide 32 H Anion Gap 6 BUN 19 Creatinine 0.85 Est GFR ( Amer) > 60 Glucose 99 Calcium 8.5 Total Bilirubin 0.3 AST 71 H Alkaline Phosphatase 127 H Total Protein 6.5 Albumin 2.8 L 06/17/19 06/18/19 06/18/19 20:45 02:47 02:47 Creatine Kinase 297 H CK-MB (CK-2) 1.56 Troponin I 0.036 0.051 NT-Pro-B Natriuret Pep 4820 H 06/18/19 06/18/19 06/18/19 14:56 14:56 20:45 Creatine Kinase 276 H 277 H CK-MB (CK-2) 1.13 Troponin I 0.037 NT-Pro-B Natriuret Pep 06/18/19 06/19/19 06/19/19 20:45 02:52 02:52 Creatine Kinase 288 H CK-MB (CK-2) 0.98 1.10 Troponin I 0.051 0.061 NT-Pro-B Natriuret Pep 06/21/19 06/21/19 06/22/19 22:13 22:13 04:40 Creatine Kinase 185 H 207 H CK-MB (CK-2) 1.05 Troponin I 0.109 NT-Pro-B Natriuret Pep 06/22/19 06/22/19 06/22/19 04:40 13:43 13:43 Creatine Kinase 183 H CK-MB (CK-2) 1.04 1.26 Troponin I 0.101 0.065 NT-Pro-B Natriuret Pep Impressions: Chest X-Ray 06/17/19 20:24 IMPRESSION: 1. Nonspecific prominence of the parenchymal lung markings in the perihilar and left lung which are stable. 2. Cardiomegaly which is more pronounced on today's exam. Chest CT 06/18/19 00:00 IMPRESSION: Minor emphysematous changes. Left upper lobe pneumonia. Stable cardiomegaly. Grossly stable mediastinal adenopathy. TECHNICAL DOCUMENTATION: Quality ID # 436: Final reports with documentation of one or more dose reduction techniques (e.g., Automated exposure control, adjustment of the mA and/or kV according to patient size, use of iterative reconstruction technique) copyright 2011 [employer]- All Rights Reserved Abdomen Ultrasound 06/19/19 00:00 IMPRESSION: 1. Hepatic steatosis. Assessment & Plan - Diagnosis (1) Left upper lobe pneumonia Qualifiers: Pneumonia type: due to unspecified organism Qualified Code(s): J18.9 - Pneumonia, unspecified organism Is this a current diagnosis for this admission?: Yes Plan: Continue current medication management. (2) Acute systolic heart failure Is this a current diagnosis for this admission?: Yes Plan: Continue current medication management. (3) COPD (chronic obstructive pulmonary disease) Qualifiers: COPD type: unspecified COPD Qualified Code(s): J44.9 - Chronic obstructive pulmonary disease, unspecified Is this a current diagnosis for this admission?: Yes Plan: Continue current medication management. (4) Essential (primary) hypertension Is this a current diagnosis for this admission?: Yes Plan: Continue current medication management. (5) Cocaine abuse Is this a current diagnosis for this admission?: Yes Plan: Continue current medication management. - Time Time Spent with patient: 25-34 minutes Level of Care: TELE Medications reviewed and adjusted accordingly: Yes Anticipated discharge: Home Within: Other - Inpatient Certification Based on my medical assessment, after consideration of the patient's comorbidities, presenting symptoms, or acuity I expect that the services needed warrant INPATIENT care.: Yes I certify that my determination is in accordance with my understanding of Medicare's requirements for reasonable and necessary INPATIENT services [42 CFR 412.3e].: Yes Medical Necessity: Significant Comorbidiites Make Outpatient Treatment Too Risky, Need Close Monitoring Due to Risk of Patient Decompensation, Need For Continuous Telemetry Monitoring, Risk of Complication if Not Cared For in Hospital, Risk of Diagnosis Which Will Require Inpatient Eval/Care/Monitoring Post Hospital Care: D/C Supervisor [employer] Documentation - Plan Summary Plan Summary: Continue current medication management.
[2019-06-25] MEDS: LORAZEPAM INJ 2 MG/1 ML VIAL IV PRN (20:57)
--- NOTE | 2019-06-25 22:34 | Progress Note ---
Provider Note Provider Note: CARDIOLOGY PROGRESS NOTE by Dr. Yoselin Goldstein on 06/25/2019. SUBJECTIVE: The patient denies any shortness of breath. There is no chest pain or discomfort. There is no PND orthopnea. The patient's COPD is stable. His heart failure is well compensated. There is no arrhythmia seen on the monitor. There is no pedal edema. There is no TIA CVA symptoms. There is no palpitations dizziness or near syncope. PHYSICAL EXAMINATION: The patient is well-built in no acute distress. Selected Entries 06/25/19 11:45 Temperature 97.6 F Temperature Oral Source Pulse Rate 81 Respiratory 16 Rate Blood Pressure 115/65 Blood Pressure 81 Mean BP Location Right Arm BP Position Sitting O2 Sat by Pulse 96 Oximetry Oxygen Delivery Room Air Method HEAD: Is atraumatic normocephalic. EYES: Pupils equal round regular reactive to light accommodation. Extraocular movements are normal. There is no conjunctival pallor. There is no scleral icterus. EARS: Tympanic memories are intact. External auditory canals are clear. NOSE: There is no deviated nasal septum. There is no inflammation of the nasal mucous membrane. MOUTH: Mucous membranes of mouth are moist. Tongue is moist. There is no ulcers. THROAT: There is no redness of the oropharynx. Is no exudates. SKIN: There is no skin rashes or skin lesions. There is no particular ecchymosis. NECK: Is supple. At present there is no JVD. Carotids are equal there is no bruits. There is no lymphadenopathy. There is no goiter. There is no accessory muscle respiration use. Trachea central. LUNGS: There is diminished air entry and prolonged expiration. There is no rhonchi rales or wheezing. On percussion there is hyperresonance. HEART: S1-S2 is heard. There is no S3 gallop. There is no S4 gallop. There is systolic murmur left sternal border and the apex there is no rub. ABDOMEN: Soft. Nontender. There is no paraspinal megaly. EXTREMITIES: Femorals are diminished. There is no femoral bruits. Leg pulses are diminished. There is no pedal edema. There is no DVT or cellulitis. There is no calf tenderness. There is no cyanosis or clubbing. CIRCUIT MANAGER: The patient is conscious awake alert oriented x3 with no focal deficits. PSYCHIATRIC: The patient judgment insight are intact his affect is normal. IMPRESSION/RECOMMENDATION: 1. Acute on chronic systolic heart failure. At present well compensated. Continue p.o. Lasix. ANANYA inhibitor and beta-breanna. As mentioned earlier would repeat echo in end of January, and if the LV ejection fraction is 35% or below, then would recommend the patient be referred for AICD placement. 2.COPD: Acute exacerbation of COPD phase has resolved. At present back to baseline. Continue respiratory treatments with inhalers. Would recommend to discontinue antibiotics since his chest x-ray is clear. 3. Cardiomyopathy mixed: Dilated and ischemic. Continue beta-blockers and ANANYA inhibitors. 4. Coronary artery disease: Abnormal stress test showing a small area of myocardial infarction. Continue aspirin, beta-breanna and nitrates. 5. Hypertension: Blood pressure well controlled. Continue current medications. 6. History of tobacco abuse disorder: Tobacco cessation counseling done. 5 minutes spent on this. Ill effects of tobacco have been explained to the patient detail. Behavioral and medication therapy to aid in smoking cessation discussed. 7. History of cocaine abuse: Patient again cautioned about the risks of cocaine, and strongly advised the patient to refrain from using this. He states his last use was 2 weeks ago. But the patient's admission toxicology screen shows the urine was positive for cocaine. Medications reviewed. Medications adjusted. Management plan discussed with attending physician on the case. Medical decision making is of moderate complexity. Patient stable. Will recommend discharge the patient home. Will follow. The patient agrees to follow-up with me. Again cautioned the patient against cocaine abuse..
[2019-06-26] MEDS: ENOXAPARIN SODIUM INJ 40 MG/0.4 ML DISP.SYRIN SUBCUT SCH (05:56)
[2019-06-26] MEDS: FUROSEMIDE 40 MG TABLET PO SCH (10:30)
[2019-06-26] MEDS: SACUBITRIL/VALSARTAN 49 MG/51 MG TABLET PO SCH ×2 (10:30→17:37)
[2019-06-26] MEDS: METOPROLOL SUCCINATE 50 MG TAB.SR.24H PO SCH (10:30)
--- NOTE | 2019-06-26 14:31 | Progress Note ---
Provider Note Provider Note: CARDIOLOGY PROGRESS NOTE by Dr. Yoselin Goldstein on 06/26/2019. SUBJECTIVE: The patient denies any shortness of breath. There is no PND orthopnea or leg edema. There is no chest pain or discomfort. There is no arrhythmia seen. There is no TIA CVA symptoms. Patient is afebrile. Selected Entries 06/26/19 11:30 Temperature 98.3 F Temperature Oral Source Pulse Rate 77 Respiratory 15 Rate Blood Pressure 118/69 Blood Pressure 85 Mean BP Location Right Arm BP Position Supine O2 Sat by Pulse 97 Oximetry Oxygen Delivery Room Air Method HEAD: Is atraumatic normocephalic. EYES: Pupils equal round regular reactive to light accommodation. Extraocular movements are normal. There is no conjunctival pallor. There is no scleral icterus. EARS: Tympanic memories are intact. External auditory canals are clear. NOSE: There is no deviated nasal septum. There is no inflammation of the nasal mucous membrane. MOUTH: Mucous membranes of mouth are moist. Tongue is moist. There is no ulcers. THROAT: There is no redness of the oropharynx. Is no exudates. SKIN: There is no skin rashes or skin lesions. There is no particular ecchymosis. NECK: Is supple. At present there is no JVD. Carotids are equal there is no bruits. There is no lymphadenopathy. There is no goiter. There is no accessory muscle respiration use. Trachea central. LUNGS: There is diminished air entry and prolonged expiration. There is no rhonchi rales or wheezing. On percussion there is hyperresonance. HEART: S1-S2 is heard. There is no S3 gallop. There is no S4 gallop. There is systolic murmur left sternal border and the apex there is no rub. ABDOMEN: Soft. Nontender. There is no paraspinal megaly. EXTREMITIES: Femorals are diminished. There is no femoral bruits. Leg pulses are diminished. There is no pedal edema. There is no DVT or cellulitis. There is no calf tenderness. There is no cyanosis or clubbing. MANAGER BUSINESS SYSTEMS: The patient is conscious awake alert oriented x3 with no focal deficits. PSYCHIATRIC: The patient judgment insight are intact his affect is normal. IMPRESSION/RECOMMENDATION: 1. Acute on chronic systolic heart failure. At present well compensated. Continue p.o. Lasix. ANANYA inhibitor and beta-breanna. As mentioned earlier would repeat echo in end of January, and if the LV ejection fraction is 35% or below, then would recommend the patient be referred for AICD placement. 2.COPD: Acute exacerbation of COPD phase has resolved. At present back to baseline. Continue respiratory treatments with inhalers. Would recommend to discontinue antibiotics since his chest x-ray is clear. 3. Cardiomyopathy mixed: Dilated and ischemic. Continue beta-blockers and ANANYA inhibitors. 4. Coronary artery disease: Abnormal stress test showing a small area of myocardial infarction. Continue aspirin, beta-breanna and nitrates. 5. Hypertension: Blood pressure well controlled. Continue current medications. 6. History of tobacco abuse disorder: Tobacco cessation counseling done. 5 minutes spent on this. Ill effects of tobacco have been explained to the patient detail. Behavioral and medication therapy to aid in smoking cessation discussed. 7. History of cocaine abuse: Patient again cautioned about the risks of cocaine, and strongly advised the patient to refrain from using this. He states his last use was 2 weeks ago. But the patient's admission toxicology screen shows the urine was positive for cocaine. Medications reviewed. Medications adjusted. Management plan discussed with attending physician on the case. Medical decision making is of moderate complexity. Patient stable. Will recommend discharge the patient home. Will follow. The patient agrees to follow-up with me. Again cautioned the patient against cocaine abuse..
--- NOTE | 2019-06-26 18:13 | PDOC PROGRESS REPORT ---
Subjective Progress Note for:: 06/26/19 Subjective:: No chest pain or difficulty with breathing. No fever or hills. No abdominal pain, nausea, or vomiting. Reason For Visit: PNEUMONIA Physical Exam Vital Signs: Temp Pulse Resp BP Pulse Ox 98.3 F 77 15 118/69 97 06/26/19 11:30 06/26/19 11:30 06/26/19 11:30 06/26/19 11:30 06/26/19 11:30 Intake & Output 06/25/19 06/26/19 06/27/19 06:59 06:59 06:59 Intake Total 2275 701 240 Output Total 400 Balance 1875 701 240 Weight 61 kg 61 kg Physical Exam: General appearance: PRESENT: no acute distress, well-developed, well-nourished Head exam: PRESENT: atraumatic, normocephalic Eye exam: PRESENT: conjunctiva pink. ABSENT: pallor, scleral icterus Ear exam: PRESENT: normal external ear exam Mouth exam: PRESENT: moist Respiratory exam: PRESENT: clear to auscultation sherly Cardiovascular exam: PRESENT: RRR. ABSENT: diastolic murmur, rubs, systolic murmur GI/Abdominal exam: PRESENT: normal bowel sounds, soft. ABSENT: distended, guarding, mass, organomegaly, rebound, tenderness Extremities exam: ABSENT: pedal edema Neurological exam: PRESENT: alert, awake, oriented to person, oriented to place, oriented to time, oriented to situation, CN II-XII grossly intact. ABSENT: motor sensory deficit Psychiatric exam: PRESENT: appropriate affect, normal mood. ABSENT: homicidal ideation, suicidal ideation Skin exam: PRESENT: dry, warm Results Laboratory Results: 06/24/19 21:58 06/24/19 21:58 06/17/19 06/18/19 06/18/19 20:45 02:47 02:47 Creatine Kinase 297 H CK-MB (CK-2) 1.56 Troponin I 0.036 0.051 NT-Pro-B Natriuret Pep 4820 H 06/18/19 06/18/19 06/18/19 14:56 14:56 20:45 Creatine Kinase 276 H 277 H CK-MB (CK-2) 1.13 Troponin I 0.037 NT-Pro-B Natriuret Pep 06/18/19 06/19/19 06/19/19 20:45 02:52 02:52 Creatine Kinase 288 H CK-MB (CK-2) 0.98 1.10 Troponin I 0.051 0.061 NT-Pro-B Natriuret Pep 06/21/19 06/21/19 06/22/19 22:13 22:13 04:40 Creatine Kinase 185 H 207 H CK-MB (CK-2) 1.05 Troponin I 0.109 NT-Pro-B Natriuret Pep 06/22/19 06/22/19 06/22/19 04:40 13:43 13:43 Creatine Kinase 183 H CK-MB (CK-2) 1.04 1.26 Troponin I 0.101 0.065 NT-Pro-B Natriuret Pep Impressions: Chest X-Ray 06/17/19 20:24 IMPRESSION: 1. Nonspecific prominence of the parenchymal lung markings in the perihilar and left lung which are stable. 2. Cardiomegaly which is more pronounced on today's exam. Chest CT 06/18/19 00:00 IMPRESSION: Minor emphysematous changes. Left upper lobe pneumonia. Stable cardiomegaly. Grossly stable mediastinal adenopathy. TECHNICAL DOCUMENTATION: Quality ID # 436: Final reports with documentation of one or more dose reduction techniques (e.g., Automated exposure control, adjustment of the mA and/or kV according to patient size, use of iterative reconstruction technique) copyright 2011 [employer]- All Rights Reserved Abdomen Ultrasound 06/19/19 00:00 IMPRESSION: 1. Hepatic steatosis. Assessment & Plan - Diagnosis (1) Left upper lobe pneumonia Qualifiers: Pneumonia type: due to unspecified organism Qualified Code(s): J18.9 - Pneumonia, unspecified organism Is this a current diagnosis for this admission?: Yes (2) Acute systolic heart failure Is this a current diagnosis for this admission?: Yes (3) COPD (chronic obstructive pulmonary disease) Qualifiers: COPD type: unspecified COPD Qualified Code(s): J44.9 - Chronic obstructive pulmonary disease, unspecified Is this a current diagnosis for this admission?: Yes (4) Essential (primary) hypertension Is this a current diagnosis for this admission?: Yes (5) Cocaine abuse Is this a current diagnosis for this admission?: Yes - Time Time Spent with patient: 25-34 minutes Level of Care: TELE Medications reviewed and adjusted accordingly: Yes Anticipated discharge: Home with Homehealth Within: Other - Inpatient Certification Based on my medical assessment, after consideration of the patient's com orbidities, presenting symptoms, or acuity I expect that the services needed warrant INPATIENT care.: Yes I certify that my determination is in accordance with my understanding of Medicare's requirements for reasonable and necessary INPATIENT services [42 CFR 412.3e].: Yes Medical Necessity: Significant Comorbidiites Make Outpatient Treatment Too Risky, Need Close Monitoring Due to Risk of Patient Decompensation, Need For Continuous Telemetry Monitoring, Risk of Complication if Not Cared For in Hospital, Risk of Diagnosis Which Will Require Inpatient Eval/Care/Monitoring Post Hospital Care: D/C Logistics Administrator Documentation - Plan Summary Plan Summary: Continue current medication management. Emphasized compliance with dietary salt and fluid restrictions.
[2019-06-27] MEDS: ENOXAPARIN SODIUM INJ 40 MG/0.4 ML DISP.SYRIN SUBCUT SCH (05:37)
[2019-06-27] MEDS: LORAZEPAM INJ 2 MG/1 ML VIAL IV PRN (05:37)
[2019-06-27] MEDS: METOPROLOL SUCCINATE 50 MG TAB.SR.24H PO SCH (10:02)
[2019-06-27] MEDS: SACUBITRIL/VALSARTAN 49 MG/51 MG TABLET PO SCH ×2 (10:02→18:16)
[2019-06-27] MEDS: FUROSEMIDE 40 MG TABLET PO SCH (10:02)
--- NOTE | 2019-06-27 16:17 | Progress Note ---
Provider Note Provider Note: CARDIOLOGY PROGRESS NOTE by Dr. Yoselin Goldstein on 06/27/2019. SUBJECTIVE: The patient denies any chest pain or discomfort. There is no shortness of breath. There is no cough or wheezing. There is no PND orthopnea or leg edema. There is no arrhythmia seen on the monitor. The patient is anxious to go home. He promises to follow-up with me in the office. PHYSICAL EXAMINATION: The patient is well-built and well-nourished in no acute distress. Selected Entries 06/27/19 07:26 Temperature 97.4 F Temperature Oral Source Pulse Rate 85 Respiratory 16 Rate Blood Pressure 117/77 Blood Pressure 90 Mean BP Location Right Arm BP Position Sitting O2 Sat by Pulse 98 Oximetry Oxygen Delivery Room Air Method HEAD: Is atraumatic normocephalic. EYES: Pupils equal round regular reactive to light accommodation. Extraocular movements are normal. There is no con junctival pallor. There is no scleral icterus. EARS: Tympanic memories are intact. External auditory canals are clear. NOSE: There is no deviated nasal septum. There is no inflammation of the nasal mucous membrane. MOUTH: Mucous membranes of mouth are moist. Tongue is moist. There is no ulcers. THROAT: There is no redness of the oropharynx. Is no exudates. SKIN: There is no skin rashes or skin lesions. There is no particular ecchymosis. NECK: Is supple. At present there is no JVD. Carotids are equal there is no bruits. There is no lymphadenopathy. There is no goiter. There is no accessory muscle respiration use. Trachea central. LUNGS: There is diminished air entry and prolonged expiration. There is no rhonchi rales or wheezing. On percussion there is hyperresonance. HEART: S1-S2 is heard. There is no S3 gallop. There is no S4 gallop. There is systolic murmur left sternal border and the apex there is no rub. ABDOMEN: Soft. Nontender. There is no paraspinal megaly. EXTREMITIES: Femorals are diminished. There is no femoral bruits. Leg pulses are diminished. There is no pedal edema. There is no DVT or cellulitis. There is no calf tenderness. There is no cyanosis or clubbing. 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 PSYCHIATRIC: The patient judgment insight are intact his affect is normal. IMPRESSION/RECOMMENDATION: 1. Acute on chronic systolic heart failure. At present well compensated. Continue p.o. Lasix. ANANYA inhibitor and beta-breanna. As mentioned earlier would repeat echo in end of January, and if the LV ejection fraction is 35% or below, then would recommend the patient be referred for AICD placement. 2.COPD: Acute exacerbation of COPD phase has resolved. At present back to baseline. Continue respiratory treatments with inhalers. Would recommend to discontinue antibiotics since his chest x-ray is clear. 3. Cardiomyopathy mixed: Dilated and ischemic. Continue beta-blockers and ANANYA inhibitors. 4. Coronary artery disease: Abnormal stress test showing a small area of myocardial infarction. Continue aspirin, beta-breanna and nitrates. 5. Hypertension: Blood pressure well controlled. Continue current medications. 6. History of tobacco abuse disorder: Tobacco cessation counseling done. 5 minutes spent on this. Ill effects of tobacco have been explained to the patient detail. Behavioral and medication therapy to aid in smoking cessation discussed. 7. History of cocaine abuse: Patient again cautioned about the risks of cocaine, and strongly advised the patient to refrain from using this. He states his last use was 2 weeks ago. But the patient's admission toxicology screen shows the urine was positive for cocaine. Medications reviewed. Medications adjusted. Management plan discussed with attending physician on the case. Medical decision making is of moderate complexity. Patient stable. Will recommend discharge the patient home. Will follow. The patient agrees to follow-up with me. Again cautioned the patient against cocaine abuse.. Tobacco cessation counseling reinforced. Will sign off. Follow the patient in the office.
[2019-06-27 19:27] VITALS: BP 129/74
--- NOTE | 2019-06-27 20:12 | PDOC DISCHARGE SUMMARY ---
Impression - Admit/DC Date/PCP Admission Date/Primary Care Provider: 06/18/19 01:00 LARRY QUEEN MD Discharge Date: 06/27/19 - Discharge Diagnosis (1) Acute systolic heart failure Is this a current diagnosis for this admission?: Yes (2) Left upper lobe pneumonia Is this a current diagnosis for this admission?: Yes (3) Pulmonary hypertension Is this a current diagnosis for this admission?: Yes (4) Elevated transaminase level Is this a current diagnosis for this admission?: Yes (5) Chronic obstructive pulmonary disease Is this a current diagnosis for this admission?: Yes (6) Lower extremity edema Is this a current diagnosis for this admission?: Yes (7) Cocaine abuse Is this a current diagnosis for this admission?: Yes (8) Elevated troponin Is this a current diagnosis for this admission?: Yes - Additional Information Resuscitation Status: Full Code Discharge Diet: Cardiac Discharge Activity: Activity As Tolerated, Balance Activity w/Rest, Weigh Daily Referrals: LARRY QUEEN MD [Primary Care Provider] - 06/30/19 2:15 pm Prescriptions: Sacubitril/Valsartan [Entresto 49 mg/51 mg Tablet] 1 tab PO BID #60 tablet Furosemide [Lasix 40 mg Tablet] 40 mg PO DAILY #90 tablet Fluticasone/Umeclidin/Vilanter [Trelegy 100-62.5-25 Mcg Ellipta 14 Dose/Dpi] 14 inh IH DAILY #2 inhaler Home Medications: Albuterol Sulfate [Proair HFA Inhalation Aerosol 8.5 gm MDI] 2 puff IH Q4HP PRN 06/18/19 Fluticasone/Umeclidin/Vilanter [Trelegy 100-62.5-25 Mcg Ellipta 14 Dose/Dpi] 14 inh IH DAILY #2 inhaler 06/27/19 Furosemide [Lasix 40 mg Tablet] 40 mg PO DAILY #90 tablet 06/27/19 Metoprolol Succinate [Toprol Xl 50 mg Tab.sr] 100 mg PO DAILY #90 tab.sr.24h 06/27/19 Sacubitril/Valsartan [Entresto 49 mg/51 mg Tablet] 1 tab PO BID #60 tablet 06/27/19 History of Present Illiness History of Present Illness: FERNANDO BHATIA is a 68 year old male, he came in earlier this morning for evaluation of shortnes of breath and cough for the last few days. He also complained of lower extremity edema, patient is well-known to me, he has a history of COPD, polysubstance abuse specifically cocaine and marijuana, when I see him on the floor he complain of shortness of breath, he was on nasal cannula 2 L, when I auscultated his chest there was no overt wheeze there was diminished air entry, CT chest without contrast was obtained it demonstrated enlarged heart but grossly stable emphysematous changes in the upper lobe and apices, airspace opacity in the left upper lobe with air bronchograms consistent with pneumonia, no discrete effusion. ABG on FiO2 2 L, pH 7.43, PO2 90.2, bicarbonate 25.7 PCO2 39.2. He had a 2D echo done on October 28, 2018, it demonstrated mildly reduced left ventricular systolic function the estimated ejection fraction was 45 to 50% Doppler evaluation suggests pseudonormalization of the left ventricle consistent with grade 2 diastolic dysfunction also found was moderate pulmonary hypertension. The laboratory was done also demonstrated grossly abnormal LFTs Hospital Course Hospital Course: Patient was admitted for the management of acute systolic heart failure, left upper lobe pneumonia., He was treated with IV antibiotic Levaquin and ceftriaxone. A 2D echo was done, it demonstrated ejection fraction of left ventricle 30%, he was started on Entresto, metoprolol, he also had elevated troponin he was seen in consultation by Dr. Muñiz, cardiology for his CHF Physical Exam Vital Signs: Temp Pulse Resp BP Pulse Ox 98.2 F 79 17 129/74 H 98 06/27/19 19:24 06/27/19 19:24 06/27/19 19:24 06/27/19 19:24 06/27/19 19:24 Intake & Output 06/26/19 06/27/19 06/28/19 06:59 06:59 06:59 Intake Total 701 1310 900 Output Total 300 Balance 701 1010 900 Weight 61 kg 63.5 kg General appearance: PRESENT: no acute distress Eye exam: PRESENT: PERRLA Respiratory exam: PRESENT: clear to auscultation sherly Cardiovascular exam: PRESENT: +S1, +S2 GI/Abdominal exam: PRESENT: soft Neurological exam: PRESENT: alert, CN II-XII grossly intact Results Laboratory Results: WBC 3.0 10^3/uL (4.0-10.5) L 06/24/19 21:58 RBC 4.44 10^6/uL (4.35-5.55) 06/24/19 21:58 Hgb 12.1 g/dL (13.5-17.0) L 06/24/19 21:58 Hct 37.5 % (37.9-51.0) L 06/24/19 21:58 MCV 84 fl (80-97) 06/24/19 21:58 MCH 27.2 pg (27.0-33.4) 06/24/19 21:58 MCHC 32.2 g/dL (32.0-36.0) 06/24/19 21:58 RDW 14.5 % (11.5-14.0) H 06/24/19 21:58 Plt Count 234 10^3/uL (150-450) 06/24/19 21:58 Lymph % (Auto) Not Reportable 06/24/19 21:58 [place] % (Auto) Not Reportable 06/24/19 21:58 Eos % (Auto) Not Reportable 06/24/19 21:58 Baso % (Auto) Not Reportable 06/24/19 21:58 Absolute Neuts (auto) Not Reportable 06/24/19 21:58 Absolute Lymphs (auto) Not Reportable 06/24/19 21:58 Absolute Monos (auto) Not Reportable 06/24/19 21:58 Absolute Eos (auto) Not Reportable 06/24/19 21:58 Absolute Basos (auto) Not Reportable 06/24/19 21:58 Total Counted 100 06/24/19 21:58 Seg Neutrophils % Not Reportable 06/24/19 21:58 Seg Neuts % (Manual) 30 % (42-78) L 06/24/19 21:58 Lymphocytes % (Manual) 60 % (13-45) H 06/24/19 21:58 Atypical Lymphs % 3 % (0) 06/24/19 21:58 Monocytes % (Manual) 6 % (3-13) 06/24/19 21:58 Eosinophils % (Manual) 1 % (0-6) 06/24/19 21:58 Basophils % (Manual) 0 % (0-2) 06/24/19 21:58 Abs Neuts (Manual) 0.9 10^3/uL (1.7-8.2) L 06/24/19 21:58 Abs Lymphs (Manual) 1.9 10^3/uL (0.5-4.7) 06/24/19 21:58 Abs Monocytes (Manual) 0.2 10^3/uL (0.1-1.4) 06/24/19 21:58 Absolute Eos (Manual) 0.0 10^3/uL (0.0-0.6) 06/24/19 21:58 Abs Basophils (Manual) 0.0 10^3/uL (0.0-0.2) 06/24/19 21:58 Platelet Comment ADEQUATE 06/24/19 21:58 Poikilocytosis SLIGHT 06/24/19 21:58 Anisocytosis SLIGHT 06/24/19 21:58 PT 14.1 SEC (11.4-15.4) 06/17/19 21:11 INR 1.09 06/17/19 21:11 D-Dimer 0.68 ug/mL (0.00-0.50) H 06/18/19 14:56 Carbonic Acid 1.19 mmol/L (1.05-1.35) 06/18/19 06:40 HCO3/H2CO3 Ratio 21:1 06/18/19 06:40 ABG pH 7.43 (7.35-7.45) 06/18/19 06:40 ABG pCO2 39.7 mmHg (35-45) 06/18/19 06:40 ABG pO2 98.2 mmHg (80-100) 06/18/19 06:40 ABG HCO3 25.7 mmol/L (20-24) H 06/18/19 06:40 ABG Total CO2 26.9 mmol/L (23-27) 06/18/19 06:40 ABG O2 Saturation 97.6 % (94-98) 06/18/19 06:40 ABG Base Excess 1.3 mmol/L 06/18/19 06:40 VBG pH 7.38 (7.30-7.42) 06/17/19 20:45 VBG pCO2 41.5 mmHg (35-63) 06/17/19 20:45 VBG HCO3 24.2 mmol/L (20-32) 06/17/19 20:45 VBG Base Excess -0.8 mmol/L 06/17/19 20:45 FiO2 2L 06/18/19 06:40 Sodium 138.4 mmol/L (137-145) 06/24/19 21:58 Potassium 4.4 mmol/L (3.6-5.0) 06/24/19 21:58 Chloride 100 mmol/L (98-107) 06/24/19 21:58 Carbon Dioxide 32 mmol/L (22-30) H 06/24/19 21:58 Anion Gap 6 (5-19) 06/24/19 21:58 BUN 19 mg/dL (7-20) 06/24/19 21:58 Creatinine 0.85 mg/dL (0.52-1.25) 06/24/19 21:58 Est GFR ( Amer) > 60 (>60) 06/24/19 21:58 Est GFR (MDRD) Non-Af > 60 (>60) 06/24/19 21:58 Glucose 99 mg/dL (75-110) 06/24/19 21:58 POC Glucose 99 mg/dL (70-110) 06/18/19 21:20 Hemoglobin A1c % 5.9 % (4.7-6.0) 06/19/19 06:49 Lactic Acid 1.5 mmol/L (0.7-2.1) 06/18/19 02:47 Calcium 8.5 mg/dL (8.4-10.2) 06/24/19 21:58 Total Bilirubin 0.3 mg/dL (0.2-1.3) 06/24/19 21:58 Direct Bilirubin 0.3 mg/dL (0.0-0.4) 06/24/19 21:58 Neonat Total Bilirubin Not Reportable 06/24/19 21:58 Neonat Direct Bilirubin Not Reportable 06/24/19 21:58 Neonat Indirect Bili Not Reportable 06/24/19 21:58 AST 71 U/L (17-59) H 06/24/19 21:58 ALT 81 U/L (<50) H 06/24/19 21:58 Alkaline Phosphatase 127 U/L (38-126) H 06/24/19 21:58 Creatine Kinase 183 U/L (55-170) H 06/22/19 13:43 CK-MB (CK-2) 1.26 ng/mL (<4.55) 06/22/19 13:43 Troponin I 0.065 ng/mL 06/22/19 13:43 NT-Pro-B Natriuret Pep 4820 pg/mL (<125) H 06/18/19 02:47 Total Protein 6.5 g/dL (6.3-8.2) 06/24/19 21:58 Albumin 2.8 g/dL (3.5-5.0) L 06/24/19 21:58 Urine Color YELLOW 06/18/19 05:40 Urine Appearance CLEAR 06/18/19 05:40 Urine pH 5.0 (5.0-9.0) 06/18/19 05:40 Ur Specific [place] 1.014 06/18/19 05:40 Urine Protein 30 mg/dL (NEGATIVE) H 06/18/19 05:40 Urine Glucose (UA) NEGATIVE mg/dL (NEGATIVE) 06/18/19 05:40 Urine Ketones NEGATIVE mg/dL (NEGATIVE) 06/18/19 05:40 Urine Blood SMALL (NEGATIVE) H 06/18/19 05:40 Urine Nitrite NEGATIVE (NEGATIVE) 06/18/19 05:40 Urine Bilirubin NEGATIVE (NEGATIVE) 06/18/19 05:40 Urine Urobilinogen 2.0 mg/dL (<2.0) H 06/18/19 05:40 Ur Leukocyte Esterase NEGATIVE (NEGATIVE) 06/18/19 05:40 Urine WBC (Auto) 5 /HPF 06/18/19 05:40 Urine RBC (Auto) 2 /HPF 06/18/19 05:40 U Hyaline Cast (Auto) 1 /LPF 06/17/19 23:04 Urine Bacteria (Auto) 3+ /HPF 06/17/19 23:04 Squamous Epi Cells Auto <1 /HPF 06/18/19 05:40 Urine Mucus (Auto) RARE /LPF 06/18/19 05:40 Urine Creatinine 91.2 mg/dL (22-328) 06/18/19 05:40 Protein/Creatinin Ratio 0.6 mg/mg (0.0-0.2) H 06/18/19 05:40 Urine Total Protein 51.3 mg/dL (<12) H 06/18/19 05:40 Urine Ascorbic Acid NEGATIVE (NEGATIVE) 06/18/19 05:40 Urine Opiates Screen NEGATIVE 06/18/19 05:40 Urine Methadone Screen NEGATIVE 06/18/19 05:40 Ur Barbiturates Screen NEGATIVE 06/18/19 05:40 Ur Phencyclidine Scrn NEGATIVE 06/18/19 05:40 Ur Amphetamines Screen NEGATIVE 06/18/19 05:40 U Benzodiazepines Scrn NEGATIVE 06/18/19 05:40 Urine Cocaine Screen UNCONFIRMED POSITIVE 06/18/19 05:40 U Marijuana (THC) Screen NEGATIVE 06/18/19 05:40 Hepatitis A IgM Ab Negative (Negative) 06/17/19 20:45 Hep Bs Antigen Negative (Negative) 06/17/19 20:45 Hep B Core IgM Ab Negative (Negative) 06/17/19 20:45 Hepatitis C Antibody <0.1 s/co ratio (0.0-0.9) 06/17/19 20:45 Influenza A (Rapid) NEGATIVE (NEGATIVE) 06/17/19 22:20 Influenza B (Rapid) NEGATIVE (NEGATIVE) 06/17/19 22:20 06/17/19 06/18/19 06/18/19 20:45 02:47 14:56 CK-MB (CK-2) 1.56 1.13 Troponin I 0.036 0.051 0.037 NT-Pro-B Natriuret Pep 4820 H 06/18/19 06/19/19 06/21/19 20:45 02:52 22:13 CK-MB (CK-2) 0.98 1.10 1.05 Troponin I 0.051 0.061 0.109 NT-Pro-B Natriuret Pep 06/22/19 06/22/19 04:40 13:43 CK-MB (CK-2) 1.04 1.26 Troponin I 0.101 0.065 NT-Pro-B Natriuret Pep Impressions: Chest X-Ray 06/17/19 20:24 IMPRESSION: 1. Nonspecific prominence of the parenchymal lung markings in the perihilar and left lung which are stable. 2. Cardiomegaly which is more pronounced on today's exam. Chest CT 06/18/19 00:00 IMPRESSION: Minor emphysematous changes. Left upper lobe pneumonia. Stable cardiomegaly. Grossly stable mediastinal adenopathy. TECHNICAL DOCUMENTATION: Quality ID # [id number]: Final reports with documentation of one or more dose reduction techniques (e.g., Automated exposure control, adjustment of the mA and/or kV according to patient size, use of iterative reconstruction technique) copyright 2011 [employer]- All Rights Reserved Abdomen Ultrasound 06/19/19 00:00 IMPRESSION: 1. Hepatic steatosis. Stroke Is this a Stroke Patient?: No Acute Heart Failure - Is this a Heart Failure Patient?: Yes Documentation of LVEF assessment?: Yes LVEF < 40%?: Yes-if yes answer questions a through e a) Discharged on ACEI?: Yes b) Discharges on ARB?: Yes c) Discharged on ARNI?: Yes Reason(s) not discharged on ARNI: ACEI use within the prior 36 hours d) Discharged on evidence-based Beta breanna(carvedilol, sustained release metoprolol succinate, or bisoprolol)?: Yes e) For LVEF <35%, discharged on Aldosterone antagonist?: Yes Reason(s) not discharged on Aldosterone antagonist for LVEF < 35%: Other - will need to repeat 2D Echocardiogram in 3 months Follow-up Appointment scheduled within 7 days?: Yes
== END 2019-06-27 19:45 | disposition home or self-care (01) | DRG 193 ==
LOC: ER 19:54 → EH 06-18 01:00 → 4S 06-18 02:54
PROVIDERS: ADMIT Internal Medicine; ATTEND Internal Medicine
DX: J18.9 Pneumonia, unspecified organism (principal); I50.23 Acute on chronic systolic (congestive) heart failure; N39.0 Urinary tract infection, site not specified; I42.0 Dilated cardiomyopathy; I11.0 Hypertensive heart disease with heart failure; J43.9 Emphysema, unspecified; F14.10 Cocaine abuse, uncomplicated; F12.10 Cannabis abuse, uncomplicated; R79.89 Other specified abnormal findings of blood chemistry; I50.9 Heart failure, unspecified; I27.20 Pulmonary hypertension, unspecified; I25.5 Ischemic cardiomyopathy; K44.9 Diaphragmatic hernia without obstruction or gangrene; F17.210 Nicotine dependence, cigarettes, uncomplicated; I25.10 Atherosclerotic heart disease of native coronary artery without angina pectoris; M19.90 Unspecified osteoarthritis, unspecified site; Z99.81 Dependence on supplemental oxygen; Z86.73 Personal history of transient ischemic attack (TIA), and cerebral infarction without residual deficits; Z90.5 Acquired absence of kidney; Z79.51 Long term (current) use of inhaled steroids; Z79.899 Other long term (current) drug therapy
CPT/HCPCS: 36415; 36600; 71045; 71250; 76700; 80053; 80074; 80307; 81001; 82550; 82553; 82570; 82803; 82962; 83036; 83605; 83880; 84156; 84484; 85025; 85379; 85610; 87040; 87070; 87086; 87088; 87186; 87205; 87804; 93005; 93010; 93306; 94640; 96361; 96365; 96367; 99285; J0456; J0696; J1650; J1956; J2060; J3490; J7030

== ENCOUNTER 2019-07-15 09:18 | Emergency (ER) | payer MEDICARE, MEDICAID ==
[2019-07-15 09:54] LABS: APPEARANCE,URINE CLEAR; BILIRUBIN,URINE NEGATIVE (NEGATIVE); COLOR,URINE STRAW; GLUCOSE, URINE NEGATIVE (NEGATIVE); KETONES,URINE NEGATIVE (NEGATIVE); LEUKOCYTE ESTERASE,URINE NEGATIVE (NEGATIVE); NITRITE,URINE NEGATIVE (NEGATIVE); PROTEIN,URINE NEGATIVE (NEGATIVE); URINE SPECIFIC GRAVITY 1.009; UROBILINOGEN,URINE NEGATIVE mg/dL (<2.0)
[2019-07-15 10:19] LABS: ABSOLUTE EOSINOPHILS # (AUTO) 0.1 10^3/uL (0.0-0.6); ABSOLUTE MONOCYTES (AUTO) 0.3 10^3/uL (0.1-1.4); ABSOLUTE NEUT (AUTO) 1.9 10^3/uL (1.7-8.2); BASOPHILS % (AUTO) 1.1 % (0-2); HEMATOCRIT 39.1 % (37.9-51.0); HEMOGLOBIN 12.9 g/dL (13.5-17.0); LYMPHOCYTES % (AUTO) 30.4 % (13-45); MEAN CORPUSCULAR HGB CONC 33.1 g/dL (32.0-36.0); MEAN CORPUSCULAR VOLUME 85 fl (80-97); MONOCYTES % (AUTO) 9.7 % (3-13); PLATELET COUNT 172 10^3/uL (150-450); RED BLOOD COUNT 4.62 10^6/uL (4.35-5.55); RED CELL DISTRIBUTION WIDTH 14.4 % (11.5-14.0); SEGMENTED NEUTROPHILS % (AUTO) 55.8 % (42-78); TOTAL CELLS COUNTED % (AUTO) 100 %; WHITE BLOOD COUNT 3.4 10^3/uL (4.0-10.5)
--- NOTE | 2019-07-15 10:20 | RADIOLOGY REPORT (SQ) ---
06/17/2019 EXAM DESCRIPTION: CHEST 2 VIEWS COMPLETED DATE/TIME: 07/15/2019 8:50 am REASON FOR STUDY: SOB COMPARISON: 06/17/2019 EXAM PARAMETERS: NUMBER OF VIEWS: two views TECHNIQUE: Digital Frontal and Lateral radiographic views of the chest acquired. RADIATION DOSE: NA LIMITATIONS: none FINDINGS: LUNGS AND PLEURA: The lungs are hyperinflated. There is mild increased interstitial promi nence since prior examination, particularly in the right mid to lower lung. No pleural effusion or p neumothorax. MEDIASTINUM AND HILAR STRUCTURES: No masses or contour abnormalities. HEART AND VASCULAR STRUCTURES: Heart normal size. No evidence for failure. BONES: No acute findings. HARDWARE: None in the chest. OTHER: No other significant finding. IMPRESSION: Mild increased interstitial prominence predominantly in the right mid to lower lung, kayla picious for respiratory bronchiolitis/small airways disease. TECHNICAL DOCUMENTATION: JOB ID: [id number] 2010 [employer]- All Rights Reserved Reading location - IP/workstation name: [email or web address]
[2019-07-15] MEDS ORDERED: IPRATROPIUM/ALBUTEROL 0.5-2.5 MG/3 ML AMPUL NEB ONE (10:23)
[2019-07-15 10:40] LABS: CHLORIDE 103 mmol/L (98-107); POTASSIUM 4.2 mmol/L (3.6-5.0)
[2019-07-15 10:47] LABS: ALBUMIN 3.6 g/dL (3.5-5.0); ALKALINE PHOSPHATASE 97 U/L (38-126); ASPARTATE AMINO TRANSFERASE 31 U/L (17-59); BILIRUBIN,DIRECT 0.3 mg/dL (0.0-0.4); BILIRUBIN,TOTAL 0.4 mg/dL (0.2-1.3); BLOOD UREA NITROGEN 10 mg/dL (7-20); CALCIUM 9.1 mg/dL (8.4-10.2); GLUCOSE 135 mg/dL (75-110); TOTAL PROTEIN 7.6 g/dL (6.3-8.2)
[2019-07-15 10:48] LABS: ANION GAP 7 (5-19); CARBON DIOXIDE 30 mmol/L (22-30)
[2019-07-15 11:21] LABS: CREATINE KINASE MB 2.24 ng/mL (<4.55); NT PRO BNP 1450 pg/mL (<125)
[2019-07-15 11:27] LABS: TROPONIN I < 0.012 ng/mL
[2019-07-15] MEDS ORDERED: FUROSEMIDE INJ/PF 20 MG/2 ML SDV IV ONE (13:18)
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
[2019-07-15 16:20] VITALS: BP 134/62
--- NOTE | 2019-07-15 18:09 | EKG REPORT ---
SEVERITY:- ABNORMAL ECG - SINUS RHYTHM PROBABLE LEFT ATRIAL ABNORMALITY LVH WITH SECONDARY REPOLARIZATION ABNORMALITY : Confirmed by: Catalino Cody MD 15-Jul-2019 18:09:06
== END 2019-07-15 16:04 | disposition home or self-care (01) ==
LOC: ER 09:18
DX: J44.1 Chronic obstructive pulmonary disease with (acute) exacerbation (principal); R06.02 Shortness of breath; Z88.8 Allergy status to other drugs, medicaments and biological substances; I50.9 Heart failure, unspecified; I25.10 Atherosclerotic heart disease of native coronary artery without angina pectoris; I11.0 Hypertensive heart disease with heart failure
CPT/HCPCS: 93005; 94640; 99285; 96374; 36415; 82553; 82550; 85025; 80053; 81001; 84484; 83880; 71046; 93010; J1940; A9270; J7620